=== PATIENT | female | born 1985 | race Caucasian/White ===

== ENCOUNTER 2017-05-16 11:37 | Emergency (ER) | payer OTHER ==
[~2017-05-16] VITALS: Ht 165.1 cm; Wt 131.5 kg
[~2017-05-16 11:37] MED LIST: AUGMENTIN 875-1 EACH PO; BENADRYL25 MG PO; COLACE100 MG PO; CYCLOBENZAPRINE10 MG PO; DOXYCYCLINE HY100 MG PO; IBUPROFEN800 MG PO; KEFLEX500 MG PO; LIDODERM700 MG TOP; LOPERAMIDE2 MG PO; MAGNESIUM CITR296 ML PO; MEDROL4 M1 PO; MELOXICAM15 MG PO; MELOXICAM7.5 MG PO; METRONIDAZOLE500 MG PO; OXYCODONE-ACET1 EAC1 PO; PERCOCET 5-3251 EACH PO; PHENERGAN25 MG RC; PREDNISONE20 MG PO; TRAMADOL HCL50 MG PO; ZANAFLEX4 M1 PO; ZOFRAN ODT4 MG PO; ZOFRAN ODT8 MG PO
--- OUTSIDE RECORDS SUMMARY | 2017-05-16 11:57 | XMS ---
Demographics + + + | Address | [address] | | | [place] [address] | + + + | Preferred Language | Unknown | + + + | Marital Status | Unknown | + + + | Buddhist Affiliation | Unknown | + + + | Race | Unknown | + + + | Ethnic Group | Unknown | + + + Author + + + | Author | [facility] | + + + | Organization | [facility] | + + + | Address | [address] | | | [place] [address] | + + + | Phone | [phone] EXT [phone] | + + + Care Team Providers + + + + | Care Supervisor Fur Floor Worker Name | Role | Phone | + + + + Unavailable | Unavailable | + + + + PROBLEMS +---------+ + + +--------+ + + | Type | Condition | ICD9-CM | [id number] | Onset | Condition | SNOMED | | | | Code | Code | Dates | Status | Code | +---------+ + + +--------+ + + | Problem | Irregular | N92.6 | | | Active | 84219812 | | | menstrual | | | | | | | | cycle | | | | | | +---------+ + + +--------+ + + | Problem | Amenorrhea | | N91.2 | | Active | 54626699 | +---------+ + + +--------+ + + | Problem | Abdominal | 789.04 | | | Active | 461734183 | | | pain, left | | | | | | | | lower | | | | | | | | quadrant | | | | | | +---------+ + + +--------+ + + | Problem | Essential | | I10 | | Active | 40504697 | | | (primary) | | | | | | | | hypertensi | | | | | | | | on | | | | | | +---------+ + + +--------+ + + | Problem | Low back | | M54.5 | | Active | 097130332 | | | pain | | | | | | +---------+ + + +--------+ + + ALLERGIES Unknown Allergies SOCIAL HISTORY No smoking Hx information available PLAN OF CARE VITAL SIGNS MEDICATIONS Unknown Medications RESULTS No Results PROCEDURES No Known procedures IMMUNIZATIONS No Known Immunizations"
--- OUTSIDE RECORDS SUMMARY | 2017-05-16 11:57 | XMS ---
Demographics + + + | Address | [address] | | | [place] [address] | + + + | Preferred Language | Unknown | + + + | Marital Status | Unknown | + + + | Congregation Affiliation | Unknown | + + + | Race | Unknown | + + + | Ethnic Group | Unknown | + + + Author + + + | Author | [facility] | + + + | Organization | [facility] | + + + | Address | [address] | | | [place] [address] | + + + | Phone | [phone] EXT [phone] | + + + Care Team Providers + + + + | Care Branch Administrator Name | Role | Phone | + + + + Unavailable | Unavailable | + + + + PROBLEMS +---------+ + + +--------+ + + | Type | Condition | ICD9-CM | [id number] | Onset | Condition | SNOMED | | | | Code | Code | Dates | Status | Code | +---------+ + + +--------+ + + | Problem | Irregular | N92.6 | | | Active | 17411899 | | | menstrual | | | | | | | | cycle | | | | | | +---------+ + + +--------+ + + | Problem | Amenorrhea | | N91.2 | | Active | 30038251 | +---------+ + + +--------+ + + | Problem | Abdominal | 789.04 | | | Active | 206081086 | | | pain, left | | | | | | | | lower | | | | | | | | quadrant | | | | | | +---------+ + + +--------+ + + | Problem | Essential | | I10 | | Active | 61793962 | | | (primary) | | | | | | | | hypertensi | | | | | | | | on | | | | | | +---------+ + + +--------+ + + | Problem | Low back | | M54.5 | | Active | 703432229 | | | pain | | | | | | +---------+ + + +--------+ + + ALLERGIES Unknown Allergies SOCIAL HISTORY No smoking Hx information available PLAN OF CARE VITAL SIGNS MEDICATIONS Unknown Medications RESULTS No Results PROCEDURES No Known procedures IMMUNIZATIONS No Known Immunizations"
--- OUTSIDE RECORDS SUMMARY | 2017-05-16 11:57 | XMS ---
Demographics + + + | Address | [address] | | | [place] [address] | + + + | Preferred Language | Unknown | + + + | Marital Status | Unknown | + + + | Yazdanism Affiliation | Unknown | + + + | Race | Unknown | + + + | Ethnic Group | Unknown | + + + Author + + + | Author | [facility] | + + + | Organization | [facility] | + + + | Address | [address] | | | [place] [address] | + + + | Phone | [phone] EXT [phone] | + + + Care Team Providers + + + + | Care Agricultural Equipment Salesperson Name | Role | Phone | + + + + Unavailable | Unavailable | + + + + PROBLEMS +---------+ + + +--------+ + + | Type | Condition | ICD9-CM | [id number] | Onset | Condition | SNOMED | | | | Code | Code | Dates | Status | Code | +---------+ + + +--------+ + + | Problem | Irregular | N92.6 | | | Active | [id number] | | | menstrual | | | | | | | | cycle | | | | | | +---------+ + + +--------+ + + | Problem | Amenorrhea | | N91.2 | | Active | 00956667 | +---------+ + + +--------+ + + | Problem | Abdominal | 789.04 | | | Active | 058715147 | | | pain, left | | | | | | | | lower | | | | | | | | quadrant | | | | | | +---------+ + + +--------+ + + | Problem | Essential | | I10 | | Active | 16884924 | | | (primary) | | | | | | | | hypertensi | | | | | | | | on | | | | | | +---------+ + + +--------+ + + | Problem | Low back | | M54.5 | | Active | 955744805 | | | pain | | | | | | +---------+ + + +--------+ + + ALLERGIES + + + + +--------+ | Substance | Reaction | Event Type | Date | Status | + + + + +--------+ | Tramadol HCl | stomach upset | Drug Allergy | May, | Active | + + + + +--------+ | Toradol | stomach upset | Drug Allergy | May, | Active | + + + + +--------+ | Naproxen | stomach upset | Drug Allergy | May, | Active | + + + + +--------+ SOCIAL HISTORY No smoking Hx information available PLAN OF CARE + +---------+ | Activity | Details | + +---------+ +---+ | | +---+ + + + | Follow Up | prn, 8 weeks Reason:null | + + + | Pending Test | Pap Lb (Liquid-based) | + + + | Pending Test | HPV, DNA | + + + | Pending Test | Ultrasound: Pelvic | + + + | Future/Pending Procedure | Endometrial Biopsy | + + + VITAL SIGNS + + + + | Height | 64.75 in | 2017-05-07 | + + + + | Weight | 307.0 lbs | 2017-05-07 | + + + + | BMI | 51.48 kg/m2 | 2017-05-07 | + + + + | Heart Rate | 86 /min | 2017-05-07 | + + + + | Blood pressure systolic | 144 mm Hg | 2017-05-07 | + + + + | Blood pressure diastolic | 93 mm Hg | 2017-05-07 | + + + + MEDICATIONS + + + + + + + +--------+ | Medicati | Instruct | Dosage | Frequenc | Start | End Date | Duration | Status | | on | ions | | y | Date | | | | + + + + + + + +--------+ | Provera | Orally | 1 tablet | | May, | 16 Oct, | 10 days | Active | | 10 mg | Once a | | | 2016 | 2016 | | | | | day | | | | | | | | | starting | | | | | | | | | on the | | | | | | | | | 16th day | | | | | | | | | of | | | | | | | | | cycle | | | | | | | + + + + + + + +--------+ RESULTS + +--------+------+ + | Name | Result | Date | Reference Range | + +--------+------+ + | Endometrial Biopsy | | | | + +--------+------+ + PROCEDURES + + + + + | Procedure | Date Ordered | Related Diagnosis | Body Site | + + + + + | SPECIMEN HANDLING | May 07, 2017 | | | + + + + + | BIOPSY OF UTERUS | May 07, 2017 | | | | LINING | | | | + + + + + | DSCHRG MED/CURRENT | May 07, 2017 | | | | MED MERGE | | | | + + + + + | Est Level IV | May 07, 2017 | | | | Extended | | | | + + + + + | DOC MEDS VERIFIED | May 07, 2017 | | | | W/PT OR RE | | | | + + + + + IMMUNIZATIONS No Known Immunizations"
[2017-05-16] MEDS ORDERED: PERCOCET 5-3251 EACH PO (14:21)
[2017-05-16] MEDS ORDERED: DOXYCYCLINE HY100 MG PO (14:24)
== END 2017-05-16 14:46 | disposition home or self-care (01) ==
LOC: ED 11:37
DX: R10.2 Pelvic and perineal pain (principal); E66.01 Morbid (severe) obesity due to excess calories; F17.200 Nicotine dependence, unspecified, uncomplicated; Z88.8 Allergy status to other drugs, medicaments and biological substances; Z88.5 Allergy status to narcotic agent; Z79.899 Other long term (current) drug therapy
CPT/HCPCS: 76830; 76856; 81001; 84703; 85025; 99284

== ENCOUNTER 2017-05-21 19:07 | Emergency (ER) | payer OTHER ==
[~2017-05-21] VITALS: Ht 165.1 cm; Wt 131.5 kg
[2017-05-21] MEDS ORDERED: MEDROXYPROGESTE10 MG PO (19:23)
== END 2017-05-21 23:22 | disposition home or self-care (01) ==
LOC: ED 19:07
DX: R10.2 Pelvic and perineal pain (principal); E66.01 Morbid (severe) obesity due to excess calories; F17.200 Nicotine dependence, unspecified, uncomplicated; Z88.8 Allergy status to other drugs, medicaments and biological substances; Z88.5 Allergy status to narcotic agent; Z79.899 Other long term (current) drug therapy
CPT/HCPCS: 36415; 74177; 80053; 81001; 84703; 85025; 99284; Q9967

== ENCOUNTER 2017-06-11 18:16 | Emergency (ER) | payer OTHER ==
[~2017-06-11] VITALS: Ht 165.1 cm; Wt 136.1 kg
[~2017-06-11 18:16] MED LIST changes: +MEDROXYPROGESTE10 MG PO
[2017-06-11] MEDS ORDERED: PROVERA10 MG PO (21:23)
--- OUTSIDE RECORDS SUMMARY | 2017-06-11 21:26 | XMS ---
Demographics + + + | Address | [address] | | | [place] [address] | + + + | Preferred Language | Unknown | + + + | Marital Status | Unknown | + + + | Jew Affiliation | Unknown | + + + | Race | Unknown | + + + | Ethnic Group | Unknown | + + + Author + + + | Author | [facility] | + + + | Organization | [facility] | + + + | Address | [address] | | | [place] [address] | + + + | Phone | | + + + Care Team Providers + + + + | Care Semiconductor Processing Group Leader Name | Role | Phone | + + + + Unavailable | Unavailable | + + + + PROBLEMS +---------+ + + +--------+ + + | Type | Condition | ICD9-CM | IJQ24-[id number] | Onset | Condition | SNOMED | | | | Code | Code | Dates | Status | Code | +---------+ + + +--------+ + + | Problem | Opioid | F11.20 | | | Active | [id number] | | | dependence | | | | | | +---------+ + + +--------+ + + | Problem | Irregular | N92.6 | | | Active | 88615763 | | | menstrual | | | | | | | | cycle | | | | | | +---------+ + + +--------+ + + | Problem | Low back | | M54.5 | | Active | 077763868 | | | pain | | | | | | +---------+ + + +--------+ + + | Problem | Abdominal | 789.04 | | | Active | 379918868 | | | pain, left | | | | | | | | lower | | | | | | | | quadrant | | | | | | +---------+ + + +--------+ + + | Problem | Amenorrhea | | N91.2 | | Active | 68019737 | +---------+ + + +--------+ + + | Problem | Essential | | I10 | | Active | 06136063 | | | (primary) | | | [...] + + + | Follow Up | prn Reason:null | + + + VITAL SIGNS + + + + | Height | 64.75 in | 2017-05-30 | + + + + | Weight | 301.0 lbs | 2017-05-30 | + + + + | BMI | 50.47 kg/m2 | 2017-05-30 | + + + + | Temperature | 98.7 degrees Fahrenheit | 2017-05-30 | + + + + | Heart Rate | 76 /min | 2017-05-30 | + + + + | Blood pressure systolic | 127 mm Hg | 2017-05-30 | + + + + | Blood pressure diastolic | 67 mm Hg | 2017-05-30 | + + + + MEDICATIONS + + + + + + + +--------+ | Medicati | Instruct | Dosage | Frequenc | Start | End Date | Duration | Status | | on | ions | | y | Date | | | | + + + + + + + +--------+ | Provera | Orally | 1 tablet | | 07 May, | 16 Oct, | | Active | | 10 mg | Once a | | | 2017 | 2017 | | | | | month | | | | | | | + + + + + + + +--------+ RESULTS No Results PROCEDURES No Known procedures IMMUNIZATIONS No Known Immunizations"
--- OUTSIDE RECORDS SUMMARY | 2017-06-11 21:27 | XMS ---
Demographics + + + | Address | [address] | | | [place] [address] | + + + | Preferred Language | Unknown | + + + | Marital Status | Unknown | + + + | Mosque Affiliation | Unknown | + + + | Race | Unknown | + + + | Ethnic Group | Unknown | + + + Author + + + | Author | [facility] | + + + | Organization | [facility] | + + + | Address | [address] | | | [place] [address] | + + + | Phone | [phone] EXT [phone] | + + + Care Team Providers + + + + | Care Speech Therapist Early Intervention Name | Role | Phone | + + + + Unavailable | Unavailable | + + + + PROBLEMS +---------+ + + +--------+ + + | Type | Condition | ICD9-CM | [id number] | Onset | Condition | SNOMED | | | | Code | Code | Dates | Status | Code | +---------+ + + +--------+ + + | Problem | Opioid | F11.20 | | | Active | [id number] | | | dependence | | | | | | +---------+ + + +--------+ + + | Problem | Irregular | N92.6 | | | Active | 43268933 | | | menstrual | | | | | | | | cycle | | | | | | +---------+ + + +--------+ + + | Problem | Low back | | M54.5 | | Active | 224185622 | | | pain | | | | | | +---------+ + + +--------+ + + | Problem | Abdominal | 789.04 | | | Active | 630152899 | | | pain, left | | | | | | | | lower | | | | | | | | quadrant | | | | | | +---------+ + + +--------+ + + | Problem | Amenorrhea | | N91.2 | | Active | 27694581 | +---------+ + + +--------+ + + | Problem | Essential | | I10 | | Active | 61415240 | | | (primary) | | | [...]
--- OUTSIDE RECORDS SUMMARY | 2017-06-11 21:27 | XMS ---
Demographics + + + | Address | [address] | | | [place] [address] | + + + | Preferred Language | Unknown | + + + | Marital Status | Unknown | + + + | Restorationist Affiliation | Unknown | + + + | Race | Unknown | + + + | Ethnic Group | Unknown | + + + Author + + + | Author | [facility] | + + + | Organization | [facility] | + + + | Address | [address] | | | [place] [address] | + + + | Phone | [phone] EXT [phone] | + + + Care Team Providers + + + + | Care Automotive Internet Sales Consultant Name | Role | Phone | + + + + Unavailable | Unavailable | + + + + PROBLEMS +---------+ + + +--------+ + + | Type | Condition | ICD9-CM | [id number] | Onset | Condition | SNOMED | | | | Code | Code | Dates | Status | Code | +---------+ + + +--------+ + + | Problem | Opioid | F11.20 | | | Active | 35949207 | | | dependence | | | | | | +---------+ + + +--------+ + + | Problem | Irregular | N92.6 | | | Active | 86430954 | | | menstrual | | | | | | | | cycle | | | | | | +---------+ + + +--------+ + + | Problem | Low back | | M54.5 | | Active | 616496772 | | | pain | | | | | | +---------+ + + +--------+ + + | Problem | Abdominal | 789.04 | | | Active | 332217672 | | | pain, left | | | | | | | | lower | | | | | | | | quadrant | | | | | | +---------+ + + +--------+ + + | Problem | Amenorrhea | | N91.2 | | Active | 67276947 | +---------+ + + +--------+ + + | Problem | Essential | | I10 | | Active | 38557840 | | | (primary) | | | [...] + + | Follow Up | prn, 2 Months Reason:null | + + + VITAL SIGNS + + + + | Height | 64.75 in | 2017-05-24 | + + + + | Weight | 303.0 lbs | 2017-05-24 | + + + + | BMI | 50.81 kg/m2 | 2017-05-24 | + + + + | Heart Rate | 60 /min | 2017-05-24 | + + + + | Blood pressure systolic | 122 mm Hg | 2017-05-24 | + + + + | Blood pressure diastolic | 66 mm Hg | 2017-05-24 | + + + + MEDICATIONS + [...] 1 tablet | | May, | 16 Jul, | 10 days | Active | | [...] + + +--------+ RESULTS No Results PROCEDURES + + + + + | Procedure | Date Ordered | Related Diagnosis | Body Site | + + + + + | Est Level III | May 24, 2017 | | | | Intermediate | | | | + + + + + | DSCHRG MED/CURRENT | May 24, 2017 | | | | MED MERGE | | | | + + + + + | DOC MEDS VERIFIED | May 24, 2017 | | | | W/PT OR RE | | | | + + + + + IMMUNIZATIONS No Known Immunizations"
--- OUTSIDE RECORDS SUMMARY | 2017-06-11 21:27 | XMS ---
Demographics + + + | Address | [address] | | | [place] [address] | + + + | Preferred Language | Unknown | + + + | Marital Status | Unknown | + + + | Scientologist Affiliation | Unknown | + + + | Race | Unknown | + + + | Ethnic Group | Unknown | + + + Author + + + | Author | [facility] | + + + | Organization | [facility] | + + + | Address | [address] | | | [place] [address] | + + + | Phone | | + + + Care Team Providers + + + + | Care Spent Grain Dryer Name | Role | Phone | + + + + Unavailable | Unavailable | + + + + PROBLEMS +---------+ + + +--------+ + + | Type | Condition | ICD9-CM | [id number] | Onset | Condition | SNOMED | | | | Code | Code | Dates | Status | Code | +---------+ + + +--------+ + + | Problem | Irregular | N92.6 | | | Active | [id number] | | | menstrual | | | | | | | | cycle | | | | | | +---------+ + + +--------+ + + | Problem | Amenorrhea | | N91.2 | | Active | 21042582 | +---------+ + + +--------+ + + | Problem | Abdominal | 789.04 | | | Active | 447625545 | | | pain, left | | | | | | | | lower | | | | | | | | quadrant | | | | | | +---------+ + + +--------+ + + | Problem | Essential | | I10 | | Active | 98340620 | | | (primary) | | | | | | | | hypertensi | | | | | | | | on | | | | | | +---------+ + + +--------+ + + | Problem | Low back | | M54.5 | | Active | 375347928 | | | pain | | | | | | +---------+ + + +--------+ + + ALLERGIES Unknown Allergies SOCIAL HISTORY No smoking Hx information available PLAN OF CARE VITAL SIGNS MEDICATIONS Unknown Medications RESULTS No Results PROCEDURES No Known procedures IMMUNIZATIONS No Known Immunizations"
[2017-06-11] MEDS ORDERED: ZOFRAN ODT4 MG PO (23:57)
== END 2017-06-12 00:10 | disposition home or self-care (01) ==
LOC: ED 18:16
DX: R10.2 Pelvic and perineal pain (principal); R10.11 Right upper quadrant pain; F17.200 Nicotine dependence, unspecified, uncomplicated; E66.01 Morbid (severe) obesity due to excess calories; Z88.6 Allergy status to analgesic agent; Z88.5 Allergy status to narcotic agent; Z79.899 Other long term (current) drug therapy; Z79.2 Long term (current) use of antibiotics
CPT/HCPCS: 74177; 80053; 81001; 83690; 84703; 85025; 86318; 96361; 96374; 99284; J2405; J7030; Q9967

== ENCOUNTER 2017-08-02 17:12 | Emergency (ER) | payer OTHER ==
[~2017-08-02] VITALS: Ht 165.1 cm; Wt 135.2 kg
[~2017-08-02 17:12] MED LIST changes: +PROVERA10 MG PO
--- OUTSIDE RECORDS SUMMARY | 2017-08-02 17:23 | XMS | Clinical Summary ---
Demographics + + + | Address | [address] | | | [place] [address] | + + + | Home Phone | | + + + | Preferred Language | Unknown | + + + | Marital Status | | + + + | Latter-Day Affiliation | ALEVISM | + + + | Race | White | + + + | Ethnic Group | Not or | + + + Author + + + | Author | [facility] | + + + | Organization | [facility] | + + + | Address | Unknown | + + + | Phone | Unavailable | + + + Support + + +---------+ + | Name | Relationship | Address | Phone | + + +---------+ + | Doyle Danielle | ECON | Unknown | | + + +---------+ + Care Team Providers + +------+ + | Care Degree Clerk Name | Role | Phone | + +------+ + | None Per Patient, None Per | PP | Unavailable | | Pt | | | + +------+ + Allergies + + + + + + | Active Allergy | Reactions | Severity | Noted | Comments | | | | | Date | | + + + + + + | Naproxen | Rash | Medium | //20 | | | | | | 16 | | + + + + + + | Ketorolac | Rash | Medium | 07/26/20 | | | | | | 15 | | + + + + + + Current Medications + + +---------+---------+------+------+-------+ | Prescription | Sig. | Disp. | Refills | Star | End | Statu | | | | | | t | Date | s | | | | | | Date | | | + + +---------+---------+------+------+-------+ | LORazepam (ATIVAN) | Take by mouth every | | | | | Activ | | 0.5 mg tablet | 8 hours as needed | | | | | e | | | for Anxiety | | | | | | + + +---------+---------+------+------+-------+ | citalopram | Take by mouth daily | | | | | Activ | | (CELEXA) 20 mg | | | | | | e | | tabletIndications: | | | | | | | | Depression | | | | | | | + + +---------+---------+------+------+-------+ | tiZANidine | Take 8 mg by mouth | | | | | Activ | | (ZANAFLEX) 4 mg | every 8 hours as | | | | | e | | tablet | needed for Pain | | | | | | + + +---------+---------+------+------+-------+ | ibuprofen | Take 1 tablet (600 | 30 | 0 | 10/0 | | Activ | | (ADVIL;MOTRIN) 600 | mg total) by mouth | tablet | | 7/20 | | e | | mg tablet | every 8 hours as | | | 15 | | | | | needed for Pain | | | | | | + + +---------+---------+------+------+-------+ | ondansetron | Take 1 tablet (4 mg | 10 | 0 | 10/1 | | Activ | | (ZOFRAN-ODT) 4 mg | total) by mouth | tablet | | 6/20 | | e | | disintegrating | every 6 hours as | | | 15 | | | | tablet | needed for Nausea | | | | | | | | (For nausea or | | | | | | | | vomiting) place on | | | | | | | | the tongue. | | | | | | + + +---------+---------+------+------+-------+ | Oxycodone 10 mg | Take 0.5-1 tablets | 50 | 0 | 10/2 | | Activ | | tablet | (5-10 mg total) by | tablet | | 6/20 | | e | | | mouth every 4 hours | | | 15 | | | | | as needed for Pain | | | | | | + + +---------+---------+------+------+-------+ | colchicine 0.6 mg | Take 1 tablet (0.6 | 28 | 0 | 10/2 | | Activ | | tablet | mg total) by mouth 2 | tablet | | 6/20 | | e | | | times daily | | | 15 | | | + + +---------+---------+------+------+-------+ | docusate sodium | Take 1 capsule (100 | 30 | 0 | 10/2 | | Activ | | (COLACE) 100 mg | mg total) by mouth 2 | capsule | | 6/20 | | e | | capsule | times daily | | | 15 | | | + + +---------+---------+------+------+-------+ | omeprazole | Take 1 capsule (20 | 30 | 0 | 10/2 | | Activ | | (PRILOSEC) 20 mg | mg total) by mouth | capsule | | 6/20 | | e | | capsule DR | every morning | | | 15 | | | | | (before breakfast) | | | | | | + + +---------+---------+------+------+-------+ | docusate sodium | Take 1 capsule (100 | 60 | 0 | 11/0 | | Activ | | (COLACE) 100 mg | mg total) by mouth 2 | capsule | | 8/20 | | e | | capsule | times daily | | | 15 | | | + + +---------+---------+------+------+-------+ | ondansetron | Take 1 tablet (4 mg | 15 | 0 | 12/2 | | Activ | | (ZOFRAN-ODT) 4 mg | total) by mouth | tablet | | 4/20 | | e | | disintegrating | every 12 hours as | | | 16 | | | | tablet | needed for Nausea | | | | | | | | place on the tongue. | | | | | | + + +---------+---------+------+------+-------+ | | Take 1-2 tablets by | 15 | 0 | 12/2 | | Activ | | HYDROcodone-acetamin | mouth every 4 hours | tablet | | 4/20 | | e | | ophen (NORCO) 5-325 | as needed for Pain | | | 16 | | | | mg per tablet | | | | | | | + + +---------+---------+------+------+-------+ Active Problems + + + | Problem | Noted Date | + + + | Chest pain | 07/26/2015 | + + + | Anxiety | 07/26/2015 | + + + | Morbid obesity with BMI of 50.0-59.9, adult (HCC) | 07/26/2015 | + + + | Acute viral pericarditis | 07/26/2015 | + + + Immunizations + + + + | Name | Dates Previously Given | Next Due | + + + + | Influenza, Quad, | 07/26/2015 | | | Preserve Free | | | + + + + Social History + + + +--------+------+ | Tobacco Use | Types | Packs/Day | Years | Date | | | | | Used | | + + + +--------+------+ | Current Every Day | Cigarettes | 0.2 | | | | Smoker | | | | | + + + +--------+------+ + +---+---+---+ | Smokeless Tobacco: | | | | | Never Used | | | | + +---+---+---+ + + | Tobacco Cessation: Ready to Quit: No; Counseling Given: Yes | + + + + +---------+ + | Alcohol Use | Drinks/We | oz/Week | Comments | | | ek | | | + + +---------+ + | Yes | 2 | 1.2 | occ | | | Standard | | | | | drinks or | | | | | | | | | | equivalen | | | | | t | | | + + +---------+ + + + + + + | Sexually Active | Control | Partners | Comments | + + + + + | Yes | | | No bith control | + + + + + + + + | Sex Assigned at | Date Recorded | | | | + + + | Not on file | | + + + Last Filed Vital Signs + + + + | Vital Sign | Reading | Time Taken | + + + + | Blood Pressure | 131/92 | 09/23/2016 5:30 AM PST | + + + + | Pulse | 94 | 09/23/2016 1:24 AM PST | + + + + | Temperature | 36.7 C (98.1 F) | 09/23/2016 1:24 AM PST | + + + + | Respiratory Rate | 14 | 09/23/2016 7:22 AM PST | + + + + | Oxygen Saturation | 95% | 09/23/2016 7:30 AM PST | + + + + | Inhaled Oxygen | - | - | | Concentration | | | + + + + | Weight | 139 kg (306 lb 7 oz) | 08/02/2015 2:47 PM PST | + + + + | Height | 165.1 cm (5' 5") | 08/02/2015 2:47 PM PST | + + + + | Body Mass Index | 50.99 | 08/02/2015 2:47 PM PST | + + + + Plan of Treatment + + + + + | Health Maintenance | Due Date | Last Done | Comments | + + + + + | HIV Screening | | | | | | 9 | | | + + + + + | Pneumo -64 Medium | | | | | Risk (1 of 1 - | 3 | | | | PPSV23) | | | | + + + + + | Tetanus | | | | | | 3 | | | + + + + + | Cervical Cancer | | | | | Screening | 5 | | | + + + + + | IMM Influenza (#1) | | 07/26/2015 | | | | 7 | | | + + + + + Results Not on filefrom Last 3 Months Advance Directives Patient has advance directives. For more information, please contact:[facility] [place] [address]
--- OUTSIDE RECORDS SUMMARY | 2017-08-02 17:23 | XMS | Clinical Summary ---
Demographics + + + | Address | [address] | | | [place] [address] | + + + | Home Phone | | + + + | Preferred Language | Unknown | + + + | Marital Status | | + + + | Muslim Affiliation | ZOROASTRIANISM | + + + | Race | [...] Team Providers + +------+ + | Care Tunnel Kiln Operator Name | Role | Phone | + [...] has advance directives. For more information, please contact:[facility] [place] [address]
== END 2017-08-02 19:10 | disposition home or self-care (01) ==
LOC: ED 17:12
DX: R10.12 Left upper quadrant pain (principal); E66.01 Morbid (severe) obesity due to excess calories; Z88.6 Allergy status to analgesic agent; Z88.5 Allergy status to narcotic agent; Z88.8 Allergy status to other drugs, medicaments and biological substances; Z79.899 Other long term (current) drug therapy
CPT/HCPCS: 81001; 84703; 96372; 99283; J2765

== ENCOUNTER 2017-10-26 17:40 | Emergency (ER) | payer OTHER ==
[~2017-10-26] VITALS: Ht 165.1 cm; Wt 135.2 kg
--- OUTSIDE RECORDS SUMMARY | 2017-10-26 17:43 | XMS ---
Demographics + + + | Address | [address] | | | [place] [address] | + + + | Preferred Language | Unknown | + + + | Marital Status | Unknown | + + + | Yazidism Affiliation | Unknown | + + + | Race | Unknown | + + + | Ethnic Group | Unknown | + + + Author + + + | Author | [facility] | + + + | Organization | [facility] | + + + | Address | [address] | | | [place] [address] | + + + | Phone | | + + + Care Team Providers + + + + | Care Camp Assistant Name | Role | Phone | + + + + Unavailable | Unavailable | + + + + PROBLEMS +---------+ + + +--------+ + + | Type | Condition | ICD9-CM | [id number] | Onset | Condition | SNOMED | | | | Code | Code | Dates | Status | Code | +---------+ + + +--------+ + + | Problem | Opioid | F11.20 | | | Active | 53655523 | | | dependence | | | | | | +---------+ + + +--------+ + + | Problem | Irregular | N92.6 | | | Active | 97063060 | | | menstrual | | | | | | | | cycle | | | | | | +---------+ + + +--------+ + + | Problem | Low back | | M54.5 | | Active | 292481286 | | | pain | | | | | | +---------+ + + +--------+ + + | Problem | Abdominal | 789.04 | | | Active | 902121763 | | | pain, left | | | | | | | | lower | | | | | | | | quadrant | | | | | | +---------+ + + +--------+ + + | Problem | Amenorrhea | | N91.2 | | Active | 08421931 | +---------+ + + +--------+ + + | Problem | Essential | | I10 | | Active | 98765585 | | | (primary) | | | | | | | | hypertensi | | | | | | | | on | | | | | | +---------+ + + +--------+ + + ALLERGIES No Information SOCIAL HISTORY Never Assessed PLAN OF CARE VITAL SIGNS MEDICATIONS Unknown Medications RESULTS No Results PROCEDURES No Known procedures IMMUNIZATIONS No Known Immunizations MEDICAL (GENERAL) HISTORY + + + + | Type | Description | Date | + + + + | Medical History | pericarditis | | + + + + | Medical History | fractured spine | | + + + + | Medical History | slipped disc | | + + + + | Medical History | building disc | | + + + + | Medical History | history related to pain | | | | management this patient is | | | | that she first saw me | | | | September 30, 2015 chronic | | | | low back pain refill of | | | | narcotics she had been | | | | living in the [place] | | | | area and had a recent | | | | admission for a | | | | pericarditis and was on | | | | high doses of Percocet 5 | | | | 325 q.4 hours p.r.n. pain | | | | and also having significant | | | | headaches obesity he is an | | | | ongoing problem she is | | | | working with a diet and | | | | exercise program has lost | | | | about 30 pounds and she | | | | gained a little weight back | | | | she is wanting to stay on | | | | the present level of | | | | narcotics and she loses | | | | more weight however I | | | | informed her that is not | | | | the plan the weight loss is | | | | important for multiple | | | | reasons but she does need | | | | to reduce the narcotics and | | | | were going to reduce him | | | | to 60 a month the headaches | | | | are much better with the | | | | lower dose of narcotics and | | | | headaches probably related | | | | to narcotic use she is | | | | having no cardiac or | | | | cardiorespiratory problems | | | | now and she has a | | | | counseling program for her | | | | narcotic use overall her | | | | quality of life improving | | | | as she establishes here and | | | | stabilized | | + + + + | Hospitalization History | Post endometritis | | + + + + | Hospitalization History | PossibleSpinal meningitis | | + + + + | Hospitalization History | Pericarditis | July 2015 | + + + +"
--- OUTSIDE RECORDS SUMMARY | 2017-10-26 17:43 | XMS ---
Demographics + + + | Address | [address] | | | [place] [address] | + + + | Preferred Language | Unknown | + + + | Marital Status | Unknown | + + + | Hinduism Affiliation | Unknown | + + + | Race | Unknown | + + + | Ethnic Group | Unknown | + + + Author + + + | Author | [facility] | + + + | Organization | [facility] | + + + | Address | [address] | | | [place] [address] | + + + | Phone | | + + + Care Team Providers + + + + | Care Renal Dialysis Technician Name | Role | Phone | + + + + Unavailable | Unavailable | + + + + PROBLEMS +---------+ + + +--------+ + + | Type | Condition | ICD9-CM | [id number] | Onset | Condition | SNOMED | | | | Code | Code | Dates | Status | Code | +---------+ + + +--------+ + + | Problem | Opioid | F11.20 | | | Active | 70492215 | | | dependence | | | | | | +---------+ + + +--------+ + + | Problem | Irregular | N92.6 | | | Active | 92781314 | | | menstrual | | | | | | | | cycle | | | | | | +---------+ + + +--------+ + + | Problem | Low back | | M54.5 | | Active | 729020149 | | | pain | | | | | | +---------+ + + +--------+ + + | Problem | Abdominal | 789.04 | | | Active | 964204812 | | | pain, left | | | | | | | | lower | | | | | | | | quadrant | | | | | | +---------+ + + +--------+ + + | Problem | Amenorrhea | | N91.2 | | Active | 67527544 | +---------+ + + +--------+ + + | Problem | Essential | | I10 | | Active | 07711116 | | | (primary) | | | [...] | stomach upset | Drug Allergy | Jun, | Active | + + + + +--------+ | Toradol | stomach upset | Drug Allergy | Jun, | Active | + + + + +--------+ | Naproxen | stomach upset | Drug Allergy | Jun, | Active | + + + + +--------+ SOCIAL HISTORY Never Assessed PLAN OF CARE + +---------+ | Activity | Details | + +---------+ +---+ | | +---+ + + + | Follow Up | prn Reason:null | + + + VITAL SIGNS + + + + | Height | 64.75 in | 2017-06-13 | + + + + | Weight | 300.0 lbs | 2017-06-13 | + + + + | BMI | 50.30 kg/m2 | 2017-06-13 | + + + + | Temperature | 99.0 degrees Fahrenheit | 2017-06-13 | + + + + | Heart Rate | 78 /min | 2017-06-13 | + + + + | Blood pressure systolic | 157 mm Hg | 2017-06-13 | + + + + | Blood pressure diastolic | 79 mm Hg | 2017-06-13 | + + + + MEDICATIONS + [...] Once a | | | 2016 | 2017 | | | | | month | | | | | | | + + + + + + + +--------+ | Protonix | Orally | 1 tab(s) | 24h | 13 Jun, | | 30 | Active | | 40 MG | once a | | | 2016 | | day(s) | | | | day | | [...] | | | | living in the [place] | | | | area and had [...]
[2017-10-26] MEDS ORDERED: IBUPROFEN800 MG PO (17:56)
--- NOTE | 2017-10-27 16:24 | EKG ---
[facility] [address] [place] [address] Signed Normal sinus rhythm Normal ECG No previous ECGs available Confirmed by SUNITHA RAMÍREZ MD ([id number]) on 10/27/2017 4:23:56 PM Electronically Signed By: SUNITHA RAMÍREZ MD 10/27/17 1624 PATIENT NAME: RICARDO DEGROOT Electrocardiogram DATE OF : 83 PHYSICIAN: SUNITHA RAMÍREZ MD REPORT #: [id number] REPORT IS CONFIDENTIAL AND NOT TO BE RELEASED WITHOUT AUTHORIZATION
== END 2017-10-26 18:55 | disposition home or self-care (01) ==
LOC: ED 17:40
DX: R07.89 Other chest pain (principal); E66.01 Morbid (severe) obesity due to excess calories; F17.200 Nicotine dependence, unspecified, uncomplicated; Z88.8 Allergy status to other drugs, medicaments and biological substances; Z88.5 Allergy status to narcotic agent; Z79.899 Other long term (current) drug therapy
CPT/HCPCS: 80053; 84484; 85025; 93005; 93010; 99284

== ENCOUNTER 2017-12-05 13:02 | Emergency (ER) | payer OTHER ==
[~2017-12-05] VITALS: Ht 165.1 cm; Wt 135.2 kg
--- OUTSIDE RECORDS SUMMARY | ~2017-12-05 | XMS | Clinical Summary ---
Demographics + + + | Address | [address] | | | [place] [address] | + + + | Home Phone | | + + + | Preferred Language | Unknown | + + + | Marital Status | | + + + | Oriental Orthodox Affiliation | YAZIDI | + + + | Race | [...] Phone | + + +---------+ + | Juliana Kwon | ECON | Unknown | | + + +---------+ + Care Team Providers + +------+ + | Care Registered Pharmacist Name | Role | Phone | + [...] | Naproxen | Rash | Medium | 09/23/20 | | | | | | 16 [...] | + + + + + | Tobacco Cessation | | | | | Counseling | 6 | | | + + + + + | HIV Screening | | | | | | 9 | | | + + + + + | Pneumo 19-64 Medium | | | | | Risk [...] has advance directives. For more information, please contact:[email or web address] [place] [address]
--- OUTSIDE RECORDS SUMMARY | ~2017-12-05 | XMS | Clinical Summary ---
Demographics + + + | Address | [address] | | | [place] [address] | + + + | Home Phone | | + + + | Preferred Language | Unknown | + + + | Marital Status | | + + + | Tenriism Affiliation | MORMONISM | + + + | Race | [...] Team Providers + +------+ + | Care Hospice Office Coordinator Name | Role | Phone | [...] has advance directives. For more information, please contact:[employer] [place] [address]
[2017-12-05] MEDS ORDERED: CIPRO250 MG PO (14:25)
== END 2017-12-05 14:57 | disposition home or self-care (01) ==
LOC: ED 13:02
DX: N39.0 Urinary tract infection, site not specified (principal); E66.01 Morbid (severe) obesity due to excess calories; F17.200 Nicotine dependence, unspecified, uncomplicated; Z88.6 Allergy status to analgesic agent; Z88.8 Allergy status to other drugs, medicaments and biological substances; Z88.5 Allergy status to narcotic agent; Z79.899 Other long term (current) drug therapy
CPT/HCPCS: 76705; 80053; 81001; 82150; 83690; 84703; 85025; 87502; 99284

== ENCOUNTER 2018-03-12 21:07 | Emergency (ER) | payer OTHER ==
[~2018-03-12] VITALS: Ht 165.1 cm; Wt 136.1 kg
[~2018-03-12 21:07] MED LIST changes: +CIPRO250 MG PO
[2018-03-12] MEDS ORDERED: HYDROCHLOROTH12.5 MG PO (21:20)
--- NOTE | 2018-03-13 08:49 | EKG ---
[facility] [address] [place] [address] Signed Normal sinus rhythm Normal ECG When compared with ECG of 26-OCT-2017 17:49, No significant change was found Confirmed by SUNITHA RAMÍREZ MD ([id number]) on 03/13/2018 8:49:46 AM Electronically Signed By: SUNITHA RAMÍREZ MD 03/13/18 0849 PATIENT NAME: ZANERICARDO Electrocardiogram DATE OF : 83 PHYSICIAN: SUNITHA RAMÍREZ MD REPORT #: [id number] REPORT IS CONFIDENTIAL AND NOT TO BE RELEASED WITHOUT AUTHORIZATION
== END 2018-03-13 00:37 | disposition home or self-care (01) ==
LOC: ED 21:07
DX: R00.2 Palpitations (principal); E66.01 Morbid (severe) obesity due to excess calories; F17.200 Nicotine dependence, unspecified, uncomplicated; Z88.6 Allergy status to analgesic agent; Z88.5 Allergy status to narcotic agent; Z79.899 Other long term (current) drug therapy
CPT/HCPCS: 71045; 80053; 81001; 83880; 84484; 84703; 85025; 85379; 93005; 93010; 96361; 96374; 96376; 99284; J2405; J7030

== ENCOUNTER 2018-10-13 16:24 | Emergency (ER) | payer OTHER ==
[~2018-10-13] VITALS: Ht 165.1 cm; Wt 136.1 kg
[~2018-10-13 16:24] MED LIST changes: +HYDROCHLOROTH12.5 MG PO
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
[2018-10-13] MEDS ORDERED: NORCO 5-325 TA1 EACH PO (17:37)
== END 2018-10-13 17:57 | disposition home or self-care (01) ==
LOC: ED 16:24
DX: S39.012A Strain of muscle, fascia and tendon of lower back, initial encounter (principal); S46.911A Strain of unspecified muscle, fascia and tendon at shoulder and upper arm level, right arm, initial encounter; S00.33XA Contusion of nose, initial encounter; E66.01 Morbid (severe) obesity due to excess calories; Z87.891 Personal history of nicotine dependence; Z88.6 Allergy status to analgesic agent; Z88.5 Allergy status to narcotic agent; Z88.8 Allergy status to other drugs, medicaments and biological substances; W22.8XXA Striking against or struck by other objects, initial encounter; Y92.410 Unspecified street and highway as the place of occurrence of the external cause
CPT/HCPCS: 72100; 73030; 99284

== ENCOUNTER 2018-11-04 14:35 | Emergency (ER) | payer OTHER ==
[~2018-11-04] VITALS: Ht 165.1 cm; Wt 136.1 kg
[~2018-11-04 14:35] MED LIST changes: +NORCO 5-325 TA1 EACH PO
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
--- NOTE | 2018-11-05 13:39 | EKG ---
[facility] [address] [place], [place] [address] Signed Normal sinus rhythm Normal ECG Confirmed by MONIKA ADHIKARI DO ([id number]) on 11/05/2018 1:39:31 PM Electronically Signed By: MONIKA ADHIKARI DO 11/05/18 1339 PATIENT NAME: BLAKE MADERARICARDO Electrocardiogram DATE OF : 83 PHYSICIAN: MONIKA ADHIKARI DO REPORT #: [id number] REPORT IS CONFIDENTIAL AND NOT TO BE RELEASED WITHOUT AUTHORIZATION
== END 2018-11-04 17:22 | disposition home or self-care (01) ==
LOC: ED 14:35
DX: R07.9 Chest pain, unspecified (principal); F41.9 Anxiety disorder, unspecified; E66.01 Morbid (severe) obesity due to excess calories; Z87.891 Personal history of nicotine dependence; Z88.6 Allergy status to analgesic agent; Z88.5 Allergy status to narcotic agent; Z79.899 Other long term (current) drug therapy
CPT/HCPCS: 36415; 80053; 84484; 85025; 93005; 93010; 96374; 96375; 99283-25; J2405

== ENCOUNTER 2018-12-26 20:54 | Emergency (ER) | payer OTHER ==
[~2018-12-26] VITALS: Ht 165.1 cm; Wt 122.5 kg
--- OUTSIDE RECORDS SUMMARY | 2018-12-26 20:58 | XMS ---
PreManage Notification: RICARDO ABERNATHY Security Cognos Developer Events No recent Security Events currently on file CRITERIA MET - Group Notification - [facility] CARE PROVIDERS RODGER [facility] Internal Medicine [facility] PHONE: [phone] HENRRY Chowdhury [facility] 06/26/2012-Current PHONE: Unknown Mike BECERRIL Family Medicine 10/17/2010-Current PHONE: [phone] ISELA BAY Nurse Practitioner: Women's Health 10/14/2018-Current PHONE: [phone] ISELA BAY Primary Care Current PHONE: [phone] HENRRY Chowdhury Primary Care 09/20/2010-Ria PHONE: Unknown Family Practice Primary [facility] Current PHONE: Unknown DULCE UNDERWOOD Primary Care [facility] PHONE: Unknown [facility] 03/14/2014-Ria Giordano MD PHONE: Unknown Guidelines Source: [facility] Guidelines Date: 04/06/2017 Care Coordination: ENCOURAGE PATIENT TO USE PCP FOR FOLLOW UP OR NON-EMERGENT PROBLEMS. ASK PATIENT TO CALL THIS APPLICATION LEAD FOR HELP OR QUESTIONS. LUCIEN JUAREZ RN MECHANIC INDUSTRIAL TRUCK, [facility] [phone] Additional care guidelines exist for the following facilities: [facility] ( 12/31/2017 ) Care History Substance Use/Overdose 05/25/2017 [facility] USE EXTREME CAUTION WITH PRESCRIBING NARCOTICS. THIS PATIENT BETWEEN 05-01 AND 05-16 HAS BEEN PRESCRIBED IN [place] THE FOLLOWIN PERCOCET 51 HYDROCODONE Medical/Surgical 10/14/2018 [facility] - PATIENT ALSO KNOWN - RICARDO DEGROOT. - Patient is currently established with [facility]. If patient is seen in the ED during business hours. Please contact CHWs at [facility]. Care Recommendation: This patient has had 5 or more Emergency Department visits in the last 12 months.\\T\\nbsp; Patient requires education on the scope and purpose of the ED as an acute care provider not a Primary Care Provider and should not be utilized for chronic conditions.\\T\\nbsp; These are guidelines and the provider should exercise clinical judgment when providing care. 05/28/2017 [facility] IF PATIENT COMES IN FOR PELVIC/ABD PAIN, CONTACT [facility] AT [phone] OPTION 2 . PATIENT HAS HAD FULL WORK-UP REGARDING THIS CHRONIC ISSUE. 08/28/2015 [facility] Chest Pain "unspecified" SOB Left lower quadrant pain Leg pain Lumbago back pain Unspecified pericardium disease anxiety Radiation 05/25/2017 [facility] PATIENT HAS HAD THE FOLLOWING IN LAST 18 MONTHS: CAT SCAN: 10/2015, 06/2016, 2016 ALL WNL US PELVIC: 11/2015, 12/2015, 05/11/2017, 05/16/2017 ALL WNL Behavioral 08/28/2015 [facility] Generalized anxiety disorder. [place] VISIT COUNT (12 MO.) 1 [facility] [place] TOTAL 5 NOTE: Visits indicate total known visits. ED/UCC VISIT TRACKING (12 MO.) [facility]2018 [facility] [place] [facility] COMPLAINT: - L HIP PAIN/NO INJURY 11/04/2018 14:35 [facility] [place] TYPE: Emergency COMPLAINT: - CHEST PAIN/SOB DIAGNOSES: - Anxiety disorder, unspecified - Other nursing home (current) drug therapy - Pleurodynia - Allergy status to analgesic agent status - Allergy status to narcotic agent status - Chest pain, unspecified - Personal history of nicotine dependence - Morbid (severe) obesity due to excess calories 10/13/2018 16:24 [facility] [place] TYPE: Emergency [...] level, right arm, initial encounter 04/28/2018 20:52 [place] TYPE: Emergency DIAGNOSES: - Chest Pain - Chest pain, unspecified - Shortness of Breath - Palpitations 03/12/2018 21:07 [facility] [place] TYPE: Emergency COMPLAINT: - RAPID HEART RATE,VOMITING DIAGNOSES: - Other long term care administrator (current) drug therapy - Allergy status to analgesic agent status - Morbid (severe) obesity due to excess calories - Palpitations - Allergy status to narcotic agent status - Nicotine dependence, unspecified, uncomplicated INPATIENT VISIT TRACKING (12 MO.) No inpatient visits to display in this time frame [email or web address]
[2018-12-27] MEDS ORDERED: DICLOFENAC SODI75 MG PO (00:31)
== END 2018-12-27 00:48 | disposition home or self-care (01) ==
LOC: ED 20:54
DX: M25.552 Pain in left hip (principal); E66.9 Obesity, unspecified; Z87.891 Personal history of nicotine dependence; Z88.6 Allergy status to analgesic agent; Z88.5 Allergy status to narcotic agent; Z88.8 Allergy status to other drugs, medicaments and biological substances
CPT/HCPCS: 73502; 84703; 99283-25

== ENCOUNTER 2019-08-03 12:53 | Emergency (ER) | payer OTHER ==
[~2019-08-03] VITALS: Ht 165.1 cm; Wt 125.2 kg
--- OUTSIDE RECORDS SUMMARY | ~2019-08-03 | XMS | Encounter Summary ---
Demographics + + + | Address | [address] | | | [place] [address] | + + + | Home Phone | | + + + | Preferred Language | Unknown | + + + | Marital Status | Single | + + + | Bahai Affiliation | NON | + + + | Race | White | + + + | Ethnic Group | Not or | + + + Author + + + | Author | [facility] | + + + | Organization | [facility] | + + + | Address | Unknown | + + + | Phone | Unavailable | + + + Support +------+ +---------+ + | Name | Relationship | Address | Phone | +------+ +---------+ + | None | ECON | Unknown | Unavailable | +------+ +---------+ + Care Team Providers + +------+ + | Care Knit Goods Press Hand Name | Role | Phone | + +------+ + | No Pcp Per Patient | PCP | Unavailable | + +------+ + Encounter Details +--------+ + + + + | Date | Type | Department | Care Team | Description | +--------+ + + + + | 04/06/ | Results | Epic at [facility] | Meghan Ramos, | | | 2013 | Only | [address] | [address] [facility] [address] | | | | | [place], [place] | [facility] | | | | | [address] | [place], [place] | | | | | | [address] | | | | | | [phone] | | | | | | | | +--------+ + + + + Social History + +-------+ +--------+------+ | Tobacco Use | Types | Packs/Day | Years | Date | | | | | Used | | + +-------+ +--------+------+ | Current Some Day | | | | | | Smoker | | | | | + +-------+ +--------+------+ + + +---------+ + | Alcohol Use [...] recent travel history available. | + + documented as of this encounter Plan of Treatment Not on filedocumented as of this encounter Procedures + +--------+ + + + | Procedure Name | Priori | Date/Time | Associated Diagnosis | Comments | | | ty | | | | + +--------+ + + + | X-RAY FOOT 3 VIEWS | Routin | 04/06/2014 | | Results for this | | RIGHT | e | 10:34 PM | | procedure are in the | | | | PDT | | results section. | + +--------+ + + + | X-RAY ANKLE 3 VIEWS | Routin | 04/06/2014 | | Results for this | | RIGHT | e | 10:34 PM | | procedure are in the | | | | PDT | | results section. | + +--------+ + + + documented in this encounter Results X-RAY ANKLE 3 VIEWS RIGHT (04/06/2014 10:34 PM PDT) + + | Specimen | + + | | + + + + + | Narrative | Performed At | + + + | RIGHT ANKLE; 3 VIEWS CLINICAL INFORMATION: Injury. | [facility] | | FINDINGS: The bones, joints and soft tissues appear intact. No | RADIOLOGY | | definite joint effusion is present. IMPRESSION: Normal | | | study. | | + + + + --------+ | Procedure Note | + --------+ | Interface, Lab Results [facility] - 06/12/2017 3:35 PM PDT RIGHT ANKLE; 3 VIEWSCLINICAL | | INFORMATION: Injury.FINDINGS: The bones, joints and soft tissues appear intact. No | | definite joint effusion is present.IMPRESSION: Normal study. | | | |CLINICAL INFORMATION: Injury. | | | | | | | |FINDINGS: The bones, joints and soft tissues appear intact. No definite joint effusion is p resent. | | | | | | | |IMPRESSION: Normal study. | + --------+ + + + + + | Performing | Address | City/State/Zipcode | Phone Number | | Organization | | | | + + + + + | [facility] | [address] | [place] [address] | [phone] | + + + + + X-RAY FOOT 3 VIEWS RIGHT (04/06/2014 10:34 PM PDT) + + | Specimen | + + | | + + + + + | Narrative | Performed At | + + + | RIGHT FOOT; 3 VIEWS CLINICAL INFORMATION: Injury. | [facility] | | FINDINGS: The bones and joints appear intact. Soft tissue swelling | RADIOLOGY | | overlying the distal forefoot is noted on lateral view. | | | IMPRESSION: No fracture or dislocation. | | + + + + + | Procedure Note | + + | Interface, Lab Results [facility] - 06/12/2017 3:35 PM PDT RIGHT FOOT; 3 VIEWSCLINICAL | | INFORMATION: Injury.FINDINGS: The bones and joints appear intact. Soft tissue swelling | | overlying the distal forefoot is noted on lateral view. IMPRESSION: No fracture or | | dislocation. | |CLINICAL INFORMATION: Injury. | | | | | | | |FINDINGS: The bones and joints appear intact. Soft tissue swelling overlying the distal for efoot is noted on lateral view. | | | | | | | |IMPRESSION: No fracture or dislocation. | + + + + + + + | Performing | Address | City/State/Zipcode | Phone Number | | Organization | | | | + + + + + | [facility] | [address] | [place] [address] | [phone] | + + + + + documented in this encounter Visit Diagnoses Not on filedocumented in this encounter"
--- OUTSIDE RECORDS SUMMARY | ~2019-08-03 | XMS | Encounter Summary ---
Demographics + + + | Address | [address] | | | [place] [address] | + + + | Home Phone | | + + + | Preferred Language | Unknown | + + + | Marital Status | Single | + + + | Caodaism Affiliation | NON | + + + [...] Team Providers + +------+ + | Care Security Officer Name | Role | Phone | + +------+ + | No Pcp Per Patient | PCP | Unavailable | + +------+ + Encounter Details +--------+ + + + + | Date | Type | Department | Care Team | Description | +--------+ + + + + | 05/08/ | ED Progress | Epic at [facility] | Z[place], | ED Progress Note | | 2014 | | [address] | Emmanuel Waddell MD | | | | Note-Transc | [place], [place] | [facility] | | | | [facility] | [address] | [facility] [address] | | | | | | [place] [address] | | | | | | [phone] | | | | | | | [...] Not on filedocumented as of this encounter Visit Diagnoses Not on filedocumented in this encounter"
--- OUTSIDE RECORDS SUMMARY | ~2019-08-03 | XMS | Encounter Summary ---
Demographics + + + | Address | [address] | | | [place] [address] | + + + | Home Phone | | + + + | Preferred Language | Unknown | + + + | Marital Status | Single | + + + | Sikhism Affiliation | NON | + + + | Race | White | + + + | Ethnic Group | Not or | + + + Author + + + | Author | [facility] | + + + | Organization | [facility] | + + + | Address | Unknown | + + + | Phone | Unavailable | + + + Support +------+ +---------+ + | Name | Relationship | Address | Phone | +------+ +---------+ + | None | ECON | Unknown | Unavailable | +------+ +---------+ + Care Team Providers + +------+ + | Care Outside Operator Name | Role | Phone | + +------+ + | [facility], | PCP | | | Ref | | | + +------+ + Encounter Details +--------+ + + + + | Date | Type | Department | Care Team | Description | +--------+ + + + + | 12/08/ | ED Progress | [facility] | Report, Emergency | ED Progress Note | | 2002 | | MEDICINE | Services | | | | Note-Transc | | | | | | ribed | | | | +--------+ + + [...]
--- OUTSIDE RECORDS SUMMARY | ~2019-08-03 | XMS | Encounter Summary ---
Demographics + + + | Address | [address] | | | [place] [address] | + + + | Home Phone | | + + + | Preferred Language | Unknown | + + + | Marital Status | Single | + + + | Holiness Affiliation | NON | + + + [...] Team Providers + +------+ + | Care Bone Tender Name | Role | Phone | + +------+ + | No Pcp Per Patient | PCP | Unavailable | + +------+ + Encounter Details +--------+ + + + + | Date | Type | Department | Care Team | Description | +--------+ + + + + | 03/14/ | Results | Epic at [facility] | Janet Salomon, | | | 2013 | Only | [address] | [facility] | | | | | [place], [place] | [facility] | | | | | [address] | [address] | | | | | | [address] | | | | | | [place] [address] | | | | | | [phone] | | | | | | | [...] UA DIPSTICK 10 DIP | Routin | 03/14/2014 | | Results for this | | W/O MICRO | e | 6:42 PM | | procedure are in the | | (AUTOMATED), POC | | PDT | | results section. | + +--------+ + + + | CHLAM/GC APTIMA, | Routin | 03/14/2014 | | Results for this | | RNA, TMA | e | 5:35 PM | | procedure are in the | | | | PDT | | results section. | + +--------+ + + + | CULTURE, URINE | Routin | 03/14/2014 | | Results for this | | | e | 5:35 PM | | procedure are in the | | | | PDT | | results section. | + +--------+ + + + documented in this encounter Results UA DIPSTICK 10 DIP W/O MICRO (AUTOMATED), POC (03/14/2014 6:42 PM PDT) + + + + + [...] + + + | BLOOD (UA | Trace-lysed (A) | Negative | [facility] | | | DIP), POC | | | [facility] | | + + + + + + | PH (UA | 6.5 | 5.0 - 9.0 | [facility] | [...] + + + + | LEUKOCYTES | Large (A) | Negative | [facility] | | [...] [facility] | [address] | [place] [address] | | | LAB | | | | + + + + + | [facility] | [address] | [place] [address] | | | LAB | | | | + + + + + CHLAM/GC APTIMA, RNA, TMA (03/14/2014 5:35 PM PDT) + + + + + + | Component | Value | Ref Range | Performed | Pathologist | | | | | At | Signature | + + + + + + | CHLAMYDIA | NOT DETECTED | NOT DETECTED | [facility] | | | PROBE | | | [facility] | | + + + + + + | GONOCOCCUS | NOT DETECTED | NOT DETECTED | [facility] | | | PROBE | | | [facility] | | + + + + + + | COMMENTS | See CommentComment: This | | [facility] | | | | test was performed | | [facility] | | | | using the APTIMA COMBO2 | | | | | | Assay([employer] | | | | | | The analytical | | | | | | performance | | | | | | characteristics of this | | | | | | assay, when used to test | | | | | | [facility] specimens | | | | | | havebeen determined by | | | | | | [facility]. Lab | | | | | | test performed by:Lab | | | | | | Mnemonic: [id number] | | | | | | DIAGNOSTICS | | | | | | [id number] | | | | | | [address] [facility], | | | | | | [place] [address]BH[address] M | | | | | | MD DESHAWN | | | | + + + + + + + + | Specimen | + + | | + + + + + + + | Performing | Address | City/State/Zipcode | Phone Number | | Organization | | | | + + + + + | [facility] | [address] | [place] [address] | | | LAB | | | | + + + + + | [facility] | [address] | [place] [address] | | | LAB | | | | + + + + + CULTURE, URINE (03/14/2014 5:35 PM PDT) + + + + + + | Component | Value | Ref Range | Performed | Pathologist | | | | | At | Signature | + + + + + + | URINE | Patient:RICARDO DEGROOT | | [facility] | | | CULTURE | MAYTE | | [facility] | | | | MRN: | | | | | | [id number] | | | | | | | | | | | | | | | | | | Routine Cultures | | | | | | PROCEDURE: | | | | | | Urine Culture | | | | | | [P1] | | | | | | COLLECTED: | | | | | | 03/14/2014 | | | | | | 17:35 PDTSOURCE: | | | | | | U | | | | | | NonCath | | | | | | STARTED: | | | | | | | | | | | | 03/14/2014 21:17 | | | | | | PDTFREE TEXT SOURCE: | | | | | | | | | | | | | | | | | | ACCESSION: | | | | | | | | | | | | [id number] SITE: | | | | | | FINAL REPORTSFinal | | | | | | Report []Verified | | | | | | Date/Time: 03/16/2014 | | | | | | 09:49 PDTUrine colony | | | | | | count 10-50,000 CFU/ml | | | | | | Mixed Gram positive | | | | | | growth including Yeast | | | | | | Multiple organisms | | | | | | present Performing | | | | | | [...] [facility] | [address] | [place] [address] | | | LAB | | | | + + + + + | [facility] | [address] | [place] [address] | | | LAB | | | | + + + + + documented in this encounter Visit Diagnoses Not on filedocumented in this encounter"
--- OUTSIDE RECORDS SUMMARY | ~2019-08-03 | XMS | Encounter Summary ---
Demographics + + + | Address | [address] | | | [place] [address] | + + + | Home Phone | | + + + | Preferred Language | Unknown | + + + | Marital Status | Single | + + + | Latter-Day Affiliation | NON | + + + | Race | White | + + + | Ethnic Group | Not or | + + + Author + + + | Author | [facility] | + + + | Organization | [facility] | + + + | Address | Unknown | + + + | Phone | Unavailable | + + + Support +------+ +---------+ + | Name | Relationship | Address | Phone | +------+ +---------+ + | None | ECON | Unknown | Unavailable | +------+ +---------+ + Care Team Providers + +------+ + | Care Front End Drupal Developer Name | Role | Phone | + +------+ + | [facility], | PCP | | | Ref | [...]
--- OUTSIDE RECORDS SUMMARY | ~2019-08-03 | XMS | Encounter Summary ---
Demographics + + + | Address | [address] | | | [place] [address] | + + + | Home Phone | | + + + | Preferred Language | Unknown | + + + | Marital Status | Single | + + + | Uatsdin Affiliation | NON | + + + [...] Team Providers + +------+ + | Care Residential Director Name | Role | Phone | + +------+ + | No Pcp Per Patient | PCP | Unavailable | + +------+ + Encounter Details +--------+ + + + + | Date | Type | Department | Care Team | Description | +--------+ + + + + | 04/30/ | ED Progress | Epic at [facility] | Jill Das, | ED Progress Note | | 2013 | | [address] | [address] | | | | Note-Transc | [place], [place] | [place], [place] | | | | handy | [address] | [address] | | | | | | | [...]
--- OUTSIDE RECORDS SUMMARY | ~2019-08-03 | XMS | Encounter Summary ---
Demographics + + + | Address | [address] | | | [place] [address] | + + + | Home Phone | | + + + | Preferred Language | Unknown | + + + | Marital Status | Single | + + + | Jehovah'S Witness Affiliation | NON | + + + [...] Team Providers + +------+ + | Care Drafter Seismograph Name | Role | Phone | + +------+ + | No Pcp Per Patient | PCP | Unavailable | + +------+ + Encounter Details +--------+ + + + + | Date | Type | Department | Care Team | Description | +--------+ + + + + | 08/29/ | ED Progress | Epic at [facility] | Liban Manzo | ED Progress Note | | 2015 | | [address] | MD Ahsan [address] [facility] | | | | Note-Transc | [place], [place] | [facility] | | | | handy | [address] | [place], [place] | | | | | | [address] | | | | | | [phone] | | | | | | | [...]
--- OUTSIDE RECORDS SUMMARY | ~2019-08-03 | XMS | Encounter Summary ---
Demographics + + + | Address | [address] | | | [place] [address] | + + + | Home Phone | | + + + | Preferred Language | Unknown | + + + | Marital Status | Single | + + + | Congregation Affiliation | NON | + + + | Race | White | + + + | Ethnic Group | Not or | + + + Author + + + | Author | [facility] | + + + | Organization | [facility] | + + + | Address | Unknown | + + + | Phone | Unavailable | + + + Support +------+ +---------+ + | Name | Relationship | Address | Phone | +------+ +---------+ + | None | ECON | Unknown | Unavailable | +------+ +---------+ + Care Team Providers + +------+ + | Care Sports Management Intern Name | Role | Phone | + +------+ + | No Pcp Per Patient | PCP | Unavailable | + +------+ + Reason for Visit +--------+ + | Reason | Comments | +--------+ + | SI | | +--------+ + Encounter Details +--------+ + + + + | Date | Type | Department | Care Team | Description | +--------+ + + + + | 03/27/ | Emergency | [facility] Emergency | John Olivas, | | | 2011 - | | Department [address] | | | | | [address] | [address] | | | 03/28/ | | [facility] | [place], [place] | | | 2011 | | [place], [place] | [address] | | | | | [address] | [phone] | | | | | [phone] | | | +--------+ + + + [...] Comments | + + +---------+ + | No | | | | + + +---------+ + [...] + + documented as of this encounter Last Filed Vital Signs + + + + + | Vital Sign | Reading | Time Taken | Comments | + + + + + | Blood Pressure | 122/72 | 03/27/2012 11:00 PM | | | | | PDT | | + + + + + | Pulse | 81 | 03/27/2012 11:00 PM | | | | | PDT | | + + + + + | Temperature | 36.7 C (98.1 F) | 03/27/2012 11:00 PM | | | | | PDT | | + + + + + | Respiratory Rate | 18 | 03/27/2012 11:00 PM | | | | | PDT | | + + + + + | Oxygen Saturation | 97% | 03/27/2012 11:00 PM | | | | | PDT | | + + + + + | Inhaled Oxygen | - | - | | | Concentration | | | | + + + + + | Weight | - | - | | + + + + + | Height | - | - | | + + + + + | Body Mass Index | - | - | | + + + + + documented in this encounter Discharge Instructions Instructions Erasmo Solis MD - 03/28/2012 Adjustment Disorder: After Your Visit Your Care Instructions Adjustment disorder occurs when you develop emotional or behavioral problems in response to stress. In an adjustment disorder, the response to the stress is far more severe than a nor mal response should be. It is severe enough to affect your work or social life and may cause depression and physical pains and problems. Events that may cause this response can include a divorce, money problems, starting school or a new job, or anything that normally causes s ome stress. An adjustment disorder is usually a short-term problem. It occurs within [address] ressful event or change. If the response lasts longer than 6 months after the event ends, yo u may have a more serious disorder. Follow-up care is a hutson part of your treatment and safety. Be sure to make and go to all ap pointments, and call your doctor if you are having problems. It s also a good idea to know your test results and keep a list of the medicines you take. How can you care for yourself at home? Go to all scheduled counseling sessions. Do not skip any because you are feeling better. If your doctor prescribed medicines, take them exactly as prescribed. Call your doctor i f you think you are having a problem with your medicine. You will get more details on the sp ecific medicines your doctor prescribes. Discuss the causes of your stress with a good friend or family member, or join a support group for people with similar problems. Talking to others sometimes relieves stress. Get at least 30 minutes of exercise on most days of the week. Walking is a good choice. You also may want to do other activities, such as running, swimming, cycling, or playing ten nis or team sports. Relaxation techniques Do relaxation exercises 10 to 20 minutes a day. You can play soothing, relaxing music while you do them, if you wish. Tell others in your house that you are going to do your relaxation exercises. Ask them n ot to disturb you. Find a comfortable place, away from all distractions and noise. Lie down on your back, or sit with your back straight. Focus on your breathing. Make it slow and steady. Breathe in through your nose. Breathe out through either your nose or mouth. Breathe deeply, filling up the area between your navel and your rib cage. Breathe so kami t your belly goes up and down. Do not hold your breath. Breathe like this for 5 to 10 minutes. Notice the feeling of calmness throughout your wh ole body. As you continue to breathe slowly and deeply, relax by doing the following for another 5 to 10 minutes: Tighten and relax each muscle group in your body. You can begin at your toes and work yo ur way up to your head. Imagine your muscle groups relaxing and becoming heavy. Empty your mind of all thoughts. Let yourself relax more and more deeply. Become aware of the state of calmness that surrounds you. When your relaxation time is over, you can bring yourself back to alertness by moving yo ur fingers and toes and then your hands and feet and then stretching and moving your entire body. Sometimes people fall asleep during relaxation, but they usually wake up shortly after carbone. Always give yourself time to return to full alertness before you drive a car or do anyth ing that might cause an accident if you are not fully alert. Never play a relaxation tape wh ile you drive a car. When should you call for help? Call 911 anytime you think you may need emergency care. For example, call if: You feel you cannot stop from hurting yourself or someone else. Watch closely for changes in your health, and be sure to contact your doctor if: You cannot go to your counseling sessions. You do not get better as expected. Where can you learn more? To learn more about "Adjustment Disorder: After Your Visit", log into your [employer] account at [email or web address]. You can enter [id number] in the [employer] Library" search box. Not on [employer]? Review the OpenSpant section of your After Visit Summary for directions on ho w to sign up. [phone] [employer]. Care instructions adapted under license by [facility] & [employer]. This care instruction is for use with your licensed healthcar e professional. If you have questions about a medical condition or this instruction, always ask your healthcare professional. [employer] disclaims any warranty or liabili ty for your use of this information. Content Version: 9.3.82904; Last Revised: March 28, 2011 Urinary Tract Infection in Women: After Your Visit Your Care Instructions A urinary tract infection, or UTI, is a general term for an infection anywhere between the kidneys and the urethra (where urine comes out). Most UTIs are bladder infections. They ofte n cause pain or burning when you urinate. UTIs are caused by bacteria and can be cured with antibiotics. Be sure to complete your maulik atment so that the infection goes away. Follow-up care is a hutson part of your treatment and safety. Be sure to make and go to all ap pointments, and call your doctor if you are having problems. It s also a good idea to know your test results and keep a list of the medicines you take. How can you care for yourself at home? Take your antibiotics as directed. Do not stop taking them just because you feel better. You need to take the full course of antibiotics. Drink extra water and other fluids for the next day or two. This may help wash out the b acteria that are causing the infection. (If you have kidney, heart, or liver disease and hav e to limit fluids, talk with your doctor before you increase your fluid intake.) Avoid drinks that are carbonated or have caffeine. They can irritate the bladder. Urinate often. Try to empty your bladder each time. To relieve pain, take a hot bath or lay a heating pad set on low over your lower belly o r genital area. Never go to sleep with a heating pad in place. To prevent UTIs Drink plenty of water each day. This helps you urinate often, which clears bacteria from your system. (If you have kidney, heart, or liver disease and have to limit fluids, talk wi th your doctor before you increase your fluid intake.) Consider adding cranberry juice to your diet. Urinate when you need to. Urinate right after you have sex. Change sanitary pads often. Avoid douches, bubble baths, feminine hygiene sprays, and other feminine hygiene product s that have deodorants. After going to the bathroom, wipe from front to back. When should you call for help? Call your doctor now or seek immediate medical care if: Symptoms such as fever, chills, nausea, or vomiting get worse or appear for the first ti me. You have new pain in your back just below your rib cage. This is called flank pain. There is new blood or pus in your urine. You have any problems with your antibiotic medicine. Watch closely for changes in your health, and be sure to contact your doctor if: You are not getting better after 1 day (24 hours). Your symptoms go away but then come back. Where can you learn more? To learn more about "Urinary Tract Infection in Women: After Your Visit", log into your [employer] account at [email or web address]. You can enter [id number] in the [employer]" se arch box. Not on [employer]? Review the OpenSpant section of your After Visit Summary for directions on inna w to sign up. [phone] [employer]. Care instructions adapted under license by [facility] & [facility]. This care instruction is for use with your licensed healthMobileIron professional. If you have questions about a medical condition or this instruction, always ask your healthcare professional. [employer] disclaims any warranty or liabili ty for your use of this information. Content Version: 9.3.15423; Last Revised: February 14, 2011 documented in this encounter Medications at Time of Discharge + + + +---------+ + + | Medication | Sig | Dispensed | Refills | Start | End Date | | | | | | Date | | + + + +---------+ + + | ciprofloxacin 250 | Take 1 Tab by mouth | 6 Tab | 0 | 03/28/20 | | | mg Oral Tablet | every twelve hours | | | 12 | 2 | | | for 3 days. | | | | | + + + +---------+ + + documented as of this encounter Plan of Treatment Not on filedocumented as of this encounter Procedures + +--------+ + + + | Procedure Name | Priori | Date/Time | Associated Diagnosis | Comments | | | ty | | | | + +--------+ + + + | HCG URINE (MANUAL), | Urgent | 03/27/2012 | | Results for this | | POC | | 11:05 PM | | procedure are in the | | | | PDT | | results section. | + +--------+ + + + | DIFFERENTIAL | Urgent | 03/27/2012 | | Results for this | | | | 11:00 PM | | procedure are in the | | | | PDT | | results section. | + +--------+ + + + | CBC, WITH | Urgent | 03/27/2012 | | Results for this | | DIFFERENTIAL | | 11:00 PM | | procedure are in the | | | | PDT | | results section. | + +--------+ + + + | DRUG SCREEN,URINE;NO | Urgent | 03/27/2012 | | Results for this | | CONFIRM | | 11:00 PM | | procedure are in the | | | | PDT | | results section. | + +--------+ + + + | COMPLETE METABOLIC | Urgent | 03/27/2012 | | Results for this | | SET | | 11:00 PM | | procedure are in the | | (NA,K,CL,CO2,BUN,CRE | | PDT | | results section. | | AT,GLUC,CA,AST,ALT,B | | | | | | MERI TOTAL,ALK | | | | | | PHOS,ALB,PROT TOTAL) | | | | | + +--------+ + + + | UA, DIPSTICK ONLY | Urgent | 03/27/2012 | | Results for this | | | | 11:00 PM | | procedure are in the | | | | PDT | | results section. | + +--------+ + + + | URINE, MICROSCOPIC | Urgent | 03/27/2012 | | Results for this | | EXAM | | 11:00 PM | | procedure are in the | | | | PDT | | results section. | + +--------+ + + + | URINE SCREEN FOR | Urgent | 03/27/2012 | | Results for this | | CULTURE | | 11:00 PM | | procedure are in the | | | | PDT | | results section. | + +--------+ + + + | CULTURE, URINE BACTI | Urgent | 03/27/2012 | | Results for this | | | | 11:00 PM | | procedure are in the | | | | PDT | | results section. | + +--------+ + + + | ACETAMINOPHEN, | Urgent | 03/27/2012 | | Results for this | | PLASMA | | 11:00 PM | | procedure are in the | | | | PDT | | results section. | + +--------+ + + + | TSH | Urgent | 03/27/2012 | | Results for this | | | | 11:00 PM | | procedure are in the | | | | PDT | | results section. | + +--------+ + + + | ETHANOL (ALCOHOL), | Urgent | 03/27/2012 | | Results for this | | BLOOD | | 11:00 PM | | procedure are in the | | | | PDT | | results section. | + +--------+ + + + | SALICYLATE, PLASMA | Urgent | 03/27/2012 | | Results for this | | | | 11:00 PM | | procedure are in the | | | | PDT | | results section. | + +--------+ + + + documented in this encounter Results URINE HCG TEST, POC (03/27/2012 11:05 PM PDT) + +-------+ + + + | Component | Value | Ref Range | Performed | Pathologist | | | | | At | Signature | + +-------+ + + + | HCG URINE, | neg | Negative | | | | POC | | | | | + +-------+ + + + | QC: ENTER | pass | | | | | "PASS" OR | | | | | | "FAIL", | | | | | | URINE HCG | | | | | + +-------+ + + + CULTURE, URINE BACTI (03/27/2012 11:00 PM PDT) + + + + + + | Component | Value | Ref Range | Performed | Pathologist | | | | | At | Signature | + + + + + + | SOURCE BODY | Urine | | [facility] | | | SITE | | | REGIONAL | | | | | | LAB-MICRO | | + + + + + + | CULTURE | Urine Culture | | [facility] | | | RESULT | | | REGIONAL | | | | Source...............: | | LAB-MICRO | | | | Urine Culture: | | | | | | Multiple organisms | | | | | | are present indicating | | | | | | probable | | | | | | contamination or | | | | | | colonization not related | | | | | | to infection. | | | | | | Further work-up of | | | | | | these organisms may | | | | | | result in | | | | | | clinically misleading | | | | | | information due to the | | | | | | low numbers | | | | | | and/or mixture of | | | | | | organisms present. | | | | | | Recollection is | | | | | | suggested if clinically | | | | | | indicated. Final | | | | | | Report Resulted: | | | | | | 03/29/12 | | | | | | [facility] | | | | | | [facility] | | | | | | [facility] | | | | | | [address] | | | | | | [place], [place] | | | | | | [address] | | | | + + + + + + + + | Specimen | + + | | + + + + + + + | Performing | Address | City/State/Zipcode | Phone Number | | Organization | | | | + + + + + | [facility] | [address] | [place] [address] | | | LAB-MICRO | | | | + + + + + DIFFERENTIAL (03/27/2012 11:00 PM PDT) + +---------+ + + + | Component | Value | Ref Range | Performed | Pathologist | | | | | At | Signature | + +---------+ + + + | NEUTROPHIL | 67 | 50 - 70 % | [facility] | | | % | | | DEPARTMENT | | | | | | OF | | | | | | PATHOLOGY | | + +---------+ + + + | LYMPHOCYTE | 25 | 18 - 42 % | [facility] | | | % | | | DEPARTMENT | | | | | | OF | | | | | | PATHOLOGY | | + +---------+ + + + | MONOCYTE % | 6 | 2 - 8 % | [facility] | | | | | | DEPARTMENT | | | | | | OF | | | | | | PATHOLOGY | | + +---------+ + + + | EOS % | 2 | 1 - 3 % | [facility] | | | | | | DEPARTMENT | | | | | | OF | | | | | | PATHOLOGY | | + +---------+ + + + | BASO % | 1 | <3 % | [facility] | | | | | | DEPARTMENT | | | | | | OF | | | | | | PATHOLOGY | | + +---------+ + + + | NEUTROPHIL | 8.1 (H) | 1.8 - 7.7 K/cu | [facility] | | | # | | mm | DEPARTMENT | | | | | | OF | | | | | | PATHOLOGY | | + +---------+ + + + | LYMPHOCYTE | 3.0 | 1.0 - 4.8 K/cu | [facility] | | | # | | mm | DEPARTMENT | | | | | | OF | | | | | | PATHOLOGY | | + +---------+ + + + | MONOCYTE # | 0.7 | <0.9 K/cu mm | [facility] | | | | | | DEPARTMENT | | | | | | OF | | | | | | PATHOLOGY | | + +---------+ + + + | EOS # | 0.2 | <0.6 K/cu mm | [facility] | | | | | | DEPARTMENT | | | | | | OF | | | | | | PATHOLOGY | | + +---------+ + + + | BASO # | 0.1 | <0.3 | [facility] | | | | | | DEPARTMENT | | | | | | OF | | | | | | PATHOLOGY | | + +---------+ + + + + + | Specimen | + + | | + + + + + + + | Performing | Address | City/State/Zipcode | Phone Number | | Organization | | | | + + + + + | [facility]MENT [facility] | [address] | [place] [address] | | | PATHOLOGY | [address] | | | + + + + + SALICYLATE, PLASMA (03/27/2012 11:00 PM PDT) + + + + + + | Component | Value | Ref Range | Performed | Pathologist | | | | | At | Signature | + + + + + + | SALICYLATE | < 4.0 (L) | 10.0 - 25.0 | [facility] | | | CONCENTRATI | | mg/dL | DEPARTMENT | | | ON | | | OF | | | | | | PATHOLOGY | | + + + + + + + + | Specimen | + + | Blood - Blood | + + + + + + + | Performing | Address | City/State/Zipcode | Phone Number | | Organization | | | | + + + + + | [facility] | [address] | [place] [address] | | | PATHOLOGY | [address] | | | + + + + + ACETAMINOPHEN, PLASMA (03/27/2012 11:00 PM PDT) + + + + + + | Component | Value | Ref Range | Performed | Pathologist | | | | | At | Signature | + + + + + + | ACETAMINOPH | < 10.0 (L) | 10.0 - 30.0 | [facility] | | | EN | | ug/mL | DEPARTMENT | | | CONCENTRATI | | | OF | | | ON | | | PATHOLOGY | | + + + + + + + + | Specimen | + + | Blood - Blood | + + + + + + + | Performing | Address | City/State/Zipcode | Phone Number | | Organization | | | | + + + + + | [facility] | [address] | [place] [address] | | | PATHOLOGY | [address] | | | + + + + + ETHANOL (ALCOHOL), BLOOD (03/27/2012 11:00 PM PDT) + + + + + + | Component | Value | Ref Range | Performed | Pathologist | | | | | At | Signature | + + + + + + | ETHANOL | Negative | mg/dL | [facility] | | | (ALCOHOL) | | | DEPARTMENT | | | | | | OF | | | | | | PATHOLOGY | | + + + + + + + + | Specimen | + + | Blood - Blood | + + + + + + + | Performing | Address | City/State/Zipcode | Phone Number | | Organization | | | | + + + + + | [facility]MENT [facility] | [address] | [place] [address] | | | PATHOLOGY | [address] | | | + + + + + TSH (03/27/2012 11:00 PM PDT) + +-------+ + + + | Component | Value | Ref Range | Performed | Pathologist | | | | | At | Signature | + +-------+ + + + | TSH | 1.07 | 0.34 - 5.60 | [facility] | | | | | uIU/ml | REGIONAL | | | | | | LABORATORY | | + +-------+ + + + + + | Specimen | + + | Blood - Blood | + + + + + | Narrative | Performed At | + + + | [facility]) | [facility] | | [facility] [place] [address] [facility] | REGIONAL | | [place] [address] | LABORATORY | + + + + + + + + | Performing | Address | City/State/Zipcode | Phone Number | | Organization | | | | + + + + + | [facility] | [address] | [place] [address] | | | LABORATORY | | | | + + + + + CBC, WITH DIFFERENTIAL (03/27/2012 11:00 PM PDT) + + + + + + | Component | Value | Ref Range | Performed | Pathologist | | | | | At | Signature | + + + + + + | WHITE CELL | 12.1 (H) | 4.4 - 11.0 K/cu | [facility] | | | COUNT | | mm | DEPARTMENT | | | | | | OF | | | | | | PATHOLOGY | | + + + + + + | RED CELL | 4.59 | 4.00 - 5.20 | [facility] | | | COUNT | | M/cu mm | DEPARTMENT | | | | | | OF | | | | | | PATHOLOGY | | + + + + + + | HEMOGLOBIN | 13.2 | 12.0 - 16.0 | [facility] | | | | | g/dL | DEPARTMENT | | | | | | OF | | | | | | PATHOLOGY | | + + + + + + | HEMATOCRIT | 38.6 | 36.0 - 46.0 % | [facility] | | | | | | DEPARTMENT | | | | | | OF | | | | | | PATHOLOGY | | + + + + + + | MCV | 84.1 | 80.0 - 96.0 fL | [facility] | | | | | | DEPARTMENT | | | | | | OF | | | | | | PATHOLOGY | | + + + + + + | MCHC | 34.1 | 33.4 - 35.5 | [facility] | | | | | g/dL | DEPARTMENT | | | | | | OF | | | | | | PATHOLOGY | | + + + + + + | RDW | 13.8 | 11.5 - 15.0 % | [facility] | | | | | | DEPARTMENT | | | | | | OF | | | | | | PATHOLOGY | | + + + + + + | PLATELET | 229 | 150 - 400 K/cu | [facility] | | | COUNT | | mm | DEPARTMENT | | | | | | OF | | | | | | PATHOLOGY | | + + + + + + + + | Specimen | + + | Blood - Blood | + + + + + + + | Performing | Address | City/State/Zipcode | Phone Number | | Organization | | | | + + + + + | [facility] DEPARTMENT OF | [address] | [place] [address] | | | PATHOLOGY | [address] | | | + + + + + COMPLETE METABOLIC SET (NA,K,CL,CO2,BUN,CREAT,GLUC,CA,AST,ALT,BILI TOTAL,ALK PHOS,ALB,PROT TOTAL) (03/27/2012 11:00 PM PDT) + + + + + + | Component | Value | Ref Range | Performed | Pathologist | | | | | At | Signature | + + + + + + | GLUCOSE, | 92 | 60 - 99 mg/dL | [facility] | | | PLASMA | | | DEPARTMENT | | | (LAB) | | | OF | | | | | | PATHOLOGY | | + + + + + + | BUN, PLASMA | 11 | 6 - 20 mg/dL | [facility] | | | (LAB) | | | DEPARTMENT | | | | | | OF | | | | | | PATHOLOGY | | + + + + + + | CREATININE | 0.75 | 0.60 - 1.10 | [facility] | | | PLASMA | | mg/dL | DEPARTMENT | | | (LAB) | | | OF | | | | | | PATHOLOGY | | + + + + + + | TOTAL | 7.1 | 6.1 - 7.9 g/dL | [facility] | | | PROTEIN, | | | DEPARTMENT | | | PLASMA | | | OF | | | (LAB) | | | PATHOLOGY | | + + + + + + | ALBUMIN, | 3.4 (L) | 3.5 - 4.7 g/dL | [facility] | | | PLASMA | | | DEPARTMENT | | | (LAB) | | | OF | | | | | | PATHOLOGY | | + + + + + + | CALCIUM, | 8.7 | 8.6 - 10.2 | [facility] | | | PLASMA | | mg/dL | DEPARTMENT | | | (LAB) | | | OF | | | | | | PATHOLOGY | | + + + + + + | BILIRUBIN | 0.3 | 0.3 - 1.2 mg/dL | [facility] | | | TOTAL | | | DEPARTMENT | | | | | | OF | | | | | | PATHOLOGY | | + + + + + + | ALK PHOS | 81 | 42 - 98 U/L | [facility] | | | | | | DEPARTMENT | | | | | | OF | | | | | | PATHOLOGY | | + + + + + + | AST(SGOT) | 19 | 15 - 41 U/L | [facility] | | | | | | DEPARTMENT | | | | | | OF | | | | | | PATHOLOGY | | + + + + + + | SODIUM, | 137 | 134 - 143 | [facility] | | | PLASMA | | mmol/L | DEPARTMENT | | | (LAB) | | | OF | | | | | | PATHOLOGY | | + + + + + + | POTASSIUM, | 3.9 | 3.4 - 5.0 | [facility] | | | PLASMA | | mmol/L | DEPARTMENT | | | (LAB) | | | OF | | | | | | PATHOLOGY | | + + + + + + | CHLORIDE, | 104 | 97 - 108 mmol/L | [facility] | | | PLASMA | | | DEPARTMENT | | | (LAB) | | | OF | | | | | | PATHOLOGY | | + + + + + + | TOTAL CO2, | 27 | 22 - 29 mmol/L | [facility] | | | PLASMA | | | DEPARTMENT | | | (LAB) | | | OF | | | | | | PATHOLOGY | | + + + + + + | ALT (SGPT) | 17 | 13 - 48 U/L | [facility] | | | | | | DEPARTMENT | | | | | | OF | | | | | | PATHOLOGY | | + + + + + + | EGFR | > 60 | >60 mL/min | [facility] | | | - | | | DEPARTMENT | | | [place] | | | OF | | | | | | PATHOLOGY | | + + + + + + | EGFR NON | > 60Comment: GFR is | >60 mL/min | [facility] | | | -JEFF | estimated using the MDRD | | DEPARTMENT | | | RICAN | equation recommended by | | OF | | | | theNational Kidney | | PATHOLOGY | | | | Disease Education | | | | | | Program. Estimated GFR | | | | | | Interpretive | | | | | | Information: <60 | | | | | | mL/min/1.73 sq m | | | | | | Chronic Kidney Disease | | | | | | <15 mL/min/1.73 sq m | | | | | | Kidney Failure | | | | | | Estimated GFR greater | | | | | | than 60mL/min/1.73 is of | | | | | | limited clinical Value. | | | | | | The MDRD equation is | | | | | | not valid in the | | | | | | following situations: - | | | | | | Patients under 18 years | | | | | | of age - Severe | | | | | | malnutrition or obesity | | | | | | - Vegetarian diet - | | | | | | Rapidly changing kidney | | | | | | function | | | | + + + + + + | ANION GAP | 6 | 4 - 11 mmol/L | [facility] | | | | | | DEPARTMENT | | | | | | OF | | | | | | PATHOLOGY | | + + + + + + | ANION | 7 | 4 - 11 mmol/L | [facility] | | | GAP(ALB | | | DEPARTMENT | | | CORRECTED) | | | OF | | | | | | PATHOLOGY | | + + + + + + + + | Specimen | + + | Blood - Blood | + + + + + + + | Performing | Address | City/State/Zipcode | Phone Number | | Organization | | | | + + + + + | [facility] DEPARTMENT | [address] | [place] [address] | | | PATHOLOGY | [address] | | | + + + + + DRUG SCREEN,URINE;NO CONFIRM (03/27/2012 11:00 PM PDT) + + + + + + | Component | Value | Ref Range | Performed | Pathologist | | | | | At | Signature | + + + + + + | AMPHETAMINE | Negative | Negative | [facility] | | | , | | | DEPARTMENT | | | URINE(UDN) | | | OF | | | | | | PATHOLOGY | | + + + + + + | BARBITURATE | Negative | Negative | [facility] | | | S, | | | DEPARTMENT | | | URINE(UDN) | | | OF | | | | | | PATHOLOGY | | + + + + + + | BENZODIAZEP | Negative | Negative | [facility] | | | SUMMER, | | | DEPARTMENT | | | URINE(UDN) | | | OF | | | | | | PATHOLOGY | | + + + + + + | COCAINE, | Negative | Negative | [facility] | | | URINE(UDN) | | | DEPARTMENT | | | | | | OF | | | | | | PATHOLOGY | | + + + + + + | OPIATE, | Negative | Negative | [facility] | | | URINE(UDN) | | | DEPARTMENT | | | | | | OF | | | | | | PATHOLOGY | | + + + + + + | CANNABINOID | Positive; not confirmed | Negative | [facility] | | | S, | by alternate method. (A) | | DEPARTMENT | | | URINE(UDN) | | | OF | | | | | | PATHOLOGY | | + + + + + + | METHADONE | Negative | Negative | [facility] | | | SCREEN, | | | DEPARTMENT | | | URINE | | | OF | | | | | | PATHOLOGY | | + + + + + + | OXYCODONE | Negative | Negative | [facility] | | | SCREEN, | | | DEPARTMENT | | | URINE | | | OF | | | | | | PATHOLOGY | | + + + + + + + + | Specimen | + + | Urine - Urine | + + + + + | Narrative | Performed At | + + + | Comment: Minimum drug concentration yielding a positive | [facility] | | urine drug screen. Amphetamines >=1000 ng/mL | DEPARTMENT OF | | Barbiturates >=200 ng/mL Benzodiazepine | PATHOLOGY | | >=200 ng/mL Cocaine >=300 ng/mL | | | Opiates >=300 ng/mL THC - Cannabinoid | | | >=50 ng/mL Oxycodone >=100 ng/mL | | | Methadone >=300 ng/mL Results of this drug | | | screen are not confirmed by an alternate method. Results are to be | | | used for medical (i.e. treatment) purposes only. | | + + + + + + + + | Performing | Address | City/State/Zipcode | Phone Number | | Organization | | | | + + + + + | [facility] | [address] | [place] [address] | | | PATHOLOGY | [address] | | | + + + + + YEIMI OVERTON ONLY (03/27/2012 11:00 PM PDT) + + + + + + | Component | Value | Ref Range | Performed | Pathologist | | | | | At | Signature | + + + + + + | COLOR(UR) | Straw | | [facility] | | | | | | DEPARTMENT | | | | | | OF | | | | | | PATHOLOGY | | + + + + + + | APPEARANCE | Clear | | [facility] | | | | | | DEPARTMENT | | | | | | OF | | | | | | PATHOLOGY | | + + + + + + | GLUCOSE(UR) | Negative | Neg-Trace mg/dL | [facility] | | | | | | DEPARTMENT | | | | | | OF | | | | | | PATHOLOGY | | + + + + + + | BILIRUBIN | Negative | Negative | [facility] | | | | | | DEPARTMENT | | | | | | OF | | | | | | PATHOLOGY | | + + + + + + | KETONES | Negative | Negative mg/dL | [facility] | | | | | | DEPARTMENT | | | | | | OF | | | | | | PATHOLOGY | | + + + + + + | SPECIFIC | >=1.030 (A) | 1.005 - 1.030 | [facility] | | | GRAVITY | | | DEPARTMENT | | | | | | OF | | | | | | PATHOLOGY | | + + + + + + | BLOOD | Negative | Negative | [facility] | | | | | | DEPARTMENT | | | | | | OF | | | | | | PATHOLOGY | | + + + + + + | PH(UR) | 6.0 | 5.0 - 8.0 | [facility] | | | | | | DEPARTMENT | | | | | | OF | | | | | | PATHOLOGY | | + + + + + + | PROTEIN(LAB | Negative | Neg-Trace mg/dL | [facility] | | | ) | | | DEPARTMENT | | | | | | OF | | | | | | PATHOLOGY | | + + + + + + | UROBILINOGE | 0.2 | 0 - 0.2 PHUC | [facility] | | | N | | UNITS | DEPARTMENT | | | | | | OF | | | | | | PATHOLOGY | | + + + + + + | NITRITES | Negative | Negative | [facility] | | | | | | DEPARTMENT | | | | | | OF | | | | | | PATHOLOGY | | + + + + + + | LEUKOCYTE | Small (A) | Negative | [facility] | | | ESTERASE | | | DEPARTMENT | | | | | | OF | | | | | | PATHOLOGY | | + + + + + + + + | Specimen | + + | Urine - Urine | + + + + + + + | Performing | Address | City/State/Zipcode | Phone Number | | Organization | | | | + + + + + | [facility] | [address] | [place] [address] | | | PATHOLOGY | [address] | | | + + + + + URINE, MICROSCOPIC EXAM (03/27/2012 11:00 PM PDT) + + + + + + | Component | Value | Ref Range | Performed | Pathologist | | | | | At | Signature | + + + + + + | SQUAMOUS | Few (A) | /hpf | [facility] | | | EPITHELIAL | | | DEPARTMENT | | | | | | OF | | | | | | PATHOLOGY | | + + + + + + | NON-SQUAMOU | None | /hpf | [facility] | | | S EPITH | | | DEPARTMENT | | | | | | OF | | | | | | PATHOLOGY | | + + + + + + | RED CELLS | 0-2 | 0 - 3 /hpf | [facility] | | | | | | DEPARTMENT | | | | | | OF | | | | | | PATHOLOGY | | + + + + + + | WHITE CELLS | 20-30 | 0 - 5 /hpf | [facility] | | | | | | DEPARTMENT | | | | | | OF | | | | | | PATHOLOGY | | + + + + + + | BACTERIA | Many (A) | /hpf | [facility] | | | | | | DEPARTMENT | | | | | | OF | | | | | | PATHOLOGY | | + + + + + + | MUCOUS | Few (A) | /hpf | [facility] | | | | | | DEPARTMENT | | | | | | OF | | | | | | PATHOLOGY | | + + + + + + | HYALINE | None | 0 - 1 /lpf | [facility] | | | CASTS | | | DEPARTMENT | | | | | | OF | | | | | | PATHOLOGY | | + + + + + + | GRANULAR | None | /lpf | [facility] | | | CASTS | | | DEPARTMENT | | | | | | OF | | | | | | PATHOLOGY | | + + + + + + | CELLULAR | None | /lpf | [facility] | | | CASTS | | | DEPARTMENT | | | | | | OF | | | | | | PATHOLOGY | | + + + + + + | AMORPHOUS | None | /hpf | [facility] | | | CRYSTALS | | | DEPARTMENT | | | | | | OF | | | | | | PATHOLOGY | | + + + + + + | CALCIUM | None | /hpf | [facility] | | | OXALATE | | | DEPARTMENT | | | YESY | | | OF | | | | | | PATHOLOGY | | + + + + + + | URIC ACID | None | /hpf | [facility] | | | CRYSTALS | | | DEPARTMENT | | | | | | OF | | | | | | PATHOLOGY | | + + + + + + | TRIPLE P04 | None | /hpf | [facility] | | | CRYSTALS | | | DEPARTMENT | | | | | | OF | | | | | | PATHOLOGY | | + + + + + + | YEAST (LAB) | None | /hpf | [facility] | | | | | | DEPARTMENT | | | | | | OF | | | | | | PATHOLOGY | | + + + + + + | TRICHOMONAS | None | /hpf | [facility] | | | | | | DEPARTMENT | | | | | | OF | | | | | | PATHOLOGY | | + + + + + + + + | Specimen | + + | Urine - Urine | + + + + + + + | Performing | Address | City/State/Zipcode | Phone Number | | Organization | | | | + + + + + | [facility] | [address] | [place] [address] | | | PATHOLOGY | [address] | | | + + + + + URINE SCREEN FOR CULTURE (03/27/2012 11:00 PM PDT) + + + + + + | Component | Value | Ref Range | Performed | Pathologist | | | | | At | Signature | + + + + + + | CULT, URINE | Positive for Nitrite | | [facility] | | | SCREEN | and/or Leukocyte | | DEPARTMENT | | | | Esterase.Specimen sent | | OF | | | | for culture. | | PATHOLOGY | | + + + + + + + + | Specimen | + + | Urine - Urine | + + + + + + + | Performing | Address | City/State/Zipcode | Phone Number | | Organization | | | | + + + + + | [facility] | [address] | [place] [address] | | | PATHOLOGY | [address] | | | + + + + + documented in this encounter Visit Diagnoses + + | Diagnosis | + + | Stress reaction Unspecified acute reaction to stress | + + | UTI (lower urinary tract infection) Urinary tract infection, site not specified | + + documented in this encounter Administered Medications + +--------+ +--------+------+------+ | Medication Order | MAR | Action | Dose | Rate | Site | | | Action | Date | | | | + +--------+ +--------+------+------+ | ciprofloxacin (aka CIPRO) | Given | 03/28/20 | 250 mg | | | | tablet 250 mg 250 mg, oral, | | 12 12:35 | | | | | ONCE, 1 dose, [facility] 03/28/12 at 0100 | | AM PDT | | | | + +--------+ +--------+------+------+ +---+---+ | | | +---+---+ documented in this encounter
--- OUTSIDE RECORDS SUMMARY | ~2019-08-03 | XMS | Encounter Summary ---
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 | + + + + + + | CHLAMYDIA | Positive (A)Comment: | Negative | [facility] | | | PROBE | INTERPRETIVE | | LABORATORIE | | | | INFORMATION: C. | | S | | | | trachomatis by TMA This | | | | | | test is intended for | | | | | | medical purposes only | | | | | | and is not valid for the | | | | | | evaluation of suspected | | | | | | sexual abuse or for | | | | | | other forensic purposes. | | | | | | In certain contexts, | | | | | | culture may be required | | | | | | to meet applicable laws | | | | | | and regulations for | | | | | | diagnosis of C. | | | | | | trachomatis and N. | | | | | | gonorrhoeae infections. | | | | | | Per 2014 CDC | | | | | | recommendations, this | | | | | | test does not include | | | | | | confirmation of positive | | | | | | results by an | | | | | | alternative nucleic acid | | | | | | target. | | | | + + + + + + | GONOCOCCUS | NegativeComment: | Negative | [facility] | | | PROBE | INTERPRETIVE | | LABORATORIE | | | | INFORMATION: N. | | S | | | | gonorrhoeae by TMA This | | | | | | test is intended for | | | | | | medical purposes only | | | | | | and is not valid for the | | | | | | evaluation of suspected | | | | | | sexual abuse or for | | | | | | other forensic purposes. | | | | | | In certain contexts, | | | | | | culture may be required | | | | | | to meet applicable laws | | | | | | and regulations for | | | | | | diagnosis of C. | | | | | | trachomatis and N. | | | | | | gonorrhoeae infections. | | | | | | Per 2014 CDC | | | | | | recommendations, this | | | | | | test does not include | | | | | | confirmation of positive | | | | | | results by an | | | | | | alternative nucleic acid | | | | | | target.Performed by | | | | | | [employer],[address] | | | | | | Shruti Escobar, [facility],[place] | | | | | | [address] | | | | | | [phone]. | | | | | | [facility] centerIftikhar MD, | | | | | | Lab. Director | | | | + + + + + + | APTIMA | Urine | | [facility] | | | MEDIA | | | LABORATORIE | | | | | | S | | + + + + + + | SPECIMEN | Urine | | [facility] | | | SOURCE | | | LABORATORIE | | | | | | S | | + + + + + + + + | Specimen | + + | | + + + + + + + | Performing | Address | City/State/Zipcode | Phone Number | | Organization | | | | + + + + + | [facility] | [address] | [place], [place] | [phone] | | | | [address] | | + + + + + documented in this encounter Visit Diagnoses + + | Diagnosis | + + | High risk heterosexual behavior - Primary Problems related to high-risk sexual | | behavior | + + | Facial injury, initial encounter | + + | Cerumen debris on tympanic membrane of right ear | + + documented in this encounter Administered Medications + +--------+ + +------+------+ | Medication Order | MAR | Action | Dose | Rate | Site | | | Action | Date | | | | + +--------+ + +------+------+ | azithromycin (ZITHROMAX) tablet | Given | 03/03/20 | 1,000 mg | | | | 1,000 mg 1,000 mg, oral, ONCE, | | 19 2:32 | | | | | 1 dose, 03/03/19 at 1430 | | PM PDT | | | | + +--------+ + +------+------+ +---+---+ | | | +---+---+ + +-------+ +--------+---+---------+ | cefTRIAXone (ROCEPHIN) | Given | 03/03/20 | 250 mg | | Right | | injection 250 mg 250 mg, | | 19 2:33 | | | Upper | | intramuscular, ONCE, 1 dose, Mon | | PM PDT | | | Quad. | | 03/03/19 at 1430 | | | | | Gluteus | + +-------+ +--------+---+---------+ +---+---+ | | | +---+---+ documented in this encounter
--- OUTSIDE RECORDS SUMMARY | ~2019-08-03 | XMS | Encounter Summary ---
Demographics + + + | Address | [address] | | | [place] [address] | + + + | Home Phone | | + + + | Preferred Language | Unknown | + + + | Marital Status | Single | + + + | Yazidism Affiliation | NON | + + + [...] Team Providers + +------+ + | Care Wind Site Manager Name | Role | Phone | + +------+ + | No Pcp Per Patient | PCP | Unavailable | + +------+ + Encounter Details +--------+ + + + + | Date | Type | Department | Care Team | Description | +--------+ + + + + | 04/24/ | ED Progress | Epic at [facility] | Reginald Castellano, | ED Progress Note | | 2014 | | [address] | MD [address] [facility] | | | | Note-Transc | [place], [place] | [address] | | | | [place] | [address] | [place], [place] | | | | | | [address] | | | | | | [phone] | | | | | | | [...]
--- OUTSIDE RECORDS SUMMARY | ~2019-08-03 | XMS | Encounter Summary ---
Demographics + + + | Address | [address] | | | [place] [address] | + + + | Home Phone | | + + + | Preferred Language | Unknown | + + + | Marital Status | Single | + + + | Pentecostal Affiliation | NON | + + + [...] Team Providers + +------+ + | Care Gastroenterology Nurse Name | Role | Phone | + +------+ + | No Pcp Per Patient | PCP | Unavailable | + +------+ + Encounter Details +--------+ + + + + | Date | Type | Department | Care Team | Description | +--------+ + + + + | 09/03/ | ED Progress | Epic at [facility] | Manas Johnson, PRACHI | ED Progress Note | | 2015 | | [address] [facility] | [facility] | | | | Note-Transc | [place], [place] | Hospital [address] | | | | ribed | [address] | Ave [place], [place] | | | | | | [address] | | | | | | | [...]
--- OUTSIDE RECORDS SUMMARY | ~2019-08-03 | XMS | Encounter Summary ---
Demographics + + + | Address | [address] | | | [place] [address] | + + + | Home Phone | | + + + | Preferred Language | Unknown | + + + | Marital Status | Single | + + + | Worship Affiliation | NON | + + + [...] Team Providers + +------+ + | Care Territory Supervisor Name | Role | Phone | + +------+ + | No Pcp Per Patient | PCP | Unavailable | + +------+ + Reason for Visit + + + | Reason | Comments | + + + | Finger pain | pain in left 5th finger for 1 month | + + + Encounter Details +--------+---------+ + + + | Date | Type | Department | Care Team | Description | +--------+---------+ + + + | 02/10/ | Office | [facility] | Amanda Barroso, | Finger injury, left, | | 2019 | Visit | [facility] [address] | DO [address] | initial encounter | | | | [address] | [address] | (Primary Dx); Sprain | | | | [place] [address] | [place] [address] | of interphalangeal | | | | [phone] | [phone] | joint of left little | | | | | | finger, initial | | | | | | encounter | +--------+---------+ + + + Social History [...] + + + | Blood Pressure | - | - | | + + + + + | Pulse | 84 | 02/10/2019 12:46 PM | | | | | PDT | | + + + + + | Temperature | 37.1 C (98.8 F) | 02/10/2019 12:46 PM | | | | | PDT | | + + + + + | Respiratory Rate | - | - | | + + + + + | Oxygen Saturation | - | - | | + + + + + | Inhaled Oxygen | - | - | | | Concentration | | | | + + + + + | Weight | 130.2 kg (287 lb) | 02/10/2019 12:46 PM | | | | | PDT | | + + + + + | Height | 165.1 cm (5' 5") | 02/10/2019 12:46 PM | | | | | PDT | | + + + + + | Body Mass Index | 47.76 | 02/10/2019 12:46 PM | | | | | PDT | | + + + + + documented in this encounter Patient Instructions Patient Instructions Amanda Barroso DO - 02/10/2019 12:05 PM PDTFormatting of this note m hazelt be different from the original. Finger Sprain: Care Instructions Overview A sprain is an injury to the tough fibers (ligaments) that connect bone to bone. This injur y can happen in joints such as in your finger. Some sprains stretch the ligaments but don't tear them. More severe sprains can partly or c ompletely tear the ligaments. Sprains can cause pain and swelling. It may take weeks to jodie hs before your finger can move easily and without pain. Resting the finger for a short time after the injury can help you heal. To keep the injured finger in position while it heals, your doctor may have put a splint on it. Or the doctor goyo bedoya have taped the finger to the one next to it. After the pain and swelling have gone down, your doctor may recommend exercises to strengthen your finger or more treatment if needed. Follow-up care is a hutson part of your treatment and safety. Be sure to make and go to all ap pointments, and call your doctor if you are having problems. It's also a good idea to know y our test results and keep a list of the medicines you take. How can you care for yourself at home? If your doctor put a splint on your finger, wear the splint as directed. Don't remove it until your doctor says it's okay. If your fingers are taped together, make sure that the tape is snug. But it shouldn't be so tight that the fingers get numb or tingle. You can loosen the tape if it's too tight. If you need to retape your fingers, always put padding between the fingers before you put on t he new tape. Put ice or a cold pack on your finger for 10 to 20 minutes at a time. Try to do this theron ry 1 to 2 hours for the first 3 days (when you are awake) or until the swelling goes down. P ut a thin cloth between the ice and your skin. Prop up your hand on a pillow when you ice it or anytime you sit or lie down during the next 3 days. Try to keep it above the level of your heart. This will help reduce swelling. Be safe with medicines. Read and follow all instructions on the label. If the doctor gave you a prescription medicine for pain, take it as prescribed. If you are not taking a prescription pain medicine, ask your doctor if you can take an o djo-xmv-[id number] medicine. If your doctor recommends exercises, do them as directed. When should you call for help? Call your doctor now or seek immediate medical care if: You have new or worse pain. Your finger is cool or pale or changes color. Your finger is tingly, weak, or numb. Watch closely for changes in your health, and be sure to contact your doctor if: You do not get better as expected. Where can you learn more? To learn more about "Finger Sprain: Care Instructions", log into your [employer] account at [email or web address]. You can enter [id number] in the "[employer] Library" search box. Not on [employer]? Review the [employer] section of your After Visit Summary for directions on inna w to sign up. Current as of: June 20, 2018 Content Version: 11.9 4658-8914 [employer]. Care instructions adapted under license by [facility] [employer]. If you have questions about a medical condition or this instr uction, always ask your healthcare professional. [employer] disclaims any chana anty or liability for your use of this information. If the radiologist sees a fracture that I have missed, someone from our office will call an d advise you. I would suggest seeing a primary care physician so that they may consider sen ding you to hand therapy to help you regain complete motion. I would not suggest immobilizi ng the digit at this point. P M PDT documented in this encounter Progress Notes Amanda Barroso DO - 02/10/2019 12:05 PM [id number] patient presents with injury to he r left pinky finger. She got it caught in a door 4 weeks ago. She kept thinking it was get ting it better but it continues to be painful. There is no numbness or tingling but she garcia s have random sharp shooting pains that go up the lateral aspect of the forearm. She can be nd it at all the joints but any kind of gripping causes pretty severe pain. Exam: There is mild swelling of the distal interphalangeal joint of the left fifth digit. Its limited in range of motion not only because of stiffness but also tenderness. She is ab le to completely curl at the MCP joint but the 2 distal interphalangeal joints are stiff. P alpation at the DIP is painful. There is no bruising present there is possibly a little bit of swelling and erythema. I do not see a fracture on x-ray. Assessment and plan: Finger sprain. She may benefit from hand therapy to return to full ra nge of motion. Follow-up with PCP to arrange therapy. I would not suggest splinting after this length of time. do cumented in this encounter Plan of Treatment Not on filedocumented as of this encounter Results X-RAY FINGER 3 VIEWS [...] Note | + --------+ | Service Account, Kanari Res In Interface - 02/10/2019 2:45 PM [...] [address] | [place] [address] | [phone] | + + + + + documented in this encounter Visit Diagnoses + + | Diagnosis | + + | Finger injury, left, initial encounter - Primary | + + | Sprain of interphalangeal joint of left little finger, initial encounter | + + documented in this encounter
--- OUTSIDE RECORDS SUMMARY | ~2019-08-03 | XMS | Encounter Summary ---
Demographics + + + | Address | [address] | | | [place] [address] | + + + | Home Phone | | + + + | Preferred Language | Unknown | + + + | Marital Status | Single | + + + | Confucianism Affiliation | NON | + + + [...] Team Providers + +------+ + | Care Veterinary Radiologist Name | Role | Phone | + +------+ + | No Pcp Per Patient | PCP | Unavailable | + +------+ + Encounter Details +--------+ + + + + | Date | Type | Department | Care Team | Description | +--------+ + + + + | 11/06/ | Results | Epic at [facility] | Other, Faculty | | | 2012 | Only | [address] | [phone] | | | | | [place], [place] | | | | | | [address] | | | +--------+ + + + [...] + | US TRANSVAGINAL | Routin | 11/06/2012 | | Results for this | | | e | 10:02 AM | | procedure are in the | | | | PST | | results section. | + +--------+ + + + | US PELVIS COMPLETE | Routin | 11/06/2012 | | Results for this | | | e | 10:02 AM | | procedure are in the | | | | PST | | results section. | + +--------+ + + + | US ABDOMEN COMPLETE | Routin | 11/06/2012 | | Results for this | | | e | 10:02 AM | | procedure are in the | | | | PST | | results section. | + +--------+ + + + documented in this encounter Results US TRANSVAGINAL (11/06/2012 10:02 AM PST) + + | Specimen | + + | | + + + + + | Narrative | Performed At | + + + | PELVIC ULTRASOUND CLINICAL INFORMATION: Left lower | [facility] | | quadrant pain. TECHNIQUE: Transabdominal and transvaginal | RADIOLOGY | | examination; 56 images. FINDINGS: The uterus measures 8 x | | | 4.2 x 5.7 cm. It appears to be retroflexed. Endometrial canal measures | | | 7 mm. No myometrial mass. Right ovary measures 3.2 x 2.3 x | | | 2.7 cm. Left ovary measures 2.3 x 1.6 x 1.8 cm. No free fluid noted. | | | IMPRESSION: Negative uterus and ovaries. The examination was | | | limited secondary to patient's body habitus. | | + + + + + | Procedure Note | + + | Interface, Lab Results [facility] - 05/24/2017 7:54 PM PDT [facility] ULTRASOUNDCLINICAL | | INFORMATION: Left lower quadrant pain.TECHNIQUE: Transabdominal and transvaginal | | examination; 56 images.FINDINGS: The uterus measures 8 x 4.2 x 5.7 cm. It appears to be | | retroflexed. Endometrial canal measures 7 mm. No myometrial mass.Right ovary measures | | 3.2 x 2.3 x 2.7 cm. Left ovary measures 2.3 x 1.6 x 1.8 cm. No free fluid | | noted.IMPRESSION: Negative uterus and ovaries. The examination was limited secondary to | | patient's body habitus. | | | |TECHNIQUE: Transabdominal and transvaginal examination; 56 images. | | | | | | | |FINDINGS: The uterus measures 8 x 4.2 x 5.7 cm. It appears to be retroflexed. Endometrial c anal measures 7 mm. No myometrial mass. | | | | | | | |Right ovary measures 3.2 x 2.3 x 2.7 cm. Left ovary measures 2.3 x 1.6 x 1.8 cm. No free fl uid noted. | | | | | | | |IMPRESSION: Negative uterus and ovaries. The examination was limited secondary to patient's body habitus. | + + + + + + + | Performing | Address | City/State/Zipcode | Phone Number | | Organization | | | | + + + + + | [facility] | [address] | [place] [address] | [phone] | + + + + + US PELVIS COMPLETE (11/06/2012 10:02 AM PST) + + | Specimen | + + | | + + + + + | Narrative | Performed At | + + + | PELVIC ULTRASOUND CLINICAL INFORMATION: Left lower | [facility] | | quadrant pain. TECHNIQUE: Transabdominal and transvaginal | RADIOLOGY | | examination; 56 images. FINDINGS: The uterus measures 8 x | | | 4.2 x 5.7 cm. It appears to be retroflexed. Endometrial canal measures | | | 7 mm. No myometrial mass. Right ovary measures 3.2 x 2.3 x | | | 2.7 cm. Left ovary measures 2.3 x 1.6 x 1.8 cm. No free fluid noted. | | | IMPRESSION: Negative uterus and ovaries. The examination was | | | limited secondary to patient's body habitus. | | + + + + + | Procedure Note | + + | Interface, Lab Results [facility] - 05/24/2017 7:53 PM PDT [facility] ULTRASOUNDCLINICAL | | INFORMATION: Left lower quadrant pain.TECHNIQUE: Transabdominal and transvaginal | | examination; 56 images.FINDINGS: The uterus measures 8 x 4.2 x 5.7 cm. It appears to be | | retroflexed. Endometrial canal measures 7 mm. No myometrial mass.Right ovary measures | | 3.2 x 2.3 x 2.7 cm. Left ovary measures 2.3 x 1.6 x 1.8 cm. No free fluid | | noted.IMPRESSION: Negative uterus and ovaries. The examination was limited secondary to | | patient's body habitus. | | | |TECHNIQUE: Transabdominal and transvaginal examination; 56 images. | | | | | | | |FINDINGS: The uterus measures 8 x 4.2 x 5.7 cm. It appears to be retroflexed. Endometrial c anal measures 7 mm. No myometrial mass. | | | | | | | |Right ovary measures 3.2 x 2.3 x 2.7 cm. Left ovary measures 2.3 x 1.6 x 1.8 cm. No free fl uid noted. | | | | | | | |IMPRESSION: Negative uterus and ovaries. The examination was limited secondary to patient's body habitus. | + + + + + + + | Performing | Address | City/State/Zipcode | Phone Number | | Organization | | | | + + + + + | [facility] | [address] | [place] [address] | [phone] | + + + + + US ABDOMEN COMPLETE (11/06/2012 10:02 AM PST) + + | Specimen | + + | | + + + + + | Narrative | Performed At | + + + | ABDOMINAL ULTRASOUND: CLINICAL INFORMATION: Abdominal | [facility] | | pain. ICD-9 code 789.04. FINDINGS: LIVER: 14.4 | RADIOLOGY | | cm. Fatty infiltration. No focal mass. GALLBLADDER: No | | | stones or wall thickening. COMMON BILE DUCT: 3.5 mm. | | | PANCREAS: Negative. KIDNEYS: Right kidney 11.5 cm. Left | | | kidney 11.4 cm. No obvious stones or obstruction. The left kidney | | | is poorly visualized. SPLEEN: Negative. | | | ABDOMINAL AORTA & IVC: Negative. IMPRESSION: Fatty liver, | | | negative gallbladder. | | + + + + + | Procedure Note | + + | Interface, Lab Results [facility] - 05/24/2017 7:53 PM PDT ABDOMINAL | | ULTRASOUND:CLINICAL INFORMATION: Abdominal pain. ICD-9 code 789.04.FINDINGS: LIVER: | | 14.4 cm. Fatty infiltration. No focal mass.GALLBLADDER: No stones or wall | | thickening.COMMON BILE DUCT: 3.5 mm.PANCREAS: Negative.KIDNEYS: Right kidney 11.5 cm. | | Left kidney 11.4 cm. No obvious stones or obstruction. The left kidney is poorly | | visualized. SPLEEN: Negative.ABDOMINAL AORTA & IVC: Negative.IMPRESSION: Fatty liver, | | negative gallbladder. | | | |FINDINGS: | | | | | | | |LIVER: 14.4 cm. Fatty infiltration. No focal mass. | | | | | | | |GALLBLADDER: No stones or wall thickening. | | | | | | | |COMMON BILE DUCT: 3.5 mm. | | | | | | | |PANCREAS: Negative. | | | | | | | |KIDNEYS: Right kidney 11.5 cm. Left kidney 11.4 cm. No obvious stones or obstruction. Th e left kidney is poorly visualized. | | | | | | | |SPLEEN: Negative. | | | | | | | |ABDOMINAL AORTA & IVC: Negative. | | | | | | | |IMPRESSION: Fatty liver, negative gallbladder. | + + + + + + + | Performing | Address | City/State/Zipcode | Phone Number | | Organization | | | | + + + + + | [facility] | [address] | [place] [address] | [phone] | + + + + + documented in this encounter Visit Diagnoses Not on filedocumented in this encounter"
--- OUTSIDE RECORDS SUMMARY | ~2019-08-03 | XMS | Encounter Summary ---
Demographics + + + | Address | [address] | | | [place] [address] | + + + | Home Phone | | + + + | Preferred Language | Unknown | + + + | Marital Status | Single | + + + | Scientology Affiliation | NON | + + + [...] Team Providers + +------+ + | Care Curing Room Worker Name | Role | Phone | + +------+ + | No Pcp Per Patient | PCP | Unavailable | + +------+ + Encounter Details +--------+ + + + + | Date | Type | Department | Care Team | Description | +--------+ + + + + | 04/30/ | ED Progress | Epic at [facility] | Jill Das, | ED Progress Note | | 2013 | | [address] | [address] | | | | Note-Transc | [place], [place] | [place], [place] | | | | handy | [address] | [address] | | | | | | | [...]
--- OUTSIDE RECORDS SUMMARY | ~2019-08-03 | XMS | Encounter Summary ---
Demographics + + + | Address | [address] | | | [place] [address] | + + + | Home Phone [...] Team Providers + +------+ + | Care Wrecking Supervisor Name | Role | Phone | + +------+ + | No Pcp Per Patient | PCP | Unavailable | + +------+ + Encounter Details +--------+ + + + + | Date | Type | Department | Care Team | Description | +--------+ + + + + | 04/06/ | ED Progress | Epic at [facility] | Meghan Ramos, | ED Progress Note | | 2013 | | [address] | MD [address] [facility] | | | | Note-Transc | [place], [place] | [facility] | | | | handy | [address] | [place], [place] | | | | | | [address] | | | | | | [phone] | | | | | | | [...]
--- OUTSIDE RECORDS SUMMARY | ~2019-08-03 | XMS | Encounter Summary ---
Demographics + + + | Address | [address] | | | [place] [address] | + + + | Home Phone | | + + + | Preferred Language | Unknown | + + + | Marital Status | Single | + + + | Synagogue Affiliation | NON | + + + [...] Team Providers + +------+ + | Care Employee Benefits Insurance Agent Name | Role | Phone | + +------+ + | No Pcp Per Patient | PCP | Unavailable | + +------+ + Encounter Details +--------+ + + + + | Date | Type | Department | Care Team | Description | +--------+ + + + + | 09/05/ | ED Progress | Epic at [facility] | Reginald Castelalno, | ED Progress Note | | 2015 | | [address] | MD [address] [facility] | | | | Note-Transc | [place], [place] | [address] | | | | [place] | [address] | [place], [place] | | | | | | [address] | | | | | | [phone] | | | | | | | [...]
--- OUTSIDE RECORDS SUMMARY | ~2019-08-03 | XMS | Encounter Summary ---
Demographics + + + | Address | [address] | | | [place] [address] | + + + | Home Phone | | + + + | Preferred Language | Unknown | + + + | Marital Status | Single | + + + | Hindu Affiliation | NON | + + + [...] Team Providers + +------+ + | Care Hide Tanner Name | Role | Phone | + [...] | Encounter | at [facility] | DO [address] | | | | | Healthcare [address] | | | [address] | [place] [address] | | | | | [place] [address] | [phone] | | | | | [phone] | | | +--------+ + + + [...] Note | + --------+ | Service Account, ChangeTip In Interface - 02/10/2019 2:45 PM PDT [...] RADIOLOGY | [address] | [place] [address] | [phone] | + + + + + documented in this encounter Visit Diagnoses + + | Diagnosis | + + | Finger injury, left, initial encounter | + + documented in this encounter"
--- OUTSIDE RECORDS SUMMARY | ~2019-08-03 | XMS | Encounter Summary ---
Demographics + + + | Address | [address] | | | [place] [address] | + + + | Home Phone | | + + + | Preferred Language | Unknown | + + + | Marital Status | Single | + + + | Rastafari Affiliation | NON | + + + [...] Team Providers + +------+ + | Care Contour Sander Name | Role | Phone | + +------+ + PCP | Unavailable | + +------+ + Encounter Details +--------+ + + + + | Date | Type | Department | Care Team | Description | +--------+ + + + + | 09/07/ | Results | | Osvaldo, | | | 2002 | Only | | MD Rajesh | | | | | | [address] | | | | | | [place], | | | | | | [place] [address] | | | | | | [phone] | | | | | | | [...] | CULTURE, URINE BACTI | Urgent | 09/07/2003 | | Results for this | | | | 1:42 AM | | procedure are in the | | | | PST | | results section. | + +--------+ + + + | UA, DIPSTICK ONLY | Urgent | 09/07/2003 | | Results for this | | | | 1:41 AM | | procedure are in the | | | | PST | | results section. | + +--------+ + + + | URINE, MICROSCOPIC | Urgent | 09/07/2003 | | Results for this | | EXAM | | 1:41 AM | | procedure are in the | | | | PST | | results section. | + +--------+ + + + documented in this encounter Results CULT, URINE BACTI (09/07/2003 1:42 AM PST) + + + + + + | Component | Value | Ref Range | Performed | Pathologist | | | | | At | Signature | + + + + + + | SOURCE BODY | Clean catch | | | | | SITE | | | | | + + + + + + | CULTURE | Urine Culture | | | | | RESULT | | | | | | | Source...............: | | | | | | Clean catch | | | | | | Culture: > | | | | | | 100,000 col/ml | | | | | | Escherichia coli | | | | | | Final | | | | | | ID | | | | | | | | | | | | Enteric-like gram | | | | | | negative jo ann | | | | | | Prelim ID | | | | | | E. | | | | | | coli Ampicillin | | | | | | S Cefazolin | | | | | | S | | | | | | Ciprofloxacin | | | | | | S Gentamicin | | | | | | S Nitrofurantoin | | | | | | S Tobramycin | | | | | | S | | | | | | Trimeth/Sulfa | | | | | | S Final Report | | | | + + + + + + + + | Specimen | + + | | + + + + + + + | Performing | Address | City/State/Zipcode | Phone Number | | Organization | | | | + + + + + | [facility] | [address] | [place] [address] | | | LAB-MICRO | | | | + + + + + UA, SUZYAARTI ONLY (09/07/2003 1:41 AM PST) + + + + + [...] + | APPEARANCE | Hazy | | [facility] | | | | | | DEPARTMENT | | | | | | OF | | | | | | PATHOLOGY | | + + + + + + | GLUCOSE(UR) | Negative | mg/dL | [facility] | | | | | | DEPARTMENT | | | | | | OF | | | | | | PATHOLOGY | | + + + + + + | BILIRUBIN | Negative | | [facility] | | | | | | DEPARTMENT | | | | | | OF | | | | | | PATHOLOGY | | + + + + + + | KETONES | Negative | mg/dL | [facility] | | | | | | DEPARTMENT | | | | | | OF | | | | | | PATHOLOGY | | + + + + + + | SPECIFIC | 1.020 | 1.005 - 1.030 | [facility] | | | GRAVITY | | | DEPARTMENT | | | | | | OF | | | | | | PATHOLOGY | | + + + + + + | BLOOD | Small | | [facility] | | | | [...] + + | PROTEIN(LAB | Negative | mg/dL | [facility] | | | ) [...] + + + + | NITRITES | Positive | Negative | [facility] | | | | | | DEPARTMENT | | | | | | OF | | | | | | PATHOLOGY | | + + + + + + | LEUKOCYTE | Small | Negative | [facility] | | | ESTERASE | | | DEPARTMENT | | | | | | OF | | | | | | PATHOLOGY | | + + + + + + + + | Specimen | + + | | + + + + + | Narrative | Performed At | + + + | [id number] Specimen volume <12ml; microscopic not standardized. | [facility] | | | DEPARTMENT OF | | | PATHOLOGY | + + + + + + + + | Performing | Address | City/State/Zipcode | Phone Number | | Organization | | | | + + + + + | [facility] DEPARTMENT OF | [address] | [place] [address] | | | PATHOLOGY | [address] | | | + + + + + | [facility] DEPARTMENT OF | [address] | [place] [address] | | | PATHOLOGY | [address] | | | + + + + + URINE, MICROSCOPIC EXAM (09/07/2003 1:41 AM PST) + + + + + + | Component | Value | Ref Range | Performed | Pathologist | | | | | At | Signature | + + + + + + | SQUAMOUS | Moderate | /hpf | [facility] | | | [...] + + + | WHITE CELLS | 60-70 | 0 - 5 /hpf | [facility] | | | | | | DEPARTMENT | | | | | | OF | | | | | | PATHOLOGY | | + + + + + + | BACTERIA | Many | /hpf | [facility] | | | | | | DEPARTMENT | | | | | | OF | | | | | | PATHOLOGY | | + + + + + + | MUCOUS | Few | /lpf | [facility] | | | | | | DEPARTMENT | | | | | | OF | | | | | | PATHOLOGY | | + + + + + + | HYALINE | NONE | 0 - 1 /lpf | [facility] [...] Performed At | + + + | [id number] Specimen volume <12ml; microscopic not standardized. | [facility] | | | DEPARTMENT OF | | | PATHOLOGY | + + + + + + + + | Performing | Address | City/State/Zipcode | Phone Number | | Organization | | | | + + + + + | [facility] | [address] | [place] [address] | | | PATHOLOGY | [address] | | | + + + + + | [facility] | [address] | [place] [address] | | | PATHOLOGY | [address] | | | + + + + + documented in this encounter Visit Diagnoses Not on filedocumented in this encounter"
--- OUTSIDE RECORDS SUMMARY | ~2019-08-03 | XMS | Encounter Summary ---
Demographics + + + | Address | [address] | | | [place] [address] | + + + | Home Phone [...] Team Providers + +------+ + | Care Apparel Manufacture Instructor Name | Role | Phone | + +------+ + | No Pcp Per Patient | PCP | Unavailable | + +------+ + Encounter Details +--------+ + + + + | Date | Type | Department | Care Team | Description | +--------+ + + + + | 08/28/ | ED Progress | Epic at [facility] | Manas Johnson, PRACHI | ED Progress Note | | 2015 | | [address] [facility] | [facility] | | | | Note-Transc | [place], [place] | Hospital [address] | | | | ribed | [address] | Ave [place], [place] | | | | | | [address] | | | | | | | [...]
--- OUTSIDE RECORDS SUMMARY | ~2019-08-03 | XMS | Encounter Summary ---
Demographics + + + | Address | [address] | | | [place] [address] | + + + | Home Phone [...] Team Providers + +------+ + | Care Goggles Assembler Name | Role | Phone | + +------+ + | No Pcp Per Patient | PCP | Unavailable | + +------+ + Encounter Details +--------+ + + + + | Date | Type | Department | Care Team | Description | +--------+ + + + + | 04/08/ | ED Progress | Epic at [facility] | Jill Das, | ED Progress Note | | 2013 | | [address] | [address] | | | | Note-Transc | [place], [place] | [place] | | | | handy | [address] | [address] | | | | | | | [...]
--- OUTSIDE RECORDS SUMMARY | ~2019-08-03 | XMS | Encounter Summary ---
Demographics + + + | Address | [address] | | | [place] [address] | + + + | Home Phone | | + + + | Preferred Language | Unknown | + + + | Marital Status | Single | + + + | Anabaptist Affiliation | NON | + + + | Race | White | + + + | Ethnic Group | Not or | + + + Author + + + | Author | [facility] | + + + | Organization | [facility] | + + + | Address | Unknown | + + + | Phone | Unavailable | + + + Support +------+ +---------+ + | Name | Relationship | Address | Phone | +------+ +---------+ + | None | ECON | Unknown | Unavailable | +------+ +---------+ + Care Team Providers + +------+ + | Care Cable Splicing Technician Name | Role | Phone | [...] + + | 04/26/ | Emergency | [facility] | Filiberto Solis MD | | | 2012 - | | Department [address] | [address] | | | | | [address] | [address] | | | 04/27/ | | [facility] | [place], [place] | | | 2012 | | [place], [place] | [address] | | | | | [address] | [phone] | | | | | [phone] | | | +--------+ + + + [...] Women: After Your Visit", log into your Globoforce account at [email or web address] You can enter [id number] in the Issuu" PlayData arch box. Not on Loogla? Review the Loogla section of your After Visit Summary for directions on ho w to sign up. [id number] Tilt. Care instructions adapted under license by [facility] & [facility]. This care instruction is for use with your licensed Gliknik professional. If you have questions about a medical condition or this instruction, always ask your healthcare professional. [employer] disclaims any warranty or liabili ty for your use of this information. Content Version: [id number]; Last Revised: February 14, 2011 documented in [...] | + + + + + | [facility] | [address] | [place] [address] | | | SERVICES, CORE | PARK [...] | + + + + + | [facility] | [address] | [place] [address] | | | SERVICES, LEROY | [address] | | | + [...] | | | LABORATORY | | | CUBAN | | | SERVICES, | | | [...] + + | [facility] | [address] | [place] [address] | | | SERVICES, CORE | [address] [...] LABORATORY | | | | | | STARLA, | | | | | | CORE | | + +---------+ + + + + + | Specimen | + + | Blood - Blood | + + + + + + + | Performing | Address | City/State/Zipcode | Phone Number | | Organization | | | | + + + + + | [facility] | [address] | [place] [address] | | | LEROY CHA | [address] | | | + + + + + YEIMI OVERTON (04/26/2013 7:35 PM PDT) + + + [...] | + + + + + | [facility] | [address] | [place] [address] | | | SERVICES, CORE | PARK [...] | + +---------+ + + + | NON-SQUAMASHLEE | Few (A) | None /hpf | [...] | + + + + + | [facility] | [address] | [place] [address] | | | SERVICES, CORE | PARK [...] | | | LABORATORY | | | SERVICES, CORE | + + + + + + + + | Performing | Address | City/State/Zipcode | Phone Number | | Organization | | | | + + + + + | [facility] | [address] | [place] [address] | | | SERVICES, CORE | [address] [...] | | | Final CULTURE | | [facility] | | | | RESULT:Multiple | | [...] + | [facility] | [address] | [place] [address] | | | [place] | | | | + + + [...] + +--------+ +------+------+------+ | ondansetron ODT (aka ZOFRAN | Given | 04/27/20 | 4 mg | | | | ODT) tablet 4 mg 4 mg, oral, | | 13 12:28 | | | | | ONCE, 1 dose, 04/27/13 at 0045 | | AM PDT [...]
--- OUTSIDE RECORDS SUMMARY | ~2019-08-03 | XMS | Encounter Summary ---
Demographics + + + | Address | [address] | | | [place] [address] | + + + | Home Phone [...] Team Providers + +------+ + | Care Research And Development Researcher Name | Role | Phone | + +------+ + | No Pcp Per Patient | PCP | Unavailable | + +------+ + Encounter Details +--------+ + + + + | Date | Type | Department | Care Team | Description | +--------+ + + + + | 03/14/ | ED Progress | Epic at [facility] | Znoia, | ED Progress Note | | 2014 | | [address] | Emmanuel Waddell MD | | | | Note-Transc | [place], [place] | [facility] | | | | [facility] | [address] | [facility] [address] | | | | | | [place] [address] | | | | | | [phone] | | | | | | | [...]
--- OUTSIDE RECORDS SUMMARY | ~2019-08-03 | XMS | Encounter Summary ---
Demographics + + + | Address | [address] | | | [place] [address] | + + + | Home Phone [...] Team Providers + +------+ + | Care Gin Pole Operator Name | Role | Phone | + +------+ + | No Pcp Per Patient | PCP | Unavailable | + +------+ + Encounter Details +--------+ + + + + | Date | Type | Department | Care Team | Description | +--------+ + + + + | 05/03/ | ED Progress | Epic at [facility] | Meghan Ramos, | ED Progress Note | | 2013 | | [address] | MD [address] [facility] | | | | Note-Transc | [place], [place] | [facility] | | | | handy | [address] | [place], [place] | | | | | | [address] | | | | | | [phone] | | | | | | | [...]
--- OUTSIDE RECORDS SUMMARY | ~2019-08-03 | XMS | Encounter Summary ---
Demographics + + + | Address | [address] | | | [place] [address] | + + + | Home Phone [...] Team Providers + +------+ + | Care Budget Accountant Name | Role | Phone | + +------+ + | No Pcp Per Patient | PCP | Unavailable | + +------+ + Encounter Details +--------+ + + + + | Date | Type | Department | Care Team | Description | +--------+ + + + + | 09/03/ | Results | Epic at [facility] | Manas Johnson NP | | | 2014 | Only | [address] [place] [address] | | | | | [place], [place] | [facility] [address] | | | | | [address] | [place], [place] | | | | | | [address] | | | | | | | [...] X-RAY ANKLE 3 VIEWS | Routin | 09/03/2015 | | Results for this | | RIGHT | e | 8:02 PM | | procedure are in the | | | | PST | | results section. | + +--------+ + + + documented in this encounter Results X-RAY ANKLE 3 VIEWS RIGHT (09/03/2015 8:02 PM PST) + + | Specimen | + + | | + + + + + | Narrative | Performed At | + + + | RIGHT ANKLE 3 VIEWS INDICATION: Trauma. | [facility] | | COMPARISON: 04/06/2014. FINDINGS: Small calcaneal | RADIOLOGY | | plantar spur. No significant degenerative change. No fracture or | | | dislocation. No joint effusion. Soft tissues are unremarkable. | | | IMPRESSION: Normal radiographs of the right ankle without | | | interval change compared to prior study of 04/06/2014. | | + + + + + | Procedure Note | + + | Interface, Lab Results [facility] - 06/13/2017 10:17 PM PDT RIGHT ANKLE 3 | | VIEWSINDICATION: Trauma.COMPARISON: 04/06/2014.FINDINGS: Small calcaneal plantar spur. | | No significant degenerative change. No fracture or dislocation. No joint effusion. Soft | | tissues are unremarkable.IMPRESSION: Normal radiographs of the right ankle without | | interval change compared to prior study of 04/06/2014. | | | | | | | |COMPARISON: 04/06/2014. | | | | | | | |FINDINGS: | | | |Small calcaneal plantar spur. No significant degenerative change. No fracture or dislocatio n. No joint effusion. Soft tissues are unremarkable. | | | | | | | |IMPRESSION: | | | |Normal radiographs of the right ankle without interval change compared to prior study of . | + + + + + + + | Performing | Address | City/State/Zipcode | Phone Number | | Organization | | | | + + + + + | [facility] | [address] | [place] [address] | [phone] | + + + + + documented in this encounter Visit Diagnoses Not on filedocumented in this encounter"
--- OUTSIDE RECORDS SUMMARY | ~2019-08-03 | XMS | Encounter Summary ---
Demographics + + + | Address | [address] | | | [place] [address] | + + + | Home Phone [...] Team Providers + +------+ + | Care Drawer Fitter Name | Role | Phone | + [...]
--- OUTSIDE RECORDS SUMMARY | ~2019-08-03 | XMS | Encounter Summary ---
Demographics + + + | Address | [address] | | | [place] [address] | + + + | Home Phone [...] Team Providers + +------+ + | Care Business Analyst Project Manager Name | Role | Phone | + +------+ + | No Pcp Per Patient | PCP | Unavailable | + +------+ + Encounter Details +--------+ + + + + | Date | Type | Department | Care Team | Description | +--------+ + + + + | 04/21/ | Results | Epic at [facility] | Brennon, | | | 2013 | Only | [address] | Erick Chowdhury DO [address] | | | | | [place], [place] | [facility] | | | | | [address] | Rd [place], [place] | | | | | | [address] | | | | | | [phone] | | | | | | | [...] [address] | [place] [address] | | | LAB | | | | + + + + + | [facility] | [address] | [place] [address] | | | LAB | | | [...] mL/min/1.73m2 | [facility] | | | L[place]UANIAN | | | | | + +-------+ [...] [facility] | [address] | [place] [address] | | | LAB | | | | + + + + + | [facility] | [address] | [place] [address] | | | LAB | | | | + + + + + APTT (ACT. PART. THROMBO TIME) (05/08/2014 7:00 PM PDT) + +-------+ + + + | Component | Value | Ref Range | Performed | Pathologist | | | | | At | Signature | + +-------+ + + + | APTT | 28.8 | 24.2 - 35.2 | [facility] | | | | | second(s) | [facility] | | + +-------+ + + + + + | Specimen | + + | | + + + + + + + | Performing | Address | City/State/Zipcode | Phone Number | | Organization | | | | + + + + + | [facility] | [address] | [place] [address] | | | LAB | | | | + + + + + | [facility] | [address] | [place] [address] | | | LAB | | | [...] [facility] | [address] | [place] [address] | | | LAB | | | | + + + + + | [facility] | [address] | [place] [address] | | | LAB | | | [...] | | | | | x10(3)/mcL | [facility] | | + + + + + + + + | Specimen | + + | | + + + + + + + | Performing | Address | City/State/Zipcode | Phone Number | | Organization | | | | + + + + + | [facility] | [address] | [place] [address] | | | LAB | | | | + + + + + | [facility] | [address] | [place] [address] | | | LAB | | | [...] [address] | [place] [address] | | | LAB | | | | + + + + + | [facility] | [address] | [place] [address] | | | LAB | | | [...] [facility] | [address] | [place] [address] | | | LAB | | | | + + + + + | [facility] | [address] | [place] [address] | | | LAB | | | [...] [facility] | [address] | [place] [address] | | | LAB | | | | + + + + + | [facility] | [address] | [place] [address] | | | LAB | | | [...] [facility] | [address] | [place] [address] | | | LAB | | | | + + + + + | [facility] | [address] | [place] [address] | | | LAB | | | [...] | | test was performed | | [facility] | | | | using the APTIMA COMBO2 | | | | | | Assay([employer] | | | | | | [...] | | | | | | Mnemonic: [id number] | | | | | | DIAGNOSTICS | | | | | | [id number] | | | | | | [place] [address] [facility], | | | | | | [place] [address] | | | | | | MD DICKSON | | | | + + + + + + + + | Specimen | + + | | + + + + + + + | Performing | Address | City/State/Zipcode | Phone Number | | Organization | | | | + + + + + | [facility] | [address] | [place] [address] | | | LAB | | | | + + + + + | [facility] | [address] | [place] [address] | | | LAB | | | | + + + + + VAGINAL/URETHRAL WET PREP (04/21/2014 11:05 PM PDT) + + + + + + | Component | Value | Ref Range | Performed | Pathologist | | | | | At | Signature | + + + + + + | WET PREP | Patient:RICARDO DEGROOT | | [facility] | | | | MAYTE | | [facility] | | | | MRN: | | | | | | [id number] | | | | | | | [...] | | | | | | | [id number] SITE: | | | | | | [...] at: | | | | | | [facility] | | | | + + + + + + + + | Specimen | + + | | + + + + + + + | Performing | Address | City/State/Zipcode | Phone Number | | Organization | | | | + + + + + | [facility] | [address] | [place] [address] | | | LAB | | | | + + + + + | [facility] | [address] | [place] [address] | | | LAB | | | [...] preliminary interpretation given by | | | [facility]. | | + + + + [...] discrepancy from the preliminary interpretation given by [facility] | | Radiology. | | | | [...] discrepancy from the preliminary interpretation given by [facility] Radiolog y. | + + + + + + + | Performing | Address | City/State/Zipcode | Phone Number | | Organization | | | | + + + + + | [facility] | [address] | [place] [address] | [phone] | + + + + + [place] [...] preliminary interpretation given by | | | [facility]. | | + + + + [...] discrepancy from the preliminary interpretation given by [facility] | Radiology. | | | | | [...] [facility] the [facility]. | + + + + + + + | Performing | Address | City/State/Zipcode | Phone Number | | Organization | | | | + + + + + | [facility] | [address] | [place] [address] | [phone] | + + + + + [facility] [...] [facility] | [address] | [place] [address] | | | LAB | | | | + + + + + | [facility] | [address] | [place] [address] | | | LAB | | | [...] [facility] | [address] | [place] [address] | | | LAB | | | | + + + + + | [facility] | [address] | [place], [place] [address] | | | LAB | | | | + + + + + documented in this encounter Visit Diagnoses Not on filedocumented in this encounter"
--- OUTSIDE RECORDS SUMMARY | ~2019-08-03 | XMS | Encounter Summary ---
Demographics + + + | Address | [address] | | | [place] [address] | + + + | Home Phone | | + + + | Preferred Language | Unknown | + + + | Marital Status | Single | + + + | Druze Affiliation | NON | + + + [...] Team Providers + +------+ + | Care Vending Machine Assembler Name | Role | Phone | + +------+ + | No Pcp Per Patient | PCP | Unavailable | + +------+ + Encounter Details +--------+ + + + + | Date | Type | Department | Care Team | Description | +--------+ + + + + | 04/21/ | ED Progress | Epic at [facility] | Brennon, | ED Progress Note | | 2013 | | [address] | Erick Chowdhury DO [address] | | | | Note-Transc | [place], [place] | [facility] | | | | ribbolivar | [address] | Rd [place], [place] | | | | | | [address] | | | | | | [phone] | | | | | | | [...]
--- OUTSIDE RECORDS SUMMARY | ~2019-08-03 | XMS | Encounter Summary ---
Demographics + + + | Address | [address] | | | [place] [address] | + + + | Home Phone | | + + + | Preferred Language | Unknown | + + + | Marital Status | Single | + + + | Oriental Orthodox Affiliation | NON | + + + [...] Team Providers + +------+ + | Care Washing Machine Mechanic Name | Role | Phone | + +------+ + | No Pcp Per Patient | PCP | Unavailable | + +------+ + Encounter Details +--------+ + + + + | Date | Type | Department | Care Team | Description | +--------+ + + + + | 04/21/ | ED Progress | Epic at [facility] | Brennon, | ED Progress Note | | 2013 | | [address] | Erick Chowdhury DO [address] | | | | Note-Transc | [place], [place] | [facility] | | | | ribbolivar | [address] | Rd [place], [place] | | | | | | [address] | | | | | | [phone] | | | | | | | [...]
--- OUTSIDE RECORDS SUMMARY | ~2019-08-03 | XMS | Encounter Summary ---
Demographics + + + | Address | [address] [facility] | | | [place] [address] | + + + | Home Phone | | + + + | Preferred Language | Unknown | + + + | Marital Status | Single | + + + | Yarsanism Affiliation | NON | + + + [...] Team Providers + +------+ + | Care Rechecker Name | Role | Phone | + +------+ + | No Pcp Per Patient | PCP | Unavailable | + +------+ + Encounter Details +--------+ + + + + | Date | Type | Department | Care Team | Description | +--------+ + + + + | 08/29/ | ED Progress | Epic at [facility] | Liban Manzo | ED Progress Note | | 2015 | | [address] [facility] [address] | MD Ahsan [address] [facility] | | | | Note-Transc | [place], [place] | [facility] | | | | handy | [address] | [place], [place] | | | | | | [address] | | | | | | [phone] | | | | | | | [...]
--- OUTSIDE RECORDS SUMMARY | ~2019-08-03 | XMS | Encounter Summary ---
Demographics + + + | Address | [address] | | | [place] [address] | + + + | Home Phone [...] Team Providers + +------+ + | Care Meat Counter Worker Name | Role | Phone | + +------+ + | No Pcp Per Patient | PCP | Unavailable | + +------+ + Encounter Details +--------+ + + + + | Date | Type | Department | Care Team | Description | +--------+ + + + + | 12/25/ | Results | Epic at [facility] | Samanta Haas T | | | 2011 | Only | [address] | Francy Galena | | | | | [place], [place] | [facility] [address] | | | | | [address] | [place] | | | | | | [place] [address] | | | | | | [phone] | | | | | | | [...] DNA | test was performed | | [facility] | | | | using the [...] | | | | | [facility] [address] | | | | | | [facility] | | | | | | [place], [place] | | | | | | [address]HYRC M. | | | | | | [...] [facility] | [address] | [place] [address] | | | LAB | | | | + + + + + | [facility] | [address] | [place] [address] | | | LAB | | | [...] MRN: | | | | | | [id number] | | | | | | | [...] | | | | | | | [id number] SITE: | | | | | | [...] [facility] | [address] | [place] [address] | | | LAB | | | | + + + + + | [facility] | [address] | [place] [address] | | | LAB | | | [...] mL/min/1.73m2 | [facility] | | | [place] | | | | | + +-------+ [...] [facility] | [address] | [place] [address] | | | LAB | | | | + + + + + | [facility] | [address] | [place] [address] | | | LAB | | | [...] [facility] | [address] | [place] [address] | | | LAB | | | | + + + + + | [facility] | [address] | [place] [address] | | | LAB | | | [...] [address] | [place] [address] | | | LAB | | | | + + + + + | [facility] | [address] | [place] [address] | | | LAB | | | [...] [facility] | [address] | [place] [address] | | | LAB | | | | + + + + + | [facility] | [address] | [place] [address] | | | LAB | | | [...] mL/min/1.73m2 | [facility] | | | [place] | | | | | + +---------+ [...] [facility] | [address] | [place] [address] | | | LAB | | | | + + + + + | [facility] | [address] | [place] [address] | | | LAB | | | [...] [address] | [place] [address] | | | LAB | | | | + + + + + | [facility] | [address] | [place] [address] | | | LAB | | | [...] [facility] | [address] | [place] [address] | | | LAB | | | | + + + + + | [facility] | [address] | [place] [address] | | | LAB | | | [...] | + + | Interface, Lab Results Backcurtis - 05/30/2017 3:33 PM PDT CLINICAL INFORMATION: [...] RADIOLOGY | [address] | [place] [address] | [phone] | + + + + + X-RAY [...] + | Interface, Lab Results Ayush - 05/30/2017 3:33 PM PDT CLINICAL INFORMATION: [...] RADIOLOGY | [address] | [place] [address] | [phone] | + + + + + URINALYSIS [...] [facility] | [address] | [place] [address] | | | LAB | | | | + + + + + | [facility] | [address] | [place] [address] | | | LAB | | | | + + + + + CULTURE, URINE (12/27/2011 6:20 PM PDT) + + + + + + | Component | Value | Ref Range | Performed | Pathologist | | | | | At | Signature | + + + + + + | URINE | Patient:GORNICK, RICARDO | | [facility] | | | CULTURE | MAYTE | | [facility] | | | | MRN: | | | | | | [id number] | | | | | | | [...] | | | | | | | [id number] SITE: | | | | | | [...] at: | | | | | | [facility] | | | | + + + + + + + + | Specimen | + + | | + + + + + + + | Performing | Address | City/State/Zipcode | Phone Number | | Organization | | | | + + + + + | [facility] | [address] | [place] [address] | | | LAB | | | | + + + + + | [facility] | [address] | [place] [address] | | | LAB | | | [...] [facility] | [address] | [place] [address] | | | LAB | | | | + + + + + | [facility] | [address] | [place] [address] | | | LAB | | | [...] [facility] | [address] | [place] [address] | | | LAB | | | | + + + + + | [facility] | [address] | [place] [address] | | | LAB | | | [...] [facility] | [address] | [place] [address] | | | LAB | | | | + + + + + | [facility] | [address] | [place] [address] | | | LAB | | | [...] [address] | [place] [address] | | | LAB | | | | + + + + + | [facility] | [address] | [place] [address] | | | LAB | | | [...] [facility] | [address] | [place] [address] | | | LAB | | | | + + + + + | [facility] | [address] | [place] [address] | | | LAB | | | [...] [address] | [place] [address] | | | LAB | | | | + + + + + | [facility] | [address] | [place] [address] | | | LAB | | | [...] mL/min/1.73m2 | [facility] | | | [place] | | | | | + +---------+ [...] [facility] | [address] | [place] [address] | | | LAB | | | | + + + + + | [facility] | [address] | [place] [address] | | | LAB | | | | + + + + + CAP GLUPOC (12/26/2011 9:15 PM PDT) + +---------+ + [...] [address] | [place] [address] | | | LAB | | | | + + + + + | [facility] | [address] | [place] [address] | | | LAB | | | [...] | Interface, Lab Results [facility] - 05/23/2017 4:30 PM PDT FLUOROSCOPIC-GUIDED LUMBAR [...] RADIOLOGY | [address] | [place] [address] | [phone] | + + + + + DIFFERENTIAL, [...] [facility] | [address] | [place] [address] | | | LAB | | | | + + + + + | [facility] | [address] | [place] [address] | | | LAB | | | [...] [facility] | [address] | [place] [address] | | | LAB | | | | + + + + + | [facility] | [address] | [place] [address] | | | LAB | | | [...] [facility] | [address] | [place] [address] | | | LAB | | | | + + + + + | [facility] | [address] | [place] [address] | | | LAB | | | [...] [address] | [place] [address] | | | LAB | | | | + + + + + | [facility] | [address] | [place] [address] | | | LAB | | | | + + + + + CAP GLU,POC (12/26/2011 1:02 PM PDT) + +---------+ + [...] [facility] | [address] | [place] [address] | | | LAB | | | | + + + + + | [facility] | [address] | [place] [address] | | | LAB | | | [...] [facility] | [address] | [place] [address] | | | LAB | | | | + + + + + | [facility] | [address] | [place] [address] | | | LAB | | | [...] AB SCREEN | Nonreactive HIV-1/2 | | [facility] | | | | antibody result [...] [facility] | | | | | | [id number] | | | | | | [address] | | | | | | [address], [place] | | | | | | [id number] B | | | | | | JEREMY OSBORNE test | | | | | | results or HIV diagnosis | | | | | | and the identity of the | | | | | | tested individual may | | | | | | be released to any other | | | | | | republican only with the | | | | [...] [facility] | [address] | [place] [address] | | | LAB | | | | + + + + + | [facility] | [address] | [place] [address] | | | LAB | | | [...] emesis. PROCEDURE: | RADIOLOGY | | Utilizing [employer] 128 channel scanner, following injector infusion | [...] RADIOLOGY | [address] | [place] [address] | [phone] | + + + + + CULTURE, BLOOD BACTI & YEAST (12/26/2011 4:59 AM PDT) + + + + + + | Component | Value | Ref Range | Performed | Pathologist | | | | | At | Signature | + + + + + + | CULTURE | Patient:RICARDO DEGROOT | | [facility] | | | RESULT | MAYTE | | [facility] | | | | MRN: | | | | | | [id number] | | | | | | | [...] | | | | | | | [id number] SITE: | | | | | | [...] at: | | | | | | [facility] | | | | + + + + + + + + | Specimen | + + | | + + + + + + + | Performing | Address | City/State/Zipcode | Phone Number | | Organization | | | | + + + + + | [facility] | [address] | [place] [address] | | | LAB | | | | + + + + + | [facility] | [address] | [place] [address] | | | LAB | | | | + + + + + CULTURE, BLOOD BACTI & YEAST (12/26/2011 4:41 AM PDT) + + + + + + | Component | Value | Ref Range | Performed | Pathologist | | | | | At | Signature | + + + + + + | CULTURE | Patient:RICARDO DEGROOT | | [facility] | | | RESULT | MAYTE | | [facility] | | | | MRN: | | | | | | [id number] | | | | | | | [...] | | | | | | | [id number] SITE: | | | | | | [...] at: | | | | | | [facility] | | | | + + + + + + + + | Specimen | + + | | + + + + + + + | Performing | Address | City/State/Zipcode | Phone Number | | Organization | | | | + + + + + | [facility] | [address] | [place] [address] | | | LAB | | | | + + + + + | [facility] | [address] | [place] [address] | | | LAB | | | [...] + | Interface, Lab Results Backloa - 05/23/2017 4:[address] [...] RADIOLOGY | [address] | [place] [address] | [phone] | + + + + + X-RAY [...] | + + | Interface, Lab Results [facility] - 05/23/2017 4:30 PM PDT CHEST, 2 [...] [address] | [place] [address] | [phone] | + + + + + PROCALCITONIN (12/26/2011 1:43 AM PDT) + + + + + + | Component | Value | Ref Range | Performed | Pathologist | | | | | At | Signature | + + + + + + | PROCALCITON | <0.05Comment: | ng/mL | [facility] | | | IN | INTERPRETATION FOR | | [facility] | | | | DIAGNOSIS OF [...] [facility] | [address] | [place] [address] | | | LAB | | | | + + + + + | [facility] | [address] | [place] [address] | | | LAB | | | [...] mL/min/1.73m2 | [facility] | | | [place] | | | | | + +---------+ [...] [facility] | [address] | [place] [address] | | | LAB | | | | + + + + + | [facility] | [address] | [place] [address] | | | LAB | | | [...] [facility] | [address] | [place] [address] | | | LAB | | | | + + + + + | [facility] | [address] | [place] [address] | | | LAB | | | [...] [facility] | [address] | [place] [address] | | | LAB | | | | + + + + + | [facility] | [address] | [place] [address] | | | LAB | | | [...] [facility] | [address] | [place] [address] | | | LAB | | | | + + + + + | [facility] | [address] | [place] [address] | | | LAB | | | | + + + + + TIAN, LUIS ENRIQUE, CX IF INDICATED (12/26/2011 12:01 AM PDT) [...] [address] | [place] [address] | | | LAB | | | | + + + + + | [facility] | [address] | [place] [address] | | | LAB | | | [...] | | CULTURE | MAYTE | | [facility] | | | | MRN: | | | | | | [id number] | | | | | | | [...] | | | | | | | [id number] SITE: | | | | | | [...] at: | | | | | | [facility] | | | | + + + + + + + + | Specimen | + + | | + + + + + + + | Performing | Address | City/State/Zipcode | Phone Number | | Organization | | | | + + + + + | [facility] | [address] | [place] [address] | | | LAB | | | | + + + + + | [facility] | [address] | [place] [address] | | | LAB | | | | + + + + + documented in this encounter Visit Diagnoses Not on filedocumented in this encounter"
--- OUTSIDE RECORDS SUMMARY | ~2019-08-03 | XMS | Encounter Summary ---
Demographics + + + | Address | [address] | | | [place] [address] | + + + | Home Phone | | + + + | Preferred Language | Unknown | + + + | Marital Status | Single | + + + | Sikh Affiliation | NON | + + + [...] Team Providers + +------+ + | Care Girls Swimming Coach Name | Role | Phone | + [...]
--- OUTSIDE RECORDS SUMMARY | ~2019-08-03 | XMS | Encounter Summary ---
Demographics + + + | Address | [address] | | | [place] [address] | + + + | Home Phone [...] Team Providers + +------+ + | Care Cell Manager Name | Role | Phone | + +------+ + | No Pcp Per Patient | PCP | Unavailable | + +------+ + Encounter Details +--------+ + + + + | Date | Type | Department | Care Team | Description | +--------+ + + + + | 03/14/ | Results | Epic at [facility] | Janet Salomon, | | | 2013 | Only | [address] | [facility] | | | | | [place], [place] | [facility] | | | | | [address] | [address] | | | | | | [address] | | | | | | [place] [address] | | | | | | [phone] | | | | | | | [...] [address] | [place] [address] | | | LAB | | | | + + + + + | [facility] | [address] | [place] [address] | | | LAB | | | [...] | | test was performed | | [facility] | | | | using the [employer] COMBO2 | | | | | | Assay([employer] | | | | | | [...] | | | | | | Mnemonic: [id number] | | | | | | DIAGNOSTICS | | | | | | [id number] | | | | | | [address] [facility], | | | | | | [place] [address]DNJE M | | | | | | [...] [facility] | [address] | [place] [address] | | | LAB | | | | + + + + + | [facility] | [address] | [place] [address] | | | LAB | | | [...] MRN: | | | | | | [id number] | | | | | | | [...] | | | | | | | [id number] SITE: | | | | | | [...] [address] | [place] [address] | | | LAB | | | | + + + + + | [facility] | [address] | [place] [address] | | | LAB | | | | + + + + + documented in this encounter Visit Diagnoses Not on filedocumented in this encounter"
--- OUTSIDE RECORDS SUMMARY | ~2019-08-03 | XMS | Encounter Summary ---
Demographics + + + | Address | [address] | | | [place] [address] | + + + | Home Phone [...] Team Providers + +------+ + | Care Entertainment & Media Correspondent Name | Role | Phone | + +------+ + | No Pcp Per Patient | PCP | Unavailable | + +------+ + Encounter Details +--------+ + + + + | Date | Type | Department | Care Team | Description | +--------+ + + + + | 04/08/ | ED Progress | Epic at [facility] | Jill Das, | ED Progress Note | | 2013 | | [address] | [address] | | | | Note-Transc | [place], [place] | Yang H[place], [place] | | | | handy | [address] | [address] | | | | | | | [...]
--- OUTSIDE RECORDS SUMMARY | ~2019-08-03 | XMS | Clinical Summary ---
Demographics + + + | Address | [address] | | | [place] [address] | + + + | Home Phone | | + + + | Preferred Language | Unknown | + + + | Marital Status | Single | + + + | Mandaeism Affiliation | NON | + + + [...] Team Providers + +------+ + | Care Marketing Project Manager Name | Role | Phone | + +------+ + | No Pcp Per Patient | PCP | Unavailable | + +------+ + Source Comments VALERY is fully live on both [facility] and [facility] InPatient.[facility] Allergies + + + + [...] | + +--------+ +--------+ + +--------+ | PLANNING INTERN MEDICAID | PLANNING INTERN | xxxxxxxx | 03/31/20 | | | Medica | | | [place] | | 18-Pre | | | id | | | [place] | | sent | | | | + +--------+ +--------+ + +--------+ | [facility] | PEREIRA | xxxxxxxx | 03/31/20 | [phone] | [address] | HMO | | HEALTH PLAN | ADULT | | 13-Pre | 7 | [id number] | | | | | | sent | | [place] | | | | | | | | [address] | | + +--------+ +--------+ + +--------+ [...] Isi | raine/Sunny | | 1985 | [phone] | [place] | | | [place] | | | 8 (Home) | [phone] | + +--------+ +--------+ + + | Ivana An | Person | Self | [birth year] | | [address] | | Isi | raine/Sunny | | 1985 | [phone] | [address] [place] | | | ana | | | [place] ([place]) | [phone] | + +--------+ +--------+ + +
--- OUTSIDE RECORDS SUMMARY | ~2019-08-03 | XMS | Encounter Summary ---
Demographics + + + | Address | [address] | | | [place] [address] | + + + | Home Phone [...] Team Providers + +------+ + | Care Boiler Operator Helper Name | Role | Phone | + +------+ + | No Pcp Per Patient | PCP | Unavailable | + +------+ + Encounter Details +--------+ + + + + | Date | Type | Department | Care Team | Description | +--------+ + + + + | 10/28/ | Results | Epic at [facility] | Colin, | | | 2012 | Only | [address] | Rajesh Foreman MD | | | | | [place], [place] | [facility] | | | | | [address] | [facility] [address] | | | | | | [place] [address] | | | | | | [phone] | | | | | | | [...] | + + + + + | [facility] | [address] | [place] [address] | [phone] | + + + + + documented in this encounter Visit Diagnoses Not on filedocumented in this encounter"
--- OUTSIDE RECORDS SUMMARY | ~2019-08-03 | XMS | Encounter Summary ---
Demographics + + + | Address | [address] | | | [place] [address] | + + + | Home Phone | | + + + | Preferred Language | Unknown | + + + | Marital Status | Single | + + + | Jainism Affiliation | NON | + + + [...] Team Providers + +------+ + | Care Identity Access Management Architect Name | Role | Phone | + +------+ + | No Pcp Per Patient | PCP | Unavailable | + +------+ + Encounter Details +--------+ + + + + | Date | Type | Department | Care Team | Description | +--------+ + + + + | 12/11/ | Results | Epic at [facility] | Filiberto Ricketts, | | | 2011 | Only | [address] | [facility] | | | | | [place], [place] | Clinic [address] | | | | | [address] | [address] | | | | | | [place] [address] | | | | | | [phone] | | | | | | | [...] | + +--------+ + + + | HCG, QUANT SERUM | Routin | 12/12/2011 | | Results for this | | | e | 4:00 PM | | procedure are in the | | | | PDT | | results section. | + +--------+ + + + | CBC, WITH | Routin | 12/12/2011 | | Results for this | | DIFFERENTIAL | e | 4:00 PM | | procedure are in the | | | | PDT | | results section. | + +--------+ + + + documented in this encounter Results HCG, QUANT SERUM (12/12/2011 4:00 PM PDT) + + + + + + | Component | Value | Ref Range | Performed | Pathologist | | | | | At | Signature | + + + + + + | HCG QUANT | 1Comment: Beta hCG Quant | mIntUnit/mL | [facility] | | | SERUM | Female reference range: | | [facility] | | | | | | | | | | Non-: | | | | | | <3 mIU/mL | | | | | | <=1 week after | | | | | | conception: <=50 | | | | | | mIU/mL 6-8 weeks after | | | | | | conception: | | | | | | 15,000-200,000 mIU/mL | | | | | | | | | | | | | | | | | | | | | | | | | | | | | | Male reference | | | | | | range: <3 mIU/mL | | | | | | | | | | | | | | | | | | | | | | | | | | | | | | Standardized to (W.H.O) | | | | | | 3[employer] International | | | | | | Standard (75/537) | | | | + + + + + + + + | Specimen | + + | | + + + + + + + | Performing | Address | City/State/Zipcode | Phone Number | | Organization | | | | + + + + + | [facility] | [address] | [place] [address] | | | LAB | | | | + + + + + | [facility] | [address] | [place] [address] | | | LAB | | | | + + + + + CBC, WITH DIFFERENTIAL (12/12/2011 4:00 PM PDT) + + + + + + | Component | Value | Ref Range | Performed | Pathologist | | | | | At | Signature | + + + + + + | WHITE CELL | 10.1 | 4.5 - 10.5 | [facility] | | | COUNT | | x10(3)/mcL | [facility] | | + + + + + + | RED CELL | 4.85 | 4.20 - 5.40 | [facility] | | | COUNT | | x10(6)/mcL | [facility] | | + + + + + + | HEMOGLOBIN | 13.8 | 12.0 - 16.0 | [facility] | | | | | gm/dL | [facility] | | + + + + + + | HEMATOCRIT | 40.3 | 37.0 - 47.0 % | [facility] [...] + + | MCHC | 34.1 | 32.0 - 36.0 | [facility] | | | | | gm/dL | [facility] | | + + + + + + | RDW | 14.7 (H) | 11.5 - 14.5 % | [facility] | | | | | | [facility] | | + + + + + + | PLATELET | 210 | 150 - 400 | [facility] | | | COUNT | | x10(3)/mcL | [facility] | | + + + + + + | MPV | 10.1 | 7.4 - 10.4 fL | [facility] | | | | | | [facility] | | + + + + + + | NEUTROPHIL | 68.4 | 40.2 - 78.0 % | [facility] | | | % | | | [facility] | | + + + + + + | LYMPHOCYTE | 23.7 | 15.5 - 49.1 % | [facility] [...] + + + | BASO % | 0.2 | 0.0 - 2.0 % | [facility] | | | | | | [facility] | | + + + + + + | NEUTROPHIL | 6.9 | 0.9 - 7.7 | [facility] | [...] [facility] | [address] | [place] [address] | | | LAB | | | | + + + + + | [facility] | [address] | [place] [address] | | | LAB | | | | + + + + + documented in this encounter Visit Diagnoses Not on filedocumented in this encounter"
--- OUTSIDE RECORDS SUMMARY | ~2019-08-03 | XMS | Clinical Summary ---
Demographics + + + | Address | [address] | | | [place] [address] | + + + | Home Phone | | + + + | Preferred Language | Unknown | + + + | Marital Status | Single | + + + | Hinduism Affiliation | NON | + + + [...] Team Providers + +------+ + | Care Insulation Board Calender Operator Name | Role | Phone | + +------+ + | No Pcp Per Patient | PCP | Unavailable | + +------+ + Source Comments VALERY is fully live on both [facility] and [facility] InPatient.[facility] Allergies + + + + + + [...] | + +--------+ +--------+ + +--------+ | [employer] MEDICAID | [employer] | xxxxxxxx | 03/31/20 | | | Medica | | | [place] | | 18-Pre | | | id | | | [place] | | sent | | | | + +--------+ +--------+ + +--------+ | [facility] | [place]ERE[place] | xxxxxxxx | 03/31/20 | [phone] | [address] | HMO | | HEALTH PLAN | ADULT | | 13-Pre | 7 | [id number] | | | | | | sent | | [place] | | | | | | | | [address] | | + +--------+ +--------+ + +--------+ [...] Isi | raine/Sunny | | 1985 | [phone] | [place] | | | ana | | | 8 (Home) | [phone] | + +--------+ +--------+ + + | Ivana An | Person | Self | [birth year] | | [address] | | Isi | raine/Sunny | | 1985 | [phone] | [address] [place] | | | ana | | | [place] | [phone] | + +--------+ +--------+ + +
--- OUTSIDE RECORDS SUMMARY | ~2019-08-03 | XMS | Encounter Summary ---
Demographics + + + | Address | [address] | | | [place] [address] | + + + | Home Phone | | + + + | Preferred Language | Unknown | + + + | Marital Status | Single | + + + | Catholic Affiliation | NON | + + [...] Team Providers + +------+ + | Care Enchilada Maker Name | Role | Phone | + +------+ + | No Pcp Per Patient | PCP | Unavailable | + +------+ + Encounter Details +--------+ + + + + | Date | Type | Department | Care Team | Description | +--------+ + + + + | 10/28/ | Results | Epic at [facility] | [place], | | | 2012 | Only | [address] | Rajesh Foreman MD | | | | | [place], [place] | [facility] | | | | | [address] | [facility] [address] | | | | | | [place] [address] | | | | | | [phone] | | | | | | | [...] [address] | [place] [address] | [phone] | + + + + + documented in this encounter Visit Diagnoses Not on filedocumented in this encounter"
--- OUTSIDE RECORDS SUMMARY | ~2019-08-03 | XMS | Encounter Summary ---
Demographics + + + | Address | [address] | | | [place] [address] | + + + | Home Phone [...] Team Providers + +------+ + | Care Industrial Hygienist Name | Role | Phone | + [...] Care [address] | [address] | heterosexual | | | | [address] | [address] | behavior (Primary | | | | [place] [address] | [place] [address] | Dx); Facial injury, | | | | [phone] | [phone] | initial encounter; | | | | [...] symptoms d o not improve, sooner at [facility] Emergency Department if symptoms worsen. If you do not have a PCP, please call to establish care, or you may contact [phone] for [facility] Primary care at [place]. Scrapes (Abrasions): Care Instructions Your Care Instructions [...] doctor if you can take an o zzv-jqv-jvqegwi medicine. When should you call for help? [...] "Scrapes (Abrasions): Care Instructions", log into your Statwing account at [email or web address]/[employer]. You can enter A374 in the "Health Library" search box. Not on Statwing? Review the Swivelhart section of your After Visit Summary for directions on inna khan to sign up. Current as of: June 23, 2018 Content Version: 08.09-2018 ArtCorgi. Care instructions adapted under license by [facility] & [employer]. If you have questions about a medical condition or this instr uction, always ask your healthcare professional. [employer] disclaims any chana anty or liability for [...] "Safer Sex: Care Instructions", log into your Statwing account at [email or web address]/[employer]. You can enter B608 in the "Zogenix Library" search box. Not on MyChart? Review the MyChart section of your After Visit Summary for directions on inna khan to sign up. Current as of: June 11, 2018 Content Version: 08.09-2018 [employer]Corg[employer]. Care instructions adapted under license by [facility] [employer]. If you have questions about a medical condition or this instr uction, always ask your healthcare professional. [employer] disclaims any Earwax Blockage: Care Instructions Your [...] out. Dry your ear thoroughly with a hair boiler operator set on low. Hold the dryer several inches from your ear. If the warm mineral oil and shower do not work, use an pgok-sek-vmbinbx wax softener. Re ad and follow all [...] "Earwax Blockage: Care Instructions", log into your Statwing account at [email or web address]/[employer]. You can enter Q495 in the "Health Library" search box. Not on Statwing? Review the Statwing section of your After Visit Summary for directions on ho w to sign up. Current as of: June 23, 2018 Content Version: 11.9 8479-1736 [employer]. Care instructions adapted under license by [facility]. If you have questions about a medical condition or this instr uction, always ask your healthcare professional. [employer] disclaims any chana anty or liability for [...] bridge of nose. HPI: Pleasant 33 y.o. Turkish speaking female who has a past medical history of Anxiety, B ipolar 1 disorder (HCC), and Manic depression (HCC), presents to [facility] Urgent care fo r STD check [...] file Gets together: Not on file Attends muslim service: Not on file Active member of [...] symptoms d o not improve, sooner at [facility] Emergency Department if symptoms worsen. If you do not have a PCP, please call to establish care, or you may contact [phone] for [facility] Primary care at [place]. Bala Escobar MD [facility], [address] [address] [phone] documented in this encoun ter Plan of [...] RUBA/NAN | [address] | [place] [address] | | | LAB | | | [...] + + | LOT # - | [id number] | | TUALITY - | | | [...] - MELISSA | [address] | [place] [address] | [phone] | | CARE [facility] | Kian Simmonsy [...] | [facility] - URGENT | [address] | [place] [address] | [phone] | | CARE [place] | Kian Simmonsy [...] by | | | | | | [place],[address] | | | | | | Shruti Escobar, [facility] | | | | | | [address] | | | | | | [phone].[facility]. | | | | | | [facility] hospital[facility]ft[facility]har MD, | | | | | | [...] | + + + + + | Load [employer] | [address] | [place], [place] | [phone] | | | | [address] | | + + + + + [...]
--- OUTSIDE RECORDS SUMMARY | ~2019-08-03 | XMS | Encounter Summary ---
Demographics + + + | Address | [address] [facility] [facility] | | | [place] [address] | + + + | Home Phone [...] Team Providers + +------+ + | Care Larry Operator Name | Role | Phone | + +------+ + | No Pcp Per Patient | PCP | Unavailable | + +------+ + Encounter Details +--------+ + + + + | Date | Type | Department | Care Team | Description | +--------+ + + + + | 03/14/ | ED Progress | Epic at [facility] | [place], | ED Progress Note | | 2014 | | [address] | Emmanuel Waddell MD | | | | Note-Transc | [place], [place] | [facility] | | | | [facility] | [address] | [facility] Med [address] | | [address] | | | | | | [place] [address] | | | | | | [phone] | | | | | | | [...]
--- OUTSIDE RECORDS SUMMARY | ~2019-08-03 | XMS | Encounter Summary ---
Demographics + + + | Address | [address] [facility] [facility] [facility] | | | [place] [address] | + + + | Home Phone [...] Team Providers + +------+ + | Care Bioinformatician Name | Role | Phone | + +------+ + | No Pcp Per Patient | PCP | Unavailable | + +------+ + Encounter Details +--------+ + + + + | Date | Type | Department | Care Team | Description | +--------+ + + + + | 10/22/ | Results | Epic at [facility] | Manas Johnson NP | | | 2012 | Only | [address] [place] [address] | | | | | [place], [place] | [facility] [address] | | | | | [address] | [place], [place] | | | | | | [address] | | | | | | | [...] | + --------+ | Interface, Lab Results [facility] - 05/24/2017 6:23 PM PDT KNEE [...] [facility] | [address] | [place] [address] | [phone] | + + + + + documented in this encounter Visit Diagnoses Not on filedocumented in this encounter"
--- OUTSIDE RECORDS SUMMARY | ~2019-08-03 | XMS | Encounter Summary ---
Demographics + + + | Address | [address] | | | [place] [address] | + + + | Home Phone | | + + + | Preferred Language | Unknown | + + + | Marital Status | Single | + + + | Islam Affiliation | NON | + + + [...] Team Providers + +------+ + | Care Motorboat Mechanic Helper Name | Role | Phone | + +------+ + | No Pcp Per Patient | PCP | Unavailable | + +------+ + Encounter Details +--------+ + + + + | Date | Type | Department | Care Team | Description | +--------+ + + + + | 09/03/ | Results | Epic at [facility] | Manas Johnson NP | | | 2014 | Only | [address] [place] [address] | | | | | [place], [place] | [facility] [address] | | | | | [address] | [place], [place] | | | | | | [address] | | | | | | | [...] | + + | Interface, Lab Results [facility] - 06/13/2017 10:17 PM PDT RIGHT [...] RADIOLOGY | [address] | [place] [address] | [phone] | + + + + + documented in this encounter Visit Diagnoses Not on filedocumented in this encounter"
--- OUTSIDE RECORDS SUMMARY | ~2019-08-03 | XMS | Encounter Summary ---
Demographics + + + | Address | [address] | | | [place] [address] | + + + | Home Phone [...] Team Providers + +------+ + | Care Lpn Private Duty Name | Role | Phone | + +------+ + | No Pcp Per Patient | PCP | Unavailable | + +------+ + Encounter Details +--------+ + + + + | Date | Type | Department | Care Team | Description | +--------+ + + + + | 08/28/ | ED Progress | Epic at [facility] | Manas Johnson, PRACHI | ED Progress Note | | 2015 | | [address] [facility] | [facility] | | | | Note-Transc | [place], [place] | Hospital [address] | | | | ribed | [address] | Ave [place], [place] | | | | | | [address] | | | | | | | [...]
--- OUTSIDE RECORDS SUMMARY | ~2019-08-03 | XMS | Encounter Summary ---
Demographics + + + | Address | [address] | | | [place] [address] | + + + | Home Phone [...] Team Providers + +------+ + | Care Dentist/Owner Name | Role | Phone | + +------+ + | No Pcp Per Patient | PCP | Unavailable | + +------+ + Encounter Details +--------+ + + + + | Date | Type | Department | Care Team | Description | +--------+ + + + + | 10/30/ | Results | Epic at [facility] | José Luis Schultz MD | | | 2011 | Only | [address] | [address] | | | | | [place], [place] | [place] [address] | | | | | [address] | [phone] | | | | | | | [...] mL/min/1.73m2 | [facility] | | | [place] | | | | | + +---------+ [...] [facility] | [address] | [place] [address] | | | LAB | | | | + + + + + | [facility] | [address] | [place] [address] | | | LAB | | | [...] [facility] | [address] | [place] [address] | | | LAB | | | | + + + + + | [facility] | [address] | [place] [address] | | | LAB | | | | + + + + + documented in this encounter Visit Diagnoses Not on filedocumented in this encounter"
--- OUTSIDE RECORDS SUMMARY | ~2019-08-03 | XMS | Encounter Summary ---
Demographics + + + | Address | [address] | | | [place] [address] | + + + | Home Phone | | + + + | Preferred Language | Unknown | + + + | Marital Status | Single | + + + | Jewish Affiliation | NON | + + + [...] Team Providers + +------+ + | Care Paperhanger Name | Role | Phone | + [...] | at [facility] | DO [address] | | | | | Healthcare [address] | | | | | [address] | [place] [address] | | | | | [place] [address] | [phone] | | | | | [phone] | | | +--------+ + + + [...] Note | + --------+ | Service Account, PollGround In Interface - 02/10/2019 2:45 PM PDT [...] RADIOLOGY | [address] | [place] [address] | [phone] | + + + + + documented in this encounter Visit Diagnoses + + | Diagnosis | + + | Finger injury, left, initial encounter | + + documented in this encounter"
--- OUTSIDE RECORDS SUMMARY | ~2019-08-03 | XMS | Encounter Summary ---
Demographics + + + | Address | [address] | | | [place] [address] | + + + | Home Phone [...] Team Providers + +------+ + | Care Hris Analyst Name | Role | Phone | + +------+ + | No Pcp Per Patient | PCP | Unavailable | + +------+ + Encounter Details +--------+ + + + + | Date | Type | Department | Care Team | Description | +--------+ + + + + | 05/03/ | ED Progress | Epic at [facility] | Meghan Ramos, | ED Progress Note | | 2013 | | [address] | MD [address] [facility] | | | | Note-Transc | [place], [place] | [facility] | | | | handy | [address] | [place], [place] | | | | | | [address] | | | | | | [phone] | | | | | | | [...]
--- OUTSIDE RECORDS SUMMARY | ~2019-08-03 | XMS | Encounter Summary ---
Demographics + + + | Address | [address] | | | [place] [address] | + + + | Home Phone [...] Team Providers + +------+ + | Care Computer Systems Analyst Name | Role | Phone | + +------+ + | No Pcp Per Patient | PCP | Unavailable | + +------+ + Encounter Details +--------+ + + + + | Date | Type | Department | Care Team | Description | +--------+ + + + + | 08/28/ | Results | Epic at [facility] | Manas Johnson NP | | | 2014 | Only | [address] [place] [address] | | | | | [place], [place] | [facility] [address] | | | | | [address] | [place], [place] | | | | | | [address] | | | | | | | [...] [address] | [place] [address] | [phone] | + + + + + documented in this encounter Visit Diagnoses Not on filedocumented in this encounter"
--- OUTSIDE RECORDS SUMMARY | ~2019-08-03 | XMS | Encounter Summary ---
Demographics + + + | Address | [address] | | | [place] [address] | + + + | Home Phone [...] Team Providers + +------+ + | Care Label Coder Name | Role | Phone | + +------+ + | No Pcp Per Patient | PCP | Unavailable | + +------+ + Encounter Details +--------+ + + + + | Date | Type | Department | Care Team | Description | +--------+ + + + + | 05/08/ | ED Progress | Epic at [facility] | [place], | ED Progress Note | | 2014 | | [address] | Emmanuel Waddell MD | | | | Note-Transc | [place], [place] | [facility] | | | | [facility] | [address] | [facility] Med [address] | | | [address] | | | | | | [place] [address] | | | | | | [phone] | | | | | | | [...]
--- OUTSIDE RECORDS SUMMARY | ~2019-08-03 | XMS | Encounter Summary ---
Demographics + + + | Address | [address] | | | [place] [address] | + + + | Home Phone [...] Team Providers + +------+ + | Care B And B Gang Worker Name | Role | Phone | [...]
--- OUTSIDE RECORDS SUMMARY | ~2019-08-03 | XMS | Encounter Summary ---
Demographics + + + | Address | [address] [facility] | | | [place] [address] | + + + | Home Phone [...] Team Providers + +------+ + | Care Medical Technician Assistant Name | Role | Phone | + +------+ + | No Pcp Per Patient | PCP | Unavailable | + +------+ + Encounter Details +--------+ + + + + | Date | Type | Department | Care Team | Description | +--------+ + + + + | 12/05/ | Results | Epic at [facility] | Juan Diego White | | | 2012 | Only | [address] | MD Aurelia [address] | | | | | [place], [place] | [facility] | | | | | [address] | [address] [place], | | | | | | [place] [address] | | | | | | [phone] | | | | | | | [...] RADIOLOGY | [address] | [place] [address] | [phone] | + + + + + UA [...] [facility] | [address] | [place] [address] | | | LAB | | | | + + + + + | [facility] | [address] | [place] [address] | | | LAB | | | [...] mL/min/1.73m2 | [facility] | | | [place] | | | | | + +---------+ [...] [address] | [place] [address] | | | LAB | | | | + + + + + | [facility] | [address] | [place] [address] | | | LAB | | | | + + + + + CBC W/ERIK NO REFLEX (12/05/2012 5:30 PM PST) + + + [...] [facility] | [address] | [place] [address] | | | LAB | | | | + + + + + | [facility] | [address] | [place] [address] | | | LAB | | | | + + + + + documented in this encounter Visit Diagnoses Not on filedocumented in this encounter"
--- OUTSIDE RECORDS SUMMARY | ~2019-08-03 | XMS | Encounter Summary ---
Demographics + + + | Address | [address] [facility] | | | [place] [address] | + + + | Home Phone [...] Team Providers + +------+ + | Care Electric Meter Tester Shop Name | Role | Phone | + [...] [address] | DO [address] | initial encounter | | | | [address] | [address] | (Primary Dx); Sprain | | | | [place] [address] | [place] [address] | of interphalangeal | | | | [phone] | [phone] | joint of left little | | [...] doctor if you can take an o fqr-eev-frfvkuq medicine. If your doctor recommends exercises, do [...] "Finger Sprain: Care Instructions", log into your Memvu account at [email or web address]. You can enter [id number] in the "[employer] Library" search box. Not on Memvu? Review the Memvu section of your After Visit Summary for directions on inna w to sign up. Current as of: June 20, 2018 Content Version: 11.9 6502-3722 [employer]fit[employer]. Care instructions adapted under license by [facility] [employer] & Science Lester. If you have questions about a medical condition or this instr uction, always ask your healthcare professional. [employer] disclaims any chana anty or liability for [...] Amanda Barroso DO - 02/10/2019 12:05 PM [id number] patient presents with injury to he r [...] Note | + --------+ | Service Account, TicketForEvent Res In Interface - 02/10/2019 2:45 PM [...] [address] | [place] [address] | [phone] | + + + + + documented in this encounter Visit Diagnoses + + | Diagnosis | + + | Finger injury, left, initial encounter - Primary | + + | Sprain of interphalangeal joint of left little finger, initial encounter | + + documented in this encounter
--- OUTSIDE RECORDS SUMMARY | ~2019-08-03 | XMS | Encounter Summary ---
Demographics + + + | Address | [address] [facility] | | | [place] [address] | + + + | Home Phone [...] Team Providers + +------+ + | Care Asphalt Tile Floor Layer Name | Role | Phone | + +------+ + | No Pcp Per Patient | PCP | Unavailable | + +------+ + Encounter Details +--------+ + + + + | Date | Type | Department | Care Team | Description | +--------+ + + + + | 09/05/ | ED Progress | Epic at [facility] | Reginald Castellano, | ED Progress Note | | 2015 | | [address] | MD [address] [facility] | | | | Note-Transc | [place], [place] | [address] | | | | ribbolivar | [address] | [place], [place] | | | | | | [address] | | | | | | [phone] | | | | | | | [...]
--- OUTSIDE RECORDS SUMMARY | ~2019-08-03 | XMS | Encounter Summary ---
Demographics + + + | Address | [address] | | | [place] [address] | + + + | Home Phone | | + + + | Preferred Language | Unknown | + + + | Marital Status | Single | + + + | Hoahaoism Affiliation | NON | + + + [...] Team Providers + +------+ + | Care Lead Applier Name | Role | Phone | + +------+ + | No Pcp Per Patient | PCP | Unavailable | + +------+ + Encounter Details +--------+ + + + + | Date | Type | Department | Care Team | Description | +--------+ + + + + | 08/28/ | Results | Epic at [facility] | Manas Johnson NP | | | 2014 | Only | [address] [place] [address] | | | | | [place], [place] | [facility] [address] | | | | | [address] | [place], [place] | | | | | | [address] | | | | | | | [...] [address] | [place] [address] | [phone] | + + + + + documented in this encounter Visit Diagnoses Not on filedocumented in this encounter"
--- OUTSIDE RECORDS SUMMARY | ~2019-08-03 | XMS | Encounter Summary ---
Demographics + + + | Address | [address] [facility] | | | [place] [address] | + + + | Home Phone [...] Team Providers + +------+ + | Care Wool Supplier Name | Role | Phone | + +------+ + | No Pcp Per Patient | PCP | Unavailable | + +------+ + Encounter Details +--------+ + + + + | Date | Type | Department | Care Team | Description | +--------+ + + + + | 04/24/ | ED Progress | Epic at [facility] | Reginald Castellano, | ED Progress Note | | 2014 | | [address] | MD [address] [facility] | | | | Note-Transc | [place], [place] | [address] | | | | [place]ar | [address] | [place], [place] | | | | | | [address] | | | | | | [phone] | | | | | | | [...]
--- OUTSIDE RECORDS SUMMARY | ~2019-08-03 | XMS | Encounter Summary ---
Demographics + + + | Address | [address] [facility] | | | [place] [address] | + + + | Home Phone [...] Team Providers + +------+ + | Care Engineering Design Supervisor Name | Role | Phone | + +------+ + | No Pcp Per Patient | PCP | Unavailable | + +------+ + Encounter Details +--------+ + + + + | Date | Type | Department | Care Team | Description | +--------+ + + + + | 12/11/ | Results | Epic at [facility] | Filiberto Ricketts, | | | 2011 | Only | [address] | [facility] OBGYN | | | | | [place], [place] | Clinic [address] | | | | | [address] | [address] | | | | | | [place] [address] | | | | | | [phone] | | | | | | | [...] SERUM | Female reference range: | | [facility] | | | | [...] [address] | [place] [address] | | | LAB | | | | + + + + + | [facility] | [address] | [place] [address] | | | LAB | | | [...] [address] | [place] [address] | | | LAB | | | | + + + + + | [facility] | [address] | [place] [address] | | | LAB | | | | + + + + + documented in this encounter Visit Diagnoses Not on filedocumented in this encounter"
--- OUTSIDE RECORDS SUMMARY | ~2019-08-03 | XMS | Encounter Summary ---
Demographics + + + | Address | [address] | | | [place] [address] | + + + | Home Phone | | + + + | Preferred Language | Unknown | + + + | Marital Status | Single | + + + | Religion Affiliation | NON | + + + [...] Team Providers + +------+ + | Care Market Risk Analyst Name | Role | Phone | + +------+ + | No Pcp Per Patient | PCP | Unavailable | + +------+ + Encounter Details +--------+ + + + + | Date | Type | Department | Care Team | Description | +--------+ + + + + | 04/06/ | ED Progress | Epic at [facility] | Meghan Ramos, | ED Progress Note | | 2013 | | [address] | MD [address] [facility] | | | | Note-Transc | [place], [place] | [facility] | | | | handy | [address] | [place], [place] | | | | | | [address] | | | | | | [phone] | | | | | | | [...]
--- OUTSIDE RECORDS SUMMARY | ~2019-08-03 | XMS | Encounter Summary ---
Demographics + + + | Address | [address] | | | [place] [address] | + + + | Home Phone [...] Team Providers + +------+ + | Care Quarry Worker Name | Role | Phone | + +------+ + | No Pcp Per Patient | PCP | Unavailable | + +------+ + Encounter Details +--------+ + + + + | Date | Type | Department | Care Team | Description | +--------+ + + + + | 08/15/ | Results | Epic at [facility] | Other, Faculty | | | 2011 | Only | [address] | [phone] | | | | | [place], [place] | | | | | | [address] | | | +--------+ + + + [...] mL/min/1.73m2 | [facility] | | | KYRGYZ | | | | | + +-------+ [...] [facility] | [address] | [place] [address] | | | LAB | | | | + + + + + | [facility] | [address] | [place] [address] | | | LAB | | | [...] [address] | [place] [address] | | | LAB | | | | + + + + + | [facility] | [address] | [place] [address] | | | LAB | | | [...] [facility] | [address] | [place] [address] | | | LAB | | | | + + + + + | [facility] | [address] | [place] [address] | | | LAB | | | | + + + + + documented in this encounter Visit Diagnoses Not on filedocumented in this encounter"
--- OUTSIDE RECORDS SUMMARY | ~2019-08-03 | XMS | Encounter Summary ---
Demographics + + + | Address | [address] [facility] [facility] | | | [place] [address] | + + + | Home Phone [...] Team Providers + +------+ + | Care Publication Manager Name | Role | Phone | + +------+ + | No Pcp Per Patient | PCP | Unavailable | + +------+ + Encounter Details +--------+ + + + + | Date | Type | Department | Care Team | Description | +--------+ + + + + | 04/06/ | Results | Epic at [facility] | Meghan Ramos, | | | 2013 | Only | [address] | [address] [facility] | | | | | [place], [place] | [facility] | | | | | [address] | [place], [place] | | | | | | [address] | | | | | | [phone] | | | | | | | [...] | + --------+ | Interface, Lab Results [facility] - 06/12/2017 3:35 PM PDT RIGHT ANKLE; [...] RADIOLOGY | [address] | [place] [address] | [phone] | + + + + + X-RAY [...] RADIOLOGY | [address] | [place] [address] | [phone] | + + + + + documented in this encounter Visit Diagnoses Not on filedocumented in this encounter"
--- OUTSIDE RECORDS SUMMARY | ~2019-08-03 | XMS | Encounter Summary ---
Demographics + + + | Address | [address] | | | [place] [address] | + + + | Home Phone | | + + + | Preferred Language | Unknown | + + + | Marital Status | Single | + + + | Restoration Affiliation | NON | + + + [...] Providers + +------+ + | Care Rn Or Lvn Name | Role | Phone | + +------+ + | No Pcp Per Patient | PCP | Unavailable | + +------+ + Encounter Details +--------+ + + + + | Date | Type | Department | Care Team | Description | +--------+ + + + + | 08/15/ | Results | Epic at [facility] | Other, Faculty | | | 2011 | Only | [address] | [phone] | | | | | [place], [place] | | | | | | [address] | | | +--------+ + + + [...] mL/min/1.73m2 | [facility] | | | COMORAN | | | | | + +-------+ [...] [facility] | [address] | [place] [address] | | | LAB | | | | + + + + + | [facility] | [address] | [place] [address] | | | LAB | | | [...] [address] | [place] [address] | | | LAB | | | | + + + + + | [facility] | [address] | [place] [address] | | | LAB | | | [...] [address] | [place] [address] | | | LAB | | | | + + + + + | [facility] | [address] | [place] [address] | | | LAB | | | | + + + + + documented in this encounter Visit Diagnoses Not on filedocumented in this encounter"
--- OUTSIDE RECORDS SUMMARY | ~2019-08-03 | XMS | Encounter Summary ---
Demographics + + + | Address | [address] | | | [place] [address] | + + + | Home Phone [...] Team Providers + +------+ + | Care Road Advisor Name | Role | Phone | + +------+ + | No Pcp Per Patient | PCP | Unavailable | + +------+ + Encounter Details +--------+ + + + + | Date | Type | Department | Care Team | Description | +--------+ + + + + | 10/22/ | Results | Epic at [facility] | Manas Johnson NP | | | 2012 | Only | [address] [place] [address] | | | | | [place], [place] | [facility] [address] | | | | | [address] | [place], [place] | | | | | | [address] | | | | | | | [...] [facility] - 05/24/2017 6:23 PM PDT KNEE [...] [facility] | [address] | [place] [address] | [phone] | + + + + + documented in this encounter Visit Diagnoses Not on filedocumented in this encounter"
--- OUTSIDE RECORDS SUMMARY | ~2019-08-03 | XMS | Encounter Summary ---
Demographics + + + | Address | [address] | | | [place] [address] | + + + | Home Phone | | + + + | Preferred Language | Unknown | + + + | Marital Status | Single | + + + | Buddhism Affiliation | NON | + + + [...] Team Providers + +------+ + | Care Aquatics Specialist Name | Role | Phone | + +------+ + | No Pcp Per Patient | PCP | Unavailable | + +------+ + Encounter Details +--------+ + + + + | Date | Type | Department | Care Team | Description | +--------+ + + + + | 09/03/ | ED Progress | Epic at [facility] | Manas Johnson, PRACHI | ED Progress Note | | 2015 | | [address] [facility] | [facility] | | | | Note-Transc | [place], [place] | Hospital [address] | | | | ribed | [address] | Ave [place], [place] | | | | | | [address] | | | | | | | [...]
--- OUTSIDE RECORDS SUMMARY | ~2019-08-03 | XMS | Encounter Summary ---
Demographics + + + | Address | [address] | | | [place] [address] | + + + | Home Phone [...] Team Providers + +------+ + | Care Foaming Machine Operator Name | Role | Phone [...] + | 03/27/ | Emergency | [facility] Emergency | John Olivas, | | | 2011 - | | Department [address] | [address] | | | | | [address] | [address] | | | 03/28/ | | [facility] | [place], [place] | | | 2011 | | [place], [place] | [address] | | | | | [address] | [phone] | | | | | [phone] | | | +--------+ + + + [...] Disorder: After Your Visit", log into your [employer] account at [email or web address]. You can enter R087 in the [employer]. Library" search box. Not on [employer]? Review the Egoscuet section of your After Visit Summary for directions on ho w to sign up. [id number] [employer]. Care instructions adapted under license by [facility]. This care instruction is for use with your licensed healthcar e professional. If you have questions about a medical condition or this instruction, always ask your healthcare professional. [employer] disclaims any warranty or liabili ty for your use of this information. Content Version: 9.3.00297; Last Revised: March 28, 2011 Urinary Tract [...] Women: After Your Visit", log into your [employer] account at [email or web address]. You can enter [id number] in the DealsNear.me" se arch box. Not on [employer]? Review the Egoscuet section of your After Visit Summary for directions on inna w to sign up. [phone] [employer]. Care instructions adapted under license by [facility]. This care instruction is for use with your licensed healthPathwright professional. If you have questions about a medical condition or this instruction, always ask your healthcare professional. [employer] disclaims any warranty or liabili ty for your use of this information. Content Version: 9.3.75231; Last Revised: February 14, 2011 documented in [...] NW | | | | | | [address] | | | | | | [place], [place] | | | | | | [address] | | | | + + + + + + + + | Specimen | + + | | + + + + + + + | Performing | Address | City/State/Zipcode | Phone Number | | Organization | | | | + + + + + | [facility] | [address] | [place] [address] | | | LAB-MICRO | | | [...] DEPARTMENT OF | [address] | [place] [address] | | | PATHOLOGY | [address] [...] DEPARTMENT OF | [address] | [place] [address] | | | PATHOLOGY | [address] [...] | + + + + + | [facility] | [address] | [place] [address] | | | PATHOLOGY | [address] [...] DEPARTMENT OF | [address] | [place] [address] | | | PATHOLOGY | [address] [...] ([address] [facility]) | [facility] | | [facility] [place] [address] [facility] | REGIONAL | | [place] [address] | LABORATORY | + + + + + + + + | Performing | Address | City/State/Zipcode | Phone Number | | Organization | | | | + + + + + | [facility] | [address] | [place] [address] | | | LABORATORY | | | [...] + + + + + | [facility] DEPARTMENT OF | [address] | [place] [address] | | | PATHOLOGY | [address] [...] | | | DEPARTMENT | | | BR[place] | | | OF | | | [...] [facility] DEPARTMENT | [address] | [place] [address] | | | PATHOLOGY | [address] [...] DEPARTMENT OF | [address] | [place] [address] | | | PATHOLOGY | [address] [...] DEPARTMENT OF | [address] | [place] [address] | | | PATHOLOGY | [address] [...] + + + + + | [facility] DEPARTMENT OF | [address] | [place] [address] | | | PATHOLOGY | [address] [...] | + + + + + | [facility] | [address] | [place] [address] | | | PATHOLOGY | [address] [...] | | | | ONCE, 1 dose, [facility] 03/28/12 at 0100 | | AM PDT | | | | + +--------+ +--------+------+------+ +---+---+ | | | +---+---+ documented in this encounter
--- OUTSIDE RECORDS SUMMARY | ~2019-08-03 | XMS | Encounter Summary ---
Demographics + + + | Address | [address] | | | [place] [address] | + + + | Home Phone [...] Team Providers + +------+ + | Care Guard Lieutenant Name | Role | Phone | + +------+ + | No Pcp Per Patient | PCP | Unavailable | + +------+ + Encounter Details +--------+ + + + + | Date | Type | Department | Care Team | Description | +--------+ + + + + | 12/05/ | Results | Epic at [facility] | Juan Diego White | | | 2012 | Only | [address] | [place] [address] [address] | | | | | [place], [place] | [facility] | | | | | [address] | [address] [place], | | | | | | [place] [address] | | | | | | [phone] | | | | | | | [...] RADIOLOGY | [address] | [place] [address] | [phone] | + + + + + UA [...] [facility] | [address] | [place] [address] | | | LAB | | | | + + + + + | [facility] | [address] | [place] [address] | | | LAB | | | [...] mL/min/1.73m2 | [facility] | | | CZECH | | | | | + +---------+ [...] [address] | [place] [address] | | | LAB | | | | + + + + + | [facility] | [address] | [place] [address] | | | LAB | | | [...] [facility] | [address] | [place] [address] | | | LAB | | | | + + + + + | [facility] | [address] | [place] [address] | | | LAB | | | | + + + + + documented in this encounter Visit Diagnoses Not on filedocumented in this encounter"
--- OUTSIDE RECORDS SUMMARY | ~2019-08-03 | XMS | Encounter Summary ---
Demographics + + + | Address | [address] | | | [place] [address] | + + + | Home Phone | | + + + | Preferred Language | Unknown | + + + | Marital Status | Single | + + + | Denominational Affiliation | NON | + + + [...] Team Providers + +------+ + | Care Mental Telepathist Name | Role | Phone | + +------+ + | No Pcp Per Patient | PCP | Unavailable | + +------+ + Encounter Details +--------+ + + + + | Date | Type | Department | Care Team | Description | +--------+ + + + + | 04/21/ | Results | Epic at [facility] | Brennon, | | | 2013 | Only | [address] | Erick Chowdhury DO [address] | | | | | [place], [place] | [facility] | | | | | [address] | Rd [place], [place] | | | | | | [address] | | | | | | [phone] | | | | | | | [...] [address] | [place] [address] | | | LAB | | | | + + + + + | [facility] | [address] | [place] [address] | | | LAB | | | [...] mL/min/1.73m2 | [facility] | | | ITALIAN | | | | | + +-------+ [...] [address] | [place] [address] | | | LAB | | | | + + + + + | [facility] | [address] | [place] [address] | | | LAB | | | [...] [facility] | [address] | [place] [address] | | | LAB | | | | + + + + + | [facility] | [address] | [place] [address] | | | LAB | | | [...] [facility] | [address] | [place] [address] | | | LAB | | | | + + + + + | [facility] | [address] | [place] [address] | | | LAB | | | [...] [facility] | [address] | [place] [address] | | | LAB | | | | + + + + + | [facility] | [address] | [place] [address] | | | LAB | | | [...] [address] | [place] [address] | | | LAB | | | | + + + + + | [facility] | [address] | [place] [address] | | | LAB | | | [...] [facility] | [address] | [place] [address] | | | LAB | | | | + + + + + | [facility] | [address] | [place] [address] | | | LAB | | | [...] [facility] | [address] | [place] [address] | | | LAB | | | | + + + + + | [facility] | [address] | [place] [address] | | | LAB | | | [...] [address] | [place] [address] | | | LAB | | | | + + + + + | [facility] | [address] | [place] [address] | | | LAB | | | [...] | | test was performed | | [facility] | | | | using the AP[employer] COMBO2 | | | | | | Assay([employer] | | | | | | [...] | | | | | | Mnemonic: [id number] | | | | | | DIAGNOSTICS | | | | | | [address] [id number] | | | | | | [address] [facility], | | | | | | [place] [address]PDFAXIQ | | | | | | MD DICKSON | | | | + + + + + + + + | Specimen | + + | | + + + + + + + | Performing | Address | City/State/Zipcode | Phone Number | | Organization | | | | + + + + + | [facility] | [address] | [place] [address] | | | LAB | | | | + + + + + | [facility] | [address] | [place] [address] | | | LAB | | | [...] MRN: | | | | | | [id number] | | | | | | | [...] | | | | | | | [id number] SITE: | | | | | | [...] at: | | | | | | [facility] | | | | + + + + + + + + | Specimen | + + | | + + + + + + + | Performing | Address | City/State/Zipcode | Phone Number | | Organization | | | | + + + + + | [facility] | [address] | [place] [address] | | | LAB | | | | + + + + + | [facility] | [address] | [place] [address] | | | LAB | | | [...] preliminary interpretation given by | | | [facility]. | | + + [...] discrepancy from the preliminary interpretation given by [facility] | | Radiology. | | [...] discrepancy from the preliminary interpretation given by [facility] Radiolog y. | + + + + + + + | Performing | Address | City/State/Zipcode | Phone Number | | Organization | | | | + + + + + | [facility] | [address] | [place] [address] | [phone] | + + + + + [place] [...] discrepancy from the preliminary interpretation given by [facility] | Radiology. | | | | [...] [facility]. | + + + + + + + | Performing | Address | City/State/Zipcode | Phone Number | | Organization | | | | + + + + + | [facility] | [address] | [place] [address] | [phone] | + + + + + UA [...] [facility] | [address] | [place] [address] | | | LAB | | | | + + + + + | [facility] | [address] | [place] [address] | | | LAB | | | [...] [address] | [place] [address] | | | LAB | | | | + + + + + | [facility] | [address] | [place], [place] [address] | | | LAB | | | | + + + + + documented in this encounter Visit Diagnoses Not on filedocumented in this encounter"
--- OUTSIDE RECORDS SUMMARY | ~2019-08-03 | XMS | Encounter Summary ---
Demographics + + + | Address | [address] | | | [place] [address] | + + + | Home Phone | | + + + | Preferred Language | Unknown | + + + | Marital Status | Single | + + + | Adventism Affiliation | NON | + + + | Race | White | + + + | Ethnic Group | Not or | + + + Author + + + | Author | [facility] | + + + | Organization | [facility] | + + + | Address | Unknown | + + + | Phone | Unavailable | + + + Support +------+ +---------+ + | Name | Relationship | Address | Phone | +------+ +---------+ + | None | ECON | Unknown | Unavailable | +------+ +---------+ + Care Team Providers + +------+ + | Care Temperature Control Inspector Name | Role | Phone | + +------+ + | [facility], | PCP | | | Ref | | | + +------+ + Encounter Details +--------+ + + + + | Date | Type | Department | Care Team | Description | +--------+ + + + + | 09/07/ | ED Progress | [facility] | [...]
--- OUTSIDE RECORDS SUMMARY | ~2019-08-03 | XMS | Encounter Summary ---
Demographics + + + | Address | [address] | | | [place] [address] | + + + | Home Phone [...] Team Providers + +------+ + | Care Tram Inspector Name | Role | Phone | + +------+ + | No Pcp Per Patient | PCP | Unavailable | + +------+ + Encounter Details +--------+ + + + + | Date | Type | Department | Care Team | Description | +--------+ + + + + | 12/25/ | Results | Epic at [facility] | Samanta Haas T | | | 2011 | Only | [address] | [place] | | | | | [place], [place] | [facility] [address] | | | | | [address] | [place] | | | | | | [place] [address] | | | | | | [phone] | | | | | | | [...] DNA | test was performed | | [facility] | | | | using the BD | | | | | | ProbeTec(TM)Chlamydia | | | | | | trachomatis and | | | | | | Neisseria gonorrhoeae | | | | | | Amplified DNA Assays.Lab | | | | | | test performed by:Lab | | | | | | Mnemonic: [facility] | | | | | | [facility] [address] | | | | | | [facility] | | | | | | [place], [place] | | | | | | [id number] M. | | | | | | [...] [facility] | [address] | [place] [address] | | | LAB | | | | + + + + + | [facility] | [address] | [place] [address] | | | LAB | | | [...] MRN: | | | | | | [id number] | | | | | | | [...] | | | | | | | [id number] SITE: | | | | | | [...] [facility] | [address] | [place] [address] | | | LAB | | | | + + + + + | [facility] | [address] | [place] [address] | | | LAB | | | [...] mL/min/1.73m2 | [facility] | | | [place] | | | | | + +-------+ [...] [facility] | [address] | [place] [address] | | | LAB | | | | + + + + + | [facility] | [address] | [place] [address] | | | LAB | | | [...] [facility] | [address] | [place] [address] | | | LAB | | | | + + + + + | [facility] | [address] | [place] [address] | | | LAB | | | [...] [address] | [place] [address] | | | LAB | | | | + + + + + | [facility] | [address] | [place] [address] | | | LAB | | | [...] [facility] | [address] | [place] [address] | | | LAB | | | | + + + + + | [facility] | [address] | [place] [address] | | | LAB | | | [...] mL/min/1.73m2 | [facility] | | | [place] | | | | | + +---------+ [...] [address] | [place] [address] | | | LAB | | | | + + + + + | [facility] | [address] | [place] [address] | | | LAB | | | [...] [address] | [place] [address] | | | LAB | | | | + + + + + | [facility] | [address] | [place] [address] | | | LAB | | | [...] [facility] | [address] | [place] [address] | | | LAB | | | | + + + + + | [facility] | [address] | [place] [address] | | | LAB | | | [...] | + + | Interface, Lab Results [facility] - 05/30/2017 3:33 PM PDT CLINICAL INFORMATION: [...] RADIOLOGY | [address] | [place] [address] | [phone] | + + + + + X-RAY [...] RADIOLOGY | [address] | [place] [address] | [phone] | + + + + + URINALYSIS [...] [facility] | [address] | [place] [address] | | | LAB | | | | + + + + + | [facility] | [address] | [place] [address] | | | LAB | | | [...] MRN: | | | | | | [id number] | | | | | | | [...] | | | | | | | [id number] SITE: | | | | | | [...] [facility] | [address] | [place] [address] | | | LAB | | | | + + + + + | [facility] | [address] | [place] [address] | | | LAB | | | [...] [facility] | [address] | [place] [address] | | | LAB | | | | + + + + + | [facility] | [address] | [place] [address] | | | LAB | | | [...] [facility] | [address] | [place] [address] | | | LAB | | | | + + + + + | [facility] | [address] | [place] [address] | | | LAB | | | [...] [address] | [place] [address] | | | LAB | | | | + + + + + | [facility] | [address] | [place] [address] | | | LAB | | | [...] [address] | [place] [address] | | | LAB | | | | + + + + + | [facility] | [address] | [place] [address] | | | LAB | | | [...] [facility] | [address] | [place] [address] | | | LAB | | | | + + + + + | [facility] | [address] | [place] [address] | | | LAB | | | [...] [address] | [place] [address] | | | LAB | | | | + + + + + | [facility] | [address] | [place] [address] | | | LAB | | | [...] mL/min/1.73m2 | [facility] | | | [place] | | | | | + +---------+ [...] [address] | [place] [address] | | | LAB | | | | + + + + + | [facility] | [address] | [place] [address] | | | LAB | | | [...] [address] | [place] [address] | | | LAB | | | | + + + + + | [facility] | [address] | [place] [address] | | | LAB | | | [...] | + + | Interface, Lab Results [facility] - 05/23/2017 4:30 PM PDT FLUOROSCOPIC-GUIDED [...] RADIOLOGY | [address] | [place] [address] | [phone] | + + + + + DIFFERENTIAL, [...] [facility] | [address] | [place] [address] | | | LAB | | | | + + + + + | [facility] | [address] | [place] [address] | | | LAB | | | [...] [facility] | [address] | [place] [address] | | | LAB | | | | + + + + + | [facility] | [address] | [place] [address] | | | LAB | | | [...] [facility] | [address] | [place] [address] | | | LAB | | | | + + + + + | [facility] | [address] | [place] [address] | | | LAB | | | [...] [address] | [place] [address] | | | LAB | | | | + + + + + | [facility] | [address] | [place] [address] | | | LAB | | | [...] [facility] | [address] | [place] [address] | | | LAB | | | | + + + + + | [facility] | [address] | [place] [address] | | | LAB | | | [...] [facility] | [address] | [place] [address] | | | LAB | | | | + + + + + | [facility] | [address] | [place] [address] | | | LAB | | | [...] AB SCREEN | Nonreactive HIV-1/2 | | [facility] | | | | antibody [...] [facility] | | | | | | [id number] | | | | | | [address] | | | | | | [address], [place] | | | | | | [id number] [address] | | | | | | [...] [address] | [place] [address] | | | LAB | | | | + + + + + | [facility] | [address] | [place] [address] | | | LAB | | | [...] emesis. PROCEDURE: | RADIOLOGY | | Utilizing InteraXon 128 channel scanner, following injector infusion | [...] RADIOLOGY | [address] | [place] [address] | [phone] | + + + + + CULTURE, BLOOD BACTI & YEAST (12/26/2011 4:59 AM PDT) + + + + + + | Component | Value | Ref Range | Performed | Pathologist | | | | | At | Signature | + + + + + + | CULTURE | Patient:RICARDO DEGROOT | | LEONIEALITY/ELIAS | | | RESULT | MAYTE | | [facility] | | | | MRN: | | | | | | [id number] | | | | | | | [...] | | | | | | | [id number] SITE: | | | | | | [...] at: | | | | | | [facility] | | | | + + + + + + + + | Specimen | + + | | + + + + + + + | Performing | Address | City/State/Zipcode | Phone Number | | Organization | | | | + + + + + | [facility] | [address] | [place] [address] | | | LAB | | | | + + + + + | [facility] | [address] | [place] [address] | | | LAB | | | [...] MRN: | | | | | | [id number] | | | | | | | [...] | | | | | | | [id number] SITE: | | | | | | [...] at: | | | | | | [facility] | | | | + + + + + + + + | Specimen | + + | | + + + + + + + | Performing | Address | City/State/Zipcode | Phone Number | | Organization | | | | + + + + + | [facility] | [address] | [place] [address] | | | LAB | | | | + + + + + | [facility] | [address] | [place] [address] | | | LAB | | | [...] RADIOLOGY | [address] | [place] [address] | [phone] | + + + + + X-RAY [...] | + + | Interface, [facility] 05/23/[facility] 4:30 PM PDT CHEST, [...] [address] | [place] [address] | [phone] | + + + + + PROCALCITONIN (12/26/2011 1:43 AM PDT) + + + + + + | Component | Value | Ref Range | Performed | Pathologist | | | | | At | Signature | + + + + + + | PROCALCITON | <0.05Comment: | ng/mL | [facility] | | | IN | INTERPRETATION FOR | | [facility] | | | | DIAGNOSIS [...] [facility] | [address] | [place] [address] | | | LAB | | | | + + + + + | [facility] | [address] | [place] [address] | | | LAB | | | [...] mL/min/1.73m2 | [facility] | | | [place] | | | | | + +---------+ [...] [facility] | [address] | [place] [address] | | | LAB | | | | + + + + + | [facility] | [address] | [place] [address] | | | LAB | | | [...] [facility] | [address] | [place] [address] | | | LAB | | | | + + + + + | [facility] | [address] | [place] [address] | | | LAB | | | [...] [facility] | [address] | [place] [address] | | | LAB | | | | + + + + + | [facility] | [address] | [place] [address] | | | LAB | | | [...] [facility] | [address] | [place] [address] | | | LAB | | | | + + + + + | [facility] | [address] | [place] [address] | | | LAB | | | [...] [address] | [place] [address] | | | LAB | | | | + + + + + | [facility] | [address] | [place] [address] | | | LAB | | | [...] | | CULTURE | [facility] | | [facility] | | | | MRN: | | | | | | [id number] | | | | | | | [...] | | | | | | | [id number] SITE: | | | | | | [...] at: | | | | | | [facility] | | | | + + + + + + + + | Specimen | + + | | + + + + + + + | Performing | Address | City/State/Zipcode | Phone Number | | Organization | | | | + + + + + | [facility] | [address] | [place] [address] | | | LAB | | | | + + + + + | [facility] | [address] | [place] [address] | | | LAB | | | | + + + + + documented in this encounter Visit Diagnoses Not on filedocumented in this encounter"
--- OUTSIDE RECORDS SUMMARY | ~2019-08-03 | XMS | Encounter Summary ---
Demographics + + + | Address | [address] | | | [place] [address] | + + + | Home Phone | | + + + | Preferred Language | Unknown | + + + | Marital Status | Single | + + + | Orthodox Affiliation | NON | + + [...] Team Providers + +------+ + | Care Government Property Inspector Name | Role | Phone | [...]
--- OUTSIDE RECORDS SUMMARY | ~2019-08-03 | XMS | Encounter Summary ---
Demographics + + + | Address | [address] | | | [place] [address] | + + + | Home Phone | | + + + | Preferred Language | Unknown | + + + | Marital Status | Single | + + + | Samaritan Affiliation | NON | + + + | Race | White | + + + | Ethnic Group | Not or | + + + Author + + + | Author | [facility] | + + + | Organization | [facility] | + + + | Address | Unknown | + + + | Phone | Unavailable | + + + Support +------+ +---------+ + | Name | Relationship | Address | Phone | +------+ +---------+ + | None | ECON | Unknown | Unavailable | +------+ +---------+ + Care Team Providers + +------+ + | Care Test Puller Name | Role | Phone | + +------+ + | [facility], | PCP | | | Ref [...]
--- OUTSIDE RECORDS SUMMARY | ~2019-08-03 | XMS | Encounter Summary ---
Demographics + + + | Address | [address] | | | [place] [address] | + + + | Home Phone [...] Team Providers + +------+ + | Care Oracle Database Developer Name | Role | Phone | [...] | | | | | Nick [place], | | | | | | [place] [address] | | | | | | [phone] | | | | | | | [...] + + + | [facility] | [address] | [place] [address] | | | LAB-MICRO | | | [...] Performed At | + + + | [id number] Specimen volume <12ml; microscopic not standardized. | [facility] | | | DEPARTMENT OF | | | PATHOLOGY | + + + + + + + + | Performing | Address | City/State/Zipcode | Phone Number | | Organization | | | | + + + + + | [facility] DEPARTMENT OF | [address] | [place] [address] | | | PATHOLOGY | [address] | | | + + + + + | [facility] DEPARTMENT OF | [address] | [place] [address] | | | PATHOLOGY | [address] [...] Performed At | + + + | [id number] Specimen volume <12ml; microscopic not standardized. | [facility] | | | DEPARTMENT OF | | | PATHOLOGY | + + + + + + + + | Performing | Address | City/State/Zipcode | Phone Number | | Organization | | | | + + + + + | [facility] | [address] | [place] [address] | | | PATHOLOGY | [address] | | | + + + + + | [facility] | [address] | [place] [address] | | | PATHOLOGY | [address] | | | + + + + + documented in this encounter Visit Diagnoses Not on filedocumented in this encounter"
--- OUTSIDE RECORDS SUMMARY | ~2019-08-03 | XMS | Encounter Summary ---
Demographics + + + | Address | [address] | | | [place] [address] | + + + | Home Phone [...] Team Providers + +------+ + | Care Concrete Mixing Plant Laborer Name | Role | Phone | + +------+ + | No Pcp Per Patient | PCP | Unavailable | + +------+ + Encounter Details +--------+ + + + + | Date | Type | Department | Care Team | Description | +--------+ + + + + | 11/06/ | Results | Epic at [facility] | Other, Faculty | | | 2012 | Only | [address] | [phone] | | | | | [place], [place] | | | | | | [address] | | | +--------+ + + + [...] | + + | Interface, Lab Results [facility] - 05/24/2017 7:54 PM PDT [...] RADIOLOGY | [address] | [place] [address] | [phone] | + + + + + [place] [...] RADIOLOGY | [address] | [place] [address] | [phone] | + + + + + [place] [...] | + + | Interface, Lab Results [facility] - 05/24/2017 7:53 PM PDT [...] [address] | [place] [address] | [phone] | + + + + + documented in this encounter Visit Diagnoses Not on filedocumented in this encounter"
--- OUTSIDE RECORDS SUMMARY | ~2019-08-03 | XMS | Encounter Summary ---
Demographics + + + | Address | [address] [address] | | | [place] [address] | + + + | Home Phone [...] Team Providers + +------+ + | Care Foxing Closer Name | Role | Phone | + +------+ + | No Pcp Per Patient | PCP | Unavailable | + +------+ + Encounter Details +--------+ + + + + | Date | Type | Department | Care Team | Description | +--------+ + + + + | 10/30/ | Results | Epic at [facility] | José Luis Schultz MD | | | 2011 | Only | [address] | [address] | | | | | [place], [place] | [place] [address] | | | | | [address] | [phone] | | | | | | | [...] mL/min/1.73m2 | [facility] | | | VINCENTIAN | | | | | + +---------+ [...] [facility] | [address] | [place] [address] | | | LAB | | | | + + + + + | [facility] | [address] | [place] [address] | | | LAB | | | [...] [facility] | [address] | [place] [address] | | | LAB | | | | + + + + + | [facility] | [address] | [place] [address] | | | LAB | | | | + + + + + documented in this encounter Visit Diagnoses Not on filedocumented in this encounter"
--- OUTSIDE RECORDS SUMMARY | ~2019-08-03 | XMS | Encounter Summary ---
Demographics + + + | Address | [address] | | | [place] [address] | + + + | Home Phone [...] Author + + + | Author | [facility] | + + + | Organization | [facility] | + + + | Address | Unknown | + + + | Phone | Unavailable | + + + Support +------+ +---------+ + | Name | Relationship | Address | Phone | +------+ +---------+ + | None | ECON | Unknown | Unavailable | +------+ +---------+ + Care Team Providers + +------+ + | Care Gamma Ray Operator Name | Role | Phone | [...] + + | 04/26/ | Emergency | [facility] Emergency | Filiberto Solis MD | | | 2012 - | | Department [address] | [address] | | | | | [address] | [address] | | | 04/27/ | | [facility] | [place], [place] | | | 2012 | | [place], [place] | [address] | | | | | [address] | [phone] | | | | | [phone] | | | +--------+ + + + [...] Women: After Your Visit", log into your [address] Mobile account at [email or web address]. You can enter [id number] in the Qritiqr" YieldPlanet arch box. Not on MindSumo? Review the MindSumo section of your After Visit Summary for directions on ho w to sign up. [id number] [employer]. Care instructions adapted under license by [facility] [employer] & [facility]. This care instruction is for use with your licensed Meeting To You professional. If you have questions about a medical condition or this instruction, always ask your healthcare professional. [employer] disclaims any warranty or liabili ty for your use of this information. Content Version: 9.7.716697; Last Revised: February 14, 2011 documented in [...] | + + + + + | [facility] | [address] | [place] [address] | | | SERVICES, CORE | PARK [...] | + + + + + | [facility] | [address] | [place] [address] | | | SERVICES, LEROY | NICK [...] | | | LABORATORY | | | CHILEAN | | | SERVICES, | | | [...] [facility] | [address] | [place] [address] | | | SERVICES, CORE | NICK [...] | + + + + + | [facility] | [address] | [place] [address] | | | LEROY CHA | NICK [...] | + + + + + | [facility] | [address] | [place] [address] | | | SERVICES, CORE | PARK [...] | + + + + + | [facility] | [address] | [place] [address] | | | SERVICES, CORE | PARK [...] | + + + + + | [facility] | [address] | [place] [address] | | | SERVICES, CORE | NICK [...] | | | Final CULTURE | | [facility] | | | | RESULT:Multiple | [...] + | [facility] | [address] | [place] [address] | | | [place] | | | [...]
[~2019-08-03 12:53] MED LIST changes: +DICLOFENAC SODI75 MG PO
== END 2019-08-03 15:27 | disposition home or self-care (01) ==
LOC: ED 12:53
DX: M79.89 Other specified soft tissue disorders (principal); Z87.891 Personal history of nicotine dependence; Z88.6 Allergy status to analgesic agent; Z88.8 Allergy status to other drugs, medicaments and biological substances; Z88.5 Allergy status to narcotic agent
CPT/HCPCS: 93971; 99283-25

== ENCOUNTER 2020-05-17 14:13 | Emergency (ER) | payer MEDICAID ==
[~2020-05-17] VITALS: Ht 165.1 cm; Wt 125.2 kg
--- OUTSIDE RECORDS SUMMARY | ~2020-05-17 | XMS | Clinical Summary ---
Demographics + + + | Address | [address] | | | [place] [address] | + + + | Home Phone | | + + + | Preferred Language | Unknown | + + + | Marital Status | Single | + + + | Lutheran Affiliation | NON | + + + | Race | White | + + + | Ethnic Group | Not or | + + + Author + + + | Author | [facility] | + + + | Organization | [facility] | + + + | Address | Unknown | + + + | Phone | Unavailable | + + + Support +------+ +---------+ + | Name | Relationship | Address | Phone | +------+ +---------+ + | None | ECON | Unknown | Unavailable | +------+ +---------+ + Care Team Providers + +------+ + | Care Route Sales Driver Name | Role | Phone | + +------+ + | No Pcp Per Patient | PCP | Unavailable | + +------+ + Source Comments VALERY is fully live on both [facility] Ambulatory and [facility] InPatient.[facility] Allergies + + + + + + | Active Allergy | Reactions | Severity | Noted | Comments | | | | | Date | | + + + + + + | Codeine | Pruritus, Nausea | High | 04/26/20 | | | | | | 13 | | + + + + + + | Ketorolac | Nausea, Rash, | Medium | 12/11/19 | 11/13-Patient | | | Unknown | | 13 | states she is | | | | | | unaware of allergy | | | | | | to this medication. | | | | | | REY Connor Upset | | | | | | stomach | + + + + + + | Naproxen | Rash | Medium | 09/16/20 | | | | | | 15 | | + + + + + + | Tramadol | Nausea | Medium | 04/26/20 | | | | | | 13 | | + + + + + + Medications + + + +---------+------+------+-------+ | Medication | Sig | Dispensed | Refills | Star | End | Statu | | | | | | t | Date | s | | | | | | Date | | | + + + +---------+------+------+-------+ | ondansetron 4 mg | Take 1 Tab by mouth | 10 Tab | 0 | 07/2 | | Activ | | Oral tablet | every twelve hours | | | 820 | | e | | | as needed. | | | 13 | | | + + + +---------+------+------+-------+ | | Take 1 Tab by mouth | 15 Tab | 0 | 07/2 | | Activ | | HYDROcodone-acetamin | every four hours as | | | 8/20 | | e | | ophen 10-325 mg Oral | needed. Maxixmum 12 | | | 13 | | | | tablet | tabs per day | | | | | | + + + +---------+------+------+-------+ Active Problems Not on file Family History + + +------+ + | Medical History | Relation | Name | Comments | + + +------+ + | No Known Problems | Father | | | + + +------+ + | No Known Problems | Mother | | | + + +------+ + + +------+--------+ + | Relation | Name | Status | Comments | + +------+--------+ + | Father | | | | + +------+--------+ + | Mother | | | | + +------+--------+ + Social History + +-------+ +--------+------+ | Tobacco Use | Types | Packs/Day | Years | Date | | | | | Used | | + +-------+ +--------+------+ | Current Some Day | | | | | | Smoker | | | | | + +-------+ +--------+------+ + +---+---+---+ | Smokeless Tobacco: | | | | | Never Used | | | | + +---+---+---+ + + +---------+ + | Alcohol Use | Drinks/Week | oz/Week | Comments | + + +---------+ + | Yes | | | occ | + + +---------+ + + + + | Sex Assigned at | Date Recorded | | | | + + + | Not on file | | + + + + + + + | Job Start Date | Occupation | Industry | + + + + | Not on file | Not on file | Not on file | + + + + + + + + | Travel History | Travel Start | Travel End | + + + + + + | No recent travel history available. | + + Last Filed Vital Signs + + + + + | Vital Sign | Reading | Time Taken | Comments | + + + + + | Blood Pressure | 120/80 | 03/03/2019 1:30 PM | | | | | PDT | | + + + + + | Pulse | 80 | 03/03/2019 1:30 PM | | | | | PDT | | + + + + + | Temperature | 36.8 C (98.2 F) | 03/03/2019 1:30 PM | | | | | PDT | | + + + + + | Respiratory Rate | 16 | 03/03/2019 1:30 PM | | | | | PDT | | + + + + + | Oxygen Saturation | 100% | 04/26/2013 9:58 PM | | | | | PDT | | + + + + + | Inhaled Oxygen | - | - | | | Concentration | | | | + + + + + | Weight | 130 kg (286 lb 9.6 | 03/03/2019 1:30 PM | | | | oz) | PDT | | + + + + + | Height | 165 cm (5' 4.96") | 03/03/2019 1:30 PM | | | | | PDT | | + + + + + | Body Mass Index | 47.75 | 03/03/2019 1:30 PM | | | | | PDT | | + + + + + Plan of Treatment + + + + + | Health Maintenance | Due Date | Last Done | Comments | + + + + + | Pneumococcal | | | | | vaccination ( | 0 | | | | - PPSV23) | | | | + + + + + | Influenza (Flu) | | 07/26/2015, 07/31/2011, | | | vaccination (#1) | 9 | 07/31/2011, Additional history | | | | | exists | | + + + + + Results Not on filefrom Last 3 Months Insurance + +--------+ +--------+ + +--------+ | Payer | Benefi | Subscriber | Effect | Phone | Address | Type | | | t Plan | ID | cadence | | | | | | / | | Dates | | | | | | Group | | | | | | + +--------+ +--------+ + +--------+ | PLAN NURSE MEDICAID | PLAN NURSE | xxxxxxxx | 03/31/20 | | | Medica | | | [place] | | 18-Pre | | | id | | | [place] | | sent | | | | + +--------+ +--------+ + +--------+ | [facility] | [facility] | xxxxxxxx | 03/31/20 | [phone] | [address] | HMO | | HEALTH PLAN | ADULT | | 13-Pre | 7 | [id number] | | | | | | sent | | [place] | | | | | | | | [phone] | | + +--------+ +--------+ + +--------+ + +--------+ +--------+ + + | Guarantor Name | Accoun | Relation to | Date | Phone | Billing Address | | | t Type | Patient | of | | | | | | | | | | + +--------+ +--------+ + + | Ivana An | Person | Self | [birth year] | [address] | | Isi | raine/Sunny | | 1985 | [phone] | [place] | | | ana | | | [address] (Home) | [phone] | + +--------+ +--------+ + + | Ivana An | Person | Self | [birth year] | [address] | | [place]i | raine/Sunny | | 1985 | [phone] | [address] | | | ana | | | [address] ([place]) | [phone] | + +--------+ +--------+ + +
--- OUTSIDE RECORDS SUMMARY | ~2020-05-17 | XMS | Encounter Summary ---
Demographics + + + | Address | [address] | | | [place] [address] | + + + | Home Phone | | + + + | Preferred Language | Unknown | + + + | Marital Status | Single | + + + | Faith Affiliation | NON | + + + [...] Team Providers + +------+ + | Care Moulder Operator Name | Role | Phone | + +------+ + | No Pcp Per Patient | PCP | Unavailable | + +------+ + Encounter Details +--------+ + + + + | Date | Type | Department | Care Team | Description | +--------+ + + + + | 02/10/ | Hospital | Diagnostic Imaging | Amanda Barroso, | | | 2019 | Encounter | at [facility] | [place] [address] | | | | | [facility] [address] | | | | | [facility] | [place], [place] | | | | | [place] [address] | [id number] | | | | | [phone] | [phone] | | | | | | | [...] + + documented as of this encounter Medications at Time of Discharge + + + +---------+ + + | Medication | Sig | Dispensed | Refills | Start | End Date | | | | | | Date | | + + + +---------+ + + | | Take 1 Tab by mouth | 15 Tab | 0 | 04/27/20 | | | HYDROcodone-acetamin | every four hours as | | | 13 | | | ophen 10-325 mg Oral | needed. Maxixmum 12 | | | | | | tablet | tabs per day | | | | | + + + +---------+ + + | ondansetron 4 mg | Take 1 Tab by mouth | 10 Tab | 0 | 04/27/20 | | | Oral tablet | every twelve hours | | | 13 | | | | as needed. | | | | | + + + +---------+ + + documented as of this encounter Plan of Treatment Not on filedocumented as of this encounter Procedures + +--------+ + + + | Procedure Name | Priori | Date/Time | Associated Diagnosis | Comments | | | ty | | | | + +--------+ + + + | X-RAY FINGER 3 VIEWS | Routin | 02/10/2019 | Finger injury, | Results for this | | LEFT | e | 1:15 PM | left, initial | procedure are in the | | | | PDT | encounter | results section. | + +--------+ + + + documented in this encounter Results X-RAY FINGER 3 VIEWS LEFT (02/10/2019 1:15 PM PDT) + + | Specimen | + + | | + + + + + | Narrative | Performed At | + + + | EXAM DESCRIPTION: X-RAY FINGER 3 VIEWS LEFT CLINICAL HISTORY: | [facility] | | 33 y/o F with injury of the left 5th digit. COMPARISON: None. | RADIOLOGY | | TECHNIQUE: Three views of the left 5th digit. FINDINGS: There | | | is no evidence of acute fracture. Joint spaces are preserved. No | | | dislocation or subluxation. Visualized soft tissues are unremarkable. | | | No radiopaque foreign body. IMPRESSION: No acute abnormality. | | | Signed By: Jose Alcocer MD On 02/10/2019 14:42:24 | | + + + + --------+ | Procedure Note | + --------+ | Service Account, [email or web address] In Interface - 02/10/2019 2:45 PM PDT EXAM | | DESCRIPTION:X-RAY FINGER 3 VIEWS LEFT CLINICAL HISTORY:33 y/o F with injury of the left | | 5th digit. COMPARISON:None. TECHNIQUE:Three views of the left 5th digit. FINDINGS:There | | is no evidence of acute fracture. Joint spaces are preserved. No dislocation or | | subluxation.Visualized soft tissues are unremarkable. No radiopaque foreign body. | | IMPRESSION:No acute abnormality. Signed By: Jose Alcocer MD On 02/10/2019 14:42:24 | |COMPARISON: | |None. | | | |TECHNIQUE: | |Three views of the left 5th digit. | | | |FINDINGS: | |There is no evidence of acute fracture. Joint spaces are preserved. No dislocation or sublu xation. | |Visualized soft tissues are unremarkable. No radiopaque foreign body. | | | |IMPRESSION: | |No acute abnormality. | | | | | |Signed By: Jose Alcocer MD On 02/10/2019 14:42:24 | + --------+ + + + + + | Performing | Address | City/State/Zipcode | Phone Number | | Organization | | | | + + + + + | [facility] | [address] | [place], [place] | [phone] | | | | [address] | | + + + + + documented in this encounter Visit Diagnoses + + | Diagnosis | + + | Finger injury, left, initial encounter | + + documented in this encounter"
--- OUTSIDE RECORDS SUMMARY | ~2020-05-17 | XMS | Encounter Summary ---
Demographics + + + | Address | [address] | | | [place] [address] | + + + | Home Phone | | + + + | Preferred Language | Unknown | + + + | Marital Status | Single | + + + | Voodoo Affiliation | NON | + + + [...] Team Providers + +------+ + | Care Surveillance Systems Analyst Name | Role | Phone | + +------+ + | No Pcp Per Patient | PCP | Unavailable | + +------+ + Encounter Details +--------+ + + + + | Date | Type | Department | Care Team | Description | +--------+ + + + + | 12/25/ | Results | Epic at [facility] | Samanta Haas T | | | 2011 | Only | [address] | Francy Fairplay | | | | | [place], [place] | [facility] [address] | | | | | [address] | [place] | | | | | | [place] [address] | | | | | | [phone] | | | | | | | | +--------+ + + + + Social History + +-------+ +--------+------+ | Tobacco Use | Types | Packs/Day | Years | Date | | | | | Used | | + +-------+ +--------+------+ | Never Assessed | | | | | + +-------+ +--------+------+ + + + | Sex Assigned at [...] | + +--------+ + + + | CHLAMYDIA & GC DNA | Routin | 06/20/2012 | | Results for this | | SDA | e | 4:24 PM | | procedure are in the | | | | PDT | | results section. | + +--------+ + + + | CULTURE, URINE | Routin | 06/20/2012 | | Results for this | | | e | 4:24 PM | | procedure are in the | | | | PDT | | results section. | + +--------+ + + + | CBC W/DIFF, NO | Routin | 12/28/2011 | | Results for this | | REFLEX | e | 11:38 PM | | procedure are in the | | | | PDT | | results section. | + +--------+ + + + | BASIC METABOLIC SET | Routin | 12/28/2011 | | Results for this | | (NA, K, CL, TCO2, | e | 11:38 PM | | procedure are in the | | BUN, CR, GLU, CA) | | PDT | | results section. | + +--------+ + + + | CAP GLU,POC | Routin | 12/28/2011 | | Results for this | | | e | 2:02 PM | | procedure are in the | | | | PDT | | results section. | + +--------+ + + + | CAP GLU,POC | Routin | 12/28/2011 | | Results for this | | | e | 7:51 AM | | procedure are in the | | | | PDT | | results section. | + +--------+ + + + | CBC, WITH | Routin | 12/28/2011 | | Results for this | | DIFFERENTIAL | e | 5:08 AM | | procedure are in the | | | | PDT | | results section. | + +--------+ + + + | BASIC METABOLIC SET | Routin | 12/28/2011 | | Results for this | | (NA, K, CL, TCO2, | e | 5:08 AM | | procedure are in the | | BUN, CR, GLU, CA) | | PDT | | results section. | + +--------+ + + + | CAP GLU,POC | Routin | 12/27/2011 | | Results for this | | | e | 9:31 PM | | procedure are in the | | | | PDT | | results section. | + +--------+ + + + | X-RAY SPINE | Routin | 12/27/2011 | | Results for this | | LUMBOSACRAL 3 VIEWS | e | 8:31 PM | | procedure are in the | | | | PDT | | results section. | + +--------+ + + + | X-RAY SPINE CERVICAL | Routin | 12/27/2011 | | Results for this | | 3 VIEWS | e | 8:31 PM | | procedure are in the | | | | PDT | | results section. | + +--------+ + + + | URINALYSIS CULTURE & | Routin | 12/27/2011 | | Results for this | | SENSITIVITY IF | e | 6:20 PM | | procedure are in the | | INDICATED | | PDT | | results section. | + +--------+ + + + | CULTURE, URINE | Routin | 12/27/2011 | | Results for this | | | e | 6:20 PM | | procedure are in the | | | | PDT | | results section. | + +--------+ + + + | CAP GLU,POC | Routin | 12/27/2011 | | Results for this | | | e | 12:54 PM | | procedure are in the | | | | PDT | | results section. | + +--------+ + + + | VANCOMYCIN, TROUGH | Routin | 12/27/2011 | | Results for this | | | e | 12:36 PM | | procedure are in the | | | | PDT | | results section. | + +--------+ + + + | CAP GLU,POC | Routin | 12/27/2011 | | Results for this | | | e | 7:32 AM | | procedure are in the | | | | PDT | | results section. | + +--------+ + + + | MANUAL DIFFERENTIAL | Routin | 12/27/2011 | | Results for this | | | e | 5:15 AM | | procedure are in the | | | | PDT | | results section. | + +--------+ + + + | CBC, WITH | Routin | 12/27/2011 | | Results for this | | DIFFERENTIAL | e | 5:15 AM | | procedure are in the | | | | PDT | | results section. | + +--------+ + + + | LIVER SET | Routin | 12/27/2011 | | Results for this | | (AST,ALT,BILI | e | 5:15 AM | | procedure are in the | | TOTAL,BILI | | PDT | | results section. | | DIRECT,ALK | | | | | | PHOS,ALB,PROT TOTAL) | | | | | + +--------+ + + + | BASIC METABOLIC SET | Routin | 12/27/2011 | | Results for this | | (NA, K, CL, TCO2, | e | 5:15 AM | | procedure are in the | | BUN, CR, GLU, CA) | | PDT | | results section. | + +--------+ + + + | CAP GLU,POC | Routin | 12/26/2011 | | Results for this | | | e | 9:15 PM | | procedure are in the | | | | PDT | | results section. | + +--------+ + + + | X-RAY SPINAL TAP & | Routin | 12/26/2011 | | Results for this | | ASPIRATION | e | 3:06 PM | | procedure are in the | | W/GUIDANCE | | PDT | | results section. | + +--------+ + + + | DIFFERENTIAL, CSF | Routin | 12/26/2011 | | Results for this | | | e | 2:51 PM | | procedure are in the | | | | PDT | | results section. | + +--------+ + + + | GLUCOSE, CSF | Routin | 12/26/2011 | | Results for this | | | e | 2:51 PM | | procedure are in the | | | | PDT | | results section. | + +--------+ + + + | CELL COUNT ONLY, CSF | Routin | 12/26/2011 | | Results for this | | | e | 2:51 PM | | procedure are in the | | | | PDT | | results section. | + +--------+ + + + | PROTEIN, CSF | Routin | 12/26/2011 | | Results for this | | | e | 2:51 PM | | procedure are in the | | | | PDT | | results section. | + +--------+ + + + | CAP GLU,POC | Routin | 12/26/2011 | | Results for this | | | e | 1:02 PM | | procedure are in the | | | | PDT | | results section. | + +--------+ + + + | CAP GLU,POC | Routin | 12/26/2011 | | Results for this | | | e | 8:20 AM | | procedure are in the | | | | PDT | | results section. | + +--------+ + + + | HIV-1/2 AB SCREEN, | Routin | 12/26/2011 | | Results for this | | EIA | e | 6:00 AM | | procedure are in the | | | | PDT | | results section. | + +--------+ + + + | CT ABDOMEN AND | Routin | 12/26/2011 | | Results for this | | PELVIS W IV CONTRAST | e | 5:54 AM | | procedure are in the | | | | PDT | | results section. | + +--------+ + + + | CULTURE, BLOOD BACTI | Urgent | 12/26/2011 | | Results for this | | & YEAST | | 4:59 AM | | procedure are in the | | | | PDT | | results section. | + +--------+ + + + | CULTURE, BLOOD BACTI | Urgent | 12/26/2011 | | Results for this | | & YEAST | | 4:41 AM | | procedure are in the | | | | PDT | | results section. | + +--------+ + + + | CT HEAD WO CONTRAST | Routin | 12/26/2011 | | Results for this | | | e | 3:19 AM | | procedure are in the | | | | PDT | | results section. | + +--------+ + + + | X-RAY CHEST 2 VIEW | Routin | 12/26/2011 | | Results for this | | | e | 2:32 AM | | procedure are in the | | | | PDT | | results section. | + +--------+ + + + | PROCALCITONIN | Routin | 12/26/2011 | | Results for this | | | e | 1:43 AM | | procedure are in the | | | | PDT | | results section. | + +--------+ + + + | COMPLETE METABOLIC | Routin | 12/26/2011 | | Results for this | | SET | e | 1:43 AM | | procedure are in the | | (NA,K,CL,CO2,BUN,CRE | | PDT | | results section. | | AT,GLUC,CA,AST,ALT,B | | | | | | MERI TOTAL,ALK | | | | | | PHOS,ALB,PROT TOTAL) | | | | | + +--------+ + + + | RAPID INFLUENZA(A+B) | Routin | 12/26/2011 | | Results for this | | | e | 1:30 AM | | procedure are in the | | | | PDT | | results section. | + +--------+ + + + | CBC W/DIFF, NO | Routin | 12/26/2011 | | Results for this | | REFLEX | e | 12:50 AM | | procedure are in the | | | | PDT | | results section. | + +--------+ + + + | UA DIPSTICK 10 DIP | Routin | 12/26/2011 | | Results for this | | W/O MICRO | e | 12:07 AM | | procedure are in the | | (AUTOMATED), POC | | PDT | | results section. | + +--------+ + + + | UA, MICROSCOPIC, CX | Routin | 12/26/2011 | | Results for this | | IF INDICATED | e | 12:01 AM | | procedure are in the | | | | PDT | | results section. | + +--------+ + + + | CULTURE, URINE | Urgent | 12/26/2011 | | Results for this | | | | 12:01 AM | | procedure are in the | | | | PDT | | results section. | + +--------+ + + + documented in this encounter Results CHLAMYDIA & GC DNA SDA (06/20/2012 4:24 PM PDT) + + + + + + | Component | Value | Ref Range | Performed | Pathologist | | | | | At | Signature | + + + + + + | C. TRACH | NOT DETECTED | NOT DETECTED | [facility] | | | DNA, SDA | | | [facility] | | + + + + + + | GC DNA, SDA | NOT DETECTED | NOT DETECTED | [facility] | | | | | | [facility] | | + + + + + + | NOTE C/G | See CommentComment: This | | [facility] | | | DNA | test was performed | | [facility] | | | | using the BD | | | | | | ProbeTec(TM)Chlamydia | | | | | | trachomatis and | | | | | | Neisseria gonorrhoeae | | | | | | Amplified DNA Assays.Lab | | | | | | test performed by:Lab | | | | | | Mnemonic: [facility] | | | | | | [facility] [address] | | | | | | [facility] | | | | | | [place], [place] | | | | | | [id number] M. | | | | | | MD DESHAWN | | | | + + + + + + + + | Specimen | + + | | + + + + + + + | Performing | Address | City/State/Zipcode | Phone Number | | Organization | | | | + + + + + | [facility] | [address] | [place], [place] | | | LAB | | [id number] | | + + + + + | [facility] | [address] | [place], [place] | | | LAB | | [id number] | | + + + + + CULTURE, URINE (06/20/2012 4:24 PM PDT) + + + + + + | Component | Value | Ref Range | Performed | Pathologist | | | | | At | Signature | + + + + + + | URINE | Patient:RICARDO DEGROOT | | [facility] | | | CULTURE | MAYTE | | [facility] | | | | MRN: | | | | | | [id number] | | | | | | | | | | | | | | | | | | Routine Cultures | | | | | | PROCEDURE: | | | | | | Urine Culture | | | | | | [P1] | | | | | | COLLECTED: | | | | | | 06/20/2012 | | | | | | 16:24 PDTSOURCE: | | | | | | U | | | | | | NonCath | | | | | | STARTED: | | | | | | | | | | | | 06/20/2012 22:09 | | | | | | PDTFREE TEXT SOURCE: | | | | | | | | | | | | | | | | | | ACCESSION: | | | | | | | | | | | | [id number] SITE: | | | | | | FINAL REPORTSFinal | | | | | | Report []Verified | | | | | | Date/Time: 06/22/2012 | | | | | | 10:12 PDTUrine colony | | | | | | count >100,000 CFU/ml | | | | | | Mixed Gram positive | | | | | | growth No predominant | | | | | | organism Performing | | | | | | LocationsP1: This | | | | | | test was performed at: | | | | | | [facility] | | | | + + + + + + + + | Specimen | + + | | + + + + + + + | Performing | Address | City/State/Zipcode | Phone Number | | Organization | | | | + + + + + | [facility] | [address] | [place], [place] | | | LAB | | [id number] | | + + + + + | [facility] | [address] | [place], [place] | | | LAB | | [id number] | | + + + + + BASIC METABOLIC SET (NA, K, CL, TCO2, BUN, CR, GLU, CA) (12/28/2011 11:38 PM PDT) + +-------+ + + + | Component | Value | Ref Range | Performed | Pathologist | | | | | At | Signature | + +-------+ + + + | GLUCOSE, | 91 | 65 - 100 mg/dL | [facility] | | | SERUM | | | [facility] | | + +-------+ + + + | UREA | 9 | 7 - 22 mg/dL | [facility] | | | NITROGEN, | | | [facility] | | | SERUM | | | | | + +-------+ + + + | CREATININE | 0.5 | 0.5 - 1.2 mg/dL | [facility] | | | SERUM | | | [facility] | | + +-------+ + + + | BUN/CREATIN | 18 | 8 - 25 ratio | [facility] | | | INE RATIO | | | [facility] | | + +-------+ + + + | EGFR | >60 | >=60 | [facility] | | | - | | mL/min/1.73m2 | [facility] | | | NIGERIEN | | | | | + +-------+ + + + | EGFR NON | >60 | >=60 | [facility] | | | -JEFF | | mL/min/1.73m2 | [facility] | | | RICAN | | | | | + +-------+ + + + | SODIUM | 141 | 135 - 145 mEq/L | [facility] | | | | | | [facility] | | + +-------+ + + + | POTASSIUM | 4.0 | 3.4 - 5.0 mEq/L | [facility] | | | | | | [facility] | | + +-------+ + + + | CHLORIDE | 107 | 98 - 110 mEq/L | [facility] | | | | | | [facility] | | + +-------+ + + + | CO2 | 30 | 23 - 33 mEq/L | [facility] | | | | | | [facility] | | + +-------+ + + + | CALCIUM, | 8.7 | 8.5 - 10.5 | [facility] | | | SERUM | | mg/dL | [facility] | | + +-------+ + + + + + | Specimen | + + | | + + + + + + + | Performing | Address | City/State/Zipcode | Phone Number | | Organization | | | | + + + + + | [facility] | [address] | [place], [place] | | | LAB | | [address] | | + + + + + | [facility] | [address] | [place], [place] | | | LAB | | [address] | | + + + + + CBC W/DIFF, NO REFLEX (12/28/2011 11:38 PM PDT) + + + + + + | Component | Value | Ref Range | Performed | Pathologist | | | | | At | Signature | + + + + + + | WHITE CELL | 11.6 (H) | 4.5 - 10.5 | [facility] | | | COUNT | | x10(3)/mcL | [facility] | | + + + + + + | RED CELL | 4.11 (L) | 4.20 - 5.40 | [facility] | | | COUNT | | x10(6)/mcL | [facility] | | + + + + + + | HEMOGLOBIN | 11.9 (L) | 12.0 - 16.0 | [facility] | | | | | gm/dL | [facility] | | + + + + + + | HEMATOCRIT | 34.2 (L) | 37.0 - 47.0 % | [facility] | | | | | | [facility] | | + + + + + + | MCV | 83.2 | 80.0 - 100.0 fL | [facility] | | | | | | [facility] | | + + + + + + | MCH | 28.9 | 27.0 - 34.0 pg | [facility] | | | | | | [facility] | | + + + + + + | MCHC | 34.7 | 32.0 - 36.0 | [facility] | | | | | gm/dL | [facility] | | + + + + + + | RDW | 14.3 | 11.5 - 14.5 % | [facility] | | | | | | [facility] | | + + + + + + | PLATELET | 219 | 150 - 400 | [facility] | | | COUNT | | x10(3)/mcL | [facility] | | + + + + + + | MPV | 9.6 | 7.4 - 10.4 fL | [facility] | | | | | | [facility] | | + + + + + + | NEUTROPHIL | 69.9 | 40.2 - 78.0 % | [facility] | | | % | | | [facility] | | + + + + + + | LYMPHOCYTE | 22.5 | 15.5 - 49.1 % | [facility] | | | % | | | [facility] | | + + + + + + | MONOCYTE % | 5.6 | 1.7 - 8.9 % | [facility] | | | | | | [facility] | | + + + + + + | EOS % | 1.1 | 0.0 - 5.2 % | [facility] | | | | | | [facility] | | + + + + + + | BASO % | 0.9 | 0.0 - 2.0 % | [facility] | | | | | | [facility] | | + + + + + + | NEUTROPHIL | 8.1 (H) | 0.9 - 7.7 | [facility] | | | # | | x10(3)/mcL | [facility] | | + + + + + + | LYMPHOCYTE | 2.6 | 1.0 - 3.4 | [facility] | | | # | | x10(3)/mcL | [facility] | | + + + + + + | MONOCYTE # | 0.7 (H) | 0.1 - 0.6 | [facility] | | | | | x10(3)/mcL | [facility] | | + + + + + + | EOS # | 0.1 | 0.0 - 0.4 | [facility] | | | | | x10(3)/mcL | [facility] | | + + + + + + | BASO # | 0.1 | 0.0 - 0.2 | [facility] | | | | | x10(3)/mcL | [facility] | | + + + + + + + + | Specimen | + + | | + + + + + + + | Performing | Address | City/State/Zipcode | Phone Number | | Organization | | | | + + + + + | [facility] | [address] | [place], [place] | | | LAB | | [address] | | + + + + + | [facility] | [address] | [place], [place] | | | LAB | | [address] | | + + + + + CAP GLU,POC (12/28/2011 2:02 PM PDT) + +---------+ + + + | Component | Value | Ref Range | Performed | Pathologist | | | | | At | Signature | + +---------+ + + + | GLUCOSE, | 115 (H) | 65 - 100 mg/dL | [facility] | | | POC | | | [facility] | | + +---------+ + + + + + | Specimen | + + | | + + + + + + + | Performing | Address | City/State/Zipcode | Phone Number | | Organization | | | | + + + + + | [facility] | [address] | [place], [place] | | | LAB | | [address] | | + + + + + | [facility] | [address] | [place], [place] | | | LAB | | [address] | | + + + + + CAP GLU,POC (12/28/2011 7:51 AM PDT) + +---------+ + + + | Component | Value | Ref Range | Performed | Pathologist | | | | | At | Signature | + +---------+ + + + | GLUCOSE, | 118 (H) | 65 - 100 mg/dL | [facility] | | | POC | | | [facility] | | + +---------+ + + + + + | Specimen | + + | | + + + + + + + | Performing | Address | City/State/Zipcode | Phone Number | | Organization | | | | + + + + + | [facility] | [address] | [place], [place] | | | LAB | | [address] | | + + + + + | [facility] | [address] | [place], [place] | | | LAB | | [address] | | + + + + + BASIC METABOLIC SET (NA, K, CL, TCO2, BUN, CR, GLU, CA) (12/28/2011 5:08 AM PDT) + +---------+ + + + | Component | Value | Ref Range | Performed | Pathologist | | | | | At | Signature | + +---------+ + + + | GLUCOSE, | 109 (H) | 65 - 100 mg/dL | [facility] | | | SERUM | | | [facility] | | + +---------+ + + + | UREA | 13 | 7 - 22 mg/dL | [facility] | | | NITROGEN, | | | [facility] | | | SERUM | | | | | + +---------+ + + + | CREATININE | 0.6 | 0.5 - 1.2 mg/dL | [facility] | | | SERUM | | | [facility] | | + +---------+ + + + | BUN/CREATIN | 22 | 8 - 25 ratio | [facility] | | | INE RATIO | | | [facility] | | + +---------+ + + + | EGFR | >60 | >=60 | [facility] | | | - | | mL/min/1.73m2 | [facility] | | | NIGERIEN | | | | | + +---------+ + + + | EGFR NON | >60 | >=60 | [facility] | | | -JEFF | | mL/min/1.73m2 | [facility] | | | RICAN | | | | | + +---------+ + + + | SODIUM | 143 | 135 - 145 mEq/L | [facility] | | | | | | [facility] | | + +---------+ + + + | POTASSIUM | 4.0 | 3.4 - 5.0 mEq/L | [facility] | | | | | | [facility] | | + +---------+ + + + | CHLORIDE | 112 (H) | 98 - 110 mEq/L | [facility] | | | | | | [facility] | | + +---------+ + + + | CO2 | 29 | 23 - 33 mEq/L | [facility] | | | | | | [facility] | | + +---------+ + + + | CALCIUM, | 7.9 (L) | 8.5 - 10.5 | [facility] | | | SERUM | | mg/dL | [facility] | | + +---------+ + + + + + | Specimen | + + | | + + + + + + + | Performing | Address | City/State/Zipcode | Phone Number | | Organization | | | | + + + + + | [facility] | [address] | [place], [place] | | | LAB | | [address] | | + + + + + | [facility] | [address] | [place], [place] | | | LAB | | [address] | | + + + + + CBC, WITH DIFFERENTIAL (12/28/2011 5:08 AM PDT) + + + + + + | Component | Value | Ref Range | Performed | Pathologist | | | | | At | Signature | + + + + + + | WHITE CELL | 10.0 | 4.5 - 10.5 | [facility] | | | COUNT | | x10(3)/mcL | [facility] | | + + + + + + | RED CELL | 4.01 (L) | 4.20 - 5.40 | [facility] | | | COUNT | | x10(6)/mcL | [facility] | | + + + + + + | HEMOGLOBIN | 11.4 (L) | 12.0 - 16.0 | [facility] | | | | | gm/dL | [facility] | | + + + + + + | HEMATOCRIT | 34.0 (L) | 37.0 - 47.0 % | [facility] | | | | | | [facility] | | + + + + + + | MCV | 84.7 | 80.0 - 100.0 fL | [facility] | | | | | | [facility] | | + + + + + + | MCH | 28.3 | 27.0 - 34.0 pg | [facility] | | | | | | [facility] | | + + + + + + | MCHC | 33.5 | 32.0 - 36.0 | [facility] | | | | | gm/dL | [facility] | | + + + + + + | RDW | 14.6 (H) | 11.5 - 14.5 % | [facility] | | | | | | [facility] | | + + + + + + | PLATELET | 192 | 150 - 400 | [facility] | | | COUNT | | x10(3)/mcL | [facility] | | + + + + + + | MPV | 10.1 | 7.4 - 10.4 fL | [facility] | | | | | | [facility] | | + + + + + + | NEUTROPHIL | 55.7 | 40.2 - 78.0 % | [facility] | | | % | | | [facility] | | + + + + + + | LYMPHOCYTE | 36.3 | 15.5 - 49.1 % | [facility] | | | % | | | [facility] | | + + + + + + | MONOCYTE % | 5.9 | 1.7 - 8.9 % | [facility] | | | | | | [facility] | | + + + + + + | EOS % | 1.0 | 0.0 - 5.2 % | [facility] | | | | | | [facility] | | + + + + + + | BASO % | 1.1 | 0.0 - 2.0 % | [facility] | | | | | | [facility] | | + + + + + + | NEUTROPHIL | 5.6 | 0.9 - 7.7 | [facility] | | | # | | x10(3)/mcL | [facility] | | + + + + + + | LYMPHOCYTE | 3.6 (H) | 1.0 - 3.4 | [facility] | | | # | | x10(3)/mcL | [facility] | | + + + + + + | MONOCYTE # | 0.6 | 0.1 - 0.6 | [facility] | | | | | x10(3)/mcL | [facility] | | + + + + + + | EOS # | 0.1 | 0.0 - 0.4 | [facility] | | | | | x10(3)/mcL | [facility] | | + + + + + + | BASO # | 0.1 | 0.0 - 0.2 | [facility] | | | | | x10(3)/mcL | [facility] | | + + + + + + | DIFFERENTIA | No | | [facility] | | | L? | | | [facility] | | + + + + + + + + | Specimen | + + | | + + + + + + + | Performing | Address | City/State/Zipcode | Phone Number | | Organization | | | | + + + + + | [facility] | [address] | [place], [place] | | | LAB | | [address] | | + + + + + | [facility] | [address] | [place], [place] | | | LAB | | [address] | | + + + + + CAP GLU,POC (12/27/2011 9:31 PM PDT) + +---------+ + + + | Component | Value | Ref Range | Performed | Pathologist | | | | | At | Signature | + +---------+ + + + | GLUCOSE, | 126 (H) | 65 - 100 mg/dL | [facility] | | | POC | | | [facility] | | + +---------+ + + + + + | Specimen | + + | | + + + + + + + | Performing | Address | City/State/Zipcode | Phone Number | | Organization | | | | + + + + + | [facility] | [address] | [place], [place] | | | LAB | | [id number] | | + + + + + | [facility] | [address] | [place], [place] | | | LAB | | [id number] | | + + + + + X-RAY SPINE LUMBOSACRAL 3 VIEWS (12/27/2011 8:31 PM PDT) + + | Specimen | + + | | + + + + + | Narrative | Performed At | + + + | CLINICAL INFORMATION: Low back pain. LUMBOSACRAL SPINE; 2 | [facility] | | VIEWS FINDINGS: The vertebral bodies, disk spaces and | RADIOLOGY | | associated elements are intact. The curvature and alignment are | | | normal. The partes interarticulares are intact. There are degenerative | | | changes at T9-10 and a small unfused anterior-superior apophysis of | | | L5. IMPRESSION: Negative lumbosacral spine. | | | CERVICAL SPINE; 4 VIEWS FINDINGS: The vertebral bodies, disk | | | spaces and associated elements are intact. The curvature and | | | alignment are normal. The neural foramina are patent. The odontoid | | | process and lateral mass relationships of C1 and C2 are normal. | | | IMPRESSION: Negative cervical spine series. | | + + + + + | Procedure Note | + + | Interface, Lab Results Backloa - 05/30/2017 3:33 PM PDT CLINICAL INFORMATION: Low | | back pain.LUMBOSACRAL SPINE; 2 VIEWSFINDINGS: The vertebral bodies, disk spaces and | | associated elements are intact. The curvature and alignment are normal. The partes | | interarticulares are intact. There are degenerative changes at T9-10 and a small unfused | | anterior-superior apophysis of L5.IMPRESSION: Negative lumbosacral spine.CERVICAL | | SPINE; 4 VIEWSFINDINGS: The vertebral bodies, disk spaces and associated elements are | | intact. The curvature and alignment are normal. The neural foramina are patent. The | | odontoid process and lateral mass relationships of C1 and C2 are normal.IMPRESSION: | | Negative cervical spine series. | |small unfused anterior-superior apophysis of L5. | | | | | | | |IMPRESSION: Negative lumbosacral spine. | | | | | | | | | | | |CERVICAL SPINE; 4 VIEWS | | | | | | | |FINDINGS: The vertebral bodies, disk spaces and associated elements are intact. The curvatu re and alignment are normal. The neural foramina are patent. The odontoid process and latera l mass relationships of C1 and C2 are normal. | | | | | | | |IMPRESSION: Negative cervical spine series. | + + + + + + + | Performing | Address | City/State/Zipcode | Phone Number | | Organization | | | | + + + + + | [facility] | [address] | [place] | [phone] | | | | [id number] | | + + + + + X-RAY SPINE CERVICAL 3 VIEWS (12/27/2011 8:31 PM PDT) + + | Specimen | + + | | + + + + + | Narrative | Performed At | + + + | CLINICAL INFORMATION: Low back pain. LUMBOSACRAL SPINE; 2 | [facility] | | VIEWS FINDINGS: The vertebral bodies, disk spaces and | RADIOLOGY | | associated elements are intact. The curvature and alignment are | | | normal. The partes interarticulares are intact. There are degenerative | | | changes at T9-10 and a small unfused anterior-superior apophysis of | | | L5. IMPRESSION: Negative lumbosacral spine. | | | CERVICAL SPINE; 4 VIEWS FINDINGS: The vertebral bodies, disk | | | spaces and associated elements are intact. The curvature and | | | alignment are normal. The neural foramina are patent. The odontoid | | | process and lateral mass relationships of C1 and C2 are normal. | | | IMPRESSION: Negative cervical spine series. | | + + + + + | Procedure Note | + + | Interface, Lab Results Backdeondrea - 05/30/2017 3:33 PM PDT CLINICAL INFORMATION: Low | | back pain.LUMBOSACRAL SPINE; 2 VIEWSFINDINGS: The vertebral bodies, disk spaces and | | associated elements are intact. The curvature and alignment are normal. The partes | | interarticulares are intact. There are degenerative changes at T9-10 and a small unfused | | anterior-superior apophysis of L5.IMPRESSION: Negative lumbosacral spine.CERVICAL | | SPINE; 4 VIEWSFINDINGS: The vertebral bodies, disk spaces and associated elements are | | intact. The curvature and alignment are normal. The neural foramina are patent. The | | odontoid process and lateral mass relationships of C1 and C2 are normal.IMPRESSION: | | Negative cervical spine series. | |small unfused anterior-superior apophysis of L5. | | | | | | | |IMPRESSION: Negative lumbosacral spine. | | | | | | | | | | | |CERVICAL SPINE; 4 VIEWS | | | | | | | |FINDINGS: The vertebral bodies, disk spaces and associated elements are intact. The curvatu re and alignment are normal. The neural foramina are patent. The odontoid process and latera l mass relationships of C1 and C2 are normal. | | | | | | | |IMPRESSION: Negative cervical spine series. | + + + + + + + | Performing | Address | City/State/Zipcode | Phone Number | | Organization | | | | + + + + + | [facility] | [address] | [place] | [phone] | | | | [phone] | | + + + + + URINALYSIS CULTURE & SENSITIVITY IF INDICATED (12/27/2011 6:20 PM PDT) + + + + + + | Component | Value | Ref Range | Performed | Pathologist | | | | | At | Signature | + + + + + + | CC/CATH? | Non-Cath | | [facility] | | | | | | [facility] | | + + + + + + | COLOR(UR) | Yellow | | [facility] | | | | | | [facility] | | + + + + + + | APPEARANCE | Clear | | [facility] | | | | | | [facility] | | + + + + + + | GLUCOSE(UR) | Neg | Neg | [facility] | | | | | | [facility] | | + + + + + + | BILIRUBIN | Neg | Neg | [facility] | | | | | | [facility] | | + + + + + + | KETONES | Neg | Neg | [facility] | | | | | | [facility] | | + + + + + + | SPECIFIC | 1.010 | 1.003 - 1.029 | [facility] | | | GRAVITY | | | [facility] | | + + + + + + | BLOOD | Moderate (A) | Neg mg/dL | [facility] | | | | | | [facility] | | + + + + + + | PH(UR) | 5.5 | 5.0 - 9.0 | [facility] | | | | | | [facility] | | + + + + + + | PROTEIN(LAB | Neg | Neg | [facility] | | | ) | | | [facility] | | + + + + + + | UROBILINOGE | Normal | Normal | [facility] | | | N | | | [facility] | | + + + + + + | NITRITES | Neg | Neg | [facility] | | | | | | [facility] | | + + + + + + | LEUKOCYTE | Small (A) | Neg | [facility] | | | ESTERASE | | | [facility] | | + + + + + + | WHITE CELLS | 32 (H) | 0 - 5 /HPF | [facility] | | | | | | [facility] | | + + + + + + | RED CELLS | >182 (H) | 0 - 5 /HPF | [facility] | | | | | | [facility] | | + + + + + + | SQUAMOUS | 5 | /LPF | [facility] | | | EPITHELIAL | | | [facility] | | + + + + + + | BACTERIA | Few | /HPF | [facility] | | | | | | [facility] | | + + + + + + | CULTURE | Yes | | [facility] | | | ADDED? | | | [facility] | | + + + + + + + + | Specimen | + + | | + + + + + + + | Performing | Address | City/State/Zipcode | Phone Number | | Organization | | | | + + + + + | [facility] | [address] | [place], [place] | | | LAB | | [address] | | + + + + + | [facility] | [address] | [place], [place] | | | LAB | | [address] | | + + + + + CULTURE, URINE (12/27/2011 6:20 PM PDT) + + + + + + | Component | Value | Ref Range | Performed | Pathologist | | | | | At | Signature | + + + + + + | URINE | Patient:RICARDO DEGROOT | | [facility] | | | [facility]IV[facility] | MAYTE | | [facility] | | | | MRN: | | | | | | [id number] | | | | | | | | | | | | | | | | | | Routine Cultures | | | | | | PROCEDURE: | | | | | | Urine Culture | | | | | | [P1] | | | | | | COLLECTED: | | | | | | 12/27/2011 | | | | | | 18:20 PDTSOURCE: | | | | | | U | | | | | | NonCath | | | | | | STARTED: | | | | | | | | | | | | 12/27/2011 19:05 | | | | | | PDTFREE TEXT SOURCE: | | | | | | | | | | | | | | | | | | ACCESSION: | | | | | | | | | | | | [id number] SITE: | | | | | | FINAL REPORTSFinal | | | | | | Report []Verified | | | | | | Date/Time: 12/29/2011 | | | | | | 10:16 PDTNo growth | | | | | | Performing LocationsP1: | | | | | | This test was | | | | | | performed at: | | | | | | [facility] | | | | + + + + + + + + | Specimen | + + | | + + + + + + + | Performing | Address | City/State/Zipcode | Phone Number | | Organization | | | | + + + + + | [facility] | [address] | [place], [place] | | | LAB | | [address] | | + + + + + | [facility] | [address] | [place], [place] | | | LAB | | [address] | | + + + + + CAP GLU,POC (12/27/2011 12:54 PM PDT) + +---------+ + + + | Component | Value | Ref Range | Performed | Pathologist | | | | | At | Signature | + +---------+ + + + | GLUCOSE, | 120 (H) | 65 - 100 mg/dL | [facility] | | | POC | | | [facility] | | + +---------+ + + + + + | Specimen | + + | | + + + + + + + | Performing | Address | City/State/Zipcode | Phone Number | | Organization | | | | + + + + + | [facility] | [address] | [place], [place] | | | LAB | | [address] | | + + + + + | [facility] | [address] | [place], [place] | | | LAB | | [address] | | + + + + + VANCOMYCIN, TROUGH (12/27/2011 12:36 PM PDT) + + + + + + | Component | Value | Ref Range | Performed | Pathologist | | | | | At | Signature | + + + + + + | VANCOMYCIN, | 16.3 (H) | 5.0 - 10.0 | [facility] | | | TROUGH | | mcg/mL | [facility] | | + + + + + + + + | Specimen | + + | | + + + + + + + | Performing | Address | City/State/Zipcode | Phone Number | | Organization | | | | + + + + + | [facility] | [address] | [place], [place] | | | LAB | | [address] | | + + + + + | [facility] | [address] | [place], [place] | | | LAB | | [address] | | + + + + + CAP GLU,POC (12/27/2011 7:32 AM PDT) + + + + + + | Component | Value | Ref Range | Performed | Pathologist | | | | | At | Signature | + + + + + + | GLUCOSE, | 111 (H)Comment: RN | 65 - 100 mg/dL | [facility] | | | POC | Notified | | [facility] | | + + + + + + + + | Specimen | + + | | + + + + + + + | Performing | Address | City/State/Zipcode | Phone Number | | Organization | | | | + + + + + | [facility] | [address] | [place], [place] | | | LAB | | [address] | | + + + + + | [facility] | [address] | [place], [place] | | | LAB | | [address] | | + + + + + MANUAL DIFFERENTIAL (12/27/2011 5:15 AM PDT) + +--------+ + + + | Component | Value | Ref Range | Performed | Pathologist | | | | | At | Signature | + +--------+ + + + | SEGMENTED | 72 (H) | 50 - 70 % | [facility] | | | NEUTROPHIL | | | [facility] | | + +--------+ + + + | BANDS % | 6 (H) | 0 - 5 % | [facility] | | | | | | [facility] | | + +--------+ + + + | LYMPH % | 18 (L) | 20 - 40 % | [facility] | | | | | | [facility] | | + +--------+ + + + | MONO % | 4 | 2 - 10 % | [facility] | | | | | | [facility] | | + +--------+ + + + | RBC | Normal | | [facility] | | | MORPHOLOGY | | | [facility] | | + +--------+ + + + | PLT | Normal | | [facility] | | | EVALUATION | | | [facility] | | + +--------+ + + + + + | Specimen | + + | | + + + + + + + | Performing | Address | City/State/Zipcode | Phone Number | | Organization | | | | + + + + + | [facility] | [address] | [place] | | | LAB | | [address] | | + + + + + | [facility] | [address] | [place], [place] | | | LAB | | [address] | | + + + + + CBC, WITH DIFFERENTIAL (12/27/2011 5:15 AM PDT) + + + + + + | Component | Value | Ref Range | Performed | Pathologist | | | | | At | Signature | + + + + + + | WHITE CELL | 15.4 (H) | 4.5 - 10.5 | [facility] | | | COUNT | | x10(3)/mcL | [facility] | | + + + + + + | RED CELL | 3.95 (L) | 4.20 - 5.40 | [facility] | | | COUNT | | x10(6)/mcL | [facility] | | + + + + + + | HEMOGLOBIN | 11.2 (L) | 12.0 - 16.0 | [facility] | | | | | gm/dL | [facility] | | + + + + + + | HEMATOCRIT | 33.2 (L) | 37.0 - 47.0 % | [facility] | | | | | | [facility] | | + + + + + + | MCV | 84.1 | 80.0 - 100.0 fL | [facility] | | | | | | [facility] | | + + + + + + | MCH | 28.4 | 27.0 - 34.0 pg | [facility] | | | | | | [facility] | | + + + + + + | MCHC | 33.8 | 32.0 - 36.0 | [facility] | | | | | gm/dL | [facility] | | + + + + + + | RDW | 14.6 (H) | 11.5 - 14.5 % | [facility] | | | | | | [facility] | | + + + + + + | PLATELET | 173 | 150 - 400 | [facility] | | | COUNT | | x10(3)/mcL | [facility] | | + + + + + + | MPV | 10.0 | 7.4 - 10.4 fL | [facility] | | | | | | [facility] | | + + + + + + | NEUTROPHIL | 75.0 | 40.2 - 78.0 % | [facility] | | | % | | | [facility] | | + + + + + + | LYMPHOCYTE | 15.6 | 15.5 - 49.1 % | [facility] | | | % | | | [facility] | | + + + + + + | MONOCYTE % | 8.8 | 1.7 - 8.9 % | [facility] | | | | | | [facility] | | + + + + + + | EOS % | 0.2 | 0.0 - 5.2 % | [facility] | | | | | | [facility] | | + + + + + + | BASO % | 0.4 | 0.0 - 2.0 % | [facility] | | | | | | [facility] | | + + + + + + | NEUTROPHIL | 11.6 (H) | 0.9 - 7.7 | [facility] | | | # | | x10(3)/mcL | [facility] | | + + + + + + | LYMPHOCYTE | 2.4 | 1.0 - 3.4 | [facility] | | | # | | x10(3)/mcL | [facility] | | + + + + + + | MONOCYTE # | 1.4 (H) | 0.1 - 0.6 | [facility] | | | | | x10(3)/mcL | [facility] | | + + + + + + | EOS # | 0.0 | 0.0 - 0.4 | [facility] | | | | | x10(3)/mcL | [facility] | | + + + + + + | BASO # | 0.1 | 0.0 - 0.2 | [facility] | | | | | x10(3)/mcL | [facility] | | + + + + + + | DIFFERENTIA | Yes | | [facility] | | | L? | | | [facility] | | + + + + + + + + | Specimen | + + | | + + + + + + + | Performing | Address | City/State/Zipcode | Phone Number | | Organization | | | | + + + + + | [facility] | [address] | [place] | | | LAB | | [address] | | + + + + + | [facility] | [address] | [place] | | | LAB | | [address] | | + + + + + LIVER SET (AST,ALT,BILI TOTAL,BILI DIRECT,ALK PHOS,ALB,PROT TOTAL) (12/27/2011 5:15 AM PDT ) + +---------+ + + + | Component | Value | Ref Range | Performed | Pathologist | | | | | At | Signature | + +---------+ + + + | TOTAL | 6.5 | 6.2 - 8.2 gm/dL | [facility] | | | PROTEIN | | | [facility] | | + +---------+ + + + | ALBUMIN | 3.1 (L) | 3.5 - 5.0 gm/dL | [facility] | | | SERUM | | | [facility] | | + +---------+ + + + | GLOBULIN | 3.4 | 2.3 - 3.5 gm/dL | [facility] | | | LEVEL | | | [facility] | | + +---------+ + + + | A/G RATIO | 0.9 | 0.9 - 2.0 ratio | [facility] | | | | | | [facility] | | + +---------+ + + + | BILIRUBIN | 0.4 | 0.2 - 1.2 mg/dL | [facility] | | | TOTAL | | | [facility] | | + +---------+ + + + | BILIRUBIN | 0.0 | 0.0 - 0.4 mg/dL | [facility] | | | DIRECT | | | [facility] | | + +---------+ + + + | ALK PHOS | 51 | 42 - 121 | [facility] | | | | | IntUnit/L | [facility] | | + +---------+ + + + | ALT (SGPT) | 9 (L) | 10 - 60 | [facility] | | | | | IntUnit/L | [facility] | | + +---------+ + + + | AST(SGOT) | 13 | 12 - 45 | [facility] | | | | | IntUnit/L | [facility] | | + +---------+ + + + + + | Specimen | + + | | + + + + + + + | Performing | Address | City/State/Zipcode | Phone Number | | Organization | | | | + + + + + | [facility] | [address] | [place], [place] | | | LAB | | [address] | | + + + + + | [facility] | [address] | [place], [place] | | | LAB | | [address] | | + + + + + BASIC METABOLIC SET (NA, K, CL, TCO2, BUN, CR, GLU, CA) (12/27/2011 5:15 AM PDT) + +---------+ + + + | Component | Value | Ref Range | Performed | Pathologist | | | | | At | Signature | + +---------+ + + + | GLUCOSE, | 130 (H) | 65 - 100 mg/dL | [facility] | | | SERUM | | | [facility] | | + +---------+ + + + | UREA | 9 | 7 - 22 mg/dL | [facility] | | | NITROGEN, | | | [facility] | | | SERUM | | | | | + +---------+ + + + | CREATININE | 0.5 | 0.5 - 1.2 mg/dL | [facility] | | | SERUM | | | [facility] | | + +---------+ + + + | BUN/CREATIN | 18 | 8 - 25 ratio | [facility] | | | INE RATIO | | | [facility] | | + +---------+ + + + | EGFR | >60 | >=60 | [facility] | | | - | | mL/min/1.73m2 | [facility] | | | NIGERIEN | | | | | + +---------+ + + + | EGFR NON | >60 | >=60 | [facility] | | | -JEFF | | mL/min/1.73m2 | [facility] | | | RICAN | | | | | + +---------+ + + + | SODIUM | 143 | 135 - 145 mEq/L | [facility] | | | | | | [facility] | | + +---------+ + + + | POTASSIUM | 3.7 | 3.4 - 5.0 mEq/L | [facility] | | | | | | [facility] | | + +---------+ + + + | CHLORIDE | 111 (H) | 98 - 110 mEq/L | [facility] | | | | | | [facility] | | + +---------+ + + + | CO2 | 28 | 23 - 33 mEq/L | [facility] | | | | | | [facility] | | + +---------+ + + + | CALCIUM, | 8.0 (L) | 8.5 - 10.5 | [facility] | | | SERUM | | mg/dL | [facility] | | + +---------+ + + + + + | Specimen | + + | | + + + + + + + | Performing | Address | City/State/Zipcode | Phone Number | | Organization | | | | + + + + + | [facility] | [address] | [place] | | | LAB | | [address] | | + + + + + | [facility] | [address] | [place], [place] | | | LAB | | [address] | | + + + + + ANGELA WILSON (12/26/2011 9:15 PM PDT) + +---------+ + + + | Component | Value | Ref Range | Performed | Pathologist | | | | | At | Signature | + +---------+ + + + | GLUCOSE, | 159 (H) | 65 - 100 mg/dL | [facility] | | | POC | | | [facility] | | + +---------+ + + + + + | Specimen | + + | | + + + + + + + | Performing | Address | City/State/Zipcode | Phone Number | | Organization | | | | + + + + + | [facility] | [address] | [place] | | | LAB | | [address] | | + + + + + | [facility] | [address] | [place], [place] | | | LAB | | [address] | | + + + + + X-RAY SPINAL TAP & ASPIRATION W/GUIDANCE (12/26/2011 3:06 PM PDT) + + | Specimen | + + | | + + + + + | Narrative | Performed At | + + + | FLUOROSCOPIC-GUIDED LUMBAR PUNCTURE CLINICAL INFORMATION: | [facility] | | Headache. Possible meningitis. TECHNIQUE: Informed consent | RADIOLOGY | | has been obtained. Patient was placed on the fluoroscopy table and the | | | area over the L3-4 interlaminar space was marked. Skin was prepped | | | and draped in the usual sterile fashion. One percent Xylocaine was | | | used to achieve local anesthesia. Under fluoroscopy, a 20 gauge spinal | | | needle was advanced into the thecal sac and approximately 10 mL of | | | clear CSF was removed for laboratory analysis. The patient tolerated | | | the procedure well and there were no immediate complications. | | | IMPRESSION: Successful fluoroscopic-guided lumbar | | | puncture. at 3:06 p.m. | | + + + + + | Procedure Note | + + | Interface, [facility] 4:30 PM PDT FLUOROSCOPIC-GUIDED LUMBAR | | PUNCTURE CLINICAL INFORMATION: Headache. Possible meningitis.TECHNIQUE: Informed consent | | has been obtained. Patient was placed on the fluoroscopy table and the area over the | | L3-4 interlaminar space was marked. Skin was prepped and draped in the usual sterile | | fashion. One percent Xylocaine was used to achieve local anesthesia. Under fluoroscopy, | | a 20 gauge spinal needle was advanced into the thecal sac and approximately 10 mL of | | clear CSF was removed for laboratory analysis. The patient tolerated the procedure well | | and there were no immediate complications. IMPRESSION: Successful fluoroscopic-guided | | lumbar puncture. at 3:06 p.m. | |percent Xylocaine was used to achieve local anesthesia. Under fluoroscopy, a 20 gauge spina l needle was advanced into the thecal sac and approximately 10 mL of clear CSF was removed f or laboratory analysis. The | |patient tolerated the procedure well and there were no immediate complications. | | | | | | | |IMPRESSION: | | | | | | | |Successful fluoroscopic-guided lumbar puncture. | | | | | | | | at 3:06 p.m. | + + + + + + + | Performing | Address | City/State/Zipcode | Phone Number | | Organization | | | | + + + + + | [facility] | [address] | [place], [place] | [phone] | | | | [phone] | | + + + + + DIFFERENTIAL, CSF (12/26/2011 2:51 PM PDT) + + + + + + | Component | Value | Ref Range | Performed | Pathologist | | | | | At | Signature | + + + + + + | MONOCYTES(C | PredominantComment: Body | | [facility] | | | SF) | fluid differential done | | [facility] | | | | on cell concentrate; | | | | | | less than 100 cells | | | | | | counted. Polys: _ | | | | | | Mononuclear: 62 | | | | | | Other Mononuclear: _ | | | | + + + + + + + + | Specimen | + + | | + + + + + + + | Performing | Address | City/State/Zipcode | Phone Number | | Organization | | | | + + + + + | [facility] | [address] | [place], [place] | | | LAB | | [address] | | + + + + + | [facility] | [address] | [place], [place] | | | LAB | | [address] | | + + + + + CELL COUNT ONLY, CSF (12/26/2011 2:51 PM PDT) + + + + + + | Component | Value | Ref Range | Performed | Pathologist | | | | | At | Signature | + + + + + + | CSF TUBE | 4 | | [facility] | | | NUMBER | | | [facility] | | + + + + + + | VOLUME, CSF | 10.0 | mL | [facility] | | | CELL CT | | | [facility] | | + + + + + + | CSF COLOR | Colorless | Colorless | [facility] | | | | | | [facility] | | + + + + + + | CSF | Clear | Clear | [facility] | | | APPEARANCE | | | [facility] | | + + + + + + | CSF RBC | <1 | <=0 | [facility] | | | | | | [facility] | | + + + + + + | CSF WBC | 1Comment: CSF WBC | 0 - 5 cells/mcL | [facility] | | | | Reference Range: 100% | | [facility] | | | | Lymphs | | | | + + + + + + + + | Specimen | + + | | + + + + + + + | Performing | Address | City/State/Zipcode | Phone Number | | Organization | | | | + + + + + | [facility] | [address] | [place], [place] | | | LAB | | [address] | | + + + + + | [facility] | [address] | [place], [place] | | | LAB | | [address] | | + + + + + PROTEIN, CSF (12/26/2011 2:51 PM PDT) + +-------+ + + + | Component | Value | Ref Range | Performed | Pathologist | | | | | At | Signature | + +-------+ + + + | TOTAL | 19 | 15 - 45 mg/dL | [facility] | | | PROTEIN CSF | | | [facility] | | + +-------+ + + + + + | Specimen | + + | | + + + + + + + | Performing | Address | City/State/Zipcode | Phone Number | | Organization | | | | + + + + + | [facility] | [address] | [place], [place] | | | LAB | | [address] | | + + + + + | [facility] | [address] | [place], [place] | | | LAB | | [address] | | + + + + + GLUCOSE, CSF (12/26/2011 2:51 PM PDT) + +--------+ + + + | Component | Value | Ref Range | Performed | Pathologist | | | | | At | Signature | + +--------+ + + + | GLUCOSE CSF | 81 (H) | 45 - 75 mg/dL | [facility] | | | | | | [facility] | | + +--------+ + + + + + | Specimen | + + | | + + + + + + + | Performing | Address | City/State/Zipcode | Phone Number | | Organization | | | | + + + + + | [facility] | [address] | [place] | | | LAB | | [address] | | + + + + + | [facility] | [address] | [place], [place] | | | LAB | | [address] | | + + + + + ANGELA WILSON (12/26/2011 1:02 PM PDT) + +---------+ + + + | Component | Value | Ref Range | Performed | Pathologist | | | | | At | Signature | + +---------+ + + + | GLUCOSE, | 143 (H) | 65 - 100 mg/dL | [facility] | | | POC | | | [facility] | | + +---------+ + + + + + | Specimen | + + | | + + + + + + + | Performing | Address | City/State/Zipcode | Phone Number | | Organization | | | | + + + + + | [facility] | [address] | [place], [place] | | | LAB | | [address] | | + + + + + | [facility] | [address] | [place], [place] | | | LAB | | [address] | | + + + + + CAP GLU,POC (12/26/2011 8:20 AM PDT) + +---------+ + + + | Component | Value | Ref Range | Performed | Pathologist | | | | | At | Signature | + +---------+ + + + | GLUCOSE, | 113 (H) | 65 - 100 mg/dL | [facility] | | | POC | | | [facility] | | + +---------+ + + + + + | Specimen | + + | | + + + + + + + | Performing | Address | City/State/Zipcode | Phone Number | | Organization | | | | + + + + + | [facility] | [address] | [place], [place] | | | LAB | | [address] | | + + + + + | [facility] | [address] | [place], [place] | | | LAB | | [address] | | + + + + + HIV-1/2 AB SCREEN, EIA (12/26/2011 6:00 AM PDT) + + + + + + | Component | Value | Ref Range | Performed | Pathologist | | | | | At | Signature | + + + + + + | HIV-1/HIV2 | NON-REACTIVEComment: A | NON-REACTIVE | [facility] | | | AB SCREEN | Nonreactive HIV-1/2 | | [facility] | | | | antibody result does | | | | | | notexclude HIV infection | | | | | | since the time frame | | | | | | forseroconversion is | | | | | | variable. If acute HIV | | | | | | infection issuspected, | | | | | | antibody retesting and | | | | | | nucleic | | | | | | acidamplification (HIV | | | | | | DNA/RNA) testing is | | | | | | recommended.Lab test | | | | | | performed by:Lab | | | | | | Mnemonic: [facility] | | | | | | [id number] | | | | | | [facility] | | | | | | [address] [place] [address] | | | | | | [id number] | | | | | | JEREMY OSBORNE test | | | | | | results or HIV diagnosis | | | | | | and the identity of the | | | | | | tested individual may | | | | | | be released to any other | | | | | | constitution party only with the | | | | | | specific written | | | | | | authorization of the | | | | | | tested individual. | | | | + + + + + + + + | Specimen | + + | | + + + + + + + | Performing | Address | City/State/Zipcode | Phone Number | | Organization | | | | + + + + + | [facility] | [address] | [place], [place] | | | LAB | | [id number] | | + + + + + | [facility] | [address] | [place], [place] | | | LAB | | [id number] | | + + + + + CT ABDOMEN AND PELVIS W IV CONTRAST (12/26/2011 5:54 AM PDT) + + | Specimen | + + | | + + + + + | Narrative | Performed At | + + + | CT ABDOMEN/PELVIS WITH CONTRAST: CLINICAL INFORMATION: | TUALITY | | Diffuse abdominal pain, nausea and emesis. PROCEDURE: | RADIOLOGY | | Utilizing In[employer]uity 128 channel scanner, following injector infusion | | | with 150 ml Isovue 300, helical images were acquired from the dome of | | | diaphragm to the pubic symphysis. Images were reconstructed in the | | | coronal plane. FINDINGS: CT Abdomen: The distal | | | pulmonary sulci were unremarkable. Liver and spleen size and CT | | | attenuation coefficients were normal. The gallbladder, bile ducts, | | | pancreas, adrenals and both kidneys were intact. There is symmetric | | | equal nephrogram bilaterally. There is no hydronephrosis. There is | | | no abnormality of the mesentery. CT Pelvis: There is a | | | small fat-containing umbilical hernia. There is no pericecal or | | | subcecal inflammation. The appendix was identified and was | | | unremarkable. There are no pelvic masses or free fluid. No | | | abnormality of the urinary bladder. IMPRESSION: 1. | | | No signs of appendicitis--no acute inflammatory change. 2. | | | Small unremarkable umbilical hernia, containing only fat. | | | Concurrence with preliminary report provided by [facility]. | | + + + + + | Procedure Note | + + | Interface, Lab Results [facility] - 05/30/2017 3:[address] ABDOMEN/PELVIS WITH | | CONTRAST:CLINICAL INFORMATION: Diffuse abdominal pain, nausea and emesis.PROCEDURE: | | Utilizing Ingenuity 128 channel scanner, following injector infusion with 150 ml Isovue | | 300, helical images were acquired from the dome of diaphragm to the pubic symphysis. | | Images were reconstructed in the coronal plane.FINDINGS: CT Abdomen: The distal | | pulmonary sulci were unremarkable. Liver and spleen size and CT attenuation | | coefficients were normal. The gallbladder, bile ducts, pancreas, adrenals and both | | kidneys were intact. There is symmetric equal nephrogram bilaterally. There is no | | hydronephrosis. There is no abnormality of the mesentery. CT Pelvis: There is a small | | fat-containing umbilical hernia. There is no pericecal or subcecal inflammation. The | | appendix was identified and was unremarkable. There are no pelvic masses or free fluid. | | No abnormality of the urinary bladder. IMPRESSION: 1. No signs of appendicitis--no | | acute inflammatory change.2. Small unremarkable umbilical hernia, containing only | | fat.Concurrence with preliminary report provided by [facility]. | |CT Abdomen: The distal pulmonary sulci were unremarkable. Liver and spleen size and CT att enuation coefficients were normal. The gallbladder, bile ducts, pancreas, adrenals and both kidneys were intact. There is | |symmetric equal nephrogram bilaterally. There is no hydronephrosis. There is no abnormalit y of the mesentery. | | | | | | | |CT Pelvis: There is a small fat-containing umbilical hernia. There is no pericecal or subc ecal inflammation. The appendix was identified and was unremarkable. There are no pelvic m asses or free fluid. No abnormality of the urinary bladder. | | | | | | | |IMPRESSION: | | | |1. No signs of appendicitis--no acute inflammatory change. | | | |2. Small unremarkable umbilical hernia, containing only fat. | | | | | | | |Concurrence with preliminary report provided by [facility]. | + + + + + + + | Performing | Address | City/State/Zipcode | Phone Number | | Organization | | | | + + + + + | [facility] | [address] | [place] | [phone] | | | | [address] | | + + + + + CULTURE, BLOOD BACTI & YEAST (12/26/2011 4:59 AM PDT) + + + + + + | Component | Value | Ref Range | Performed | Pathologist | | | | | At | Signature | + + + + + + | CULTURE | Patient:RICARDO DEGROOT | | [facility] | | | RESULT | [facility] | | [facility] | | | | MRN: | | | | | | [id number] | | | | | | | | | | | | | | | | | | Blood Cultures | | | | | | PROCEDURE: | | | | | | Blood Culture | | | | | | [P1] | | | | | | COLLECTED: | | | | | | 12/26/2011 | | | | | | 04:59 PDTSOURCE: | | | | | | | | | | | | Peripheral Bld | | | | | | STARTED: | | | | | | | | | | | | 12/26/2011 05:07 | | | | | | PDTFREE TEXT SOURCE: | | | | | | | | | | | | | | | | | | ACCESSION: | | | | | | | | | | | | [id number] SITE: | | | | | | FINAL REPORTSFinal | | | | | | Report []Verified | | | | | | Date/Time: 12/31/2011 | | | | | | 06:03 PDTNo growth at 5 | | | | | | days. Performing | | | | | | LocationsP1: This | | | | | | test was performed at: | | | | | | [facility] | | | | + + + + + + + + | Specimen | + + | | + + + + + + + | Performing | Address | City/State/Zipcode | Phone Number | | Organization | | | | + + + + + | [facility] | [address] | [place], [place] | | | LAB | | [address] | | + + + + + | [facility] | [address] | [place], [place] | | | LAB | | [address] | | + + + + + CULTURE, BLOOD BACTI & YEAST (12/26/2011 4:41 AM PDT) + + + + + + | Component | Value | Ref Range | Performed | Pathologist | | | | | At | Signature | + + + + + + | CULTURE | Patient:RICARDO DEGROOT | | [facility] | | | RESULT | [facility] | | [facility] | | | | MRN: | | | | | | [id number] | | | | | | | | | | | | | | | | | | Blood Cultures | | | | | | PROCEDURE: | | | | | | Blood Culture | | | | | | [P1] | | | | | | COLLECTED: | | | | | | 12/26/2011 | | | | | | 04:41 PDTSOURCE: | | | | | | | | | | | | Peripheral Bld | | | | | | STARTED: | | | | | | | | | | | | 12/26/2011 05:07 | | | | | | PDTFREE TEXT SOURCE: | | | | | | | | | | | | | | | | | | ACCESSION: | | | | | | | | | | | | [id number] SITE: | | | | | | FINAL REPORTSFinal | | | | | | Report []Verified | | | | | | Date/Time: 12/31/2011 | | | | | | 06:03 PDTNo growth at 5 | | | | | | days. Performing | | | | | | LocationsP1: This | | | | | | test was performed at: | | | | | | [facility] | | | | + + + + + + + + | Specimen | + + | | + + + + + + + | Performing | Address | City/State/Zipcode | Phone Number | | Organization | | | | + + + + + | [facility] | [address] | [place], [place] | | | LAB | | [id number] | | + + + + + | [facility] | [address] | [place], [place] | | | LAB | | [id number] | | + + + + + CT HEAD WO CONTRAST (12/26/2011 3:19 AM PDT) + + | Specimen | + + | | + + + + + | Narrative | Performed At | + + + | HEAD CT WITHOUT CONTRAST CLINICAL INFORMATION: Headache. | [facility] | | TECHNIQUE: Axial 4.5 mm slices have been obtained | RADIOLOGY | | from the skull base to the vertex without contrast. | | | FINDINGS: Brain parenchyma is normal, with no focal areas | | | of abnormal attenuation identified suggestive of acute ischemia. There | | | is no evidence of intraaxial or extraaxial hemorrhage. No mass, mass | | | effect or midline shift is noted. Ventricles and sulci appear | | | unremarkable. No extraaxial collection is seen. Soft tissues are | | | within normal limits. IMPRESSION: Normal head CT. | | + + + + + | Procedure Note | + + | Elyssa Weaver - 05/23/2017 4:[address] WITHOUT | | CONTRASTCLINICAL INFORMATION: Headache.TECHNIQUE: Axial 4.5 mm slices have been obtained | | from the skull base to the vertex without contrast.FINDINGS: Brain parenchyma is | | normal, with no focal areas of abnormal attenuation identified suggestive of acute | | ischemia. There is no evidence of intraaxial or extraaxial hemorrhage. No mass, mass | | effect or midline shift is noted. Ventricles and sulci appear unremarkable. No | | extraaxial collection is seen. Soft tissues are within normal limits.IMPRESSION: Normal | | head CT. | |TECHNIQUE: | | | | | | | |Axial 4.5 mm slices have been obtained from the skull base to the vertex without contrast. | | | | | | | |FINDINGS: | | | | | | | |Brain parenchyma is normal, with no focal areas of abnormal attenuation identified suggesti ve of acute ischemia. There is no evidence of intraaxial or extraaxial hemorrhage. No mass, mass effect or midline shift | |is noted. Ventricles and sulci appear unremarkable. No extraaxial collection is seen. Soft tissues are within normal limits. | | | | | | | |IMPRESSION: | | | | | | | |Normal head CT. | + + + + + + + | Performing | Address | City/State/Zipcode | Phone Number | | Organization | | | | + + + + + | [facility] | [address] | [place], [place] | [phone] | | | | [address] | | + + + + + X-RAY CHEST 2 VIEW (12/26/2011 2:32 AM PDT) + + | Specimen | + + | | + + + + + | Narrative | Performed At | + + + | CHEST, 2 VIEWS: CLINICAL INFORMATION: Dyspnea, 26-year-old | [facility] | | female. FINDINGS: PA and lateral views are normal. | RADIOLOGY | + + + + + | Procedure Note | + + | Interface, Lab Results [facility] - 05/23/2017 4:30 PM PDT CHEST, 2 VIEWS: | | | | | | | | CLINICAL INFORMATION: Dyspnea, 26-year-old female. | | | | | | | | FINDINGS: PA and lateral views are normal. | + + + + + + + | Performing | Address | City/State/Zipcode | Phone Number | | Organization | | | | + + + + + | [facility] | [address] | [place], [place] | [phone] | | | | [address] | | + + + + + PROCALCITONIN (12/26/2011 1:43 AM PDT) + + + + + + | Component | Value | Ref Range | Performed | Pathologist | | | | | At | Signature | + + + + + + | PROCALCITON | <0.05Comment: | ng/mL | [facility] | | | IN | INTERPRETATION FOR | | [facility] | | | | DIAGNOSIS OF SYSTEMIC | | | | | | BACTERIAL | | | | | | INFECTION/SEPSIS: <0.50 | | | | | | ng/mL: Systemic | | | | | | infection (sepsis) is | | | | | | not likely. If bacterial | | | | | | challenge <6 hours | | | | | | these values may be low. | | | | | | Local bacterial | | | | | | infection is possible. | | | | | | >=0.50 and <2.00 ng/mL: | | | | | | Systemic infection is | | | | | | possible, but other | | | | | | conditions are known to | | | | | | induce Procalcitonin as | | | | | | well. >=2.00 and <10.00 | | | | | | ng/mL: Systemic | | | | | | infection is likely, | | | | | | unless other causes are | | | | | | known. >=10.00 ng/mL: | | | | | | Important systemic | | | | | | inflammatory response, | | | | | | almost exclusively due | | | | | | to severe bacterial | | | | | | sepsis or septic shock. | | | | | | INTERPRETATION FOR | | | | | | DIFFERENTIAL DIAGNOSIS | | | | | | OF LOWER RESPIRATORY | | | | | | TRACT INFECTIONS: <0.10 | | | | | | ng/mL: Indicates | | | | | | absence of bacterial | | | | | | infection. Use of | | | | | | antibiotics strongly | | | | | | discouraged even in the | | | | | | presence of impaired | | | | | | pulmonary reserve in | | | | | | AECOPD (acute | | | | | | exacerbations of chronic | | | | | | obstructive pulmonary | | | | | | disease). >=0.10 and | | | | | | <0.25 ng/mL: Bacterial | | | | | | infection unlikely. The | | | | | | use of antibiotics is | | | | | | discouraged. >=0.25 and | | | | | | <0.50 ng/mL: Bacterial | | | | | | infection is possible. | | | | | | Recommended to initiate | | | | | | antimicrobial therapy. | | | | | | >=0.50 ng/mL: Suggests | | | | | | the presence of | | | | | | bacterial infection. | | | | | | Antibiotic treatment | | | | | | strongly recommended. | | | | + + + + + + + + | Specimen | + + | | + + + + + + + | Performing | Address | [facility]/Zipcode | Phone Number | | Organization | | | | + + + + + | [facility] | [address] | [place], [place] | | | LAB | | [address] | | + + + + + | [facility] | [address] | [place], [place] | | | LAB | | [address] | | + + + + + COMPLETE METABOLIC SET (NA,K,CL,CO2,BUN,CREAT,GLUC,CA,AST,ALT,BILI TOTAL,ALK PHOS,ALB,PROT TOTAL) (12/26/2011 1:43 AM PDT) + +---------+ + + + | Component | Value | Ref Range | Performed | Pathologist | | | | | At | Signature | + +---------+ + + + | GLUCOSE, | 101 (H) | 65 - 100 mg/dL | [facility] | | | SERUM | | | [facility] | | + +---------+ + + + | UREA | 10 | 7 - 22 mg/dL | [facility] | | | NITROGEN, | | | [facility] | | | SERUM | | | | | + +---------+ + + + | CREATININE | 0.7 | 0.5 - 1.2 mg/dL | [facility] | | | SERUM | | | [facility] | | + +---------+ + + + | BUN/CREATIN | 14 | 8 - 25 ratio | [facility] | | | INE RATIO | | | [facility] | | + +---------+ + + + | EGFR | >60 | >=60 | [facility] | | | - | | mL/min/1.73m2 | [facility] | | | NIGERIEN | | | | | + +---------+ + + + | EGFR NON | >60 | >=60 | [facility] | | | -JEFF | | mL/min/1.73m2 | [facility] | | | RICAN | | | | | + +---------+ + + + | SODIUM | 139 | 135 - 145 mEq/L | [facility] | | | | | | [facility] | | + +---------+ + + + | POTASSIUM | 3.8 | 3.4 - 5.0 mEq/L | [facility] | | | | | | [facility] | | + +---------+ + + + | CHLORIDE | 106 | 98 - 110 mEq/L | [facility] | | | | | | [facility] | | + +---------+ + + + | CO2 | 26 | 23 - 33 mEq/L | [facility] | | | | | | [facility] | | + +---------+ + + + | CALCIUM, | 8.6 | 8.5 - 10.5 | [facility] | | | SERUM | | mg/dL | [facility] | | + +---------+ + + + | TOTAL | 7.5 | 6.2 - 8.2 gm/dL | [facility] | | | PROTEIN | | | [facility] | | + +---------+ + + + | ALBUMIN | 3.7 | 3.5 - 5.0 gm/dL | [facility] | | | SERUM | | | [facility] | | + +---------+ + + + | GLOBULIN | 3.8 (H) | 2.3 - 3.5 gm/dL | [facility] | | | LEVEL | | | [facility] | | + +---------+ + + + | A/G RATIO | 1.0 | 0.9 - 2.0 ratio | [facility] | | | | | | [facility] | | + +---------+ + + + | BILIRUBIN | 0.5 | 0.2 - 1.2 mg/dL | [facility] | | | TOTAL | | | [facility] | | + +---------+ + + + | ALK PHOS | 67 | 42 - 121 | [facility] | | | | | IntUnit/L | [facility] | | + +---------+ + + + | ALT (SGPT) | 12 | 10 - 60 | [facility] | | | | | IntUnit/L | [facility] | | + +---------+ + + + | AST(SGOT) | 16 | 12 - 45 | [facility] | | | | | IntUnit/L | [facility] | | + +---------+ + + + + + | Specimen | + + | | + + + + + + + | Performing | Address | City/State/Zipcode | Phone Number | | Organization | | | | + + + + + | [facility] | [address] | [place], [place] | | | LAB | | [address] | | + + + + + | [facility] | [address] | [place], [place] | | | LAB | | [address] | | + + + + + RAPID INFLUENZA(A+B) (12/26/2011 1:30 AM PDT) + + + + + + | Component | Value | Ref Range | Performed | Pathologist | | | | | At | Signature | + + + + + + | SOURCE, INF | Nasal Swab | | [facility] | | | SER/PCR | | | [facility] | | + + + + + + | RAPID FLU A | Neg | Neg | [facility] | | | ANTIGEN | | | [facility] | | + + + + + + | RAPID FLU B | Neg | Neg | [facility] | | | ANTIGEN | | | [facility] | | + + + + + + + + | Specimen | + + | | + + + + + + + | Performing | Address | City/State/Zipcode | Phone Number | | Organization | | | | + + + + + | [facility] | [address] | [place], [place] | | | LAB | | [address] | | + + + + + | [facility] | [address] | [place], [place] | | | LAB | | [address] | | + + + + + CBC W/DIFF, NO REFLEX (12/26/2011 12:50 AM PDT) + + + + + + | Component | Value | Ref Range | Performed | Pathologist | | | | | At | Signature | + + + + + + | WHITE CELL | 18.4 (H) | 4.5 - 10.5 | [facility] | | | COUNT | | x10(3)/[facility] | [facility] | | + + + + + + | RED CELL | 4.58 | 4.20 - 5.40 | [facility] | | | COUNT | | x10(6)/mcL | [facility] | | + + + + + + | HEMOGLOBIN | 13.3 | 12.0 - 16.0 | [facility] | | | | | gm/dL | [facility] | | + + + + + + | HEMATOCRIT | 37.9 | 37.0 - 47.0 % | [facility] | | | | | | [facility] | | + + + + + + | MCV | 82.8 | 80.0 - 100.0 fL | [facility] | | | | | | [facility] | | + + + + + + | MCH | 28.9 | 27.0 - 34.0 pg | [facility] | | | | | | [facility] | | + + + + + + | MCHC | 34.9 | 32.0 - 36.0 | [facility] | | | | | gm/dL | [facility] | | + + + + + + | RDW | 14.5 | 11.5 - 14.5 % | [facility] | | | | | | [facility] | | + + + + + + | PLATELET | 229 | 150 - 400 | [facility] | | | COUNT | | x10(3)/mcL | [facility] | | + + + + + + | MPV | 9.6 | 7.4 - 10.4 fL | [facility] | | | | | | [facility] | | + + + + + + | NEUTROPHIL | 87.9 (H) | 40.2 - 78.0 % | [facility] | | | % | | | [facility] | | + + + + + + | LYMPHOCYTE | 10.0 (L) | 15.5 - 49.1 % | [facility] | | | % | | | [facility] | | + + + + + + | MONOCYTE % | 1.5 (L) | 1.7 - 8.9 % | [facility] | | | | | | [facility] | | + + + + + + | EOS % | 0.3 | 0.0 - 5.2 % | [facility] | | | | | | [facility] | | + + + + + + | BASO % | 0.3 | 0.0 - 2.0 % | [facility] | | | | | | [facility] | | + + + + + + | NEUTROPHIL | 16.1 (H) | 0.9 - 7.7 | [facility] | | | # | | x10(3)/mcL | [facility] | | + + + + + + | LYMPHOCYTE | 1.8 | 1.0 - 3.4 | [facility] | | | # | | x10(3)/mcL | [facility] | | + + + + + + | MONOCYTE # | 0.3 | 0.1 - 0.6 | [facility] | | | | | x10(3)/mcL | [facility] | | + + + + + + | EOS # | 0.1 | 0.0 - 0.4 | [facility] | | | | | x10(3)/mcL | [facility] | | + + + + + + | BASO # | 0.1 | 0.0 - 0.2 | [facility] | | | | | x10(3)/mcL | [facility] | | + + + + + + + + | Specimen | + + | | + + + + + + + | Performing | Address | City/State/Zipcode | Phone Number | | Organization | | | | + + + + + | [facility] | [address] | [place], [place] | | | LAB | | [address] | | + + + + + | [facility] | [address] | [place], [place] | | | LAB | | [address] | | + + + + + UA DIPSTICK 10 DIP W/O MICRO (AUTOMATED), POC (12/26/2011 12:07 AM PDT) + + + + + + | Component | Value | Ref Range | Performed | Pathologist | | | | | At | Signature | + + + + + + | COLOR (UA | Yellow | | [facility] | | | DIP), POC | | | [facility] | | + + + + + + | APPEARANCE | Clear | | [facility] | | | (UA DIP), | | | [facility] | | | POC | | | | | + + + + + + | GLUCOSE (UA | Negative | Negative mg/dL | [facility] | | | DIP), POC | | | [facility] | | + + + + + + | BILIRUBIN | Negative | Negative | [facility] | | | (UA DIP), | | | [facility] | | | POC | | | | | + + + + + + | KETONES (UA | Negative | Negative mg/dL | [facility] | | | DIP), POC | | | [facility] | | + + + + + + | SPECIFIC | 1.025 | 1.003 - 1.029 | [facility] | | | GRAVITY (UA | | | [facility] | | | DIP), POC | | | | | + + + + + + | BLOOD (UA | Small (A) | Negative | [facility] | | | DIP), POC | | | [facility] | | + + + + + + | PH (UA | 5.5 | 5.0 - 9.0 | [facility] | | | DIP), POC | | | [facility] | | + + + + + + | PROTEIN (UA | Negative | Negative mg/dL | [facility] | | | DIP), POC | | | [facility] | | + + + + + + | UROBILINOGE | 0.2 | 1.0 mg/dL | [facility] | | | N (UA DIP), | | | [facility] | | | POC | | | | | + + + + + + | NITRITES | Negative | Negative | [facility] | | | (UA DIP), | | | [facility] | | | POC | | | | | + + + + + + | LEUKOCYTES | Trace (A) | Negative | [facility] | | | (UA DIP), | | | [facility] | | | POC | | | | | + + + + + + | STATUS | TCH ED | | [facility] | | | LOCATION | | | [facility] | | + + + + + + + + | Specimen | + + | | + + + + + + + | Performing | Address | City/State/Zipcode | Phone Number | | Organization | | | | + + + + + | [facility] | [address] | [place], [place] | | | LAB | | [address] | | + + + + + | [facility] | [address] | [place], [place] | | | LAB | | [address] | | + + + + + LUIS ENRIQUE OVERTON, CX IF INDICATED (12/26/2011 12:01 AM PDT) + + + + + + | Component | Value | Ref Range | Performed | Pathologist | | | | | At | Signature | + + + + + + | CC/CATH? | Non-Cath | | [facility] | | | | | | [facility] | | + + + + + + | COLOR(UR) | Yellow | | [facility] | | | | | | [facility] | | + + + + + + | APPEARANCE | Clear | | [facility] | | | | | | [facility] | | + + + + + + | WHITE CELLS | 5 | 0 - 5 /HPF | [facility] | | | | | | [facility] | | + + + + + + | RED CELLS | 1 | 0 - 5 /HPF | [facility] | | | | | | [facility] | | + + + + + + | SQUAMOUS | 30 | /LPF | [facility] | | | EPITHELIAL | | | [facility] | | + + + + + + | BACTERIA | Few | /HPF | [facility] | | | | | | [facility] | | + + + + + + | MUCOUS | Few | /LPF | [facility] | | | | | | [facility] | | + + + + + + | CULTURE | Yes | | [facility] | | | ADDED? | | | [facility] | | + + + + + + + + | Specimen | + + | | + + + + + + + | Performing | Address | City/State/Zipcode | Phone Number | | Organization | | | | + + + + + | [facility] | [address] | [place], [place] | | | LAB | | [address] | | + + + + + | [facility] | [address] | [place], [place] | | | LAB | | [address] | | + + + + + CULTURE, URINE (12/26/2011 12:01 AM PDT) + + + + + + | Component | Value | Ref Range | Performed | Pathologist | | | | | At | Signature | + + + + + + | URINE | Patient:GUICHONELLRICARDO | | [facility] | | | CULTURE | [facility] | | [facility] | | | | MRN: | | | | | | [id number] | | | | | | | | | | | | | | | | | | Routine Cultures | | | | | | PROCEDURE: | | | | | | Urine Culture | | | | | | [P1] | | | | | | COLLECTED: | | | | | | 12/26/2011 | | | | | | 00:01 PDTSOURCE: | | | | | | U | | | | | | NonCath | | | | | | STARTED: | | | | | | | | | | | | 12/26/2011 00:58 | | | | | | PDTFREE TEXT SOURCE: | | | | | | | | | | | | | | | | | | ACCESSION: | | | | | | | | | | | | [id number] SITE: | | | | | | FINAL REPORTSFinal | | | | | | Report []Verified | | | | | | Date/Time: 12/27/2011 | | | | | | 08:21 PDTUrine colony | | | | | | count >100,000 CFU/ml | | | | | | Mixed Gram positive | | | | | | growth Performing | | | | | | LocationsP1: This | | | | | | test was performed at: | | | | | | [facility] | | | | + + + + + + + + | Specimen | + + | | + + + + + + + | Performing | Address | City/State/Zipcode | Phone Number | | Organization | | | | + + + + + | [facility] | [address] | [place], [place] | | | LAB | | [address] | | + + + + + | [facility] | [address] | [place], [place] | | | LAB | | [address] | | + + + + + documented in this encounter Visit Diagnoses Not on filedocumented in this encounter"
--- OUTSIDE RECORDS SUMMARY | ~2020-05-17 | XMS | Encounter Summary ---
Demographics + + + | Address | [address] | | | [place] [address] | + + + | Home Phone | | + + + | Preferred Language | Unknown | + + + | Marital Status | Single | + + + | Episcopalian Affiliation | NON | + + + [...] Team Providers + +------+ + | Care Courtesy Van Driver Name | Role | Phone | + +------+ + | No Pcp Per Patient | PCP | Unavailable | + +------+ + Encounter Details +--------+ + + + + | Date | Type | Department | Care Team | Description | +--------+ + + + + | 04/06/ | ED Progress | Epic at [facility] | Meghan Ramos, | ED Progress Note | | 2013 | | [address] | MD [address] [facility] | | | | Note-Transc | [place], [place] | [facility] | | | | handy | [address] | [place], [place] | | | | | | [address] | | | | | | [phone] | | | | | | | [...]
--- OUTSIDE RECORDS SUMMARY | ~2020-05-17 | XMS | Encounter Summary ---
Demographics + + + | Address | [address] | | | [place] [address] | + + + | Home Phone | | + + + | Preferred Language | Unknown | + + + | Marital Status | Single | + + + | Confucianist Affiliation | NON | + + + [...] Team Providers + +------+ + | Care Gun Number Name | Role | Phone | + +------+ + | No Pcp Per Patient | PCP | Unavailable | + +------+ + Encounter Details +--------+ + + + + | Date | Type | Department | Care Team | Description | +--------+ + + + + | 04/30/ | ED Progress | Epic at [facility] | Jill Das, | ED Progress Note | | 2013 | | [address] | [address] | | | | Note-Transc | [place], [place] | [place], [place] | | | | handy | [address] | [id number] | | | | | | | [...]
--- OUTSIDE RECORDS SUMMARY | ~2020-05-17 | XMS | Encounter Summary ---
Demographics + + + | Address | [address] | | | [place] [address] | + + + | Home Phone [...] Team Providers + +------+ + | Care Stagecraft Teacher Name | Role | Phone | + +------+ + | No Pcp Per Patient | PCP | Unavailable | + +------+ + Encounter Details +--------+ + + + + | Date | Type | Department | Care Team | Description | +--------+ + + + + | 03/14/ | ED Progress | Epic at [facility] | Zonia, | ED Progress Note | | 2014 | | [address] | Emmanuel Waddell MD | | | | Note-Transc | [place], [place] | [facility] | | | | [facility] | [address] | [facility] [address] | | | | | | [place] [address] | | | | | | [phone] | | | | | | | [...]
--- OUTSIDE RECORDS SUMMARY | ~2020-05-17 | XMS | Encounter Summary ---
Demographics + + + | Address | [address] | | | [place] [address] | + + + | Home Phone | | + + + | Preferred Language | Unknown | + + + | Marital Status | Single | + + + | Nondenominational Affiliation | NON | + + + [...] Team Providers + +------+ + | Care Home Lending Officer Name | Role | Phone | + +------+ + | No Pcp Per Patient | PCP | Unavailable | + +------+ + Encounter Details +--------+ + + + + | Date | Type | Department | Care Team | Description | +--------+ + + + + | 04/21/ | Results | Epic at [facility] | [place], | | | 2013 | Only | [address] | Erick Chowdhury DO [address] | | | | | [place], [place] | [address] [facility] | | | | | [address] | Rd [place], [place] | | | | | | [address] | | | | | | [phone] | | | | | | | [...] | CBC W/DIFF, NO | Routin | 05/08/2014 | | Results for this | | REFLEX | e | 7:00 PM | | procedure are in the | | | | PDT | | results section. | + +--------+ + + + | INR | Routin | 05/08/2014 | | Results for this | | | e | 7:00 PM | | procedure are in the | | | | PDT | | results section. | + +--------+ + + + | TROPONIN I, PLASMA | Routin | 05/08/2014 | | Results for this | | | e | 7:00 PM | | procedure are in the | | | | PDT | | results section. | + +--------+ + + + | BASIC METABOLIC SET | Routin | 05/08/2014 | | Results for this | | (NA, K, CL, TCO2, | e | 7:00 PM | | procedure are in the | | BUN, CR, GLU, CA) | | PDT | | results section. | + +--------+ + + + | APTT (ACT. PART. | Routin | 05/08/2014 | | Results for this | | THROMBO TIME) | e | 7:00 PM | | procedure are in the | | | | PDT | | results section. | + +--------+ + + + | UA DIPSTICK 10 DIP | Routin | 05/03/2014 | | Results for this | | W/O MICRO | e | 10:25 PM | | procedure are in the | | (AUTOMATED), POC | | PDT | | results section. | + +--------+ + + + | UA DIPSTICK 10 DIP | Routin | 04/30/2014 | | Results for this | | W/O MICRO | e | 3:17 AM | | procedure are in the | | (AUTOMATED), POC | | PDT | | results section. | + +--------+ + + + | URINE, MICROSCOPIC | Routin | 04/30/2014 | | Results for this | | EXAM | e | 3:16 AM | | procedure are in the | | | | PDT | | results section. | + +--------+ + + + | UA DIPSTICK 10 DIP | Routin | 04/24/2014 | | Results for this | | W/O MICRO | e | 5:18 PM | | procedure are in the | | (AUTOMATED), POC | | PDT | | results section. | + +--------+ + + + | CHLAM/GC APTIMA, | Routin | 04/21/2014 | | Results for this | | RNA, TMA | e | 11:05 PM | | procedure are in the | | | | PDT | | results section. | + +--------+ + + + | VAGINAL/URETHRAL WET | Urgent | 04/21/2014 | | Results for this | | PREP | | 11:05 PM | | procedure are in the | | | | PDT | | results section. | + +--------+ + + + | US TRANSVAGINAL | Routin | 04/21/2014 | | Results for this | | | e | 10:32 PM | | procedure are in the | | | | PDT | | results section. | + +--------+ + + + | US PELVIS COMPLETE | Routin | 04/21/2014 | | Results for this | | | e | 10:32 PM | | procedure are in the | | | | PDT | | results section. | + +--------+ + + + | UA DIPSTICK 10 DIP | Routin | 04/21/2014 | | Results for this | | W/O MICRO | e | 9:15 PM | | procedure are in the | | (AUTOMATED), POC | | PDT | | results section. | + +--------+ + + + | URINE, MICROSCOPIC | Routin | 04/21/2014 | | Results for this | | EXAM | e | 9:00 PM | | procedure are in the | | | | PDT | | results section. | + +--------+ + + + documented in this encounter Results TROPONIN I, PLASMA (05/08/2014 7:00 PM PDT) + + + + + + | Component | Value | Ref Range | Performed | Pathologist | | | | | At | Signature | + + + + + + | TROPONIN I | <0.01Comment: Interpret | 0.00 - 0.03 | [facility] | | | | results in conjunction | ng/mL | [facility] | | | | with other diagnostic | | | | | | tests and clinical | | | | | | information. | | | | + + + + + + + + | Specimen | + + | | + + + + + + + | Performing | Address | City/State/Zipcode | Phone Number | | Organization | | | | + + + + + | [facility] | [address] | [place], [place] | | | LAB | | [id number] | | + + + + + | [facility] | [address] | [place], [place] | | | LAB | | [address] | | + + + + + BASIC METABOLIC SET (NA, K, CL, TCO2, BUN, CR, GLU, CA) (05/08/2014 7:00 PM PDT) + +-------+ + + + | Component | Value | Ref Range | Performed | Pathologist | | | | | At | Signature | + +-------+ + + + | GLUCOSE, | 82 | 70 - 100 mg/dL | [facility] | | | SERUM | | | [facility] | | + +-------+ + + + | UREA | 14 | 7 - 22 mg/dL | [facility] | | | NITROGEN, | | | [facility] | | | SERUM | | | | | + +-------+ + + + | CREATININE | 1.0 | 0.5 - 1.2 mg/dL | [facility] | | | SERUM | | | [facility] | | + +-------+ + + + | BUN/CREATIN | 14 | 8 - 25 ratio | [facility] | | | INE RATIO | | | [facility] | | + +-------+ + + + | EGFR | >60 | >=60 | [facility] | | | - | | mL/min/1.73m2 | [facility] | | | KAZAKH | | | | | + +-------+ + + + | EGFR NON | >60 | >=60 | [facility] | | | -JEFF | | mL/min/1.73m2 | [facility] | | | RICAN | | | | | + +-------+ + + + | SODIUM | 139 | 135 - 145 mEq/L | [facility] | | | | | | [facility] | | + +-------+ + + + | POTASSIUM | 4.0 | 3.4 - 5.0 mEq/L | [facility] | | | | | | [facility] | | + +-------+ + + + | CHLORIDE | 104 | 98 - 110 mEq/L | [facility] | | | | | | [facility] | | + +-------+ + + + | CO2 | 28 | 23 - 33 mEq/L | [facility] | | | | | | [facility] | | + +-------+ + + + | CALCIUM, | 8.8 | 8.5 - 10.5 | [facility] | [...] [facility] | [address] | [place] | | | LAB | | [address] | | + + + + + | [facility] | [address] | [place] | | | LAB | | [address] | | + + + + + APTT (ACT. PART. THROMBO TIME) (05/08/2014 7:00 PM PDT) + +-------+ + + + | Component | Value | Ref Range | Performed | Pathologist | | | | | At | Signature | + +-------+ + + + | APTT | 28.8 | 24.2 - 35.2 | [facility] | | | | | second(s) | [facility] | | + +-------+ + + + + + | Specimen | + + | | + + + + + + + | Performing | Address | City/State/Zipcode | Phone Number | | Organization | | | | + + + + + | [facility] | [address] | [place], [place] | | | LAB | | [address] | | + + + + + | [facility] | [address] | [place], [place] | | | LAB | | [address] | | + + + + + INR (05/08/2014 7:00 PM PDT) + + + + + + | Component | Value | Ref Range | Performed | Pathologist | | | | | At | Signature | + + + + + + | PROTHROMBIN | 12.9 | 11.7 - 14.1 | [facility] | | | TIME | | second(s) | [facility] | | + + + + + + | INR | 1.0Comment: Recommended | | [facility] | | | | ranges for Protime INR: | | [facility] | | | | 2.0-3.0 for most | | | | | | medical and surgical | | | | | | thromboembolic states | | | | + + + + + + + + | Specimen | + + | | + + + + + + + | Performing | Address | City/State/Zipcode | Phone Number | | Organization | | | | + + + + + | [facility] | [address] | [place], [place] | | | LAB | | [address] | | + + + + + | [facility] | [address] | [place], [place] | | | LAB | | [address] | | + + + + + CBC W/DIFF, NO REFLEX (05/08/2014 7:00 PM PDT) + + + + + [...] + + + | RED CELL | 4.75 | 4.20 - 5.40 | [facility] | | | COUNT | | x10(6)/mcL | [facility] | | + + + + + + | HEMOGLOBIN | 13.3 | 12.0 - 16.0 | [facility] | | | | | gm/dL | [facility] | | + + + + + + | HEMATOCRIT | 39.4 | 37.0 - 47.0 % | [facility] | | | | | | [facility] | | + + + + + + | MCV | 82.9 | 80.0 - 100.0 fL | [facility] | | | | | | [facility] | | + + + + + + | MCH | 27.9 | 27.0 - 34.0 pg | [facility] | | | | | | [facility] | | + + + + + + | MCHC | 33.7 | 32.0 - 36.0 | [facility] | | | | | gm/dL | [facility] | | + + + + + + | RDW | 13.8 | 11.5 - 14.5 % | [facility] | | | | | | [facility] | | + + + + + + | PLATELET | 246 | 150 - 400 | [facility] | | | COUNT | | x10(3)/mcL | [facility] | | + + + + + + | MPV | 10.0 | 7.4 - 10.4 fL | [facility] | | | | | | [facility] | | + + + + + + | NEUTROPHIL | 68.2 | 40.2 - 78.0 % | [facility] [...] + + + | EOS % | 1.8 | 0.0 - 5.2 % | [facility] | | | | | | [facility] | | + + + + + + | BASO % | 1.6 | 0.0 - 2.0 % | [facility] | | | | | | [facility] | | + + + + + + | NEUTROPHIL | 7.9 (H) | 0.9 - 7.7 | [facility] [...] + + + | EOS # | 0.2 | 0.0 - 0.4 | [facility] | | | | | x10(3)/mcL | [facility] | | + + + + + + | BASO # | 0.2 | 0.0 - 0.2 | [facility] | [...] [facility] | [address] | [place] | | | LAB | | [address] | | + + + + + | [facility] | [address] | [place], [place] | | | LAB | | [address] | | + + + + + UA DIPSTICK 10 DIP W/O MICRO (AUTOMATED), POC (05/03/2014 10:25 PM PDT) + + + + + [...] + + + + | SPECIFIC | 1.020 | 1.003 - 1.029 | [facility] | | | GRAVITY (UA | | | [facility] | | | DIP), POC | | | | | + + + + + + | BLOOD (UA | Negative | Negative | [facility] | | | DIP), POC | | | [facility] | | + + + + + + | PH (UA | 7.0 | 5.0 - 9.0 | [facility] | [...] Negative | [facility] | | | (UA SUZY), | | | [facility] | | [...] [address] | [place], [place] | | | LAB | | [address] | | + + + + + | [facility] | [address] | [place], [place] | | | LAB | | [address] | | + + + + + UA DIPSTICK 10 DIP W/O MICRO (AUTOMATED), POC (04/30/2014 3:17 AM PDT) + + + + + [...] + + + + | SPECIFIC | 1.020 | 1.003 - 1.029 | [facility] | | | GRAVITY (UA | | | [facility] | | | DIP), POC | | | | | + + + + + + | BLOOD (UA | Trace-intact (A) | Negative | [facility] | | | DIP), POC | | | [facility] | | + + + + + + | PH (UA | 6.0 | 5.0 - 9.0 | [facility] | [...] [facility] | [address] | [place], [place] | | | LAB | | [address] | | + + + + + | [facility] | [address] | [place], [place] | | | LAB | | [address] | | + + + + + URINE, MICROSCOPIC EXAM (04/30/2014 3:16 AM PDT) + + + + + [...] + + + + | APPEARANCE | Hazy | | [facility] | | | | | | [facility] | | + + + + + + | WHITE CELLS | 1 | 0 - 5 /HPF | [facility] | | | | | | [facility] | | + + + + + + | RED CELLS | <1 | 0 - 5 /HPF | [facility] | | | | | | [facility] | | + + + + + + | SQUAMOUS | 23 | /LPF | [facility] | | | [...] [facility] | [address] | [place] | | | LAB | | [address] | | + + + + + | [facility] | [address] | [place], [place] | | | LAB | | [address] | | + + + + + UA DIPSTICK 10 DIP W/O MICRO (AUTOMATED), POC (04/24/2014 5:18 PM PDT) + + + + + [...] + + + + | SPECIFIC | >=1.030 | 1.003 - 1.029 | [facility] | | | GRAVITY (UA | | | [facility] | | | DIP), POC | | | | | + + + + + + | BLOOD (UA | Negative | Negative | [facility] | [...] [facility] | [address] | [place], [place] | | | LAB | | [address] | | + + + + + | [facility] | [address] | [place], [place] | | | LAB | | [address] | | + + + + + CHLAM/GC APTIMA, RNA, TMA (04/21/2014 11:05 PM PDT) + + + + + [...] | | test was performed | | [facility] | | | | using the APTIMA COMBO2 | | | | | | Assay([employer] | | | | | | [...] | | | | | | Mnemonic: [id number] | | | | | | DIAGNOSTICS | | | | | | [id number] | | | | | | [address] [facility], | | | | | | [place] [address] | | | | | | MD DICKSON | | | | + + + + + + + + | Specimen | + + | | + + + + + + + | Performing | Address | City/State/Zipcode | Phone Number | | Organization | | | | + + + + + | [facility] | [address] | [place], [place] | | | LAB | | [address] | | + + + + + | [facility] | [address] | [place], [place] | | | LAB | | [address] | | + + + + + VAGINAL/URETHRAL WET PREP (04/21/2014 11:05 PM PDT) + + + + + + | Component | Value | Ref Range | Performed | Pathologist | | | | | At | Signature | + + + + + + | WET PREP | Patient:RICARDO DEGROOT | | [facility] | | | | [place] | | [facility] | | | | MRN: | | | | | | [id number] | | | | | | | | | | | | Stains | | | | | | and Preparations | | | | | | PROCEDURE: | | | | | | Wet Prep [P1] | | | | | | | | | | | | COLLECTED: | | | | | | 04/21/2014 | | | | | | 23:05 PDTSOURCE: | | | | | | | | | | | | Cerv | | | | | | STARTED: | | | | | | | | | | | | 04/21/2014 23:17 | | | | | | PDTFREE TEXT SOURCE: | | | | | | | | | | | | | | | | | | ACCESSION: | | | | | | | | | | | | [id number] SITE: | | | | | | FINAL REPORTSFinal | | | | | | Report []Verified | | | | | | Date/Time: 04/21/2014 | | | | | | 23:29 PDTNo Trichomonas | | | | | | sp. No Yeast 2+ Clue | | | | | | cells 1+ leukocytes | | | | | | Performing [...] [facility] | [address] | [place], [place] | | | LAB | | [address] | | + + + + + | [facility] | [address] | [place], [place] | | | LAB | | [address] | | + + + + + US TRANSVAGINAL (04/21/2014 10:32 PM PDT) + + | Specimen | + + | | + + + + + | Narrative | Performed At | + + + | PELVIC ULTRASOUND COMPARISON: 11/06/12. CLINICAL | [facility] | | INFORMATION: Pelvic pain. TECHNIQUE: Transabdominal and | RADIOLOGY | | transvaginal examination. FINDINGS: The uterus measures | | | 8.9 x 3.7 x 4 cm. Endometrial stripe measures 9 mm. The | | | right ovary is not identified. Left ovary is grossly intact measuring | | | 3.3 x 2.4 x 2.9 cm. Flow to the left ovary could not be documented, | | | probably technical. There is no free fluid. | | | IMPRESSION: 1. Normal appearing uterus with endometrial | | | stripe measuring 9 mm. 2. Right ovary is not identified. | | | 3. Grossly unremarkable left ovary. Due to patient's body | | | habitus, flow to the left ovary could not be documented. No | | | significant discrepancy [facility] the [facility]. | | + + + + + | Procedure Note | + + | Interface, Lab Results [place] - 06/12/2017 3:50 PM PDT PELVIC ULTRASOUNDCOMPARISON: | | 11/06/12.CLINICAL INFORMATION: Pelvic pain.TECHNIQUE: Transabdominal and transvaginal | | examination. FINDINGS: The uterus measures 8.9 x 3.7 x 4 cm. Endometrial stripe | | measures 9 mm. The right ovary is not identified. Left ovary is grossly intact measuring | | 3.3 x 2.4 x 2.9 cm. Flow to the left ovary could not be documented, probably | | technical.There is no free fluid.IMPRESSION: 1. Normal appearing uterus with endometrial | | stripe measuring 9 mm. 2. Right ovary is not identified. 3. Grossly unremarkable left | | ovary. Due to patient's body habitus, flow to the left ovary could not be documented. No | | significant discrepancy from the preliminary interpretation given by [facility] | | Radiology. | | | | | |TECHNIQUE: Transabdominal and transvaginal examination. | | | | | | | |FINDINGS: The uterus measures 8.9 x 3.7 x 4 cm. Endometrial stripe measures 9 mm. | | | | | | | |The right ovary is not identified. Left ovary is grossly intact measuring 3.3 x 2.4 x 2.9 c m. Flow to the left ovary could not be documented, probably technical. | | | | | | | |There is no free fluid. | | | | | | | |IMPRESSION: | | | | | | | |1. Normal appearing uterus with endometrial stripe measuring 9 mm. | | | | | | | |2. Right ovary is not identified. | | | | | | | |3. Grossly unremarkable left ovary. Due to patient's body habitus, flow to the left ovary c ould not be documented. | | | | | | | |No significant discrepancy from the preliminary interpretation given by [facility] Radiolog y. | + + + + + + + | Performing | Address | City/State/Zipcode | Phone Number | | Organization | | | | + + + + + | [facility] | [address] | [place], [place] | [phone] | | | | [address] | | + + + + + US PELVIS COMPLETE (04/21/2014 10:32 PM PDT) + + | Specimen | + + | | + + + + + | Narrative | Performed At | + + + | PELVIC ULTRASOUND COMPARISON: 11/06/12. CLINICAL | [facility] | | INFORMATION: Pelvic pain. TECHNIQUE: Transabdominal and | RADIOLOGY | | transvaginal examination. FINDINGS: The uterus measures | | | 8.9 x 3.7 x 4 cm. Endometrial stripe measures 9 mm. The | | | right ovary is not identified. Left ovary is grossly intact measuring | | | 3.3 x 2.4 x 2.9 cm. Flow to the left ovary could not be documented, | | | probably technical. There is no free fluid. | | | IMPRESSION: 1. Normal appearing uterus with endometrial | | | stripe measuring 9 mm. 2. Right ovary is not identified. | | | 3. Grossly unremarkable left ovary. Due to patient's body | | | habitus, flow to the left ovary could not be documented. No | | | significant discrepancy from the preliminary interpretation given by | | | [facility] Radiology. | | + + + + + | Procedure Note | + + | Interface, Lab Results [place] - 06/12/2017 3:50 PM PDT PELVIC ULTRASOUNDCOMPARISON: | | 11/06/12.CLINICAL INFORMATION: Pelvic pain.TECHNIQUE: Transabdominal and transvaginal | | examination. FINDINGS: The uterus measures 8.9 x 3.7 x 4 cm. Endometrial stripe | | measures 9 mm. The right ovary is not identified. Left ovary is grossly intact measuring | | 3.3 x 2.4 x 2.9 cm. Flow to the left ovary could not be documented, probably | | technical.There is no free fluid.IMPRESSION: 1. Normal appearing uterus with endometrial | | stripe measuring 9 mm. 2. Right ovary is not identified. 3. Grossly unremarkable left | | ovary. Due to patient's body habitus, flow to the left ovary could not be documented. No | | significant discrepancy from the preliminary interpretation given by [facility] | Radiology. | | | | | |TECHNIQUE: Transabdominal and transvaginal examination. | | | | | | | |FINDINGS: The uterus measures 8.9 x 3.7 x 4 cm. Endometrial stripe measures 9 mm. | | | | | | | |The right ovary is not identified. Left ovary is grossly intact measuring 3.3 x 2.4 x 2.9 c m. Flow to the left ovary could not be documented, probably technical. | | | | | | | |There is no free fluid. | | | | | | | |IMPRESSION: | | | | | | | |1. Normal appearing uterus with endometrial stripe measuring 9 mm. | | | | | | | |2. Right ovary is not identified. | | | | | | | |3. Grossly unremarkable left ovary. Due to patient's body habitus, flow to the left ovary c ould not be documented. | | | | | | | |No significant discrepancy [facility]. | + + + + + + + | Performing | Address | City/State/Zipcode | Phone Number | | Organization | | | | + + + + + | [facility] | [address] | [place], [place] | [phone] | | | | [address] | | + + + + + UA DIPSTICK 10 DIP W/O MICRO (AUTOMATED), POC (04/21/2014 9:15 PM PDT) + + + + + [...] + + + + | SPECIFIC | 1.020 | 1.003 - 1.029 | [facility] | | | GRAVITY (UA | | | [facility] | | | DIP), POC | | | | | + + + + + + | BLOOD (UA | Negative | Negative | [facility] | | | DIP), POC | | | [facility] | | + + + + + + | PH (UA | 7.5 | 5.0 - 9.0 | [facility] | [...] + + + + | LEUKOCYTES | Small (A) | Negative | [facility] [...] [facility] | [address] | [place], [place] | | | LAB | | [address] | | + + + + + | [facility] | [address] | [place], [place] | | | LAB | | [address] | | + + + + + URINE, MICROSCOPIC EXAM (04/21/2014 9:00 PM PDT) + + + + + [...] + + + + | APPEARANCE | Hazy | | [facility] | | | | | | [facility] | | + + + + + + | WHITE CELLS | 2 | 0 - 5 /HPF | [facility] | | | | | | [facility] | | + + + + + + | RED CELLS | 1 | 0 - 5 /HPF | [facility] | | | | | | [facility] | | + + + + + + | SQUAMOUS | 98 | /LPF | [facility] | | | [...] [facility] | [address] | [place], [place] | | | LAB | | [address] | | + + + + + | [facility] | [address] | [place], [place] | | | LAB | | [address] | | + + + + + documented in this encounter Visit Diagnoses Not on filedocumented in this encounter"
--- OUTSIDE RECORDS SUMMARY | ~2020-05-17 | XMS | Encounter Summary ---
Demographics + + + | Address | [address] [facility] [facility] | | | [place] [address] | + + + | Home Phone | | + + + | Preferred Language | Unknown | + + + | Marital Status | Single | + + + | Jain Affiliation | NON | + + + [...] Team Providers + +------+ + | Care Manager Outpatient Name | Role | Phone | + +------+ + | No Pcp Per Patient | PCP | Unavailable | + +------+ + Encounter Details +--------+ + + + + | Date | Type | Department | Care Team | Description | +--------+ + + + + | 05/08/ | ED Progress | Epic at [facility] | [place], | ED Progress Note | | 2014 | | [address] | Emmanuel Waddell MD | | | | Note-Transc | [place], [place] | [facility] | | | | [facility] | [address] | [facility] [address] | | | | | | [place] [address] | | | | | | [phone] | | | | | | | [...]
--- OUTSIDE RECORDS SUMMARY | ~2020-05-17 | XMS | Encounter Summary ---
Demographics + + + | Address | [address] | | | [place] [address] | + + + | Home Phone [...] Team Providers + +------+ + | Care Environmental Studies Department Chair Name | Role | Phone | + +------+ + | No Pcp Per Patient | PCP | Unavailable | + +------+ + Encounter Details +--------+ + + + + | Date | Type | Department | Care Team | Description | +--------+ + + + + | 12/05/ | Results | Epic at [facility] | Juan Diego White | | | 2012 | Only | [address] | [place] [address] [address] | | | | | [place], [place] | [facility] | | | | | [address] | [address] [place], | | | | | | [place] [address] | | | | | | [phone] | | | | | | | [...] X-RAY CHEST 2 VIEW | Routin | 12/05/2012 | | Results for this | | | e | 7:06 PM | | procedure are in the | | | | PST | | results section. | + +--------+ + + + | UA DIPSTICK 10 DIP | Routin | 12/05/2012 | | Results for this | | W/O MICRO | e | 5:59 PM | | procedure are in the | | (AUTOMATED), POC | | PST | | results section. | + +--------+ + + + | CBC W/DIFF, NO | Routin | 12/05/2012 | | Results for this | | REFLEX | e | 5:30 PM | | procedure are in the | | | | PST | | results section. | + +--------+ + + + | COMPLETE METABOLIC | Routin | 12/05/2012 | | Results for this | | SET | e | 5:30 PM | | procedure are in the | | (NA,K,CL,CO2,BUN,CRE | | PST | | results section. | | AT,GLUC,CA,AST,ALT,B | | | | | | MERI TOTAL,ALK | | | | | | PHOS,ALB,PROT TOTAL) | | | | | + +--------+ + + + documented in this encounter Results X-RAY CHEST 2 VIEW (12/05/2012 7:06 PM PST) + + | Specimen | + + | | + + + + + | Narrative | Performed At | + + + | CHEST; 2 VIEWS CLINICAL INFORMATION: Shortness of breath. | [facility] | | COMPARISON: Prior studies. FINDINGS: The lungs are | RADIOLOGY | | expanded and free of increased markings. The cardiomediastinal | | | structures are within the range of normal for patient's stated age. | | | The cardiac size is normal. The thoracic aorta appears intact. The | | | apices are symmetric. The costophrenic angles and hemidiaphragms are | | | intact. The bones and soft tissues appear intact. | | | IMPRESSION: No cardiomegaly. No evidence of congestive heart failure | | | or pulmonary infiltrates. | | + + + + + | Procedure Note | + + | Interface, Lab Results [place] - 05/24/2017 3:55 PM PDT CHEST; 2 VIEWSCLINICAL | | INFORMATION: Shortness of breath.COMPARISON: Prior studies.FINDINGS: The lungs are | | expanded and free of increased markings. The cardiomediastinal structures are within the | | range of normal for patient's stated age. The cardiac size is normal. The thoracic | | aorta appears intact. The apices are symmetric. The costophrenic angles and | | hemidiaphragms are intact. The bones and soft tissues appear intact.IMPRESSION: No | | cardiomegaly. No evidence of congestive heart failure or pulmonary infiltrates. | | | |COMPARISON: Prior studies. | | | | | | | |FINDINGS: The lungs are expanded and free of increased markings. The cardiomediastinal stru ctures are within the range of normal for patient's stated age. The cardiac size is normal. The thoracic aorta appears intact. | |The apices are symmetric. The costophrenic angles and hemidiaphragms are intact. The bones and soft tissues appear intact. | | | | | | | |IMPRESSION: No cardiomegaly. No evidence of congestive heart failure or pulmonary infiltrat es. | + + + + + + + | Performing | Address | City/State/Zipcode | Phone Number | | Organization | | | | + + + + + | [facility] | [address] | [place], [place] | [phone] | | | | [address] | | + + + + + UA DIPSTICK 10 DIP W/O MICRO (AUTOMATED), POC (12/05/2012 5:59 PM PST) + + + + + + | [...] + + + + | SPECIFIC | 1.015 | 1.003 - 1.029 | [facility] | [...] + + + + | LEUKOCYTES | Negative | Negative | [facility] | [...] [facility] | [address] | [place], [place] | | | LAB | | [address] | | + + + + + | [facility] | [address] | [place], [place] | | | LAB | | [address] | | + + + + + COMPLETE METABOLIC SET (NA,K,CL,CO2,BUN,CREAT,GLUC,CA,AST,ALT,BILI TOTAL,ALK PHOS,ALB,PROT TOTAL) (12/05/2012 5:30 PM PST) + +---------+ + + + | Component | Value | Ref Range | Performed | Pathologist | | | | | At | Signature | + +---------+ + + + | GLUCOSE, | 107 (H) | 70 - 100 mg/dL | [facility] [...] mL/min/1.73m2 | [facility] | | | [place] | | | | | + +---------+ + + + | EGFR NON | >60 | >=60 | [facility] | | | -JEFF | | mL/min/1.73m2 | [facility] | | | RICAN | | | | | + +---------+ + + + | SODIUM | 142 | 135 - 145 mEq/L | [facility] | | | | | | [facility] | | + +---------+ + + + | POTASSIUM | 3.8 | 3.4 - 5.0 mEq/L | [facility] | | | | | | [facility] | | + +---------+ + + + | CHLORIDE | 108 | 98 - 110 mEq/L | [facility] | | | | | | [facility] | | + +---------+ + + + | CO2 | 27 | 23 - 33 mEq/L | [facility] | | | | | | [facility] | | + +---------+ + + + | CALCIUM, | 8.8 | 8.5 - 10.5 | [facility] | | | SERUM | | mg/dL | [facility] | | + +---------+ + + + | TOTAL | 7.1 | 6.2 - 8.2 gm/dL | [facility] [...] + + + | A/G RATIO | 1.1 | 0.9 - 2.0 ratio | [facility] [...] + + + | ALT (SGPT) | 19 | 10 - 60 | [facility] | | | | | IntUnit/L | [facility] | | + +---------+ + + + | AST(SGOT) | 20 | 12 - 45 | [facility] | [...] [place] | | | LAB | | [id number] | | + + + + + | [facility] | [address] | [place], [place] | | | LAB | | [address] | | + + + + + FERMIN W/HAYLEY VALENCIA (12/05/2012 5:30 PM PST) + + + + + + | Component | Value | Ref Range | Performed | Pathologist | | | | | At | Signature | + + + + + + | WHITE CELL | 9.6 | 4.5 - 10.5 | [facility] | | | COUNT | | x10(3)/mcL | [facility] | | + + + + + + | RED CELL | 4.65 | 4.20 - 5.40 | [facility] | | | COUNT | | x10(6)/mcL | [facility] | | + + + + + + | HEMOGLOBIN | 13.2 | 12.0 - 16.0 | [facility] | | | | | gm/dL | [facility] | | + + + + + + | HEMATOCRIT | 39.1 | 37.0 - 47.0 % | [facility] | | | | | | [facility] | | + + + + + + | MCV | 84.2 | 80.0 - 100.0 fL | [facility] [...] + + + + | PLATELET | 214 | 150 - 400 | [facility] | | | COUNT | | x10(3)/mcL | [facility] | | + + + + + + | MPV | 10.8 (H) | 7.4 - 10.4 fL | [facility] | | | | | | [facility] | | + + + + + + | NEUTROPHIL | 65.4 | 40.2 - 78.0 % | [facility] | | | % | | | [facility] | | + + + + + + | LYMPHOCYTE | 25.8 | 15.5 - 49.1 % | [facility] | | | % | | | [facility] | | + + + + + + | MONOCYTE % | 5.8 | 1.7 - 8.9 % | [facility] | | | | | | [facility] | | + + + + + + | EOS % | 1.7 | 0.0 - 5.2 % | [facility] | | | | | | [facility] | | + + + + + + | BASO % | 1.3 | 0.0 - 2.0 % | [facility] | | | | | | [facility] | | + + + + + + | NEUTROPHIL | 6.3 | 0.9 - 7.7 | [facility] | | | # | | x10(3)/mcL | [facility] | | + + + + + + | LYMPHOCYTE | 2.5 | 1.0 - 3.4 | [facility] | [...] [facility] | [address] | [place], [place] | | | LAB | | [address] | | + + + + + | [facility] | [address] | [place], [place] | | | LAB | | [address] | | + + + + + documented in this encounter Visit Diagnoses Not on filedocumented in this encounter"
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
--- OUTSIDE RECORDS SUMMARY | ~2020-05-17 | XMS | Encounter Summary ---
Demographics + + + | Address | [address] | | | [place] [address] | + + + | Home Phone | | + + + | Preferred Language | Unknown | + + + | Marital Status | Single | + + + | Taoism Affiliation | NON | + + + | Race | White | + + + | Ethnic Group | Not or | + + + Author + + + | Author | [facility] | + + + | Organization | [facility] | + + + | Address | Unknown | + + + | Phone | Unavailable | + + + Support +------+ +---------+ + | Name | Relationship | Address | Phone | +------+ +---------+ + | None | ECON | Unknown | Unavailable | +------+ +---------+ + Care Team Providers + +------+ + | Care Painter Plate Name | Role | Phone | + +------+ + | No Pcp Per Patient | PCP | Unavailable | + +------+ + Reason for Visit + + + | Reason | Comments | + + + | Low Abdominal Pain | | + + + Encounter Details +--------+ + + + + | Date | Type | Department | Care Team | Description | +--------+ + + + + | 04/26/ | Emergency | [facility] | Filiberto Solis MD | | | 2012 - | | Department [address] | [address] | | | | | [address] | [address] | | | 04/27/ | | [facility] | [place], [place] | | | 2012 | | [place], [place] | [address] | | | | | [address] | [phone] | | | | | [phone] | | | +--------+ + + + [...] + + + | Blood Pressure | 114/54 | 04/26/2013 11:45 PM | | | | | PDT | | + + + + + | Pulse | 82 | 04/26/2013 9:58 PM | | | | | PDT | | + + + + + | Temperature | 36.9 C (98.5 F) | 04/26/2013 7:28 PM | | | | | PDT | | + + + + + | Respiratory Rate | 16 | 04/26/2013 9:58 PM | | | | | PDT | | + + + + + | Oxygen Saturation | 100% | 04/26/2013 9:58 PM | | | | | PDT | | + + + + + | Inhaled Oxygen | - | - | | | Concentration | | | | + + + + + | Weight | 142.4 kg (314 lb) | 04/26/2013 7:28 PM | | | | | PDT | | + + + + + | Height | - | - | | + + + + + | Body Mass Index | - | - | | + + + + + documented in this encounter Discharge Instructions Instructions Christine Tomlin MD - 04/27/2013 -keep taking the ciprofloxacin twice daily for the entire course -you can use vicodin for pain -stay hydrated with plenty of clear fluids -see your primary care provider as soon as possible in follow up Urinary Tract Infection in Women: After Your [...] Women: After Your Visit", log into your [employer] account at [email or web address]. You can enter [id number] in the JotSpot" [employer] Mobile arch box. Not on Privacy Networks? Review the Privacy Networks section of your After Visit Summary for directions on ho w to sign up. [id number] [employer]. Care instructions adapted under license by [facility] [employer] & [facility]. This care instruction is for use with your licensed [employer] professional. If you have questions about a medical condition or this instruction, always ask your healthcare professional. [employer] disclaims any warranty or liabili ty for your use of this information. Content Version: [id number]; Last Revised: February 14, 2011 documented in [...] | HCG URINE (MANUAL), | Urgent | 04/26/2013 | | Results for this | | POC | | 7:58 PM | | procedure are in the | | | | PDT | | results section. | + +--------+ + + + | RAINBOW HOLD TUBE - | Urgent | 04/26/2013 | | | | GREEN TOP | | 7:35 PM | | | | | | PDT | | | + +--------+ + + + | CBC AND AUTO DIFF | Urgent | 04/26/2013 | | Results for this | | | | 7:35 PM | | procedure are in the | | | | PDT | | results section. | + +--------+ + + + | RAINBOW HOLD, CORE | Urgent | 04/26/2013 | | Results for this | | PANEL | | 7:35 PM | | procedure are in the | | | | PDT | | results section. | + +--------+ + + + | CBC, WITH | Urgent | 04/26/2013 | | Results for this | | DIFFERENTIAL | | 7:35 PM | | procedure are in the | | | | PDT | | results section. | + +--------+ + + + | COMPLETE METABOLIC | Urgent | 04/26/2013 | | Results for this | | SET | | 7:35 PM | | procedure are in the | | (NA,K,CL,CO2,BUN,CRE | | PDT | | results section. | | AT,GLUC,CA,AST,ALT,B | | | | | | MERI TOTAL,ALK | | | | | | PHOS,ALB,PROT TOTAL) | | | | | + +--------+ + + + | UA, DIPSTICK ONLY | Urgent | 04/26/2013 | | Results for this | | | | 7:35 PM | | procedure are in the | | | | PDT | | results section. | + +--------+ + + + | URINE, MICROSCOPIC | Urgent | 04/26/2013 | | Results for this | | EXAM | | 7:35 PM | | procedure are in the | | | | PDT | | results section. | + +--------+ + + + | URINE SCREEN FOR | Urgent | 04/26/2013 | | Results for this | | CULTURE | | 7:35 PM | | procedure are in the | | | | PDT | | results section. | + +--------+ + + + | LIPASE, PLASMA | Urgent | 04/26/2013 | | Results for this | | | | 7:35 PM | | procedure are in the | | | | PDT | | results section. | + +--------+ + + + | CULTURE, URINE BACTI | Routin | 04/26/2013 | | Results for this | | | e | 7:35 PM | | procedure are in the | | | | PDT | | results section. | + +--------+ + + + documented in this encounter Results URINE HCG TEST, POC (04/26/2013 7:58 PM PDT) + + + + + + | Component | Value | Ref Range | Performed | Pathologist | | | | | At | Signature | + + + + + + | HCG URINE, | negative | Negative | | | | POC | | | | | + + + + + + | QC: ENTER | pass | | | | | "PASS" OR | | | | | | "FAIL", | | | | | | URINE HCG | | | | | + + + + + + RAINBOW HOLD TUBE - GREEN TOP (04/26/2013 7:35 PM PDT) + + | Specimen | + + | Blood - Blood | + + + + + + + | Performing | Address | City/State/Zipcode | Phone Number | | Organization | | | | + + + + + | [facility] | [address] | [place] [address] | | | SERVICES, CORE | [address] | | | + + + + + CBC AND AUTO DIFF (04/26/2013 7:35 PM PDT) + + + + + + | Component | Value | Ref Range | Performed | Pathologist | | | | | At | Signature | + + + + + + | WHITE CELL | 9.14 | 4.40 - 11.00 | [facility] | | | COUNT | | K/cu mm | LABORATORY | | | | | | SERVICES, | | | | | | CORE | | + + + + + + | RED CELL | 4.69 | 4.00 - 5.20 | [facility] | | | COUNT | | M/cu mm | LABORATORY | | | | | | SERVICES, | | | | | | CORE | | + + + + + + | HEMOGLOBIN | 12.9 | 12.0 - 16.0 | [facility] | | | | | g/dL | LABORATORY | | | | | | SERVICES, | | | | | | CORE | | + + + + + + | HEMATOCRIT | 40.1 | 36.0 - 46.0 % | [facility] | | | | | | LABORATORY | | | | | | SERVICES, | | | | | | CORE | | + + + + + + | MCV | 85.5 | 80.0 - 96.0 fL | [facility] | | | | | | LABORATORY | | | | | | SERVICES, | | | | | | CORE | | + + + + + + | MCHC | 32.2 (L) | 33.0 - 35.5 | [facility] | | | | | g/dL | LABORATORY | | | | | | SERVICES, | | | | | | CORE | | + + + + + + | RDW SD | 42.2 | 35.1 - 46.3 fL | [facility] | | | | | | LABORATORY | | | | | | SERVICES, | | | | | | CORE | | + + + + + + | PLATELET | 220 | 150 - 400 K/cu | [facility] | | | COUNT | | mm | LABORATORY | | | | | | SERVICES, | | | | | | CORE | | + + + + + + | MPV | 11.9 | 9.7 - 12.3 fL | [facility] | | | | | | LABORATORY | | | | | | SERVICES, | | | | | | CORE | | + + + + + + | NRBC% | 0.0 | 0.0 - 0.3 % | [facility] | | | | | | LABORATORY | | | | | | SERVICES, | | | | | | CORE | | + + + + + + | NRBC# | 0.00 | 0.00 - 0.02 | [facility] | | | | | K/cu mm | LABORATORY | | | | | | SERVICES, | | | | | | CORE | | + + + + + + | NEUTROPHIL | 64.5 | 50.0 - 70.0 % | [facility] | | | % | | | LABORATORY | | | | | | SERVICES, | | | | | | CORE | | + + + + + + | LYMPHOCYTE | 24.7 | 18.0 - 42.0 % | [facility] | | | % | | | LABORATORY | | | | | | SERVICES, | | | | | | CORE | | + + + + + + | MONOCYTE % | 8.0 | 3.5 - 9.0 % | [facility] | | | | | | LABORATORY | | | | | | SERVICES, | | | | | | CORE | | + + + + + + | EOS % | 2.2 | 1.0 - 3.0 % | [facility] | | | | | | LABORATORY | | | | | | SERVICES, | | | | | | CORE | | + + + + + + | BASO % | 0.4 | 0.0 - 2.0 % | [facility] | | | | | | LABORATORY | | | | | | SERVICES, | | | | | | CORE | | + + + + + + | IG% | 0.2 | 0.0 - 0.6 % | [facility] | | | | | | LABORATORY | | | | | | SERVICES, | | | | | | CORE | | + + + + + + | NEUTROPHIL | 5.89 | 1.80 - 7.70 | [facility] | | | # | | K/cu mm | LABORATORY | | | | | | SERVICES, | | | | | | CORE | | + + + + + + | LYMPHOCYTE | 2.26 | 1.00 - 4.80 | [facility] | | | # | | K/cu mm | LABORATORY | | | | | | SERVICES, | | | | | | CORE | | + + + + + + | MONOCYTE # | 0.73 | 0.10 - 0.90 | [facility] | | | | | K/cu mm | LABORATORY | | | | | | SERVICES, | | | | | | CORE | | + + + + + + | EOS # | 0.20 | 0.00 - 0.50 | [facility] | | | | | K/cu mm | LABORATORY | | | | | | SERVICES, | | | | | | CORE | | + + + + + + | BASO # | 0.04 | 0.00 - 0.10 | [facility] | | | | | K/cu mm | LABORATORY | | | | | | SERVICES, | | | | | | CORE | | + + + + + + | IG# | 0.02 | 0.00 - 0.03 | [facility] | | | | | K/cu mm | LABORATORY | | | | | | SERVICES, | | | | | | CORE | | + + + + + + + + | Specimen | + + | Blood - Blood | + + + + + | Narrative | Performed At | + + + | New methodology and reference ranges for some CBC/Differential | [facility] | | analytes in effect on 04/18/13. | LABORATORY | | | SERVICES, CORE | + + + + + + + + | Performing | Address | City/State/Zipcode | Phone Number | | Organization | | | | + + + + + | [facility] | [address] | [place] [address] | | | SERVICES, [place] | [address] | | | + + + + + COMPLETE METABOLIC SET (NA,K,CL,CO2,BUN,CREAT,GLUC,CA,AST,ALT,BILI TOTAL,ALK PHOS,ALB,PROT TOTAL) (04/26/2013 7:35 PM PDT) + +---------+ + + + | Component | Value | Ref Range | Performed | Pathologist | | | | | At | Signature | + +---------+ + + + | GLUCOSE, | 108 (H) | 60 - 99 mg/dL | [facility] | | | PLASMA | | | LABORATORY | | | (LAB) | | | SERVICES, | | | | | | CORE | | + +---------+ + + + | BUN, PLASMA | 13 | 6 - 20 mg/dL | [facility] | | | (LAB) | | | LABORATORY | | | | | | SERVICES, | | | | | | CORE | | + +---------+ + + + | CREATININE | 0.79 | 0.60 - 1.10 | [facility] | | | PLASMA | | mg/dL | LABORATORY | | | (LAB) | | | SERVICES, | | | | | | CORE | | + +---------+ + + + | EGFR | >60 | >60 mL/min | [facility] | | | - | | | LABORATORY | | | OMANI | | | SERVICES, | | | | | | CORE | | + +---------+ + + + | EGFR NON | >60 | >60 mL/min | [facility] | | | -JEFF | | | LABORATORY | | | RICAN | | | SERVICES, | | | | | | CORE | | + +---------+ + + + | SODIUM, | 142 | 136 - 145 | [facility] | | | PLASMA | | mmol/L | LABORATORY | | | (LAB) | | | SERVICES, | | | | | | CORE | | + +---------+ + + + | POTASSIUM, | 4.2 | 3.4 - 5.0 | [facility] | | | PLASMA | | mmol/L | LABORATORY | | | (LAB) | | | SERVICES, | | | | | | CORE | | + +---------+ + + + | CHLORIDE, | 108 | 97 - 108 mmol/L | [facility] | | | PLASMA | | | LABORATORY | | | (LAB) | | | SERVICES, | | | | | | CORE | | + +---------+ + + + | TOTAL CO2, | 27 | 21 - 32 mmol/L | [facility] | | | PLASMA | | | LABORATORY | | | (LAB) | | | SERVICES, | | | | | | CORE | | + +---------+ + + + | CALCIUM, | 8.8 | 8.6 - 10.2 | [facility] | | | PLASMA | | mg/dL | LABORATORY | | | (LAB) | | | SERVICES, | | | | | | CORE | | + +---------+ + + + | BILIRUBIN | 0.3 | 0.3 - 1.2 mg/dL | [facility] | | | TOTAL | | | LABORATORY | | | | | | SERVICES, | | | | | | CORE | | + +---------+ + + + | TOTAL | 7.4 | 6.4 - 8.2 g/dL | [facility] | | | PROTEIN, | | | LABORATORY | | | PLASMA | | | SERVICES, | | | (LAB) | | | CORE | | + +---------+ + + + | ALBUMIN, | 3.5 | 3.5 - 4.7 g/dL | [facility] | | | PLASMA | | | LABORATORY | | | (LAB) | | | SERVICES, | | | | | | CORE | | + +---------+ + + + | ALK PHOS | 101 (H) | 42 - 98 U/L | [facility] | | | | | | LABORATORY | | | | | | SERVICES, | | | | | | CORE | | + +---------+ + + + | AST(SGOT) | 23 | 15 - 41 U/L | [facility] | | | | | | LABORATORY | | | | | | SERVICES, | | | | | | CORE | | + +---------+ + + + | ALT (SGPT) | 24 | 12 - 60 U/L | [facility] | | | | | | LABORATORY | | | | | | SERVICES, | | | | | | CORE | | + +---------+ + + + | ANION | 8 | 4 - 11 mmol/L | [facility] | | | GAP(ALB | | | LABORATORY | | | CORRECTED) | | | SERVICES, | | | | | | CORE | | + +---------+ + + + | POTASSIUM | No Hemo | | [facility] | | | CMNT | | | LABORATORY | | | | | | SERVICES, | | | | | | CORE | | + +---------+ + + + | BILI T CMNT | No Hemo | | [facility] | | | | | | LABORATORY | | | | | | SERVICES, | | | | | | CORE | | + +---------+ + + + | AST CMNT | No Hemo | | [facility] | | | | | | LABORATORY | | | | | | SERVICES, | | | | | | CORE | | + +---------+ + + + | ANION GAP | 7 | mmol/L | [facility] | | | | | | LABORATORY | | | | | | SERVICES, | | | | | | CORE | | + +---------+ + + + + + | Specimen | + + | Blood - Blood | + + + + + | Narrative | Performed At | + + + | GFR is estimated using the MDRD equation recommended by the | [facility] | | National Kidney Disease Education Program. Estimated GFR | LABORATORY | | Interpretive Information: <60 mL/min/1.73 sq m | SERVICES, CORE | | Chronic Kidney Disease <15 mL/min/1.73 sq m | | | Kidney Failure Estimated GFR greater that 60 mL/min/1.73 sq m is of | | | limited clinical value. The MDRD equation is not valid in the | | | following situations: - Patients under 18 years of age - Severe | | | malnutrition or obesity - Vegetarian diet - Rapidly changing kidney | | | function New reference range effective 2013 for Total proteins | | | performed in Core Lab only. | | + + + + + + + + | Performing | Address | City/State/Zipcode | Phone Number | | Organization | | | | + + + + + | [facility] | [address] | [place] [address] | | | SERVICES, CORE | [address] | | | + + + + + LIPASE, PLASMA (04/26/2013 7:35 PM PDT) + +---------+ + + + | Component | Value | Ref Range | Performed | Pathologist | | | | | At | Signature | + +---------+ + + + | LIPASE | 101 (L) | 152 - 353 U/L | [facility] | | | (LAB) | | | LABORATORY | | | | | | SERVICES, | | | | | | CORE | | + +---------+ + + + + + | Specimen | + + | Blood - Blood | + + + + + + + | Performing | Address | City/State/Zipcode | Phone Number | | Organization | | | | + + + + + | [facility] | [address] | [place] [address] | | | SERVICES, CORE | [address] | | | + + + + + YEIMI OVERTON ONLY (04/26/2013 7:35 PM PDT) + + + + + + | Component | Value | Ref Range | Performed | Pathologist | | | | | At | Signature | + + + + + + | COLOR(UR) | Yellow | | [facility] | | | | | | LABORATORY | | | | | | SERVICES, | | | | | | CORE | | + + + + + + | APPEARANCE | Sl.Cloudy | | [facility] | | | | | | LABORATORY | | | | | | SERVICES, | | | | | | CORE | | + + + + + + | GLUCOSE(UR) | Negative | Negative, 50.0 | [facility] | | | | | mg/dL | LABORATORY | | | | | | SERVICES, | | | | | | CORE | | + + + + + + | PROTEIN(LAB | Negative | Negative, 30.0 | [facility] | | | ) | | mg/dL | LABORATORY | | | | | | SERVICES, | | | | | | CORE | | + + + + + + | BILIRUBIN | Negative | Negative | [facility] | | | | | | LABORATORY | | | | | | SERVICES, | | | | | | CORE | | + + + + + + | UROBILINOGE | <2.0 | <2.0 mg/dL | [facility] | | | N | | | LABORATORY | | | | | | SERVICES, | | | | | | CORE | | + + + + + + | PH(UR) | 7.0 | 5.0 - 8.0 | [facility] | | | | | | LABORATORY | | | | | | SERVICES, | | | | | | CORE | | + + + + + + | BLOOD | Negative | Negative | [facility] | | | | | | LABORATORY | | | | | | SERVICES, | | | | | | CORE | | + + + + + + | KETONES | Negative | Negative mg/dL | [facility] | | | | | | LABORATORY | | | | | | SERVICES, | | | | | | CORE | | + + + + + + | NITRITES | Negative | Negative | [facility] | | | | | | LABORATORY | | | | | | SERVICES, | | | | | | CORE | | + + + + + + | LEUKOCYTE | Large (A) | Negative | [facility] | | | ESTERASE | | | LABORATORY | | | | | | SERVICES, | | | | | | CORE | | + + + + + + | SPECIFIC | 1.018 | 1.005 - 1.030 | [facility] | | | GRAVITY | | | LABORATORY | | | | | | SERVICES, | | | | | | CORE | | + + + + + + + + | Specimen | + + | Urine - Urine | + + + + + + + | Performing | Address | City/State/Zipcode | Phone Number | | Organization | | | | + + + + + | [facility] | [address] | [place] [address] | | | SERVICES, CORE | [address] | | | + + + + + URINE, MICROSCOPIC EXAM (04/26/2013 7:35 PM PDT) + +---------+ + + + | Component | Value | Ref Range | Performed | Pathologist | | | | | At | Signature | + +---------+ + + + | RED CELLS | 3 | 0 - 3 /hpf | [facility] | | | | | | LABORATORY | | | | | | SERVICES, | | | | | | CORE | | + +---------+ + + + | WHITE CELLS | 15 (H) | 0 - 5 /hpf | [facility] | | | | | | LABORATORY | | | | | | SERVICES, | | | | | | CORE | | + +---------+ + + + | BACTERIA | Few (A) | None /hpf | [facility] | | | | | | LABORATORY | | | | | | SERVICES, | | | | | | CORE | | + +---------+ + + + | YEAST (LAB) | None | None /hpf | [facility] | | | | | | LABORATORY | | | | | | SERVICES, | | | | | | CORE | | + +---------+ + + + | SQUAMOUS | Few (A) | None /hpf | [facility] | | | EPITHELIAL | | | LABORATORY | | | | | | SERVICES, | | | | | | CORE | | + +---------+ + + + | MUCOUS | None | None /hpf | [facility] | | | | | | LABORATORY | | | | | | SERVICES, | | | | | | CORE | | + +---------+ + + + | TRICHOMONAS | None | None /hpf | [facility] | | | | | | LABORATORY | | | | | | SERVICES, | | | | | | CORE | | + +---------+ + + + | NON-DEVON | Ming (A) | None /hpf | [facility] | | | S EPITH | | | LABORATORY | | | | | | SERVICES, | | | | | | CORE | | + +---------+ + + + | HYALINE | 0 | 0 - 2 /lpf | [facility] | | | CASTS | | | LABORATORY | | | | | | SERVICES, | | | | | | CORE | | + +---------+ + + + | GRANULAR | 0 | 0 - 2 /lpf | [facility] | | | CASTS | | | LABORATORY | | | | | | SERVICES, | | | | | | CORE | | + +---------+ + + + | CELLULAR | 0 | <=0 /lpf | [facility] | | | CASTS | | | LABORATORY | | | | | | SERVICES, | | | | | | CORE | | + +---------+ + + + | TRIPLE P04 | None | None /hpf | [facility] | | | CRYSTALS | | | LABORATORY | | | | | | SERVICES, | | | | | | CORE | | + +---------+ + + + | CALCIUM | None | None /hpf | [facility] | | | OXALATE | | | LABORATORY | | | YESY | | | SERVICES, | | | | | | CORE | | + +---------+ + + + | URIC ACID | None | None /hpf | [facility] | | | CRYSTALS | | | LABORATORY | | | | | | SERVICES, | | | | | | CORE | | + +---------+ + + + | AMORPHOUS | None | None /hpf | [facility] | | | CRYSTALS | | | LABORATORY | | | | | | SERVICES, | | | | | | CORE | | + +---------+ + + + + + | Specimen | + + | Urine - Urine | + + + + + + + | Performing | Address | City/State/Zipcode | Phone Number | | Organization | | | | + + + + + | [facility] | [address] | [place] [address] | | | SERVICES, CORE | [address] | | | + + + + + URINE SCREEN FOR CULTURE (04/26/2013 7:35 PM PDT) + + + + + + | Component | Value | Ref Range | Performed | Pathologist | | | | | At | Signature | + + + + + + | URINE | Positive (A) | Negative | [facility] | | | SCREEN FOR | | | LABORATORY | | | CULTURE | | | SERVICES, | | | | | | CORE | | + + + + + + + + | Specimen | + + | Urine - Urine | + + + + + | Narrative | Performed At | + + + | Culture Screen Positive, specimen sent for culture. | [facility] | | | LABORATORY | | | ELROY CHA | + + + + + + + + | Performing | Address | City/State/Zipcode | Phone Number | | Organization | | | | + + + + + | [facility] | [address] | [place] [address] | | | SERVICESLEROY | [address] | | | + + + + + CULTURE, URINE BACTI (04/26/2013 7:35 PM PDT) + + + + + + | Component | Value | Ref Range | Performed | Pathologist | | | | | At | Signature | + + + + + + | CULTURE | C UrineSource: Urine | | [facility] - | | | RESULT | | | AIRPORT - | | | | Final CULTURE | | [place] | | | | RESULT:Multiple | | | | | | organisms are present | | | | | | indicating probable | | | | | | contamination or | | | | | | colonization not related | | | | | | to infection. Further | | | | | | work-up of these | | | | | | organisms may result in | | | | | | clinically misleading | | | | | | information due to the | | | | | | low numbers and /or | | | | | | mixture of organisms | | | | | | present. Recollection is | | | | | | suggested if clinically | | | | | | indicated. | | | | + + + + + + + + | Specimen | + + | Urine - Urine | + + + + + + + | Performing | Address | City/State/Zipcode | Phone Number | | Organization | | | | + + + + + | [facility] | [address] | [place] [address] | | | [facility] | | | | + + + + + documented in this encounter Visit Diagnoses + + | Diagnosis | + + | Acute UTI - Primary Urinary tract infection, site not specified | + + | Right flank pain Abdominal pain, unspecified site | + + documented in this encounter Administered Medications + +--------+ +------+------+------+ | Medication Order | MAR | Action | Dose | Rate | Site | | | Action | Date | | | | + +--------+ +------+------+------+ | ondansetron ODT (aka ZOFRFRANDY | Given | 04/27/20 | 4 mg | | | | ODT) tablet 4 mg 4 mg, oral, | | 13 12:28 | | | | | ONCE, 1 dose, [place] 04/27/13 at 0045 | | AM PDT | | | | + +--------+ +------+------+------+ +---+---+ | | | +---+---+ + +-------+ +-------+---+---+ | oxyCODONE (immediate release) | Given | 04/27/20 | 10 mg | | | | (aka ROXICODONE) tablet 10 mg 10 | | 13 12:28 | | | | | mg, oral, ONCE, 1 dose, Sun | | AM PDT | | | | | 04/27/13 at 0045 | | | | | | + +-------+ +-------+---+---+ +---+---+ | | | +---+---+ documented in this encounter
--- OUTSIDE RECORDS SUMMARY | ~2020-05-17 | XMS | Encounter Summary ---
Demographics + + + | Address | [address] | | | [place] [address] | + + + | Home Phone | | + + + | Preferred Language | Unknown | + + + | Marital Status | Single | + + + | Spiritism Affiliation | NON | + + + [...] Team Providers + +------+ + | Care Billing And Insurance Coordinator Name | Role | Phone | + +------+ + | No Pcp Per Patient | PCP | Unavailable | + +------+ + Encounter Details +--------+ + + + + | Date | Type | Department | Care Team | Description | +--------+ + + + + | 04/21/ | Results | Epic at [facility] | [place], | | | 2013 | Only | [address] | Erick Chowdhury DO [address] | | | | | [place], [place] | [facility] | | | | | [address] | Rd [place], [place] | | | | | | [address] | | | | | | [phone] | | | | | | | [...] [facility] | [address] | [place], [place] | | | LAB | | [address] | | + + + + + | [facility] | [address] | [place], [place] | | | LAB | | [address] | | + + + + + [...] mL/min/1.73m2 | [facility] | | | [place] | | | | | + +-------+ [...] [place] | | | LAB | | [address] | | + + + + + | [facility] | [address] | [place] | | | LAB | | [address] | | + + + + + [...] [facility] | [address] | [place], [place] | | | LAB | | [address] | | + + + + + | [facility] | [address] | [place], [place] | | | LAB | | [address] | | + + + + + [...] [facility] | [address] | [place], [place] | | | LAB | | [address] | | + + + + + | [facility] | [address] | [place], [place] | | | LAB | | [address] | | + + + + + [...] [place] | | | LAB | | [address] | | + + + + + | [facility] | [address] | [place], [place] | | | LAB | | [address] | | + + + + + [...] [place] | | | LAB | | [address] | | + + + + + | [facility] | [address] | [place], [place] | | | LAB | | [address] | | + + + + + [...] [facility] | [address] | [place], [place] | | | LAB | | [address] | | + + + + + | [facility] | [address] | [place], [place] | | | LAB | | [address] | | + + + + + [...] [place] | | | LAB | | [address] | | + + + + + | [facility] | [address] | [place], [place] | | | LAB | | [address] | | + + + + + [...] [facility] | [address] | [place], [place] | | | LAB | | [address] | | + + + + + | [facility] | [address] | [place], [place] | | | LAB | | [address] | | + + + + + [...] | | test was performed | | [facility] | | | | using the APTIMA COMBO2 | | | | | | Assay([employer] | | | | | | [...] | | | | | | Mnemonic: [id number] | | | | | | DIAGNOSTICS | | | | | | [id number] | | | | | | [address] [facility], | | | | | | [place] [address]XSSCAME | | | | | | MD [place] | | | | + + + + + + + + | Specimen | + + | | + + + + + + + | Performing | Address | City/State/Zipcode | Phone Number | | Organization | | | | + + + + + | [facility] | [address] | [place], [place] | | | LAB | | [address] | | + + + + + | [facility] | [address] | [place], [place] | | | LAB | | [address] | | + + + + + [...] MRN: | | | | | | [id number] | | | | | | | [...] | | | | | | | [phone] SITE: | | | | | | [...] [facility] | [address] | [place], [place] | | | LAB | | [address] | | + + + + + | [facility] | [address] | [place], [place] | | | LAB | | [address] | | + + + + + [...] [facility] | | [facility] | | + + + [...] discrepancy from the preliminary interpretation given by [facility] | | Radiology. | | | [...] discrepancy from the preliminary interpretation given by [facility] Radiolog y. | + + + + + + + | Performing | Address | City/State/Zipcode | Phone Number | | Organization | | | | + + + + + | [facility] | [address] | [place], [place] | [phone] | | | | [address] | | + + + + + [...] preliminary interpretation given by | | | [facility] Radiology. | | + + + [...] discrepancy from the preliminary interpretation given by [facility] | Radiology. | | | | | [...] [facility] the [facility] | + + + + + + + | Performing | Address | City/State/Zipcode | Phone Number | | Organization | | | | + + + + + | [facility] | [address] | [place], [place] | [phone] | | | | [address] | | + + + + + [...] [facility] | [address] | [place], [place] | | | LAB | | [address] | | + + + + + | [facility] | [address] | [place], [place] | | | LAB | | [address] | | + + + + + [...] [place] | | | LAB | | [address] | | + + + + + | [facility] | [address] | [place], [place] | | | LAB | | [address] | | + + + + + documented in this encounter Visit Diagnoses Not on filedocumented in this encounter"
--- OUTSIDE RECORDS SUMMARY | ~2020-05-17 | XMS | Encounter Summary ---
Demographics + + + | Address | [address] | | | [place] [address] | + + + | Home Phone | | + + + | Preferred Language | Unknown | + + + | Marital Status | Single | + + + | Congregational Affiliation | NON | + + + [...] Team Providers + +------+ + | Care Auto Mechanic Apprentice Name | Role | Phone | + +------+ + | No Pcp Per Patient | PCP | Unavailable | + +------+ + Encounter Details +--------+ + + + + | Date | Type | Department | Care Team | Description | +--------+ + + + + | 12/25/ | Results | Epic at [facility] | Samanta Haas T | | | 2011 | Only | [address] | [place] | | | | | [place], [place] | [facility] [address] | | | | | [address] | [place] | | | | | | [place] [address] | | | | | | [phone] | | | | | | | [...] DNA | test was performed | | [facility] | | | | using the BD | | | | | | ProbeTec(TM)Chlamydia | | | | | | trachomatis and | | | | | | Neisseria gonorrhoeae | | | | | | Amplified DNA Assays.Lab | | | | | | test performed by:Lab | | | | | | Mnemonic: [id number] | | | | | | [facility] [facility] [address] | | | | | | [facility] | | | | | | [place], [place] | | | | | | [address]WPZQ M. | | | | | | [...] [facility] | [address] | [place], [place] | | | LAB | | [address] | | + + + + + | [facility] | [address] | [place], [place] | | | LAB | | [address] | | + + + + + [...] MRN: | | | | | | [id number] | | | | | | | [...] | | | | | | | [id number] SITE: | | | | | | [...] [facility] | [address] | [place], [place] | | | LAB | | [address] | | + + + + + | [facility] | [address] | [place], [place] | | | LAB | | [address] | | + + + + + [...] mL/min/1.73m2 | [facility] | | | [place] | | | | | + +-------+ [...] [facility] | [address] | [place], [place] | | | LAB | | [address] | | + + + + + | [facility] | [address] | [place], [place] | | | LAB | | [address] | | + + + + + [...] [place] | | | LAB | | [address] | | + + + + + | [facility] | [address] | [place], [place] | | | LAB | | [address] | | + + + + + [...] [place] | | | LAB | | [address] | | + + + + + | [facility] | [address] | [place], [place] | | | LAB | | [address] | | + + + + + [...] [facility] | [address] | [place], [place] | | | LAB | | [address] | | + + + + + | [facility] | [address] | [place], [place] | | | LAB | | [address] | | + + + + + [...] mL/min/1.73m2 | [facility] | | | [place] | | | | | + +---------+ [...] [place] | | | LAB | | [address] | | + + + + + | [facility] | [address] | [place], [place] | | | LAB | | [address] | | + + + + + [...] [place] | | | LAB | | [address] | | + + + + + | [facility] | [address] | [place], [place] | | | LAB | | [address] | | + + + + + [...] [facility] | [address] | [place], [place] | | | LAB | | [address] | | + + + + + | [facility] | [address] | [place], [place] | | | LAB | | [address] | | + + + + + [address] | [place] | [phone] | | | | [address] | | + + + + + [...] RADIOLOGY | [address] | [place] | [phone] | | | | [address] | | + + + + + [...] [facility] | [address] | [place], [place] | | | LAB | | [address] | | + + + + + | [facility] | [address] | [place], [place] | | | LAB | | [address] | | + + + + + CULTURE, URINE (12/27/2011 6:20 PM PDT) + + + + + + | Component | Value | Ref Range | Performed | Pathologist | | | | | At | Signature | + + + + + + | URINE | Patient:RICARDO DEGROOT | | [facility] | | | SHIVA | [place] | | [facility] | | | | MRN: | | | | | | [id number] | | | | | | | [...] | | | | | | | [id number] SITE: | | | | | | [...] [facility] | [address] | [place], [place] | | | LAB | | [address] | | + + + + + | [facility] | [address] | [place], [place] | | | LAB | | [address] | | + + + + + [...] [place] | | | LAB | | [address] | | + + + + + | [facility] | [address] | [place], [place] | | | LAB | | [address] | | + + + + + [...] [facility] | [address] | [place], [place] | | | LAB | | [address] | | + + + + + | [facility] | [address] | [place], [place] | | | LAB | | [address] | | + + + + + [...] [facility] | [address] | [place], [place] | | | LAB | | [address] | | + + + + + | [facility] | [address] | [place], [place] | | | LAB | | [address] | | + + + + + [...] [place] | | | LAB | | [address] | | + + + + + | [facility] | [address] | [place], [place] | | | LAB | | [address] | | + + + + + [...] [place] | | | LAB | | [address] | | + + + + + | [facility] | [address] | [place] | | | LAB | | [address] | | + + + + + [...] [place] | | | LAB | | [address] | | + + + + + | [facility] | [address] | [place], [place] | | | LAB | | [address] | | + + + + + [...] mL/min/1.73m2 | [facility] | | | [place] | | | | | + +---------+ [...] [place] | | | LAB | | [address] | | + + + + + | [facility] | [address] | [place], [place] | | | LAB | | [address] | | + + + + + [...] [place] | | | LAB | | [address] | | + + + + + | [facility] | [address] | [place], [place] | | | LAB | | [address] | | + + + + + [...] | Interface, [facility] 05/[facility]/2017 4:30 PM PDT FLUOROSCOPIC-GUIDED LUMBAR [...] RADIOLOGY | [address] | [place], [place] | [phone] | | | | [address] | | + + + + + [...] [facility] | [address] | [place], [place] | | | LAB | | [address] | | + + + + + | [facility] | [address] | [place], [place] | | | LAB | | [address] | | + + + + + [...] [place] | | | LAB | | [address] | | + + + + + | [facility] | [address] | [place], [place] | | | LAB | | [address] | | + + + + + [...] [facility] | [address] | [place], [place] | | | LAB | | [address] | | + + + + + | [facility] | [address] | [place], [place] | | | LAB | | [address] | | + + + + + [...] [place] | | | LAB | | [address] | | + + + + + | [facility] | [address] | [place], [place] | | | LAB | | [address] | | + + + + + [...] [facility] | [address] | [place], [place] | | | LAB | | [address] | | + + + + + | [facility] | [address] | [place], [place] | | | LAB | | [address] | | + + + + + [...] [facility] | [address] | [place], [place] | | | LAB | | [address] | | + + + + + | [facility] | [address] | [place], [place] | | | LAB | | [address] | | + + + + + [...] AB SCREEN | Nonreactive HIV-1/2 | | [facility] | | | | antibody result [...] [facility] | | | | | | DI[id number] | | | | | | [facility] | | | | | | [address] [place] [address] | | | | | | [id number] | | | | | | JEREMY OSBORNE test | | | | | | results or HIV diagnosis | | | | | | and the identity of the | | | | | | tested individual may | | | | | | be released to any other | | | | | | democrat only with the | | | | [...] [facility] | [address] | [place], [place] | | | LAB | | [address] | | + + + + + | [facility] | [address] | [place], [place] | | | LAB | | [address] | | + + + + + [...] [address] | [place] | [phone] | | | | [address] | | + + + + + CULTURE, BLOOD BACTI & YEAST (12/26/2011 4:59 AM PDT) + + + + + + | Component | Value | Ref Range | Performed | Pathologist | | | | | At | Signature | + + + + + + | CULTURE | Patient:RICARDO DEGROOT | | [facility] | | | RESULT | MYATE | | [facility] | | | | MRN: | | | | | | [id number] | | | | | | | [...] | | | | | | | [id number] SITE: | | | | | | [...] at: | | | | | | [facility] | | | | + + + + + + + + | Specimen | + + | | + + + + + + + | Performing | Address | City/State/Zipcode | Phone Number | | Organization | | | | + + + + + | [facility] | [address] | [place], [place] | | | LAB | | [address] | | + + + + + | [facility] | [address] | [place], [place] | | | LAB | | [address] | | + + + + + [...] MRN: | | | | | | [id number] | | | | | | | [...] | | | | | | | [id number] SITE: | | | | | | [...] at: | | | | | | [facility] | | | | + + + + + + + + | Specimen | + + | | + + + + + + + | Performing | Address | City/State/Zipcode | Phone Number | | Organization | | | | + + + + + | [facility] | [address] | [place], [place] | | | LAB | | [address] | | + + + + + | [facility] | [address] | [place], [place] | | | LAB | | [address] | | + + + + + [...] RADIOLOGY | [address] | [place], [place] | [phone] | | | | [address] | | + + + + + [...] | + + | Interface, Lab Results [facility] - 05/23/2017 4:30 PM PDT CHEST, 2 [...] RADIOLOGY | [address] | [place], [place] | [phone] | | | | [address] | | + + + + + PROCALCITONIN (12/26/2011 1:43 AM PDT) + + + + + + | Component | Value | Ref Range | Performed | Pathologist | | | | | At | Signature | + + + + + + | PROCALCITON | <0.05Comment: | ng/mL | [facility] | | | IN | INTERPRETATION FOR | | [facility] | | | | DIAGNOSIS OF [...] + + | Performing | Address | [facility]/Zipcode | Phone Number | | Organization | | | | + + + + + | [facility] | [address] | [place], [place] | | | LAB | | [address] | | + + + + + | [facility] | [address] | [place], [place] | | | LAB | | [address] | | + + + + + [...] mL/min/1.73m2 | [facility] | | | [place] | | | | | + +---------+ [...] [facility] | [address] | [place], [place] | | | LAB | | [address] | | + + + + + | [facility] | [address] | [place], [place] | | | LAB | | [address] | | + + + + + [...] [place] | | | LAB | | [address] | | + + + + + | [facility] | [address] | [place], [place] | | | LAB | | [address] | | + + + + + [...] [facility] | | | COUNT | | x10(3)/[facility] | [facility] | | + [...] [facility] | [address] | [place], [place] | | | LAB | | [address] | | + + + + + | [facility] | [address] | [place], [place] | | | LAB | | [address] | | + + + + + [...] [facility] | [address] | [place], [place] | | | LAB | | [address] | | + + + + + | [facility] | [address] | [place], [place] | | | LAB | | [address] | | + + + + + [...] [facility] | [address] | [place], [place] | | | LAB | | [address] | | + + + + + | [facility] | [address] | [place], [place] | | | LAB | | [address] | | + + + + + [...] MRN: | | | | | | [id number] | | | | | | | [...] | | | | | | | [id number] SITE: | | | | | | [...] at: | | | | | | [facility] | | | | + + + + + + + + | Specimen | + + | | + + + + + + + | Performing | Address | City/State/Zipcode | Phone Number | | Organization | | | | + + + + + | [facility] | [address] | [place], [place] | | | LAB | | [address] | | + + + + + | [facility] | [address] | [place], [place] | | | LAB | | [address] | | + + + + + documented in this encounter Visit Diagnoses Not on filedocumented in this encounter"
--- OUTSIDE RECORDS SUMMARY | ~2020-05-17 | XMS | Encounter Summary ---
Demographics + + + | Address | [address] | | | [place] [address] | + + + | Home Phone | | + + + | Preferred Language | Unknown | + + + | Marital Status | Single | + + + | Church Affiliation | NON | + + + [...] Team Providers + +------+ + | Care Warehouse Receiver Name | Role | Phone | + +------+ + | No Pcp Per Patient | PCP | Unavailable | + +------+ + Encounter Details +--------+ + + + + | Date | Type | Department | Care Team | Description | +--------+ + + + + | 05/03/ | ED Progress | Epic at [facility] | Meghan Ramos, | ED Progress Note | | 2013 | | [address] | MD [address] [facility] | | | | Note-Transc | [place], [place] | [facility] | | | | handy | [address] | [place], [place] | | | | | | [address] | | | | | | [phone] | | | | | | | [...]
--- OUTSIDE RECORDS SUMMARY | ~2020-05-17 | XMS | Encounter Summary ---
Demographics + + + | Address | [address] | | | [place] [address] | + + + | Home Phone | | + + + | Preferred Language | Unknown | + + + | Marital Status | Single | + + + | Baptist Affiliation | NON | + + + [...] Team Providers + +------+ + | Care Napper Fixer Name | Role | Phone | + +------+ + | No Pcp Per Patient | PCP | Unavailable | + +------+ + Encounter Details +--------+ + + + + | Date | Type | Department | Care Team | Description | +--------+ + + + + | 04/30/ | ED Progress | Epic at [facility] | Jill Das, | ED Progress Note | | 2013 | | [address] | [address] | | | | Note-Transc | [place], [place] | [place], [place] | | | | handy | [address] | [address] | | | | | | | [...]
--- OUTSIDE RECORDS SUMMARY | ~2020-05-17 | XMS | Encounter Summary ---
Demographics + + + | Address | [address] | | | [place] [address] | + + + | Home Phone | | + + + | Preferred Language | Unknown | + + + | Marital Status | Single | + + + | Rastafarian Affiliation | NON | + + + [...] Team Providers + +------+ + | Care Shuttle Preparation Supervisor Name | Role | Phone | + +------+ + | No Pcp Per Patient | PCP | Unavailable | + +------+ + Encounter Details +--------+ + + + + | Date | Type | Department | Care Team | Description | +--------+ + + + + | 08/28/ | ED Progress | Epic at [facility] | Manas Johnson, PRACHI | ED Progress Note | | 2015 | | [address] [facility] | [facility] | | | | Note-Transc | [place], [place] | Hospital [address] | | | | ribed | [address] | Ave [place], [place] | | | | | | [address] | | | | | | | [...]
--- OUTSIDE RECORDS SUMMARY | ~2020-05-17 | XMS | Encounter Summary ---
Demographics + + + | Address | [address] | | | [place] [address] | + + + | Home Phone | | + + + | Preferred Language | Unknown | + + + | Marital Status | Single | + + + | Taoist Affiliation | NON | + + + [...] Providers + +------+ + | Care Rn Transitional Care Name | Role | Phone | + +------+ + | No Pcp Per Patient | PCP | Unavailable | + +------+ + Encounter Details +--------+ + + + + | Date | Type | Department | Care Team | Description | +--------+ + + + + | 03/14/ | Results | Epic at [facility] | Janet Salomon, | | | 2013 | Only | [address] [place] | [address] | | | | | [place], [place] | [facility] | | | | | [address] | [place] [address] | | | | | | [phone] | | | | | | | [...] | + + + + + | [facility] | [address] | [place], [place] | | | LAB | | [address] | | + + + + + | [facility] | [address] | [place], [place] | | | LAB | | [address] | | + + + + + [...] | | test was performed | | [facility] | | | | using the [employer] COMBO2 | | | | | | Assay([employer] | | | | | | [...] | | | | | | Mnemonic: [id number] | | | | | | DIAGNOSTICS | | | | | | [id number] | | | | | | [address] [facility], | | | | | | [place] [address] M | | | | | | MD DESHAWN | | | | + + + + + + + + | Specimen | + + | | + + + + + + + | Performing | Address | City/State/Zipcode | Phone Number | | Organization | | | | + + + + + | [facility] | [address] | [place] | | | LAB | | [address] | | + + + + + | [facility] | [address] | [place] | | | LAB | | [address] | | + + + + + CULTURE, URINE (03/14/2014 5:35 PM PDT) + + + + + + | Component | Value | Ref Range | Performed | Pathologist | | | | | At | Signature | + + + + + + | URINE | Patient:RICARDO DEGROOT | | [facility] | | | CULTURE | [facility]TE | | [facility] | | | | MRN: | | | | | | [id number] | | | | | | | [...] | | | | | | | [id number] SITE: | | | | | | [...] at: | | | | | | [facility] | | | | + + + + + + + + | Specimen | + + | | + + + + + + + | Performing | Address | City/State/Zipcode | Phone Number | | Organization | | | | + + + + + | [facility] | [address] | [place], [place] | | | LAB | | [address] | | + + + + + | [facility] | [address] | [place], [place] | | | LAB | | [address] | | + + + + + documented in this encounter Visit Diagnoses Not on filedocumented in this encounter"
--- OUTSIDE RECORDS SUMMARY | ~2020-05-17 | XMS | Encounter Summary ---
Demographics + + + | Address | [address] [facility] | | | [place] [address] | + + + | Home Phone [...] Team Providers + +------+ + | Care Water Maintenance Supervisor Name | Role | Phone | + +------+ + | No Pcp Per Patient | PCP | Unavailable | + +------+ + Encounter Details +--------+ + + + + | Date | Type | Department | Care Team | Description | +--------+ + + + + | 10/30/ | Results | Epic at [facility] | José Luis Schultz MD | | | 2011 | Only | [address] | [address] | | | | | [place], [place] | [place] [address] | | | | | [address] | [phone] | | | | | | | [...] | CBC W/DIFF, NO | Routin | 10/30/2011 | | Results for this | | REFLEX | e | 2:50 AM | | procedure are in the | | | | PST | | results section. | + +--------+ + + + | COMPLETE METABOLIC | Routin | 10/30/2011 | | Results for this | | SET | e | 2:50 AM | | procedure are in the | | (NA,K,CL,CO2,BUN,CRE | | PST | | results section. | | AT,GLUC,CA,AST,ALT,B | | | | | | MERI TOTAL,ALK | | | | | | PHOS,ALB,PROT TOTAL) | | | | | + +--------+ + + + documented in this encounter Results COMPLETE METABOLIC SET (NA,K,CL,CO2,BUN,CREAT,GLUC,CA,AST,ALT,BILI TOTAL,ALK PHOS,ALB,PROT TOTAL) (10/30/2011 2:50 AM PST) + +---------+ + + + | Component | Value | Ref Range | Performed | Pathologist | | | | | At | Signature | + +---------+ + + + | GLUCOSE, | 109 (H) | 65 - 100 mg/dL | [facility] | | | SERUM | | | [facility] | | + +---------+ + + + | UREA | 7 | 7 - 22 mg/dL | [facility] | | | NITROGEN, | | | [facility] | | | SERUM | | | | | + +---------+ + + + | CREATININE | 0.7 | 0.5 - 1.2 mg/dL | [facility] | | | SERUM | | | [facility] | | + +---------+ + + + | BUN/CREATIN | 10 | 8 - 25 ratio | [facility] | | | INE RATIO | | | [facility] | | + +---------+ + + + | EGFR | >60 | >=60 | [facility] | | | - | | mL/min/1.73m2 | [facility] | | | [place] | | | | | + +---------+ + + + | EGFR NON | >60 | >=60 | [facility] | | | -JFEF | | mL/min/1.73m2 | [facility] | | | [place] | | | | | + +---------+ + + + | SODIUM | 135 | 135 - 145 mEq/L | [facility] | | | | | | [facility] | | + +---------+ + + + | POTASSIUM | 3.5 | 3.4 - 5.0 mEq/L | [facility] | | | | | | [facility] | | + +---------+ + + + | CHLORIDE | 101 | 98 - 110 mEq/L | [facility] [...] +---------+ + + + | TOTAL | 7.8 | 6.2 - 8.2 gm/dL | [facility] | | | PROTEIN | | | [facility] | | + +---------+ + + + | ALBUMIN | 3.8 | 3.5 - 5.0 gm/dL | [facility] | | | SERUM | | | [facility] | | + +---------+ + + + | GLOBULIN | 4.0 (H) | 2.3 - 3.5 gm/dL | [facility] | | | LEVEL | | | [facility] | | + +---------+ + + + | A/G RATIO | 1.0 | 0.9 - 2.0 ratio | [facility] | | | | | | [facility] | | + +---------+ + + + | BILIRUBIN | 0.7 | 0.2 - 1.2 mg/dL | [facility] | | | TOTAL | | | [facility] | | + +---------+ + + + | ALK PHOS | 70 | 42 - 121 | [facility] | | | | | IntUnit/L | [facility] | | + +---------+ + + + | ALT (SGPT) | 21 | 10 - 60 | [facility] | | | | | IntUnit/L | [facility] | | + +---------+ + + + | AST(SGOT) | 21 | 12 - 45 | [facility] | [...] [facility] | [address] | [place], [place] | | | LAB | | [address] | | + + + + + | [facility] | [address] | [place], [place] | | | LAB | | [address] | | + + + + + CBC W/DIFF, NO REFLEX (10/30/2011 2:50 AM PST) + + + + + + | Component | Value | Ref Range | Performed | Pathologist | | | | | At | Signature | + + + + + + | WHITE CELL | 16.1 (H) | 4.5 - 10.5 | [facility] | | | COUNT | | x10(3)/mcL | [facility] | | + + + + + + | RED CELL | 4.63 | 4.20 - 5.40 | [facility] | | | COUNT | | x10(6)/mcL | [facility] | | + + + + + + | HEMOGLOBIN | 13.1 | 12.0 - 16.0 | [facility] | | | | | gm/dL | [facility] | | + + + + + + | HEMATOCRIT | 37.9 | 37.0 - 47.0 % | [facility] | | | | | | [facility] | | + + + + + + | MCV | 82.0 | 80.0 - 100.0 fL | [facility] | | | | | | [facility] | | + + + + + + | MCH | 28.4 | 27.0 - 34.0 pg | [facility] | | | | | | [facility] | | + + + + + + | MCHC | 34.6 | 32.0 - 36.0 | [facility] | | | | | gm/dL | [facility] | | + + + + + + | RDW | 14.2 | 11.5 - 14.5 % | [facility] | | | | | | [facility] | | + + + + + + | PLATELET | 203 | 150 - 400 | [facility] | | | COUNT | | x10(3)/mcL | [facility] | | + + + + + + | MPV | 9.3 | 7.4 - 10.4 fL | [facility] | | | | | | [facility] | | + + + + + + | NEUTROPHIL | 84.3 (H) | 40.2 - 78.0 % | [facility] | | | % | | | [facility] | | + + + + + + | LYMPHOCYTE | 9.7 (L) | 15.5 - 49.1 % | [facility] | | | % | | | [facility] | | + + + + + + | MONOCYTE % | 5.9 | 1.7 - 8.9 % | [facility] | | | | | | [facility] | | + + + + + + | EOS % | 0.0 | 0.0 - 5.2 % | [facility] | | | | | | [facility] | | + + + + + + | BASO % | 0.1 | 0.0 - 2.0 % | [facility] | | | | | | [facility] | | + + + + + + | NEUTROPHIL | 13.6 (H) | 0.9 - 7.7 | [facility] | | | # | | x10(3)/mcL | [facility] | | + + + + + + | LYMPHOCYTE | 1.6 | 1.0 - 3.4 | [facility] | | | # | | x10(3)/mcL | [facility] | | + + + + + + | MONOCYTE # | 1.0 (H) | 0.1 - 0.6 | [facility] | | | | | x10(3)/mcL | [facility] | | + + + + + + | EOS # | 0.0 | 0.0 - 0.4 | [facility] | | | | | x10(3)/mcL | [facility] | | + + + + + + | BASO # | 0.0 | 0.0 - 0.2 | [facility] | [...] [facility] | [address] | [place], [place] | | | LAB | | [address] | | + + + + + | [facility] | [address] | [place], [place] | | | LAB | | [address] | | + + + + + documented in this encounter Visit Diagnoses Not on filedocumented in this encounter"
--- OUTSIDE RECORDS SUMMARY | ~2020-05-17 | XMS | Encounter Summary ---
Demographics + + + | Address | [address] | | | [place] [address] | + + + | Home Phone | | + + + | Preferred Language | Unknown | + + + | Marital Status | Single | + + + | Moravian Affiliation | NON | + + + [...] Team Providers + +------+ + | Care Rockboard Lather Name | Role | Phone | + [...] risk | | 2019 | Visit | [place] [id number] | | heterosexual | | | | [facility] | | behavior (Primary | | | | [place] [address] | | Dx); Facial injury, | | | | [phone] | | initial encounter; | | | [...] symptoms d o not improve, sooner at [facility] Emergency Department if symptoms worsen. If you do not have a PCP, please call to establish care, or you may contact [phone] for [facility] Primary care at [place]. Scrapes (Abrasions): Care Instructions Your Care Instructions [...] doctor if you can take an o psi-lsq-wqdqsty medicine. When should you call for help? [...] "Scrapes (Abrasions): Care Instructions", log into your Ampere account at [email or web address]. You can enter [id number] in the "Favorite Words Library" search box. Not on Ampere? Review the MyChart section of your After Visit Summary for directions on inna khan to sign up. Current as of: June 23, 2018 Content Version: 08.09-2018 Blackboard. Care instructions adapted under license by [facility] [employer]. If you have questions about a medical condition or this instr uction, always ask your healthcare professional. Blackboard disclaims any chana anty or liability for [...] "Safer Sex: Care Instructions", log into your Ampere account at [email or web address]. You can enter [id number] in the "Favorite Words Library" search box. Not on Ampere? Review the Nanoscale Componentst section of your After Visit Summary for directions on inna khan to sign up. Current as of: June 11, 2018 Content Version: 11.9 1770-6389 Blackboard. Care instructions adapted under license by [facility] [employer]. If you have questions about a medical condition or this instr uction, always ask your healthcare professional. [employer] disclaims any Earwax Blockage: Care Instructions Your [...] out. Dry your ear thoroughly with a supervisor decorating set on low. Hold the dryer several inches from your ear. If the warm mineral oil and shower do not work, use an sfla-jxv-sghyzyz wax softener. Re ad and follow all [...] "Earwax Blockage: Care Instructions", log into your Ampere account at [email or web address]. You can enter [id number] in the "Health Library" search box. Not on WorldStoreshart? Review the [employer] section of your After Visit Summary for directions on ho w to sign up. Current as of: June 23, 2018 Content Version: 11.9 4911-0181 Blackboard. Care instructions adapted under license by [facility] & [facility]. If you have questions about a medical condition or this instr uction, always ask your healthcare professional. Blackboard disclaims any chana anty or liability for [...] bridge of nose. HPI: Pleasant 33 y.o. Beninese speaking female who has a past medical history of Anxiety, B ipolar 1 disorder (HCC), and Manic depression (HCC), presents to [facility] Urgent care fo r STD check as a prior sexual partner notified her he tested positive for chlamydia. Patient is currently asymptomatic but would like testing for only GC/Chlamydia, and . [facility] ent also notes she got into a [...] file Gets together: Not on file Attends buddhism service: Not on file Active member of [...] symptoms d o not improve, sooner at [facility] Emergency Department if symptoms worsen. If you do not have a PCP, please call to establish care, or you may contact [phone] for [facility] Primary care at [place]. Bala Escobar MD [facility], [address] [address] [phone] documented in this encoun ter Plan of [...] [facility] | [address] | [place], [place] | | | LAB | | [address] | | + + + + + [...] + + | LOT # - | [id number] | | [facility] | | | [...] | [facility] | [address] | [place], [place] | [phone] | | CARE [facility] | Kian Colmenares | [address] | | + + + + + [...] | [facility] | [address] | [place] | [phone] | | GUERLINE HARTMANN | [place] | [address] | | + + + + + [...] | | | | | Per 2013 [facility] | | | | | | recommendations, [...] | | | | | Per 2013 [facility] | | | | | | recommendations, this | | | | | | test does not include | | | | | | confirmation of positive | | | | | | results by an | | | | | | alternative nucleic acid | | | | | | target.Performed by | | | | | | [employer],[address] | | | | | | Shruti Escobar, [facility],[place] | | | | | | [address] | | | | | | [phone][employer]. | | | | | | [facility] medical centerIftikhar MD, | | | | | [...] | + + + + + | [employer] | [address] | [place], [place] | [phone] | | | | [address] | | + + + + + [...]
--- OUTSIDE RECORDS SUMMARY | ~2020-05-17 | XMS | Encounter Summary ---
Demographics + + + | Address | [address] | | | [place] [address] | + + + | Home Phone [...] Team Providers + +------+ + | Care Location Director Name | Role | Phone | + +------+ + | No Pcp Per Patient | PCP | Unavailable | + +------+ + Encounter Details +--------+ + + + + | Date | Type | Department | Care Team | Description | +--------+ + + + + | 10/22/ | Results | Epic at [facility] | Manas Johnson NP | | | 2012 | Only | [address] [place] [address] | | | | | [place], [place] | [facility] [address] | | | | | [address] | [place], [place] | | | | | | [address] | | | | | | | [...] + +--------+ + + + | X-RAY KNEE 3 VIEWS | Routin | 10/22/2012 | | Results for this | | LEFT | e | 6:42 PM | | procedure are in the | | | | PST | | results section. | + +--------+ + + + documented in this encounter Results X-RAY KNEE 3 VIEWS LEFT (10/22/2012 6:42 PM PST) + + | Specimen | + + | | + + + + + | Narrative | Performed At | + + + | KNEE LEFT THREE VIEWS CLINICAL INFORMATION: Pain. | [facility] | | FINDINGS: The bones, joints and soft tissues appear intact. No | RADIOLOGY | | definite joint effusion is present. IMPRESSION: Normal | | | study. | | + + + + --------+ | Procedure Note | + --------+ | Interface, Lab Results [facility] - 05/24/2017 6:23 PM PDT KNEE LEFT THREE | | VIEWSCLINICAL INFORMATION: Pain.FINDINGS: The bones, joints and soft tissues appear | | intact. No definite joint effusion is present.IMPRESSION: Normal study. | | | |CLINICAL INFORMATION: Pain. | | | | | | | [...] + + | [facility] | [address] | [place] | [phone] | | | | [address] | | + + + + + documented in this encounter Visit Diagnoses Not on filedocumented in this encounter"
--- OUTSIDE RECORDS SUMMARY | ~2020-05-17 | XMS | Encounter Summary ---
Demographics + + + | Address | [address] | | | [place] [address] | + + + | Home Phone | | + + + | Preferred Language | Unknown | + + + | Marital Status | Single | + + + | Zoroastrian Affiliation | NON | + + + | Race | White | + + + | Ethnic Group | Not or | + + + Author + + + | Organization | Unknown | + + + | Address | Unknown | + + + | Phone | Unavailable | + + + Support +------+ +---------+ + | Name | Relationship | Address | Phone | +------+ +---------+ + | None | ECON | Unknown | Unavailable | +------+ +---------+ + Care Team Providers + +------+ + | Care Garnett Feeder Name | Role | Phone | + +------+ + | No Pcp Per Patient | PCP | Unavailable | + +------+ + Encounter Details +--------+--------+ + + + | Date | Type | Department | Care Team | Description | +--------+--------+ + + + | 02/10/ | Travel | | | | | 2019 | | | | | +--------+--------+ + + + Social History + +-------+ [...]
--- OUTSIDE RECORDS SUMMARY | ~2020-05-17 | XMS | Encounter Summary ---
Demographics + + + | Address | [address] | | | [place] [address] | + + + | Home Phone | | + + + | Preferred Language | Unknown | + + + | Marital Status | Single | + + + | Orthodoxy Affiliation | NON | + + + [...] Team Providers + +------+ + | Care Foundry Laborer Coreroom Name | Role | Phone | + +------+ + | No Pcp Per Patient | PCP | Unavailable | + +------+ + Encounter Details +--------+--------+ + + + | Date | Type | Department | Care Team | Description | +--------+--------+ + + + | 03/03/ | Travel | | | | | [...]
--- OUTSIDE RECORDS SUMMARY | ~2020-05-17 | XMS | Encounter Summary ---
Demographics + + + | Address | [address] | | | [place] [address] | + + + | Home Phone | | + + + | Preferred Language | Unknown | + + + | Marital Status | Single | + + + | Sabianist Affiliation | NON | + + + [...] Team Providers + +------+ + | Care Municipal Clerk Name | Role | Phone | + +------+ + | No Pcp Per Patient | PCP | Unavailable | + +------+ + Encounter Details +--------+ + + + + | Date | Type | Department | Care Team | Description | +--------+ + + + + | 10/28/ | Results | Epic at [facility] | Colin, | | | 2012 | Only | [address] | Rajesh Foreman MD | | | | | [place], [place] | [facility] | | | | | [address] | [facility] [address] | | | | | | [place] [address] | | | | | | [phone] | | | | | | | [...] X-RAY KNEE 3 VIEWS | Routin | 10/28/2012 | | Results for this | | LEFT | e | 12:17 AM | | procedure are in the | | | | PST | | results section. | + +--------+ + + + documented in this encounter Results X-RAY KNEE 3 VIEWS LEFT (10/28/2012 12:17 AM PST) + + | Specimen | + + | | + + + + + | Narrative | Performed At | + + + | LEFT KNEE, 3 VIEWS CLINICAL INFORMATION: Injury. | [facility] | | COMPARISON: 10/22/12. FINDINGS: There is no | RADIOLOGY | | fracture, soft tissue or articular abnormalities identified. | | + + + + + | Procedure Note | + + | Interface, Lab Results [facility] - 05/24/2017 7:07 PM PDT LEFT KNEE, 3 VIEWS | | | | | | | | CLINICAL INFORMATION: Injury. | | | | | | | | COMPARISON: 10/22/12. | | | | | | | | FINDINGS: | | | | | | | | There is no fracture, soft tissue or articular abnormalities identified. | + + + + + + + | Performing | Address | City/State/Zipcode | Phone Number | | Organization | | | | + + + + + | [facility] | [address] | [place] | [phone] | | | | [address] | | + + + + + documented in this encounter Visit Diagnoses Not on filedocumented in this encounter"
--- OUTSIDE RECORDS SUMMARY | ~2020-05-17 | XMS | Encounter Summary ---
Demographics + + + | Address | [address] | | | [place] [address] | + + + | Home Phone | | + + + | Preferred Language | Unknown | + + + | Marital Status | Single | + + + | Yazidi Affiliation | NON | + + + [...] Team Providers + +------+ + | Care Electrogalvanizing Machine Operator Name | Role | Phone | + +------+ + | No Pcp Per Patient | PCP | Unavailable | + +------+ + Encounter Details +--------+ + + + + | Date | Type | Department | Care Team | Description | +--------+ + + + + | 10/28/ | Results | Epic at [facility] | Colin, | | | 2012 | Only | [address] | Rajesh Foreman MD | | | | | [place], [place] | [facility] | | | | | [address] | [facility] [address] | | | | | | [place] [address] | | | | | | [phone] | | | | | | | [...] [facility] | [address] | [place] | [phone] | | | | [address] | | + + + + + documented in this encounter Visit Diagnoses Not on filedocumented in this encounter"
--- OUTSIDE RECORDS SUMMARY | ~2020-05-17 | XMS | Encounter Summary ---
Demographics + + + | Address | [address] | | | [place] [address] | + + + | Home Phone | | + + + | Preferred Language | Unknown | + + + | Marital Status | Single | + + + | Sabianism Affiliation | NON | + + + [...] Providers + +------+ + | Care Rn Urology Name | Role | Phone | + +------+ + | No Pcp Per Patient | PCP | Unavailable | + +------+ + Encounter Details +--------+ + + + + | Date | Type | Department | Care Team | Description | +--------+ + + + + | 09/03/ | ED Progress | Epic at [facility] | Mnaas Johnson, [place]I | ED Progress Note | | 2015 | | [address] [facility] | [facility] | | | | Note-Transc | [place], [place] | Hospital [address] | | | | ribed | [address] | Ave [place], [place] | | | | | | [address] | | | | | | | [...]
--- OUTSIDE RECORDS SUMMARY | ~2020-05-17 | XMS | Encounter Summary ---
Demographics + + + | Address | [address] | | | [place] [address] | + + + | Home Phone | | + + + | Preferred Language | Unknown | + + + | Marital Status | Single | + + + | Roman Catholic Affiliation | NON | + + + [...] Team Providers + +------+ + | Care Passenger Coach Driver Name | Role | Phone | + +------+ + | No Pcp Per Patient | PCP | Unavailable | + +------+ + Encounter Details +--------+ + + + + | Date | Type | Department | Care Team | Description | +--------+ + + + + | 04/06/ | Results | Epic at [facility] | Meghan Ramos, | | | 2013 | Only | [address] | [address] [facility] | | | | | [place], [place] | [facility] | | | | | [address] | [place], [place] | | | | | | [address] | | | | | | [phone] | | | | | | | [...] | + --------+ | Interface, Lab Results [facility] - 06/12/2017 3:35 PM PDT RIGHT [...] RADIOLOGY | [address] | [place], [place] | [phone] | | | | [address] | | + + + + + [...] | Interface, Lab Results [facility] - 06/12/2017 3:35 PM PDT RIGHT FOOT; [...] RADIOLOGY | [address] | [place], [place] | [phone] | | | | [address] | | + + + + + documented in this encounter Visit Diagnoses Not on filedocumented in this encounter"
--- OUTSIDE RECORDS SUMMARY | ~2020-05-17 | XMS | Encounter Summary ---
Demographics + + + | Address | [address] | | | [place] [address] | + + + | Home Phone [...] Team Providers + +------+ + | Care Patch Washer Name | Role | Phone | + +------+ + | No Pcp Per Patient | PCP | Unavailable | + +------+ + Encounter Details +--------+ + + + + | Date | Type | Department | Care Team | Description | +--------+ + + + + | 09/03/ | ED Progress | Epic at [facility] | Manas Johnson, PRACHI | ED Progress Note | | 2015 | | [address] [facility] | [facility] | | | | Note-Transc | [place], [place] | Hospital [address] | | | | ribed | [phone] | Ave [place], [place] | | | | | | [address] | | | | | | | [...]
--- OUTSIDE RECORDS SUMMARY | ~2020-05-17 | XMS | Encounter Summary ---
Demographics + + + | Address | [address] [facility] | | | [place] [address] | + + + | Home Phone [...] Team Providers + +------+ + | Care Jointer Submarine Cable Name | Role | Phone | + [...] | Encounter | at [facility] | [place] [address] | | | | | Healthcare [address] [facility] [address] | | | | | [facility] | [place], [place] | | | | | [place] [address] | [address] | | | | | [phone] | [phone] | | | | | | | [...] Note | + --------+ | Service Account, [employer] Res In Interface - 02/10/2019 2:45 PM [...] RADIOLOGY | [address] | [place], [place] | [phone] | | | | [address] | | + + + + + documented in this encounter Visit Diagnoses + + | Diagnosis | + + | Finger injury, left, initial encounter | + + documented in this encounter"
--- OUTSIDE RECORDS SUMMARY | ~2020-05-17 | XMS | Encounter Summary ---
Demographics + + + | Address | [address] | | | [place] [address] | + + + | Home Phone | | + + + | Preferred Language | Unknown | + + + | Marital Status | Single | + + + | Protestant Affiliation | NON | + + + [...] Team Providers + +------+ + | Care Superintendent Recreation Name | Role | Phone | + +------+ + | No Pcp Per Patient | PCP | Unavailable | + +------+ + Encounter Details +--------+ + + + + | Date | Type | Department | Care Team | Description | +--------+ + + + + | 12/05/ | Results | Epic at [facility] | Juan Diego White | | | 2012 | Only | [address] [place] | [place] [address] | | | | | [place], [place] | [facility] | | | | | [address] | [address] [place], | | | | | | [place] [address] | | | | | | [phone] | | | | | | | [...] RADIOLOGY | [address] | [place], [place] | [phone] | | | | [address] | | + + + + + [...] [facility] | [address] | [place], [place] | | | LAB | | [address] | | + + + + + | [facility] | [address] | [place], [place] | | | LAB | | [address] | | + + + + + [...] mL/min/1.73m2 | [facility] | | | [facility] | | | | | + +---------+ [...] [place] | | | LAB | | [address] | | + + + + + | [facility] | [address] | [place], [place] | | | LAB | | [address] | | + + + + + [...] [facility] | [address] | [place], [place] | | | LAB | | [address] | | + + + + + | [facility] | [address] | [place], [place] | | | LAB | | [address] | | + + + + + documented in this encounter Visit Diagnoses Not on filedocumented in this encounter"
--- OUTSIDE RECORDS SUMMARY | ~2020-05-17 | XMS | Encounter Summary ---
Demographics + + + | Address | [address] | | | [place] [address] | + + + | Home Phone | | + + + | Preferred Language | Unknown | + + + | Marital Status | Single | + + + | Christian Affiliation | NON | + + + [...] Team Providers + +------+ + | Care Motor Boss Name | Role | Phone | + +------+ + | No Pcp Per Patient | PCP | Unavailable | + +------+ + Encounter Details +--------+ + + + + | Date | Type | Department | Care Team | Description | +--------+ + + + + | 09/03/ | Results | Epic at [facility] | Manas Johnson NP | | | 2014 | Only | [address] [place] [address] | | | | | [place], [place] | [facility] [address] | | | | | [address] | [place], [place] | | | | | | [address] | | | | | | | [...] Lab Results [facility] - 06/13/2017 10:17 PM PDT RIGHT ANKLE [...] | [facility] | [address] | [place], [place] | [phone] | | | | [address] | | + + + + + documented in this encounter Visit Diagnoses Not on filedocumented in this encounter"
--- OUTSIDE RECORDS SUMMARY | ~2020-05-17 | XMS | Encounter Summary ---
Demographics + + + | Address | [address] [facility] | | | [place] [address] | + + + | Home Phone | | + + + | Preferred Language | Unknown | + + + | Marital Status | Single | + + + | Baptism Affiliation | NON | + + + [...] Team Providers + +------+ + | Care Batch Mixer Operator Name | Role | Phone | [...] [address] | MD [address] [facility] | | | | Note-Transc | [place], [place] | [address] | | | | ribbolivar | [address] | [place], [place] | | | | | | [address] | | | | | | [phone] | | | | | | | [...]
--- OUTSIDE RECORDS SUMMARY | ~2020-05-17 | XMS | Encounter Summary ---
Demographics + + + | Address | [address] [facility] | | | [place] [address] | + + + | Home Phone | | + + + | Preferred Language | Unknown | + + + | Marital Status | Single | + + + | Scientologist Affiliation | NON | + + + [...] Team Providers + +------+ + | Care Plush Brusher Name | Role | Phone | + [...]
--- OUTSIDE RECORDS SUMMARY | ~2020-05-17 | XMS | Encounter Summary ---
Demographics + + + | Address | [address] | | | [place] [address] | + + + | Home Phone | | + + + | Preferred Language | Unknown | + + + | Marital Status | Single | + + + | Mandaen Affiliation | NON | + + + [...] Team Providers + +------+ + | Care Stripping And Booking Machine Operator Name | Role | Phone | + +------+ + | No Pcp Per Patient | PCP | Unavailable | + +------+ + Encounter Details +--------+ + + + + | Date | Type | Department | Care Team | Description | +--------+ + + + + | 08/29/ | ED Progress | Epic at [facility] | Liban Manzo | ED Progress Note | | 2015 | | [address] [facility] [address] | MD Ahsan [address] [facility] | | | | Note-Transc | [place], [place] | [facility] | | | | handy | [address] | [place], [place] | | | | | | [address] | | | | | | [phone] | | | | | | | [...]
--- OUTSIDE RECORDS SUMMARY | ~2020-05-17 | XMS | Encounter Summary ---
Demographics + + + | Address | [address] [facility] [address] | | | [place] [address] | + + + | Home Phone [...] Team Providers + +------+ + | Care Corner Former Name | Role | Phone | + +------+ + | No Pcp Per Patient | PCP | Unavailable | + +------+ + Encounter Details +--------+ + + + + | Date | Type | Department | Care Team | Description | +--------+ + + + + | 03/14/ | Results | Epic at [facility] | Janet Salomon, | | | 2013 | Only | [address] | [address] | | | | | [place], [place] | [facility] | | | | | [address] | [place] [address] | | | | | | [phone] | | | | | | | [...] [place] | | | LAB | | [address] | | + + + + + | [facility] | [address] | [place], [place] | | | LAB | | [address] | | + + + + + [...] COMBO2 | | | | | | Assay([employer] | | | | | | [...] | | | | | | Mnemonic: [id number] | | | | | | DIAGNOSTICS | | | | | | [facility] [id number] | | | | | | [address] [facility], | | | | | | [place] [address] M | | | | | | [...] [place] | | | LAB | | [address] | | + + + + + | [facility] | [address] | [place] | | | LAB | | [address] | | + + + + + [...] MRN: | | | | | | [id number] | | | | | | | [...] | | | | | | | [id number] SITE: | | | | | | [...] [facility] | [address] | [place], [place] | | | LAB | | [address] | | + + + + + | [facility] | [address] | [place], [place] | | | LAB | | [address] | | + + + + + documented in this encounter Visit Diagnoses Not on filedocumented in this encounter"
--- OUTSIDE RECORDS SUMMARY | ~2020-05-17 | XMS | Encounter Summary ---
Demographics + + + | Address | [address] [facility] | | | [place] [address] | + + + | Home Phone | | + + + | Preferred Language | Unknown | + + + | Marital Status | Single | + + + | Adventist Affiliation | NON | + + + [...] Team Providers + +------+ + | Care Licensed Final Expense Agents Name | Role | Phone | + +------+ + | No Pcp Per Patient | PCP | Unavailable | + +------+ + Encounter Details +--------+ + + + + | Date | Type | Department | Care Team | Description | +--------+ + + + + | 08/28/ | Results | Epic at [facility] | Manas Johnson NP | | | 2014 | Only | [address] [place] [address] | | | | | [place], [place] | [facility] [address] | | | | | [address] | [place], [place] | | | | | | [address] | | | | | | | [...] + | X-RAY SPINE | Routin | 08/28/2015 | | Results for this | | LUMBOSACRAL 3 VIEWS | e | 5:03 PM | | procedure are in the | | | | PST | | results section. | + +--------+ + + + documented in this encounter Results X-RAY SPINE LUMBOSACRAL 3 VIEWS (08/28/2015 5:03 PM PST) + + | Specimen | + + | | + + + + + | Narrative | Performed At | + + + | LUMBAR SPINE 2 VIEWS CLINICAL INFORMATION: Trauma. | [facility] | | History of fall. Comparison study is dated 12/27/2011. | RADIOLOGY | | FINDINGS: No acute fracture or malalignment. A limbus vertebral | | | body is noted along the anterior superior margin of L5, unchanged. | | | Vertebral body heights are well maintained. Pedicles appear intact. | | | IMPRESSION: Nothing acute. | | + + + + + | Procedure Note | + + | Interface, Lab Results Jerela - 06/13/2017 10:10 PM PDT LUMBAR SPINE 2 | | VIEWSCLINICAL INFORMATION: Trauma. History of fall.Comparison study is dated | | 12/27/2011.FINDINGS: No acute fracture or malalignment. A limbus vertebral body is noted | | along the anterior superior margin of L5, unchanged. Vertebral body heights are well | | maintained. Pedicles appear intact. IMPRESSION: Nothing acute. | | | | | | | |Comparison study is dated 12/27/2011. | | | | | | | |FINDINGS: No acute fracture or malalignment. A limbus vertebral body is noted along the ant erior superior margin of L5, unchanged. Vertebral body heights are well maintained. Pedicles appear intact. | | | | | | | |IMPRESSION: Nothing acute. | + + + + + + + | Performing | Address | City/State/Zipcode | Phone Number | | Organization | | | | + + + + + | [facility] | [address] | [place], [place] | [phone] | | | | [address] | | + + + + + documented in this encounter Visit Diagnoses Not on filedocumented in this encounter"
--- OUTSIDE RECORDS SUMMARY | ~2020-05-17 | XMS | Encounter Summary ---
Demographics + + + | Address | [address] | | | [place] [address] | + + + | Home Phone | | + + + | Preferred Language | Unknown | + + + | Marital Status | Single | + + + | Gnosticism Affiliation | NON | + + + [...] Team Providers + +------+ + | Care Book Sewing Machine Operator Name | Role | Phone | + +------+ + | No Pcp Per Patient | PCP | Unavailable | + +------+ + Encounter Details +--------+ + + + + | Date | Type | Department | Care Team | Description | +--------+ + + + + | 08/28/ | Results | Epic at [facility] | Manas Johnson NP | | | 2014 | Only | [address] [place] [address] | | | | | [place], [place] | [facility] [address] | | | | | [address] | [place], [place] | | | | | | [address] | | | | | | | [...] RADIOLOGY | [address] | [place], [place] | [phone] | | | | [address] | | + + + + + documented in this encounter Visit Diagnoses Not on filedocumented in this encounter"
--- OUTSIDE RECORDS SUMMARY | ~2020-05-17 | XMS | Encounter Summary ---
Demographics + + + | Address | [address] [facility] | | | [place] [address] | + + + | Home Phone | | + + + | Preferred Language | Unknown | + + + | Marital Status | Single | + + + | Cheondoism Affiliation | NON | + + + [...] Team Providers + +------+ + | Care Prototype Machinist Name | Role | Phone | + +------+ + | No Pcp Per Patient | PCP | Unavailable | + +------+ + Encounter Details +--------+ + + + + | Date | Type | Department | Care Team | Description | +--------+ + + + + | 04/08/ | ED Progress | Epic at [facility] | Jill Das, | ED Progress Note | | 2013 | | [address] | [address] | | | | Note-Transc | [place], [place] | [place], [place] | | | | handy | [address] | [address] | | | | | | | [...]
--- OUTSIDE RECORDS SUMMARY | ~2020-05-17 | XMS | Encounter Summary ---
Demographics + + + | Address | [address] | | | [place] [address] | + + + | Home Phone | | + + + | Preferred Language | Unknown | + + + | Marital Status | Single | + + + | Amish Affiliation | NON | + + + | Race | White | + + + | Ethnic Group | Not or | + + + Author + + + | Author | [facility] | + + + | Organization | [facility] | + + + | Address | Unknown | + + + | Phone | Unavailable | + + + Support +------+ +---------+ + | Name | Relationship | Address | Phone | +------+ +---------+ + | None | ECON | Unknown | Unavailable | +------+ +---------+ + Care Team Providers + +------+ + | Care Coconut Jelly Roller Name | Role | Phone | + +------+ + | [facility], | PCP | | | Ref | [...]
--- OUTSIDE RECORDS SUMMARY | ~2020-05-17 | XMS | Encounter Summary ---
Demographics + + + | Address | [address] [facility] | | | [place] [address] | + + + | Home Phone | | + + + | Preferred Language | Unknown | + + + | Marital Status | Single | + + + | Zoroastrianism Affiliation | NON | + + + [...] Team Providers + +------+ + | Care Hotel Front Desk Clerk Name | Role | Phone | + +------+ + | No Pcp Per Patient | PCP | Unavailable | + +------+ + Encounter Details +--------+ + + + + | Date | Type | Department | Care Team | Description | +--------+ + + + + | 09/05/ | ED Progress | Epic at [facility] | Reginald Castellano, | ED Progress Note | | 2015 | | [address] | MD [address] [facility] | | | | Note-Transc | [place], [place] | [address] | | | | ribbolivar | [address] | [place], [place] | | | | | | [address] | | | | | | [phone] | | | | | | | [...]
--- OUTSIDE RECORDS SUMMARY | ~2020-05-17 | XMS | Encounter Summary ---
Demographics + + + | Address | [address] | | | [place] [address] | + + + | Home Phone | | + + + | Preferred Language | Unknown | + + + | Marital Status | Single | + + + | Restorationist Affiliation | NON | + + + [...] Team Providers + +------+ + | Care Nuclear Medicine Officer Name | Role | Phone | + +------+ + | No Pcp Per Patient | PCP | Unavailable | + +------+ + Encounter Details +--------+ + + + + | Date | Type | Department | Care Team | Description | +--------+ + + + + | 04/21/ | ED Progress | Epic at [facility] | Brennon, | ED Progress Note | | 2013 | | [address] | Erick Chowdhury DO [address] | | | | Note-Transc | [place], [place] | [facility] | | | | ribbolivar | [address] | Rd [place], [place] | | | | | | [address] | | | | | | [phone] | | | | | | | [...]
--- OUTSIDE RECORDS SUMMARY | ~2020-05-17 | XMS | Encounter Summary ---
Demographics + + + | Address | [address] [facility] | | | [place] [address] | + + + | Home Phone [...] Team Providers + +------+ + | Care Gold Leaf Printer Name | Role | Phone | + [...] | | | | | Nick [address] [place], | | | | | | [place] [address] | | | | | | [phone] | | | | | | | [...] + + + | [facility] | [address] | [place] [address] | | | LAB-MICRO | | | | + + + + + UA, DIPSTICK ONLY (09/07/2003 1:41 AM PST) + + [...] Performed At | + + + | [id number] Specimen volume <12ml; microscopic not standardized. | [facility] | | | DEPARTMENT OF | | | PATHOLOGY | + + + + + + + + | Performing | Address | City/State/Zipcode | Phone Number | | Organization | | | | + + + + + | [facility] DEPARTMENT OF | [address] [facility] | [place] [address] | | | PATHOLOGY | [address] | | | + + + + + | [place] DEPARTMENT OF | [address] [facility] | [facility] [place] [address] | | | PATHOLOGY | [address] [...] Performed At | + + + | [id number] Specimen volume <12ml; microscopic not standardized. | [facility] | | | DEPARTMENT OF | | | PATHOLOGY | + + + + + + + + | Performing | Address | City/State/Zipcode | Phone Number | | Organization | | | | + + + + + | [facility] DEPARTMENT | [address] | [place] [address] | | | PATHOLOGY | [address] | | | + + + + + | [facility] | [address] | [place] [address] | | | PATHOLOGY | [address] | | | + + + + + documented in this encounter Visit Diagnoses Not on filedocumented in this encounter"
--- OUTSIDE RECORDS SUMMARY | ~2020-05-17 | XMS | Clinical Summary ---
Demographics + + + | Address | [address] [facility] | | | [place] [address] | + + + | Home Phone [...] Team Providers + +------+ + | Care Adaptive Physical Educator Name | Role | Phone | + +------+ + | No Pcp Per Patient | PCP | Unavailable | + +------+ + Source Comments VALERY is fully live on both [facility] and 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 | 03/31/20 | | | Medica | | | [place] | | 18-Pre | | | id | | | [place] | | sent | | | | + +--------+ +--------+ + +--------+ | [facility] | [facility] | [id number] | 03/31/20 | [phone] | [address] | HMO | | HEALTH PLAN | ADULT | | 13-Pre | 7 | [id number] | | | | | | sent | | [place] | | | | | | | | [address] | | + +--------+ +--------+ + +--------+ [...] Isi | raine/Sunny | | 1985 | [phone] | [place] | | | ana | | | 8 (Home) | [address] | + +--------+ +--------+ + + | Ivana An | Person | Self | [birth year] | | [address] | | Isi | raine/Sunny | | 1985 | [phone] | [address] [place] | | | ana | | | 8 ([place]) | [address] | + +--------+ +--------+ + +
--- OUTSIDE RECORDS SUMMARY | ~2020-05-17 | XMS | Encounter Summary ---
Demographics + + + | Address | [address] [facility] | | | [place] [address] | + + + | Home Phone | | + + + | Preferred Language | Unknown | + + + | Marital Status | Single | + + + | Alevism Affiliation | NON | + + + [...] Team Providers + +------+ + | Care Patent Law Specialist Name | Role | Phone | + +------+ + | No Pcp Per Patient | PCP | Unavailable | + +------+ + Encounter Details +--------+ + + + + | Date | Type | Department | Care Team | Description | +--------+ + + + + | 12/11/ | Results | Epic at [facility] | Filiberto Ricketts, | | | 2011 | Only | [address] | [facility] | | | | | [place], [place] | Clinic [address] | | | | | [address] | [address] | | | | | | [place] [address] | | | | | | [phone] | | | | | | | [...] SERUM | Female reference range: | | [facility] | | | | | | [...] [place] | | | LAB | | [address] | | + + + + + | [facility] | [address] | [place], [place] | | | LAB | | [address] | | + + + + + [...] [place] | | | LAB | | [address] | | + + + + + | [facility] | [address] | [place], [place] | | | LAB | | [address] | | + + + + + documented in this encounter Visit Diagnoses Not on filedocumented in this encounter"
--- OUTSIDE RECORDS SUMMARY | ~2020-05-17 | XMS | Encounter Summary ---
Demographics + + + | Address | [address] | | | [place] [address] | + + + | Home Phone | | + + + | Preferred Language | Unknown | + + + | Marital Status | Single | + + + | Tenriism Affiliation | NON | + + + [...] Team Providers + +------+ + | Care Body Finisher Name | Role | Phone | + +------+ + | No Pcp Per Patient | PCP | Unavailable | + +------+ + Encounter Details +--------+ + + + + | Date | Type | Department | Care Team | Description | +--------+ + + + + | 04/08/ | ED Progress | Epic at [facility] | Jill Das, | ED Progress Note | | 2013 | | [address] | [address] | | | | Note-Transc | [place], [place] | [place], [place] | | | | handy | [address] | [address] | | | | | | | [...]
--- OUTSIDE RECORDS SUMMARY | ~2020-05-17 | XMS | Encounter Summary ---
Demographics + + + | Address | [address] | | | [place] [address] | + + + | Home Phone | | + + + | Preferred Language | Unknown | + + + | Marital Status | Single | + + + | Quaker Affiliation | NON | + + + [...] Team Providers + +------+ + | Care Track Repair Person Name | Role | Phone | + [...]
--- OUTSIDE RECORDS SUMMARY | ~2020-05-17 | XMS | Encounter Summary ---
Demographics + + + | Address | [address] [facility] | | | [place] [address] | + + + | Home Phone | | + + + | Preferred Language | Unknown | + + + | Marital Status | Single | + + + | Yazdanism Affiliation | NON | + + + [...] Team Providers + +------+ + | Care Plater Production Name | Role | Phone | + +------+ + | No Pcp Per Patient | PCP | Unavailable | + +------+ + Encounter Details +--------+ + + + + | Date | Type | Department | Care Team | Description | +--------+ + + + + | 08/15/ | Results | Epic at [facility] | Other, Faculty | | | 2011 | Only | [address] | [phone] | | | | | [place], [place] | | | | | | [address] | | | +--------+ + + + [...] | BASIC METABOLIC SET | Routin | 08/16/2012 | | Results for this | | (NA, K, CL, TCO2, | e | 12:18 AM | | procedure are in the | | BUN, CR, GLU, CA) | | PST | | results section. | + +--------+ + + + | UA DIPSTICK 10 DIP | Routin | 08/15/2012 | | Results for this | | W/O MICRO | e | 11:12 PM | | procedure are in the | | (AUTOMATED), POC | | PST | | results section. | + +--------+ + + + | CBC W/DIFF, NO | Routin | 08/15/2012 | | Results for this | | REFLEX | e | 11:05 PM | | procedure are in the | | | | PST | | results section. | + +--------+ + + + documented in this encounter Results BASIC METABOLIC SET (NA, K, CL, TCO2, BUN, CR, GLU, CA) (08/16/2012 12:18 AM PST) + +-------+ + + + | Component | Value | Ref Range | Performed | Pathologist | | | | | At | Signature | + +-------+ + + + | GLUCOSE, | 89 | 70 - 100 mg/dL | [facility] | | | SERUM | | | [facility] | | + +-------+ + + + | UREA | 10 | 7 - 22 mg/dL | [facility] | | | NITROGEN, | | | [facility] | | | SERUM | | | | | + +-------+ + + + | CREATININE | 0.6 | 0.5 - 1.2 mg/dL | [facility] | | | SERUM | | | [facility] | | + +-------+ + + + | BUN/CREATIN | 17 | 8 - 25 ratio | [facility] | | | INE RATIO | | | [facility] | | + +-------+ + + + | EGFR | >60 | >=60 | [facility] | | | - | | mL/min/1.73m2 | [facility] | | | [facility] | | | | | + +-------+ [...] +-------+ + + + | POTASSIUM | 4.1 | 3.4 - 5.0 mEq/L | [facility] [...] +-------+ + + + | CALCIUM, | 8.5 | 8.5 - 10.5 | [facility] | [...] [facility] | [address] | [place], [place] | | | LAB | | [address] | | + + + + + | [facility] | [address] | [place], [place] | | | LAB | | [address] | | + + + + + UA DIPSTICK 10 DIP W/O MICRO (AUTOMATED), POC (08/15/2012 11:12 PM PST) + + + + + [...] + + + | KETONES (UA | Trace (A) | Negative mg/dL | [facility] | | | DIP), POC | | | [facility] | | + + + + + + | SPECIFIC | 1.025 | 1.003 - 1.029 | [facility] | | | GRAVITY (UA | | | [facility] | | | DIP), POC | | | | | + + + + + + | BLOOD (UA | Large (A) | Negative | [facility] [...] [place] | | | LAB | | [address] | | + + + + + | [facility] | [address] | [place], [place] | | | LAB | | [address] | | + + + + + CBC W/DIFF, NO REFLEX (08/15/2012 11:05 PM PST) + + + + + + | Component | Value | Ref Range | Performed | Pathologist | | | | | At | Signature | + + + + + + | WHITE CELL | 13.1 (H) | 4.5 - 10.5 | [facility] | | | COUNT | | x10(3)/mcL | [facility] | | + + + + + + | RED CELL | 4.59 | 4.20 - 5.40 | [facility] | | | COUNT | | x10(6)/mcL | [facility] | | + + + + + + | HEMOGLOBIN | 13.4 | 12.0 - 16.0 | [facility] | | | | | gm/dL | [facility] | | + + + + + + | HEMATOCRIT | 39.1 | 37.0 - 47.0 % | [facility] | | | | | | [facility] | | + + + + + + | MCV | 85.3 | 80.0 - 100.0 fL | [facility] | | | | | | [facility] | | + + + + + + | MCH | 29.1 | 27.0 - 34.0 pg | [facility] | | | | | | [facility] | | + + + + + + | MCHC | 34.2 | 32.0 - 36.0 | [facility] | | | | | gm/dL | [facility] | | + + + + + + | RDW | 13.5 | 11.5 - 14.5 % | [facility] | | | | | | [facility] | | + + + + + + | PLATELET | 202 | 150 - 400 | [facility] | | | COUNT | | x10(3)/mcL | [facility] | | + + + + + + | MPV | 9.9 | 7.4 - 10.4 fL | [facility] | | | | | | [facility] | | + + + + + + | NEUTROPHIL | 70.7 | 40.2 - 78.0 % | [facility] | | | % | | | [facility] | | + + + + + + | LYMPHOCYTE | 21.0 | 15.5 - 49.1 % | [facility] | | | % | | | [facility] | | + + + + + + | MONOCYTE % | 6.2 | 1.7 - 8.9 % | [facility] | | | | | | [facility] | | + + + + + + | EOS % | 1.4 | 0.0 - 5.2 % | [facility] | | | | | | [facility] | | + + + + + + | BASO % | 0.7 | 0.0 - 2.0 % | [facility] | | | | | | [facility] | | + + + + + + | NEUTROPHIL | 9.2 (H) | 0.9 - 7.7 | [facility] | | | # | | x10(3)/mcL | [facility] | | + + + + + + | LYMPHOCYTE | 2.7 | 1.0 - 3.4 | [facility] | | | # | | x10(3)/mcL | [facility] | | + + + + + + | MONOCYTE # | 0.8 (H) | 0.1 - 0.6 | [facility] [...] [facility] | [address] | [place], [place] | | | LAB | | [address] | | + + + + + | [facility] | [address] | [place], [place] | | | LAB | | [address] | | + + + + + documented in this encounter Visit Diagnoses Not on filedocumented in this encounter"
--- OUTSIDE RECORDS SUMMARY | ~2020-05-17 | XMS | Encounter Summary ---
Demographics + + + | Address | [address] [facility] | | | [place] [address] | + + + | Home Phone | | + + + | Preferred Language | Unknown | + + + | Marital Status | Single | + + + | Temple Affiliation | NON | + + + [...] Team Providers + +------+ + | Care Repairer Welding Systems And Equipment Name | Role | Phone | + +------+ + | No Pcp Per Patient | PCP | Unavailable | + +------+ + Encounter Details +--------+ + + + + | Date | Type | Department | Care Team | Description | +--------+ + + + + | 05/08/ | ED Progress | Epic at [facility] | Zonia, | ED Progress Note | | 2014 | | [address] | Emmanuel Waddell MD | | | | Note-Transc | [place], [place] | [facility] | | | | [facility] | [address] | [facility] [address] | [address] | | | | | | [place] [address] | | | | | | [phone] | | | | | | | [...]
--- OUTSIDE RECORDS SUMMARY | ~2020-05-17 | XMS | Encounter Summary ---
Demographics + + + | Address | [address] | | | [place] [address] | + + + | Home Phone [...] Team Providers + +------+ + | Care Regional Business Development Manager Name | Role | Phone | [...] + + | 03/27/ | Emergency | [facility] Emergency | John Olivas, | | | 2011 - | | Department [address] | [address] | | | | | [address] | [address] | | | 03/28/ | | [facility] | [place], [place] | | | 2011 | | [place], [place] | [address] | | | | | [address] | [phone] | | | | | [phone] | | | +--------+ + + + [...] Disorder: After Your Visit", log into your Livonia Locksmith account at [email or web address].. You can enter R087 in the Mastodon C Library" search box. Not on Livonia Locksmith? Review the Solar Notiont section of your After Visit Summary for directions on ho w to sign up. [phone] FIXO. Care instructions adapted under license by [facility] & Science [place]. This care instruction is for use with your licensed healthcar e professional. If you have questions about a medical condition or this instruction, always ask your healthcare professional. FIXO disclaims any warranty or liabili ty for your use of this information. Content Version: 9.3.25896; Last Revised: March 28, 2011 Urinary Tract [...] Women: After Your Visit", log into your Biodirection account at [email or web address].. You can enter K848 in the InvestCloud" se arch box. Not on Liv[employer] Locksmith? Review the Solar Notiont section of your After Visit Summary for directions on inna w to sign up. 1156-4159 FIXO. Care instructions adapted under license by [facility] & [facility]. This care instruction is for use with your licensed healthfitaborate professional. If you have questions about a medical condition or this instruction, always ask your healthcare professional. FIXO disclaims any warranty or liabili ty for your use of this information. Content Version: 9.3.24102; Last Revised: February 14, 2011 documented in [...] NW | | | | | | [address] | | | | | | [place], [place] | | | | | | [address] | | | | + + + + + + + + | Specimen | + + | | + + + + + + + | Performing | Address | City/State/Zipcode | Phone Number | | Organization | | | | + + + + + | [facility] | [address] | [place] [address] | | | LAB-MICRO | | | [...] + + + + + | [facility] DEPARTMENT OF | [address] | [place] [address] | | | PATHOLOGY | [address] [...] DEPARTMENT OF | [address] | [place] [address] | | | PATHOLOGY | [address] [...] | + + + + + | [facility] | [address] | [place] [address] | | | PATHOLOGY | [address] [...] DEPARTMENT OF | [address] | [place] [address] | | | PATHOLOGY | [address] [...] ([address]) | [facility] | | [facility] [place] [address] | REGIONAL | | [place] [address] | LABORATORY | + + + + + + + + | Performing | Address | City/State/Zipcode | Phone Number | | Organization | | | | + + + + + | [facility] | [address] | [place] [address] | | | LABORATORY | | | [...] DEPARTMENT OF | [address] | [place] [address] | | | PATHOLOGY | [address] [...] | | | DEPARTMENT | | | QATARI | | | OF | | | [...] DEPARTMENT OF | [address] | [place] [address] | | | PATHOLOGY | [address] [...] + + + + | [place] DEPARTMENT | [address] | [place] [address] | | | PATHOLOGY | [address] | | | + + + + + UAYEIMI ONLY (03/27/2012 11:00 PM PDT) + + [...] DEPARTMENT OF | [address] | [place] [address] | | | PATHOLOGY | [address] [...] + | [place] DEPARTMENT OF | [address] | [place] [address] | | | PATHOLOGY | [address] [...] | + + + + + | [facility] | [address] | [place] [address] | | | PATHOLOGY | [address] [...] | | | | ONCE, 1 dose, [facility] 03/28/12 at 0100 | | AM PDT | | | | + +--------+ +--------+------+------+ +---+---+ | | | +---+---+ documented in this encounter
--- OUTSIDE RECORDS SUMMARY | ~2020-05-17 | XMS | Encounter Summary ---
Demographics + + + | Address | [address] | | | [place] [address] | + + + | Home Phone | | + + + | Preferred Language | Unknown | + + + | Marital Status | Single | + + + | Shinto Affiliation | NON | + + + [...] Team Providers + +------+ + | Care Load Builder Name | Role | Phone | + [...] | | | | | Nick Soria [place], | | | | | | [place] [address] | | | | | | [phone] | | | | | | | [...] + + + | [facility] | [address] | [place] [address] | | | LAB-MICRO | | | [...] Performed At | + + + | [id number] Specimen volume <12ml; microscopic not standardized. | [facility] | | | DEPARTMENT OF | | | PATHOLOGY | + + + + + + + + | Performing | Address | City/State/Zipcode | Phone Number | | Organization | | | | + + + + + | [facility] DEPARTMENT OF | [address] | [place] [address] | | | PATHOLOGY | [address] | | | + + + + + | [place] DEPARTMENT OF | [address] | [place] [address] | | | PATHOLOGY | [address] [...] Performed At | + + + | [id number] Specimen volume <12ml; microscopic not standardized. | [facility] | | | DEPARTMENT OF | | | PATHOLOGY | + + + + + + + + | Performing | Address | City/State/Zipcode | Phone Number | | Organization | | | | + + + + + | [facility] DEPARTMENT | [address] | [place] [address] | | | PATHOLOGY | [address] | | | + + + + + | [facility] | [address] | [place] [address] | | | PATHOLOGY | [address] | | | + + + + + documented in this encounter Visit Diagnoses Not on filedocumented in this encounter"
--- OUTSIDE RECORDS SUMMARY | ~2020-05-17 | XMS | Encounter Summary ---
Demographics + + + | Address | [address] | | | [place] [address] | + + + | Home Phone [...] Author + + + | Author | [facility] | + + + | Organization | [facility] | + + + | Address | Unknown | + + + | Phone | Unavailable | + + + Support +------+ +---------+ + | Name | Relationship | Address | Phone | +------+ +---------+ + | None | ECON | Unknown | Unavailable | +------+ +---------+ + Care Team Providers + +------+ + | Care Network Planner Name | Role | Phone | + [...] + + | 04/26/ | Emergency | [facility] Emergency | Filiberto Solis MD | | | 2012 - | | Department [address] | [address] | | | | | [address] | [address] | | | 04/27/ | | [facility] | [place], [place] | | | 2012 | | [place], [place] | [address] | | | | | [address] | [phone] | | | | | [phone] | | | +--------+ + + + [...] Women: After Your Visit", log into your Med ePad account at [email or web address]. You can enter [id number] in the Yoomba" Tandem Transit arch box. Not on [employer]CD [employer]arma? Review the TCD Pharma section of your After Visit Summary for directions on ho w to sign up. [phone] Peecho. Care instructions adapted under license by [facility] [employer] & [facility]. This care instruction is for use with your licensed Panève professional. If you have questions about a medical condition or this instruction, always ask your healthcare professional. Peecho disclaims any warranty or liabili ty for your use of this information. Content Version: 9.7.215454; Last Revised: February 14, 2011 documented in [...] | + + + + + | [facility] | [address] | [place] [address] | | | SERVICES, CORE | [address] [...] | + + + + + | [facility] | [address] | [place] [address] | | | SERVICES, LEROY | [address] [...] | | | LABORATORY | | | SLOVENIAN | | | SERVICES, | | | [...] | + + + + + | [facility] | [address] | [place] [address] | | | SERVICES, CORE | PARK [...] [facility] | [address] | [place] [address] | | | SERVICES, CORE | NICK [...] | + + + + + | [facility] | [address] | [place] [address] | | | SERVICES, CORE | NICK [...] [facility] | [address] | [place] [address] | | | SERVICES, CORE | NICK [...] | | | LABORATORY | | | LEROY CHA | + + + + + + + + | Performing | Address | City/State/Zipcode | Phone Number | | Organization | | | | + + + + + | [facility] LABORATORY | [address] | [place] [address] | | | SERVICESLEROY | [address] [...] | | | Final CULTURE | | [place] | | | | RESULT:Multiple | | [...] + | [facility] | [address] | [place] [address] | | | [facility] | | | | + + + [...] | | | | ONCE, 1 dose, [place] 04/27/13 at 0045 | | AM PDT [...]
--- OUTSIDE RECORDS SUMMARY | ~2020-05-17 | XMS | Encounter Summary ---
Demographics + + + | Address | [address] | | | [place] [address] | + + + | Home Phone | | + + + | Preferred Language | Unknown | + + + | Marital Status | Single | + + + | Christianity Affiliation | NON | + + + [...] Team Providers + +------+ + | Care Plant Health Manager Name | Role | Phone | + +------+ + | No Pcp Per Patient | PCP | Unavailable | + +------+ + Encounter Details +--------+ + + + + | Date | Type | Department | Care Team | Description | +--------+ + + + + | 08/29/ | ED Progress | Epic at [facility] | Liban Manzo | ED Progress Note | | 2015 | | [address] | MD Ahsan [address] | | | | Note-Transc | [place], [place] | [facility] | | | | handy | [address] | [place], [place] | | | | | | [address] | | | | | | [phone] | | | | | | | [...]
--- OUTSIDE RECORDS SUMMARY | ~2020-05-17 | XMS | Encounter Summary ---
Demographics + + + | Address | [address] | | | [place] [address] | + + + | Home Phone [...] Team Providers + +------+ + | Care Grain Elevator Worker Name | Role | Phone | + +------+ + | No Pcp Per Patient | PCP | Unavailable | + +------+ + Encounter Details +--------+ + + + + | Date | Type | Department | Care Team | Description | +--------+ + + + + | 10/30/ | Results | Epic at [facility] | José Luis Schultz MD | | | 2011 | Only | [address] | [address] | | | | | [place], [place] | [place] [address] | | | | | [address] | [phone] | | | | | | | [...] mL/min/1.73m2 | [facility] | | | EGYPTIAN | | | | | + +---------+ [...] [facility] | [address] | [place], [place] | | | LAB | | [address] | | + + + + + | [facility] | [address] | [place], [place] | | | LAB | | [address] | | + + + + + [...] [facility] | [address] | [place], [place] | | | LAB | | [address] | | + + + + + | [facility] | [address] | [place], [place] | | | LAB | | [address] | | + + + + + documented in this encounter Visit Diagnoses Not on filedocumented in this encounter"
--- OUTSIDE RECORDS SUMMARY | ~2020-05-17 | XMS | Encounter Summary ---
Demographics + + + | Address | [address] | | | [place] [address] | + + + | Home Phone [...] Providers + +------+ + | Care Home Decorator Name | Role | Phone | + +------+ + | No Pcp Per Patient | PCP | Unavailable | + +------+ + Encounter Details +--------+ + + + + | Date | Type | Department | Care Team | Description | +--------+ + + + + | 08/28/ | ED Progress | Epic at [facility] | Manas Johnson, PRACHI | ED Progress Note | | 2015 | | [address] [facility] | [facility] | | | | Note-Transc | [place], [place] | Hospital [address] | | | | ribed | [address] | Ave [place], [place] | | | | | | [address] | | | | | | | [...]
--- OUTSIDE RECORDS SUMMARY | ~2020-05-17 | XMS | Encounter Summary ---
Demographics + + + | Address | [address] | | | [place] [address] | + + + | Home Phone [...] + + + | Author | [facility] | + + + | Organization | [facility] | + + + | Address | Unknown | + + + | Phone | Unavailable | + + + Support +------+ +---------+ + | Name | Relationship | Address | Phone | +------+ +---------+ + | None | ECON | Unknown | Unavailable | +------+ +---------+ + Care Team Providers + +------+ + | Care Career Development Associate Name | Role | Phone | + +------+ + | [facility], | PCP | | | Ref | [...]
--- OUTSIDE RECORDS SUMMARY | ~2020-05-17 | XMS | Encounter Summary ---
Demographics + + + | Address | [address] | | | [place] [address] | + + + | Home Phone | | + + + | Preferred Language | Unknown | + + + | Marital Status | Single | + + + | Mosque Affiliation | NON | + + + | Race | White | + + + | Ethnic Group | Not or | + + + Author + + + | Author | [facility] | + + + | Organization | [facility] | + + + | Address | Unknown | + + + | Phone | Unavailable | + + + Support +------+ +---------+ + | Name | Relationship | Address | Phone | +------+ +---------+ + | None | ECON | Unknown | Unavailable | +------+ +---------+ + Care Team Providers + +------+ + | Care Turbo Generator Oiler Name | Role | Phone | + [...] + + | 03/27/ | Emergency | [facility] Emergency | John Olivas, | | | 2011 - | | Department [address] | [address] | | | | | [address] | [address] | | | 03/28/ | | [facility] | [place], [place] | | | 2011 | | [place], [place] | [address] | | | | | [address] | [phone] | | | | | [phone] | | | +--------+ + + + [...] Disorder: After Your Visit", log into your FORMTEK account at [email or web address]/GB Environmental. You can enter R087 in the Bucmi Library" search box. Not on FORMTEK? Review the Eayunt section of your After Visit Summary for directions on ho w to sign up. [phone] Adfaces. Care instructions adapted under license by [facility] & Science [place]. This care instruction is for use with your licensed healthcar e professional. If you have questions about a medical condition or this instruction, always ask your healthcare professional. Adfaces disclaims any warranty or liabili ty for your use of this information. Content Version: 9.3.69973; Last Revised: March 28, 2011 Urinary Tract [...] Women: After Your Visit", log into your [employer] account at [email or web address]/GB Environmental. You can enter [id number] in the ThermaSource" se arch box. Not on FORMTEK? Review the Eayunt section of your After Visit Summary for directions on inna w to sign up. 7626-1106 Adfaces. Care instructions adapted under license by [facility] & [facility]. This care instruction is for use with your licensed healthGenomeQuest professional. If you have questions about a medical condition or this instruction, always ask your healthcare professional. Adfaces disclaims any warranty or liabili ty for your use of this information. Content Version: 9.3.50906; Last Revised: February 14, 2011 documented in [...] NW | | | | | | [address] | | | | | | [place], [place] | | | | | | [address] | | | | + + + + + + + + | Specimen | + + | | + + + + + + + | Performing | Address | City/State/Zipcode | Phone Number | | Organization | | | | + + + + + | [facility] | [address] | [place] [address] | | | LAB-MICRO | | | [...] | + + + + + | [facility] DEPARTMENT OF | [address] | [place] [address] | | | PATHOLOGY | [address] [...] DEPARTMENT OF | [address] | [place] [address] | | | PATHOLOGY | [address] [...] [facility] | [address] | [place] [address] | | | PATHOLOGY | [address] [...] DEPARTMENT OF | [address] | [place] [address] | | | PATHOLOGY | [address] [...] ([address] Lab) | [facility] | | [facility] [place] [address] | REGIONAL | | [place] [address] | LABORATORY | + + + + + + + + | Performing | Address | City/State/Zipcode | Phone Number | | Organization | | | | + + + + + | [facility] | [address] | [place] [address] | | | LABORATORY | | | [...] DEPARTMENT OF | [address] | [place] [address] | | | PATHOLOGY | [address] [...] | | | DEPARTMENT | | | [facility] | | | OF | | | [...] DEPARTMENT OF | [address] | [place] [address] | | | PATHOLOGY | [address] [...] [place] DEPARTMENT | [address] | [place] [address] | | | PATHOLOGY | [address] [...] DEPARTMENT OF | [address] | [place] [address] | | | PATHOLOGY | [address] [...] DEPARTMENT OF | [address] | [place] [address] | | | PATHOLOGY | [address] [...] [facility] | [address] | [place] [address] | | | PATHOLOGY | [address] [...] | | | | ONCE, 1 dose, [facility] 03/28/12 at 0100 | | AM PDT | | | | + +--------+ +--------+------+------+ +---+---+ | | | +---+---+ documented in this encounter
--- OUTSIDE RECORDS SUMMARY | ~2020-05-17 | XMS | Encounter Summary ---
Demographics + + + | Address | [address] | | | [place] [address] | + + + | Home Phone [...] Team Providers + +------+ + | Care Extracorporeal Technician Name | Role | Phone | [...] | Care [address] | [place] [address] | initial encounter | | | | [address] | [address] | (Primary Dx); Sprain | | | | [place] [address] | [place], [place] | of interphalangeal | | | | [phone] | [address] | joint of left little | | | | | [phone] | finger, initial | | | | [...] doctor if you can take an o [id number] medicine. If your doctor recommends exercises, do [...] "Finger Sprain: Care Instructions", log into your Supply Vision account at [email or web address]. You can enter F155 in the "Pixelated Library" search box. Not on Supply Vision? Review the Supply Vision section of your After Visit Summary for directions on ho w to sign up. Current as of: June 20, 2018 Content Version: 11.9 3671-5302 Webcom. Care instructions adapted under license by [facility] [employer] It & Science [place]. If you have questions about a medical condition or this instr uction, always ask your healthcare professional. Webcom disclaims any chana anty or liability for [...] Amanda Barroso DO - 02/10/2019 12:05 PM [id number] patient presents with injury to he r [...] Note | + --------+ | Service Account, Radiant Res In Interface - 02/10/2019 2:45 PM [address] | [place] | [phone] | | | | [address] | | + + + + + documented in this encounter Visit Diagnoses + + | Diagnosis | + + | Finger injury, left, initial encounter - Primary | + + | Sprain of interphalangeal joint of left little finger, initial encounter | + + documented in this encounter
--- OUTSIDE RECORDS SUMMARY | ~2020-05-17 | XMS | Encounter Summary ---
Demographics + + + | Address | [address] | | | [place] [address] | + + + | Home Phone [...] Team Providers + +------+ + | Care Junior Copywriter Name | Role | Phone | + +------+ + | No Pcp Per Patient | PCP | Unavailable | + +------+ + Encounter Details +--------+ + + + + | Date | Type | Department | Care Team | Description | +--------+ + + + + | 10/22/ | Results | Epic at [facility] | Manas Johnson NP | | | 2012 | Only | [address] [place] [address] | | | | | [place], [place] | [facility] [address] | | | | | [address] | [place], [place] | | | | | | [address] | | | | | | | [...] | + --------+ | Interface, Lab Results [facility] - 05/24/2017 6:23 PM PDT KNEE LEFT [...] [facility] | [address] | [place] | [phone] | | | | [address] | | + + + + + documented in this encounter Visit Diagnoses Not on filedocumented in this encounter"
--- OUTSIDE RECORDS SUMMARY | ~2020-05-17 | XMS | Encounter Summary ---
Demographics + + + | Address | [address] | | | [place] [address] | + + + | Home Phone [...] Team Providers + +------+ + | Care Power Driven Brush Maker Name | Role | Phone | + +------+ + | No Pcp Per Patient | PCP | Unavailable | + +------+ + Encounter Details +--------+ + + + + | Date | Type | Department | Care Team | Description | +--------+ + + + + | 08/15/ | Results | Epic at [facility] | Other, Faculty | | | 2011 | Only | [address] | [phone] | | | | | [place], [place] | | | | | | [address] | | | +--------+ + + + [...] mL/min/1.73m2 | [facility] | | | ERITREAN | | | | | + +-------+ [...] [facility] | [address] | [place], [place] | | | LAB | | [address] | | + + + + + | [facility] | [address] | [place], [place] | | | LAB | | [address] | | + + + + + [...] [place] | | | LAB | | [address] | | + + + + + | [facility] | [address] | [place], [place] | | | LAB | | [address] | | + + + + + [...] [facility] | [address] | [place], [place] | | | LAB | | [address] | | + + + + + | [facility] | [address] | [place], [place] | | | LAB | | [address] | | + + + + + documented in this encounter Visit Diagnoses Not on filedocumented in this encounter"
--- OUTSIDE RECORDS SUMMARY | ~2020-05-17 | XMS | Encounter Summary ---
Demographics + + + | Address | [address] | | | [place] [address] | + + + | Home Phone | | + + + | Preferred Language | Unknown | + + + | Marital Status | Single | + + + | Anglican Affiliation | NON | + + + [...] Team Providers + +------+ + | Care Line Up Worker Name | Role | Phone | + +------+ + | No Pcp Per Patient | PCP | Unavailable | + +------+ + Encounter Details +--------+ + + + + | Date | Type | Department | Care Team | Description | +--------+ + + + + | 11/06/ | Results | Epic at [facility] | Other, Faculty | | | 2012 | Only | [address] | [phone] | | | | | [place], [place] | | | | | | [address] | | | +--------+ + + + [...] | + + | Interface, Lab Results [facility] - 05/24/2017 7:54 PM PDT [facility] [...] RADIOLOGY | [address] | [place] | [phone] | | | | [address] | | + + + + + [...] | + + | Interface, Lab Results [facility] - 05/24/2017 7:53 PM PDT [facility] [...] RADIOLOGY | [address] | [place], [place] | [phone] | | | | [address] | | + + + + + [...] | + + | Interface, Lab Results [facility] - 05/24/2017 7:53 PM PDT ABDOMINAL | [...] | [facility] | [address] | [place] | [phone] | | | | [address] | | + + + + + documented in this encounter Visit Diagnoses Not on filedocumented in this encounter"
--- OUTSIDE RECORDS SUMMARY | ~2020-05-17 | XMS | Encounter Summary ---
Demographics + + + | Address | [address] | | | [place] [address] | + + + | Home Phone [...] Team Providers + +------+ + | Care Sales Assoc Name | Role | Phone | + [...] | [address] | [place] [address] | initial encounter | | | | [address] | [address] | (Primary Dx); Sprain | | | | [place] [address] | [place], [place] | of interphalangeal | | | | [phone] | [address] | joint of left little | | | | | [phone] | finger, initial | | | | [...] doctor if you can take an o [id number] medicine. If your doctor recommends exercises, do [...] "Finger Sprain: Care Instructions", log into your ProspX account at [email or web address]. You can enter [email or web address] in the "[employer] Library" search box. Not on ProspX? Review the ProspX section of your After Visit Summary for directions on ho w to sign up. Current as of: June 20, 2018 Content Version: 11.9 7801-1502 [employer]. Care instructions adapted under license by [facility] [employer]. If you have questions about a medical condition or this instr uction, always ask your healthcare professional. [employer] disclaims any chana anty or liability for [...] Amanda Barroso DO - 02/10/2019 12:05 PM [id number] patient presents with injury to he r [...] [address] | [place] | [phone] | | | | [address] | | + + + + + documented in this encounter Visit Diagnoses + + | Diagnosis | + + | Finger injury, left, initial encounter - Primary | + + | Sprain of interphalangeal joint of left little finger, initial encounter | + + documented in this encounter
--- OUTSIDE RECORDS SUMMARY | ~2020-05-17 | XMS | Encounter Summary ---
Demographics + + + | Address | [address] | | | [place] [address] | + + + | Home Phone [...] Team Providers + +------+ + | Care Ambulance Driver Paramedic Name | Role | Phone | + +------+ + | No Pcp Per Patient | PCP | Unavailable | + +------+ + Encounter Details +--------+ + + + + | Date | Type | Department | Care Team | Description | +--------+ + + + + | 04/24/ | ED Progress | Epic at [facility] | Reginald Castellano, | ED Progress Note | | 2014 | | [address] | MD [address] [facility] | | | | Note-Transc | [place], [place] | [address] | | | | ribbolivar | [address] | [place], [place] | | | | | | [address] | | | | | | [phone] | | | | | | | [...]
--- OUTSIDE RECORDS SUMMARY | ~2020-05-17 | XMS | Encounter Summary ---
Demographics + + + | Address | [address] | | | [place] [address] | + + + | Home Phone [...] Team Providers + +------+ + | Care Entry Level Electrician Name | Role | Phone | + +------+ + | No Pcp Per Patient | PCP | Unavailable | + +------+ + Encounter Details +--------+ + + + + | Date | Type | Department | Care Team | Description | +--------+ + + + + | 04/21/ | ED Progress | Epic at [facility] | Brennon, | ED Progress Note | | 2013 | | [address] | Erick Chowdhury DO [address] | | | | Note-Transc | [place], [place] | [facility] | | | | ribbolivar | [address] | Rd [place], [place] | | | | | | [address] | | | | | | [phone] | | | | | | | [...]
--- OUTSIDE RECORDS SUMMARY | ~2020-05-17 | XMS | Encounter Summary ---
Demographics + + + | Address | [address] | | | [place] [address] | + + + | Home Phone [...] Team Providers + +------+ + | Care Senior Storage Administrator Name | Role | Phone | + +------+ + | No Pcp Per Patient | PCP | Unavailable | + +------+ + Encounter Details +--------+ + + + + | Date | Type | Department | Care Team | Description | +--------+ + + + + | 09/03/ | Results | Epic at [facility] | Manas Johnson NP | | | 2014 | Only | [address] [place] [address] | | | | | [place], [place] | [facility] [address] | | | | | [address] | [place], [place] | | | | | | [address] | | | | | | | [...] | + + | Interface, Lab Results [facility] - 06/13/2017 10:17 PM PDT RIGHT [...] RADIOLOGY | [address] | [place], [place] | [phone] | | | | [address] | | + + + + + documented in this encounter Visit Diagnoses Not on filedocumented in this encounter"
--- OUTSIDE RECORDS SUMMARY | ~2020-05-17 | XMS | Encounter Summary ---
Demographics + + + | Address | [address] [facility] [facility] | | | [place] [address] | + + + | Home Phone [...] Team Providers + +------+ + | Care Professional Wrestler Name | Role | Phone | + +------+ + | No Pcp Per Patient | PCP | Unavailable | + +------+ + Encounter Details +--------+ + + + + | Date | Type | Department | Care Team | Description | +--------+ + + + + | 09/05/ | ED Progress | Epic at [facility] | Reginald Castellano, | ED Progress Note | | 2015 | | [address] | MD [address] [facility] | | | | Note-Transc | [place], [place] | [address] | | | | ribbolivar | [address] | [place], [place] | | | | | | [address] | | | | | | [phone] | | | | | | | [...]
--- OUTSIDE RECORDS SUMMARY | ~2020-05-17 | XMS | Encounter Summary ---
Demographics + + + | Address | [address] [facility] [facility] | | | [place] [address] | + + + | Home Phone | | + + + | Preferred Language | Unknown | + + + | Marital Status | Single | + + + | Episcopal Affiliation | NON | + + + [...] Team Providers + +------+ + | Care Metal Burnisher Name | Role | Phone | + +------+ + | No Pcp Per Patient | PCP | Unavailable | + +------+ + Encounter Details +--------+ + + + + | Date | Type | Department | Care Team | Description | +--------+ + + + + | 11/06/ | Results | Epic at [facility] | Other, Faculty | | | 2012 | Only | [address] | [phone] | | | | | [place], [place] | | | | | | [address] | | | +--------+ + + + [...] | + + | Interface, Lab Results [facility] - 05/24/2017 7:54 PM PDT PELVIC [...] RADIOLOGY | [address] | [place] | [phone] | | | | [address] | | + + + + + [...] RADIOLOGY | [address] | [place], [place] | [phone] | | | | [address] | | + + + + + [...] | + + | Interface, Lab Results [facility] - 05/24/2017 7:53 PM PDT ABDOMINAL [...] [address] | [place] | [phone] | | | | [address] | | + + + + + documented in this encounter Visit Diagnoses Not on filedocumented in this encounter"
--- OUTSIDE RECORDS SUMMARY | ~2020-05-17 | XMS | Encounter Summary ---
Demographics + + + | Address | [address] [facility] | | | [place] [address] | + + + | Home Phone [...] Team Providers + +------+ + | Care Tool Tender Name | Role | Phone | [...] [address] | MD [address] [facility] | | | | Note-Transc | [place], [place] | [facility] | | | | handy | [address] | [place], [place] | | | | | | [address] | | | | | | [phone] | | | | | | | [...]
--- OUTSIDE RECORDS SUMMARY | ~2020-05-17 | XMS | Encounter Summary ---
Demographics + + + | Address | [address] | | | [place] [address] | + + + | Home Phone [...] Team Providers + +------+ + | Care Account Executive Software Sales Name | Role | Phone | + +------+ + | No Pcp Per Patient | PCP | Unavailable | + +------+ + Encounter Details +--------+ + + + + | Date | Type | Department | Care Team | Description | +--------+ + + + + | 12/11/ | Results | Epic at [facility] | Filiberto Ricketts, | | | 2011 | Only | [address] | [facility] | | | | | [place], [place] | Clinic [address] | | | | | [address] | [address] | | | | | | [place] [address] | | | | | | [phone] | | | | | | | [...] SERUM | Female reference range: | | [facility] | | | | | | [...] [place] | | | LAB | | [address] | | + + + + + | RUBA/JULIAO | [address] | [place], [place] | | | LAB | | [address] | | + + + + + [...] [place] | | | LAB | | [address] | | + + + + + | RUBA/HIRAM | [address] | [place], [place] | | | LAB | | [address] | | + + + + + documented in this encounter Visit Diagnoses Not on filedocumented in this encounter"
--- OUTSIDE RECORDS SUMMARY | ~2020-05-17 | XMS | Encounter Summary ---
Demographics + + + | Address | [address] | | | [place] [address] | + + + | Home Phone [...] Author + + + | Author | [facility] | + + + | Organization | [facility] | + + + | Address | Unknown | + + + | Phone | Unavailable | + + + Support +------+ +---------+ + | Name | Relationship | Address | Phone | +------+ +---------+ + | None | ECON | Unknown | Unavailable | +------+ +---------+ + Care Team Providers + +------+ + | Care Assistant Hall Director Name | Role | Phone | + +------+ + | [facility], | PCP | | | Ref | [...]
--- OUTSIDE RECORDS SUMMARY | ~2020-05-17 | XMS | Encounter Summary ---
Demographics + + + | Address | [address] | | | [place] [address] | + + + | Home Phone | | + + + | Preferred Language | Unknown | + + + | Marital Status | Single | + + + | Buddhist Affiliation | NON | + + + [...] Team Providers + +------+ + | Care Unindentured Apprentice Name | Role | Phone | + +------+ + | No Pcp Per Patient | PCP | Unavailable | + +------+ + Encounter Details +--------+ + + + + | Date | Type | Department | Care Team | Description | +--------+ + + + + | 03/14/ | ED Progress | Epic at [facility] | [place], | ED Progress Note | | 2014 | | [address] | Emmanuel Waddell MD | | | | Note-Transc | [place], [place] | [facility] | | | | [facility] | [address] | [facility] [address] | | | [address] | | | | | | [place] [address] | | | | | | [phone] | | | | | | | [...]
--- OUTSIDE RECORDS SUMMARY | ~2020-05-17 | XMS | Encounter Summary ---
Demographics + + + | Address | [address] | | | [place] [address] | + + + | Home Phone [...] Author + + + | Author | [facility] | + + + | Organization | [facility] | + + + | Address | Unknown | + + + | Phone | Unavailable | + + + Support +------+ +---------+ + | Name | Relationship | Address | Phone | +------+ +---------+ + | None | ECON | Unknown | Unavailable | +------+ +---------+ + Care Team Providers + +------+ + | Care Quote Clerk Name | Role | Phone | + +------+ + | [facility], | PCP | | | Ref [...]
--- OUTSIDE RECORDS SUMMARY | ~2020-05-17 | XMS | Encounter Summary ---
Demographics + + + | Address | [address] [facility] [address] [facility] | | | [place] [address] | + + + | Home Phone [...] Team Providers + +------+ + | Care Cardiac Care Unit Nurse Name | Role | Phone | + +------+ + | No Pcp Per Patient | PCP | Unavailable | + +------+ + Encounter Details +--------+ + + + + | Date | Type | Department | Care Team | Description | +--------+ + + + + | 05/03/ | ED Progress | Epic at [facility] | Meghan Ramos, | ED Progress Note | | 2013 | | [address] | MD [address] [facility] | | | | Note-Transc | [place], [place] | [facility] | | | | handy | [address] | [place], [place] | | | | | | [address] | | | | | | [phone] | | | | | | | [...]
--- OUTSIDE RECORDS SUMMARY | ~2020-05-17 | XMS | Encounter Summary ---
Demographics + + + | Address | [address] | | | [place] [address] | + + + | Home Phone | | + + + | Preferred Language | Unknown | + + + | Marital Status | Single | + + + | Presybeterian Affiliation | NON | + + + [...] Providers + +------+ + | Care Manager Sourcing Name | Role | Phone | + +------+ + | No Pcp Per Patient | PCP | Unavailable | + +------+ + Encounter Details +--------+ + + + + | Date | Type | Department | Care Team | Description | +--------+ + + + + | 04/06/ | Results | Epic at [facility] | Meghan Ramos, | | | 2013 | Only | [address] | [address] [facility] | | | | | [place], [place] | [facility] | | | | | [address] | [place], [place] | | | | | | [address] | | | | | | [phone] | | | | | | | [...] | + --------+ | Interface, Lab Results [facility] - 06/12/2017 3:35 PM PDT RIGHT [...] RADIOLOGY | [address] | [place], [place] | [phone] | | | | [address] | | + + + + + [...] RADIOLOGY | [address] | [place], [place] | [phone] | | | | [address] | | + + + + + documented in this encounter Visit Diagnoses Not on filedocumented in this encounter"
== END 2020-05-17 17:13 | disposition home or self-care (01) ==
LOC: ED 14:13
DX: R10.31 Right lower quadrant pain (principal); R19.7 Diarrhea, unspecified; Z87.891 Personal history of nicotine dependence; Z88.5 Allergy status to narcotic agent; Z88.8 Allergy status to other drugs, medicaments and biological substances
CPT/HCPCS: 74177; 80053; 81001; 83690; 84703; 85025; 96374; 99284-25; J2405; Q9967

== ENCOUNTER 2023-03-02 21:23 | Emergency (ER) | payer MEDICAID ==
[~2023-03-02] VITALS: Ht 165.1 cm; Wt 141.0 kg
[2023-03-02] MEDS ORDERED: PENICILLIN V P500 MG PO (21:51)
[2023-03-02 22:01] VITALS: BP 141/86
== END 2023-03-02 22:01 | disposition home or self-care (01) ==
LOC: ED 21:23
DX: K02.9 Dental caries, unspecified (principal); E66.01 Morbid (severe) obesity due to excess calories; Z68.43 Body mass index [BMI] 50.0-59.9, adult; Z87.891 Personal history of nicotine dependence; Z88.5 Allergy status to narcotic agent; Z88.6 Allergy status to analgesic agent; Z88.8 Allergy status to other drugs, medicaments and biological substances
CPT/HCPCS: 99282